=== PATIENT | male | born 1935 | race Caucasian/White ===

== ENCOUNTER → 2018-07-22 10:30 | Outpatient (CLI) | payer MEDICARE, OTHER, SELFPAY ==
[2018-07-22 10:52] LABS: Abs Immature Grans 0.01 k/cumm (0.0-0.09); Absolute Basophil Count 0.02 k/cumm (0.0-0.2); Absolute Eosinophil Count 0.02 k/cumm (0.0-0.7); Absolute Lymphocyte Count 1.09 k/cumm (1.2-3.4); Absolute Monocyte Count 0.69 k/cumm (0.11-0.7); Absolute Neutrophil Count 4.62 k/cumm (1.2-6.7); Basophils % 0.3; Eosinophils % 0.3; HCT 37.6 % (40.0-50.0); HGB 12.5 g/dL (13.5-17.5); Immature Grans % 0.2; Lymphocytes % 16.9; Mean Corp. HGB Concentration 33.2 g/dL (32.0-36.0); Mean Corpuscular Hemoglobin 32.4 pg (27.0-33.0); Mean Corpuscular Volume 97.4 fL (80-95); Mean Platelet Volume 9.1 fL (8.0-11.0); Monocytes % 10.7; Neutrophils % 71.6; Platelet Count 280 x1000/uL (130-400); RBC 3.86 m/cumm (4.50-6.00); RBC Distribution Width 15.7 % (11.8-14.1); White Blood Cell Count 6.45 k/cumm (4.4-10.8)
[2018-07-22 11:04] LABS: ALT 20 U/L (12-78); AST 23 U/L (15-37); Albumin 3.5 g/dL (3.4-5.0); Alkaline Phosphatase 114 U/L (46-116); Anion Gap 7.2 mmol/L (3-11); BUN 12 mg/dL (7-18); Bilirubin, Total 1.3 mg/dL (0.2-1.0); CO2 26.8 mmol/L (21.0-32.0); CREATININE 1.07 mg/dL (0.70-1.30); Calcium 8.9 mg/dL (8.5-10.1); Chloride 103 mmol/L (98-107); Glucose 96 mg/dL (70-100); Potassium 4.3 mmol/L (3.5-5.1); Sodium 137 mmol/L (136-145)
[2018-07-23 10:53] LABS: PSA, Diagnostic 1.2 ng/ml (0-6.5)
[2018-07-24 09:51] LABS: Testosterone, Total <7.0 ng/dL (240-950)
== END ==
PROVIDERS: PCP Family Medicine; Visit Provider Internal Medicine
DX: C61 Malignant neoplasm of prostate (principal)
CPT/HCPCS: 36415; 80053; 84403; 84153; 85025

== ENCOUNTER → 2018-07-27 13:20 | Outpatient (CLI) | payer MEDICARE, OTHER, SELFPAY ==
[2018-07-27 14:04] LABS: Bilirubin, Direct 0.19 mg/dL (0.00-0.20); Bilirubin, Total 0.9 mg/dL (0.2-1.0)
== END ==
PROVIDERS: PCP Family Medicine; Visit Provider Nurse Practitioner Adult Health
DX: C61 Malignant neoplasm of prostate (principal); C79.51 Secondary malignant neoplasm of bone
CPT/HCPCS: 36415; 82247; 82248

== ENCOUNTER 2018-08-16 11:05 | Outpatient (CLI) | payer MEDICARE, OTHER, SELFPAY ==
[2018-08-16 11:35] LABS: Abs Immature Grans 0.03 k/cumm (0.0-0.09); Absolute Basophil Count 0.02 k/cumm (0.0-0.2); Absolute Eosinophil Count 0.01 k/cumm (0.0-0.7); Absolute Neutrophil Count 4.92 k/cumm (1.2-6.7); Basophils % 0.3; Eosinophils % 0.1; HCT 36.5 % (40.0-50.0); HGB 12.1 g/dL (13.5-17.5); Immature Grans % 0.4; Lymphocytes % 20.6; Mean Corp. HGB Concentration 33.2 g/dL (32.0-36.0); Mean Corpuscular Hemoglobin 32.3 pg (27.0-33.0); Mean Corpuscular Volume 97.3 fL (80-95); Mean Platelet Volume 9.3 fL (8.0-11.0); Neutrophils % 67.6; Platelet Count 253 x1000/uL (130-400); RBC 3.75 m/cumm (4.50-6.00); RBC Distribution Width 15.9 % (11.8-14.1); White Blood Cell Count 7.28 k/cumm (4.4-10.8)
[2018-08-16 11:53] LABS: ALT 24 U/L (12-78); AST 25 U/L (15-37); Albumin 3.3 g/dL (3.4-5.0); Alkaline Phosphatase 111 U/L (46-116); Anion Gap 7.2 mmol/L (3-11); BUN 16 mg/dL (7-18); CO2 28.8 mmol/L (21.0-32.0); CREATININE 0.94 mg/dL (0.70-1.30); Calcium 8.6 mg/dL (8.5-10.1); Chloride 105 mmol/L (98-107); Glucose 97 mg/dL (70-100); Potassium 4.4 mmol/L (3.5-5.1); Sodium 141 mmol/L (136-145); Total Protein 6.7 g/dL (6.4-8.2)
[2018-08-17 10:45] LABS: PSA, Diagnostic 0.8 ng/ml (0-6.5)
[2018-08-18 04:30] LABS: Testosterone, Total <7.0 ng/dL (240-950)
== END 2018-08-16 11:25 ==
PROVIDERS: PCP Family Medicine; Visit Provider Internal Medicine
DX: C61 Malignant neoplasm of prostate (principal)
CPT/HCPCS: 36415; 80053; 84403; 84153; 85025

== ENCOUNTER 2018-09-06 10:09 | Outpatient (CLI) | payer MEDICARE, OTHER, SELFPAY ==
[2018-09-06 10:41] LABS: Abs Immature Grans 0.03 k/cumm (0.0-0.09); Absolute Basophil Count 0.03 k/cumm (0.0-0.2); Absolute Eosinophil Count 0.01 k/cumm (0.0-0.7); Absolute Lymphocyte Count 1.25 k/cumm (1.2-3.4); Absolute Monocyte Count 0.84 k/cumm (0.11-0.7); Absolute Neutrophil Count 5.15 k/cumm (1.2-6.7); Basophils % 0.4; Eosinophils % 0.1; HCT 37.9 % (40.0-50.0); HGB 12.5 g/dL (13.5-17.5); Immature Grans % 0.4; Lymphocytes % 17.1; Mean Corpuscular Hemoglobin 32.3 pg (27.0-33.0); Mean Corpuscular Volume 97.9 fL (80-95); Mean Platelet Volume 9.4 fL (8.0-11.0); Monocytes % 11.5; Neutrophils % 70.5; Platelet Count 239 x1000/uL (130-400); RBC 3.87 m/cumm (4.50-6.00); RBC Distribution Width 16.8 % (11.8-14.1); White Blood Cell Count 7.31 k/cumm (4.4-10.8)
[2018-09-06 10:55] LABS: ALT 30 U/L (12-78); AST 34 U/L (15-37); Albumin 3.2 g/dL (3.4-5.0); Alkaline Phosphatase 102 U/L (46-116); Anion Gap 6.8 mmol/L (3-11); BUN 15 mg/dL (7-18); CO2 28.2 mmol/L (21.0-32.0); Calcium 8.4 mg/dL (8.5-10.1); Chloride 105 mmol/L (98-107); Glucose 97 mg/dL (70-100); Potassium 4.3 mmol/L (3.5-5.1); Sodium 140 mmol/L (136-145); Total Protein 6.5 g/dL (6.4-8.2)
[2018-09-07 10:13] LABS: PSA, Diagnostic 0.7 ng/ml (0-6.5)
[2018-09-07 23:40] LABS: Testosterone, Total <7.0 ng/dL (240-950)
== END 2018-09-06 10:29 ==
PROVIDERS: PCP Family Medicine; Visit Provider Internal Medicine
DX: C61 Malignant neoplasm of prostate (principal); C79.51 Secondary malignant neoplasm of bone
CPT/HCPCS: 36415; 80053; 84403; 84153; 85025

== ENCOUNTER 2018-09-24 00:47 | Outpatient (CLI) | payer MEDICARE, OTHER, SELFPAY ==
--- NOTE | 2018-09-24 08:28 | DI.CT_ITS ---
SYMPTOMS/DIAGNOSIS: PROSTATE CA, C61, H/O METASTATIC PROSTATE CA, ON TREATMENT , ? STATUS OF DISEASE ABDOMEN AND PELVIS CT: CT examination of the abdomen and pelvis was performed with a bolus infusion of 100 cc of Omnipaque 350 and ingestion of dilute barium. Examination is compared with the previous chest, abdomen and pelvis CT of 01/11/18. The patient has known prostatic carcinoma with multiple bony metastases. On today' s examination, there are many more visible sclerotic metastases throughout thoracic and lumbar spine and pelvis in comparison with the previous examination. Images obtained through the lung bases show a 9 mm in diameter nodule associated with the minor fissure on the right, which is stable since previous chest CT of 2010. Liver and spleen appear normal. Pancreas is largely fatty replaced. Gallbladder and bile ducts are CT normal. Presumed duodenal diverticulum noted. Abdominal aorta is of normal diameter and no major vascular abnormality is seen. Adrenals and kidneys appear normal. No evidence of hydronephrosis or urinary tract calcification. No focal bowel pathology. No evidence of obstruction. Abdominal wall shows no evidence of significant hernia. No significant adenopathy identified in the abdomen or pelvis. CONCLUSION: 1. Marked interval increase in prominence of numerous sclerotic bony metastases with many more sclerotic lesions visible on today's examination in comparison with CT of 01/11/2018. 2. No other evidence of remote metastatic disease in a patient with a history of prostate carcinoma.
--- NOTE | 2018-09-24 08:45 | DI.NM_ITS ---
SYMPTOMS/DIAGNOSIS: PROSTATE CA, C61, H/O METASTATIC, ON TREATMENT, ? RESPONSE BONE SCAN: Whole body bone scan was performed with intravenous infusion of 25 mCi of technetium 99 labelled methylene diphosphonate. Comparison with most recent previous study of 04/06/2018 again shows numerous high uptake lesions throughout the axial skeleton. Generally, the lesions are of decreased intensity in comparison with the previous examination. Fewer lesions are visible. Please note that the CT examination obtained today showed markedly increased sclerosis of multiple lesions and those findings in conjunction with the bone scan findings suggest increased healing of multiple lesions with decreased lytic activity of the bony lesions. CONCLUSION: Interval decrease in intensity and visible number of widespread bony metastatic lesions. Please see above discussion.
[2018-09-24 08:58] LABS: Abs Immature Grans 0.02 k/cumm (0.0-0.09); Absolute Basophil Count 0.01 k/cumm (0.0-0.2); Absolute Eosinophil Count 0.01 k/cumm (0.0-0.7); Absolute Lymphocyte Count 1.14 k/cumm (1.2-3.4); Absolute Monocyte Count 0.52 k/cumm (0.11-0.7); Absolute Neutrophil Count 2.57 k/cumm (1.2-6.7); Basophils % 0.2; Eosinophils % 0.2; HCT 37.9 % (40.0-50.0); HGB 12.2 g/dL (13.5-17.5); Immature Grans % 0.5; Lymphocytes % 26.7; Mean Corp. HGB Concentration 32.2 g/dL (32.0-36.0); Mean Corpuscular Hemoglobin 31.3 pg (27.0-33.0); Mean Corpuscular Volume 97.2 fL (80-95); Mean Platelet Volume 9.3 fL (8.0-11.0); Monocytes % 12.2; Neutrophils % 60.2; Platelet Count 203 x1000/uL (130-400); RBC Distribution Width 16.7 % (11.8-14.1); White Blood Cell Count 4.27 k/cumm (4.4-10.8)
[2018-09-24 09:10] LABS: ALT 30 U/L (12-78); AST 33 U/L (15-37); Albumin 3.1 g/dL (3.4-5.0); Alkaline Phosphatase 82 U/L (46-116); Anion Gap 8.2 mmol/L (3-11); BUN 15 mg/dL (7-18); Bilirubin, Total 0.8 mg/dL (0.2-1.0); CO2 28.8 mmol/L (21.0-32.0); CREATININE 0.88 mg/dL (0.70-1.30); Calcium 8.6 mg/dL (8.5-10.1); Chloride 104 mmol/L (98-107); Glucose 97 mg/dL (70-100); Potassium 4.2 mmol/L (3.5-5.1); Sodium 141 mmol/L (136-145); Total Protein 6.3 g/dL (6.4-8.2)
[2018-09-24] MEDS: Omnipaque 350 MG/ML 100 ML BTL IJ (11:10)
[2018-09-27 10:12] LABS: PSA, Diagnostic 0.6 ng/ml (0-6.5)
[2018-09-27 21:52] LABS: Testosterone, Total <7.0 ng/dL (240-950)
== END 2018-09-24 01:07 ==
PROVIDERS: Internal Medicine; PCP Family Medicine; Visit Provider Nurse Practitioner Family
DX: C61 Malignant neoplasm of prostate (principal); C79.51 Secondary malignant neoplasm of bone; Z79.899 Other long term (current) drug therapy
CPT/HCPCS: 36415; 78306; 80053; 84403; 74177; 84153; 85025; J3490

== ENCOUNTER 2018-09-29 14:17 | Outpatient (CLI) | payer MEDICARE, OTHER, SELFPAY ==
--- NOTE | 2018-09-29 09:31 | DI.US_ITS ---
SYMPTOM/DIAGNOSIS: ARM EDEMA, R60.0, ? DVT RIGHT UPPER EXTREMITY ULTRASOUND: The right jugular vein, subclavian vein and brachial vein compress and reveal normal color flow. The right basilic vein compresses proximal to the mid segment but from the mid to distal portion of the vein, we observed visible thrombus and edema is noted from the proximal right forearm to the posterior portion of the hand. The cephalic vein proximal to distal compresses well and color flow is identified. SUMMARY: Findings consistent with DVT involving the basilic vein as noted above.
[2018-09-29] MEDS: Omnipaque 350 MG/ML 100 ML BTL IJ (11:22)
--- NOTE | 2018-09-29 11:47 | DI.CT_ITS ---
SYMPTOM/DIAGNOSIS: RESTAGING EXAM, METASTATIC PROSTATE CA, AND GIST TUMOR, C61, C79.[address]: The images are compared with a prior chest CT of 01/11/18. When compared with the previous study, interval development of innumerable metastases involving the dorsal spine is demonstrated. Also there are multiple metastatic deposits in the ribs, not seen on the previous study. Regions of bilateral lower lobe scarring and right upper lobe scarring are identified. There is no evidence of a discrete pleural based, intrapulmonary or hilar mass or evidence of hilar or mediastinal adenopathy. There is no evidence of a pericardial effusion. The heart is not enlarged. Atherosclerotic changes are noted in the aorta without evidence of an aneurysm. There is no evidence of a pleural effusion. Coronary artery calcification is identified. SUMMARY: Innumerable metastases involving the dorsal spine are identified. Again noted are findings consistent with DISH. Multiple rib lesions are identified as well.
== END 2018-09-29 14:37 ==
PROVIDERS: PCP Family Medicine; Visit Provider Internal Medicine
DX: C79.51 Secondary malignant neoplasm of bone (principal); C61 Malignant neoplasm of prostate
CPT/HCPCS: 71260; 93971; J3490

== ENCOUNTER 2018-10-11 13:07 | Outpatient (CLI) | payer MEDICARE, OTHER, SELFPAY ==
[2018-10-11 13:37] LABS: Absolute Basophil Count 0.01 k/cumm (0.0-0.2); Absolute Eosinophil Count 0.07 k/cumm (0.0-0.7); Absolute Lymphocyte Count 1.22 k/cumm (1.2-3.4); Absolute Monocyte Count 0.49 k/cumm (0.11-0.7); Absolute Neutrophil Count 3.36 k/cumm (1.2-6.7); Basophils % 0.2; Eosinophils % 1.4; HCT 40.2 % (40.0-50.0); HGB 12.9 g/dL (13.5-17.5); Lymphocytes % 23.7; Mean Corp. HGB Concentration 32.1 g/dL (32.0-36.0); Mean Corpuscular Hemoglobin 31.4 pg (27.0-33.0); Mean Corpuscular Volume 97.8 fL (80-95); Mean Platelet Volume 9.6 fL (8.0-11.0); Monocytes % 9.5; Neutrophils % 65.2; Platelet Count 188 x1000/uL (130-400); RBC 4.11 m/cumm (4.50-6.00); RBC Distribution Width 16.6 % (11.8-14.1); White Blood Cell Count 5.15 k/cumm (4.4-10.8)
[2018-10-11 14:23] LABS: ALT 22 U/L (12-78); AST 31 U/L (15-37); Albumin 3.3 g/dL (3.4-5.0); Alkaline Phosphatase 105 U/L (46-116); Anion Gap 7.7 mmol/L (3-11); BUN 16 mg/dL (7-18); Bilirubin, Total 1.5 mg/dL (0.2-1.0); CO2 28.3 mmol/L (21.0-32.0); Calcium 8.9 mg/dL (8.5-10.1); Chloride 106 mmol/L (98-107); Glucose 131 mg/dL (70-100); Potassium 4.4 mmol/L (3.5-5.1); Sodium 142 mmol/L (136-145); Total Protein 6.7 g/dL (6.4-8.2)
[2018-10-12 09:54] LABS: PSA, Diagnostic 0.6 ng/ml (0-6.5)
[2018-10-14 03:12] LABS: Testosterone, Total <7.0 ng/dL (240-950)
== END 2018-10-11 13:27 ==
PROVIDERS: PCP Family Medicine; Visit Provider Nurse Practitioner Family
DX: C61 Malignant neoplasm of prostate (principal)
CPT/HCPCS: 36415; 80053; 84403; 84153; 85025

== ENCOUNTER 2018-11-15 11:38 | Outpatient (CLI) | payer MEDICARE, OTHER, SELFPAY ==
[2018-11-15 12:36] LABS: Absolute Basophil Count 0.01 k/cumm (0.0-0.2); Absolute Eosinophil Count 0.07 k/cumm (0.0-0.7); Absolute Lymphocyte Count 1.61 k/cumm (1.2-3.4); Absolute Monocyte Count 0.47 k/cumm (0.11-0.7); Absolute Neutrophil Count 2.49 k/cumm (1.2-6.7); Basophils % 0.2; Eosinophils % 1.5; HCT 42.2 % (40.0-50.0); HGB 14.3 g/dL (13.5-17.5); Lymphocytes % 34.6; Mean Corp. HGB Concentration 33.9 g/dL (32.0-36.0); Mean Corpuscular Hemoglobin 32.3 pg (27.0-33.0); Mean Corpuscular Volume 95.3 fL (80-95); Mean Platelet Volume 10.1 fL (8.0-11.0); Monocytes % 10.1; Neutrophils % 53.6; Platelet Count 191 x1000/uL (130-400); RBC 4.43 m/cumm (4.50-6.00); RBC Distribution Width 14.2 % (11.8-14.1); White Blood Cell Count 4.65 k/cumm (4.4-10.8)
[2018-11-15 12:49] LABS: ALT 25 U/L (12-78); AST 23 U/L (15-37); Albumin 3.6 g/dL (3.4-5.0); Alkaline Phosphatase 125 U/L (46-116); Anion Gap 11.6 mmol/L (3-11); BUN 20 mg/dL (7-18); Bilirubin, Total 0.9 mg/dL (0.2-1.0); CO2 29.4 mmol/L (21.0-32.0); Calcium 9.3 mg/dL (8.5-10.1); Chloride 102 mmol/L (98-107); Glucose 105 mg/dL (70-100); Potassium 4.1 mmol/L (3.5-5.1); Sodium 143 mmol/L (136-145); Total Protein 7.3 g/dL (6.4-8.2)
[2018-11-16 09:56] LABS: PSA, Diagnostic 0.6 ng/ml (0-6.5)
[2018-11-20 14:42] LABS: Testosterone, Total <7.0 ng/dL (240-950)
== END 2018-11-15 11:58 ==
PROVIDERS: PCP Family Medicine; Visit Provider Nurse Practitioner Family
DX: C61 Malignant neoplasm of prostate (principal)
CPT/HCPCS: 36415; 80053; 84403; 84153; 85025

== ENCOUNTER 2018-12-13 10:23 | Outpatient (CLI) | payer MEDICARE, OTHER, SELFPAY ==
[2018-12-13 10:48] LABS: Absolute Basophil Count 0.01 k/cumm (0.0-0.2); Absolute Eosinophil Count 0.03 k/cumm (0.0-0.7); Basophils % 0.2; Eosinophils % 0.5; HCT 42.5 % (40.0-50.0); HGB 14.6 g/dL (13.5-17.5); Lymphocytes % 18.1; Mean Corp. HGB Concentration 34.4 g/dL (32.0-36.0); Mean Corpuscular Hemoglobin 32.5 pg (27.0-33.0); Mean Corpuscular Volume 94.7 fL (80-95); Mean Platelet Volume 9.9 fL (8.0-11.0); Monocytes % 5.4; Neutrophils % 75.8; Platelet Count 194 x1000/uL (130-400); RBC 4.49 m/cumm (4.50-6.00); RBC Distribution Width 14.8 % (11.8-14.1); White Blood Cell Count 5.54 k/cumm (4.4-10.8)
[2018-12-13 11:33] LABS: ALT 47 U/L (12-78); AST 37 U/L (15-37); Albumin 3.9 g/dL (3.4-5.0); Alkaline Phosphatase 129 U/L (46-116); BUN 17 mg/dL (7-18); Bilirubin, Total 1.5 mg/dL (0.2-1.0); Calcium 9.6 mg/dL (8.5-10.1); Chloride 104 mmol/L (98-107); Estimated GFR 58.11 (mL/min/1.73m2); Glucose 95 mg/dL (70-100); Potassium 3.8 mmol/L (3.5-5.1); Sodium 141 mmol/L (136-145); Total Protein 7.2 g/dL (6.4-8.2)
[2018-12-14 11:04] LABS: PSA, Diagnostic 0.4 ng/ml (0-6.5)
[2018-12-16 16:13] LABS: Testosterone, Total <7.0 ng/dL (240-950)
== END 2018-12-13 10:43 ==
PROVIDERS: PCP Family Medicine; Visit Provider Nurse Practitioner Family
DX: C61 Malignant neoplasm of prostate (principal)
CPT/HCPCS: 36415; 80053; 84403; 84153; 85025

== ENCOUNTER 2018-12-16 15:42 | Outpatient (CLI) | payer MEDICARE, OTHER, SELFPAY ==
--- NOTE | 2018-12-16 14:30 | DI.RAD_ITS ---
SYMPTOMS/DIAGNOSIS: PAIN ON BOTTOM OF FOOT NEAR HEEL, DIFFICULTY WALKING, H/O PROSTATE CA AND CHEMOTHERAPY, ? OCCULT FX LEFT FOOT: Three views. No acute or healing fracture or dislocation is seen. There is a small spur at the plantar surface of the calcaneus. There are mild changes of osteoarthritis in the foot. The soft tissues are unremarkable. IMPRESSION: 1. No evidence of an acute or healing fracture or dislocation. 2. Mild osteoarthritis.
== END 2018-12-16 16:02 ==
PROVIDERS: PCP Family Medicine; Visit Provider Family Medicine
DX: M79.672 Pain in left foot (principal); R26.2 Difficulty in walking, not elsewhere classified; Z92.21 Personal history of antineoplastic chemotherapy; Z85.46 Personal history of malignant neoplasm of prostate; M19.072 Primary osteoarthritis, left ankle and foot; M77.32 Calcaneal spur, left foot
CPT/HCPCS: 73630

== ENCOUNTER 2018-12-27 00:47 | Outpatient (CLI) | payer MEDICARE, OTHER, SELFPAY ==
[2018-12-27] MEDS: Breeza Beverage 473 ML BTL PO ×2 (09:43→09:44)
[2018-12-27] MEDS: Omnipaque 350 MG/ML 50 ML BTL IJ (09:44)
[2018-12-27] MEDS: Omnipaque 350 MG/ML 100 ML BTL IV (10:50)
--- NOTE | 2018-12-27 11:45 | DI.CT_ITS ---
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 There is a stable small area of nodularity or scarring in the right middle lobe. There is mild nodularity along the major fissure which appears stable. There are mild bilateral areas of linear scarring or atelectasis. Paraseptal emphysema and mild scarring is seen at the lung apices. No suspicious pulmonary nodules or adenopathy is seen. Numerous sclerotic lesions are seen throughout the spine and ribs. There is stable dilatation of the ascending aorta. The liver, spleen, pancreas, adrenals and kidneys are unremarkable. The stomach again shows an exophytic nodule near the fundus. No adenopathy is seen. The patient appears to be status post prostatectomy. There is mild bladder wall thickening and trabeculation. There are innumerable sclerotic bony lesions without gross interval change. IMPRESSION: Stable bony lesions. No evidence of pulmonary nodules or adenopathy in the abdomen or pelvis.
== END 2018-12-27 01:07 ==
PROVIDERS: PCP Family Medicine; Visit Provider Internal Medicine
DX: C61 Malignant neoplasm of prostate (principal); C49.A2 Gastrointestinal stromal tumor of stomach; R91.8 Other nonspecific abnormal finding of lung field; C79.51 Secondary malignant neoplasm of bone
CPT/HCPCS: 74177; 71260; J3490; Q9967

== ENCOUNTER 2019-01-04 13:04 | Outpatient (CLI) | payer MEDICARE, OTHER, SELFPAY ==
[2019-01-04 14:18] LABS: ALT 25 U/L (12-78); AST 25 U/L (15-37); Albumin 3.8 g/dL (3.4-5.0); Alkaline Phosphatase 115 U/L (46-116); Anion Gap 9.6 mmol/L (3-11); BUN 20 mg/dL (7-18); Bilirubin, Total 2.4 mg/dL (0.2-1.0); CO2 30.4 mmol/L (21.0-32.0); CREATININE 1.01 mg/dL (0.70-1.30); Calcium 9.4 mg/dL (8.5-10.1); Chloride 103 mmol/L (98-107); Glucose 111 mg/dL (70-100); Potassium 4.2 mmol/L (3.5-5.1); Sodium 143 mmol/L (136-145); Total Protein 7.2 g/dL (6.4-8.2)
[2019-01-04 15:29] LABS: Absolute Basophil Count 0.01 k/cumm (0.0-0.2); Absolute Eosinophil Count 0.03 k/cumm (0.0-0.7); Absolute Lymphocyte Count 1.41 k/cumm (1.2-3.4); Absolute Monocyte Count 0.33 k/cumm (0.11-0.7); Absolute Neutrophil Count 2.97 k/cumm (1.2-6.7); Basophils % 0.2; Eosinophils % 0.6; Lymphocytes % 29.7; Mean Corp. HGB Concentration 33.3 g/dL (32.0-36.0); Mean Corpuscular Hemoglobin 31.7 pg (27.0-33.0); Mean Platelet Volume 10.3 fL (8.0-11.0); Monocytes % 6.9; Neutrophils % 62.6; Platelet Count 205 x1000/uL (130-400); RBC 4.42 m/cumm (4.50-6.00); RBC Distribution Width 14.6 % (11.8-14.1); White Blood Cell Count 4.75 k/cumm (4.4-10.8)
[2019-01-05 09:16] LABS: PSA, Diagnostic 0.3 ng/ml (0-6.5)
[2019-01-07 14:34] LABS: Testosterone, Total <7.0 ng/dL (240-950)
== END 2019-01-04 13:24 ==
PROVIDERS: PCP Family Medicine; Visit Provider Nurse Practitioner Family
DX: C61 Malignant neoplasm of prostate (principal); C79.51 Secondary malignant neoplasm of bone
CPT/HCPCS: 80053; 84403; 84153; 85025

== ENCOUNTER 2019-02-01 09:44 | Outpatient (CLI) | payer MEDICARE, OTHER, SELFPAY ==
[2019-02-01 10:14] LABS: Abs Immature Grans 0.01 k/cumm (0.0-0.09); Absolute Basophil Count 0.01 k/cumm (0.0-0.2); Absolute Eosinophil Count 0.05 k/cumm (0.0-0.7); Absolute Lymphocyte Count 1.05 k/cumm (1.2-3.4); Absolute Monocyte Count 0.41 k/cumm (0.11-0.7); Absolute Neutrophil Count 2.95 k/cumm (1.2-6.7); Basophils % 0.2; Eosinophils % 1.1; HCT 39.1 % (40.0-50.0); HGB 13.4 g/dL (13.5-17.5); Immature Grans % 0.2; Lymphocytes % 23.4; Mean Corp. HGB Concentration 34.3 g/dL (32.0-36.0); Mean Corpuscular Hemoglobin 33.3 pg (27.0-33.0); Mean Corpuscular Volume 97.3 fL (80-95); Mean Platelet Volume 9.7 fL (8.0-11.0); Monocytes % 9.2; Neutrophils % 65.9; Platelet Count 189 x1000/uL (130-400); RBC 4.02 m/cumm (4.50-6.00); RBC Distribution Width 14.7 % (11.8-14.1); White Blood Cell Count 4.48 k/cumm (4.4-10.8)
[2019-02-01 10:30] LABS: ALT 23 U/L (12-78); AST 23 U/L (15-37); Albumin 3.5 g/dL (3.4-5.0); Alkaline Phosphatase 108 U/L (46-116); Anion Gap 5.4 mmol/L (3-11); BUN 15 mg/dL (7-18); Bilirubin, Total 1.9 mg/dL (0.2-1.0); CO2 33.6 mmol/L (21.0-32.0); CREATININE 1.05 mg/dL (0.70-1.30); Chloride 105 mmol/L (98-107); Glucose 99 mg/dL (70-100); Potassium 3.8 mmol/L (3.5-5.1); Sodium 144 mmol/L (136-145); Total Protein 6.8 g/dL (6.4-8.2)
[2019-02-02 11:15] LABS: PSA, Diagnostic 0.2 ng/ml (0-6.5)
[2019-02-03 22:28] LABS: Testosterone, Total <7.0 ng/dL (240-950)
== END 2019-02-01 10:04 ==
PROVIDERS: PCP Family Medicine; Visit Provider Internal Medicine
DX: C61 Malignant neoplasm of prostate (principal); C79.51 Secondary malignant neoplasm of bone
CPT/HCPCS: 36415; 80053; 84403; 84153; 85025

== ENCOUNTER 2019-03-28 16:03 | Outpatient (CLI) | payer MEDICARE, OTHER, SELFPAY ==
[2019-03-28 16:43] LABS: Abs Immature Grans 0.01 k/cumm (0.0-0.09); Absolute Basophil Count 0.01 k/cumm (0.0-0.2); Absolute Lymphocyte Count 1.74 k/cumm (1.2-3.4); Absolute Monocyte Count 0.45 k/cumm (0.11-0.7); Absolute Neutrophil Count 3.07 k/cumm (1.2-6.7); Basophils % 0.2; Eosinophils % 1.9; HCT 42.3 % (40.0-50.0); HGB 14.3 g/dL (13.5-17.5); Immature Grans % 0.2; Lymphocytes % 32.3; Mean Corp. HGB Concentration 33.8 g/dL (32.0-36.0); Mean Corpuscular Hemoglobin 33.2 pg (27.0-33.0); Mean Corpuscular Volume 98.1 fL (80-95); Mean Platelet Volume 9.9 fL (8.0-11.0); Monocytes % 8.4; Platelet Count 198 x1000/uL (130-400); RBC 4.31 m/cumm (4.50-6.00); RBC Distribution Width 13.6 % (11.8-14.1); White Blood Cell Count 5.38 k/cumm (4.4-10.8)
[2019-03-28 17:04] LABS: ALT 22 U/L (12-78); AST 20 U/L (15-37); Albumin 3.7 g/dL (3.4-5.0); Alkaline Phosphatase 92 U/L (46-116); Anion Gap 5.8 mmol/L (3-11); BUN 21 mg/dL (7-18); Bilirubin, Total 1.4 mg/dL (0.2-1.0); CO2 32.2 mmol/L (21.0-32.0); CREATININE 1.06 mg/dL (0.70-1.30); Calcium 9.2 mg/dL (8.5-10.1); Chloride 105 mmol/L (98-107); Glucose 102 mg/dL (70-100); Potassium 3.9 mmol/L (3.5-5.1); Sodium 143 mmol/L (136-145); Total Protein 7.1 g/dL (6.4-8.2)
[2019-03-30 11:08] LABS: PSA, Diagnostic 0.2 ng/ml (0-6.5)
[2019-04-04 12:13] LABS: Testosterone, Total <7.0 ng/dL (240-950)
== END 2019-03-28 16:23 ==
PROVIDERS: PCP Family Medicine
DX: C61 Malignant neoplasm of prostate (principal); C79.51 Secondary malignant neoplasm of bone
CPT/HCPCS: 36415; 80053; 84403; 84153; 85025

== ENCOUNTER 2019-04-29 01:19 | Outpatient (CLI) | payer MEDICARE, OTHER, SELFPAY ==
[2019-04-29] MEDS: Omnipaque 350 MG/ML 50 ML BTL IJ (10:13)
[2019-04-29] MEDS: Breeza Beverage 473 ML BTL PO ×2 (10:14)
[2019-04-29 10:47] LABS: ALT 20 U/L (12-78); AST 20 U/L (15-37); Albumin 3.7 g/dL (3.4-5.0); Alkaline Phosphatase 87 U/L (46-116); Anion Gap 4.3 mmol/L (3-11); BUN 17 mg/dL (7-18); Bilirubin, Total 2.1 mg/dL (0.2-1.0); CO2 31.7 mmol/L (21.0-32.0); CREATININE 0.88 mg/dL (0.70-1.30); Calcium 9.4 mg/dL (8.5-10.1); Chloride 105 mmol/L (98-107); Glucose 103 mg/dL (70-100); Sodium 141 mmol/L (136-145); Total Protein 6.9 g/dL (6.4-8.2)
[2019-04-29] MEDS: Omnipaque 350 MG/ML 100 ML BTL IJ (11:17)
[2019-04-29] MEDS: Normal Saline Flush 10 ML SYR IVP (11:19)
--- NOTE | 2019-04-29 11:20 | DI.CT_ITS ---
SYMPTOMS/DIAGNOSIS: METASTATIC PROSTATE CA AND GASTRIC GIST, RESTAGING, C49.A2, C61, C79.51 CT SCAN OF THE CHEST, ABDOMEN AND PELVIS: CT scan of the chest, abdomen and pelvis was performed following the uneventful administration of intravenous and oral contrast material. Comparison examinations 12/27/18, 09/29/18 and 09/24/18. CT SCAN OF THE ABDOMEN AND PELVIS: The liver is normal in size. No hepatic mass is seen. The portal, superior mesenteric and splenic veins are patent. The gallbladder is negative. There is no biliary ductal dilatation. There is no evidence of a pancreatic mass. Incidental note is made of a small duodenal diverticulum arising from the second portion of the duodenum. The spleen is unremarkable. There is no evidence of an adrenal mass. The kidneys show normal and symmetric enhancement. No evidence of a solid renal mass or obstruction. The urinary bladder is intact. There is again seen prostatic impingement on the base of the urinary bladder. This is unchanged. There is atherosclerosis of the abdominal aorta. No significant abdominal or pelvic adenopathy or pneumoperitoneum is seen. There is a trace amount of free fluid in the dependent portion of the pelvis. The area of nodularity along the fundus of the stomach is again seen and unchanged. There is diverticulosis of the colon but no evidence of acute diverticulitis. The bowel shows no evidence of obstruction or inflammation. No findings to suggest an acute appendicitis are present. There is again seen extensive osseous metastatic disease. IMPRESSION: Stable osseous metastatic disease. CT SCAN OF THE CHEST: There is atherosclerosis of the thoracic aorta. There is stable dilatation of the ascending aorta. The heart size is stable. No significant pericardial effusion is seen. No pleural effusion or pneumothorax is identified. No significant thoracic adenopathy is appreciated. No pleural effusion or pneumothorax is present. Paraseptal emphysematous changes are present in the lungs. There is a stable nodule in the right middle lobe. No new pulmonary nodules are seen. There is scarring in the lungs and scaring along the major fissure on the right. The tracheobronchial tree is unremarkable. Dependent atelectasis or scarring is seen in the lung bases. There are sclerotic foci in the bones consistent with osseous metastatic disease. Degenerative changes are seen in the spine.
== END 2019-04-29 01:39 ==
PROVIDERS: Internal Medicine; PCP Family Medicine; Visit Provider Internal Medicine Hematology & Oncology
DX: C61 Malignant neoplasm of prostate (principal); C49.A2 Gastrointestinal stromal tumor of stomach; C79.51 Secondary malignant neoplasm of bone; R91.1 Solitary pulmonary nodule; K57.30 Diverticulosis of large intestine without perforation or abscess without bleeding
CPT/HCPCS: 74177; 80053; 71260; J3490; Q9967

== ENCOUNTER 2019-06-23 09:26 | Outpatient (CLI) | payer MEDICARE, OTHER, SELFPAY ==
[2019-06-23 09:50] LABS: Abs Immature Grans 0.01 k/cumm (0.0-0.09); Absolute Basophil Count 0.01 k/cumm (0.0-0.2); Absolute Eosinophil Count 0.07 k/cumm (0.0-0.7); Absolute Lymphocyte Count 1.22 k/cumm (1.2-3.4); Absolute Monocyte Count 0.36 k/cumm (0.11-0.7); Absolute Neutrophil Count 4.03 k/cumm (1.2-6.7); Basophils % 0.2; Eosinophils % 1.2; HCT 39.6 % (40.0-50.0); HGB 13.2 g/dL (13.5-17.5); Immature Grans % 0.2; Lymphocytes % 21.4; Mean Corp. HGB Concentration 33.3 g/dL (32.0-36.0); Mean Corpuscular Hemoglobin 32.6 pg (27.0-33.0); Mean Corpuscular Volume 97.8 fL (80-95); Mean Platelet Volume 9.2 fL (8.0-11.0); Monocytes % 6.3; Neutrophils % 70.7; Platelet Count 189 x1000/uL (130-400); RBC 4.05 m/cumm (4.50-6.00)
[2019-06-23 09:59] LABS: ALT 29 U/L (12-78); AST 16 U/L (15-37); Albumin 3.8 g/dL (3.4-5.0); Alkaline Phosphatase 99 U/L (46-116); Anion Gap 5.9 mmol/L (3-11); BUN 19 mg/dL (7-18); Bilirubin, Total 1.3 mg/dL (0.2-1.0); CO2 31.1 mmol/L (21.0-32.0); CREATININE 0.89 mg/dL (0.70-1.30); Calcium 9.5 mg/dL (8.5-10.1); Chloride 104 mmol/L (98-107); Glucose 102 mg/dL (70-100); Potassium 4.2 mmol/L (3.5-5.1); Sodium 141 mmol/L (136-145); Total Protein 7.2 g/dL (6.4-8.2)
[2019-06-27 14:55] LABS: PSA, Diagnostic 0.2 ng/ml (0-6.5)
== END 2019-06-23 09:46 ==
PROVIDERS: PCP Family Medicine; Visit Provider Internal Medicine
DX: C61 Malignant neoplasm of prostate (principal); C79.51 Secondary malignant neoplasm of bone
CPT/HCPCS: 36415; 80053; 84153; 85025

== ENCOUNTER 2019-07-14 10:05 | Outpatient (CLI) | payer MEDICARE, OTHER, SELFPAY ==
[2019-07-14 10:37] LABS: Abs Immature Grans 0.01 k/cumm (0.0-0.09); Absolute Basophil Count 0.01 k/cumm (0.0-0.2); Absolute Eosinophil Count 0.06 k/cumm (0.0-0.7); Absolute Lymphocyte Count 1.57 k/cumm (1.2-3.4); Absolute Monocyte Count 0.42 k/cumm (0.11-0.7); Absolute Neutrophil Count 2.74 k/cumm (1.2-6.7); Basophils % 0.2; Eosinophils % 1.2; HCT 40.4 % (40.0-50.0); HGB 13.3 g/dL (13.5-17.5); Immature Grans % 0.2; Lymphocytes % 32.6; Mean Corp. HGB Concentration 32.9 g/dL (32.0-36.0); Mean Corpuscular Volume 97.3 fL (80-95); Mean Platelet Volume 9.7 fL (8.0-11.0); Monocytes % 8.7; Neutrophils % 57.1; Platelet Count 199 x1000/uL (130-400); RBC 4.15 m/cumm (4.50-6.00); RBC Distribution Width 14.4 % (11.8-14.1); White Blood Cell Count 4.81 k/cumm (4.4-10.8)
[2019-07-14 10:50] LABS: ALT 19 U/L (12-78); AST 13 U/L (15-37); Albumin 3.7 g/dL (3.4-5.0); Alkaline Phosphatase 92 U/L (46-116); Anion Gap 7.3 mmol/L (3-11); BUN 21 mg/dL (7-18); Bilirubin, Total 1.2 mg/dL (0.2-1.0); CO2 30.7 mmol/L (21.0-32.0); CREATININE 1.01 mg/dL (0.70-1.30); Calcium 9.1 mg/dL (8.5-10.1); Chloride 104 mmol/L (98-107); Glucose 103 mg/dL (70-100); Potassium 3.9 mmol/L (3.5-5.1); Sodium 142 mmol/L (136-145); Total Protein 7.1 g/dL (6.4-8.2)
[2019-07-15 10:42] LABS: PSA, Diagnostic 0.1 ng/ml (0-6.5)
[2019-07-16 16:52] LABS: Testosterone, Total <7.0 ng/dL (240-950)
== END 2019-07-14 10:25 ==
PROVIDERS: PCP Family Medicine; Visit Provider Internal Medicine
DX: C61 Malignant neoplasm of prostate (principal); C79.51 Secondary malignant neoplasm of bone
CPT/HCPCS: 36415; 80053; 84403; 84153; 85025

== ENCOUNTER 2019-09-15 13:49 | Outpatient (CLI) | payer MEDICARE, OTHER, SELFPAY ==
[2019-09-15 14:23] LABS: Absolute Basophil Count 0.01 k/cumm (0.0-0.2); Absolute Eosinophil Count 0.08 k/cumm (0.0-0.7); Absolute Lymphocyte Count 1.72 k/cumm (1.2-3.4); Absolute Neutrophil Count 3.24 k/cumm (1.2-6.7); Basophils % 0.2; Eosinophils % 1.5; HCT 40.8 % (40.0-50.0); HGB 13.7 g/dL (13.5-17.5); Lymphocytes % 31.6; Mean Corp. HGB Concentration 33.6 g/dL (32.0-36.0); Mean Corpuscular Hemoglobin 32.6 pg (27.0-33.0); Mean Corpuscular Volume 97.1 fL (80-95); Mean Platelet Volume 9.7 fL (8.0-11.0); Monocytes % 7.3; Neutrophils % 59.4; Platelet Count 210 x1000/uL (130-400); RBC Distribution Width 13.9 % (11.8-14.1); White Blood Cell Count 5.45 k/cumm (4.4-10.8)
[2019-09-15 15:14] LABS: AST 19 U/L (15-37); Albumin 3.7 g/dL (3.4-5.0); Alkaline Phosphatase 106 U/L (46-116); BUN 20 mg/dL (7-18); Bilirubin, Total 1.2 mg/dL (0.2-1.0); CREATININE 1.25 mg/dL (0.70-1.30); Calcium 8.8 mg/dL (8.5-10.1); Chloride 104 mmol/L (98-107); Glucose 144 mg/dL (70-100); Potassium 4.1 mmol/L (3.5-5.1); Sodium 142 mmol/L (136-145); Total Protein 6.7 g/dL (6.4-8.2)
[2019-09-15 15:25] LABS: ALT 18 U/L (16-63)
[2019-09-16 09:39] LABS: PSA, Diagnostic 0.2 ng/ml (0-6.5)
[2019-09-19 15:03] LABS: Testosterone, Total <7.0 ng/dL (240-950)
== END 2019-09-15 14:09 ==
PROVIDERS: PCP Family Medicine; Visit Provider Internal Medicine
DX: C61 Malignant neoplasm of prostate (principal)
CPT/HCPCS: 36415; 80053; 84403; 84153; 85025

== ENCOUNTER 2019-10-12 12:36 | Emergency (ER) | payer MEDICARE, OTHER, SELFPAY ==
[2019-10-12 12:47] VITALS: BP 165/97; PULSE 81; RESP 18; TEMP 36.1; O2SAT 98
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
--- NOTE | 2019-10-12 13:20 | DI.CT_ITS ---
EXAM: CT HEAD AND CERVICAL SPINE WO CLINICAL HISTORY: Fall, head trauma, L posterior hematoma TECHNIQUE: WO CONTRAST COMPARISON: HEAD WITHOUT CONTRAST from 01/25/2018 FINDINGS: CT BRAIN: Age-appropriate cerebral atrophy and small vessel ischemic disease is present. No acute intracranial hemorrhage, midline shift or mass effect is present. The ventricles are intact. The basilar cister ns are patent. The visualized paranasal sinuses are clear. The mastoid air cells are well pneumatiz ed. The calvarium is intact. There is a left posterior parietal scalp hematoma. CT CERVICAL SPINE: No acute fractures or subluxations are seen in the cervical spine. Moderately severe degenerative ch anges are seen in the cervical spine. Several sclerotic lesions are seen in the cervical spine. The findings are suggestive of metastatic disease. Please correlate with patient's clinical history. T he soft tissues are unremarkable. IMPRESSION: 1. No acute intracranial process. 2. Left posterior parietal scalp hematoma. 3. No acute fractures or subluxations of the cervical spine. 4. Findings suspicious for osseous metastatic disease. Findings were discussed with the Emergency Department on the date of the examination.
[2019-10-12 14:04] VITALS: BP 129/73; PULSE 86; RESP 16; O2SAT 98
== END 2019-10-12 14:08 | disposition home or self-care (01) ==
PROVIDERS: Emergency Provider Emergency Medicine; PCP Family Medicine
DX: S09.90XA Unspecified injury of head, initial encounter (principal); S00.03XA Contusion of scalp, initial encounter; I10 Essential (primary) hypertension; W10.8XXA Fall (on) (from) other stairs and steps, initial encounter
CPT/HCPCS: 99284; 70450; 72125

== ENCOUNTER 2019-12-09 03:31 | Outpatient (CLI) | payer MEDICARE, OTHER, SELFPAY ==
--- NOTE | 2019-12-09 11:36 | DI.CT_ITS ---
EXAM: CT CHEST PE CTA CT ABDOMEN AND PELVIS CLINICAL HISTORY: H/O METASTATIC PROSTATE CA, DEVELOPED DVT RUE, PROGRESIVE DYSPNEA, S/P PARTIAL GAS TRECTOMY, GI STROMAL TUMOR,? PE DC#[id number] TECHNIQUE: CT angiogram of the chest and abdominal and pelvic CT are interpreted conjunction. CTA wa s performed with intravenous infusion of 100 cc of Omnipaque 350. Axial CT angiography was performed with multi-slice acquisition and multi-planar and/or 3D reconstruc tions. COMPARISON: CT CHEST/ABD/PEL W from 04/29/2019 FINDINGS: There is widespread osseous metastatic disease grossly unchanged from prior study of 04/29/2019. Ascending aorta is ectatic at 47-48 millimeters. There are pulmonary emboli involving lobar, segment al and sub segmental vessels most prominent in right lower lobe pulmonary arterial circulation but al so involving left upper and lower lobes. There are patchy areas of increased radiodensity seen perip herally in the left lung base suspicious for pulmonary infarction. No gross pleural effusion seen. These findings were not present on prior study of 04/29/19. Subtle nodular radiodensities are seen in minor fissure on the right which were probably present on prior study and are nonspecific, possible i ntrapulmonary lymph nodes. Underlying COPD noted. No gross mediastinal or hilar adenopathy. Liver, spleen, and pancreas are grossly unremarkable. No abdominal aortic aneurysm. 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 No additional significant vascular abnormality. No abdominal or pelvic adenopathy. Unremarkab le appearance of the adrenals and kidneys. No focal bowel pathology. Vascular clips noted adjacent to the rectum and gastric fundus. IMPRESSION: Pulmonary embolic disease involving all pulmonary lobes but predominantly the lower lobes with probab le small focal area of peripheral left lower lobe pulmonary infarction. Widespread sclerotic/mixed osseous metastases again noted grossly unchanged from 04/29/2019. No other significant new findings.
== END 2019-12-09 03:51 ==
PROVIDERS: PCP Family Medicine; Visit Provider Internal Medicine
DX: C61 Malignant neoplasm of prostate (principal); R06.09 Other forms of dyspnea; C79.51 Secondary malignant neoplasm of bone; I82.621 Acute embolism and thrombosis of deep veins of right upper extremity; I26.99 Other pulmonary embolism without acute cor pulmonale; J44.9 Chronic obstructive pulmonary disease, unspecified; I10 Essential (primary) hypertension
CPT/HCPCS: 71275

== ENCOUNTER 2019-12-09 03:33 | Outpatient (CLI) | payer MEDICARE, OTHER, SELFPAY ==
[2019-12-09] MEDS: Omnipaque 350 MG/ML 50 ML BTL PO (10:02)
[2019-12-09 10:03] LABS: Abs Immature Grans 0.01 k/cumm (0.0-0.09); Absolute Basophil Count 0.01 k/cumm (0.0-0.2); Absolute Eosinophil Count 0.08 k/cumm (0.0-0.7); Absolute Lymphocyte Count 1.49 k/cumm (1.2-3.4); Absolute Monocyte Count 0.41 k/cumm (0.11-0.7); Absolute Neutrophil Count 2.32 k/cumm (1.2-6.7); Basophils % 0.2; Eosinophils % 1.9; HCT 41.4 % (40.0-50.0); Immature Grans % 0.2 %; Lymphocytes % 34.5; Mean Corp. HGB Concentration 33.8 g/dL (32.0-36.0); Mean Corpuscular Hemoglobin 33.1 pg (27.0-33.0); Mean Corpuscular Volume 97.9 fL (80-95); Mean Platelet Volume 9.6 fL (8.0-11.0); Monocytes % 9.5; Neutrophils % 53.7; Platelet Count 214 x1000/uL (130-400); RBC 4.23 m/cumm (4.50-6.00); White Blood Cell Count 4.32 k/cumm (4.4-10.8)
[2019-12-09 10:18] LABS: ALT 20 U/L (16-63); AST 25 U/L (15-37); Albumin 3.8 g/dL (3.4-5.0); Alkaline Phosphatase 105 U/L (46-116); Anion Gap 6.8 mmol/L (3-11); BUN 19 mg/dL (7-18); Bilirubin, Total 1.4 mg/dL (0.2-1.0); CO2 32.2 mmol/L (21.0-32.0); Calcium 9.4 mg/dL (8.5-10.1); Chloride 105 mmol/L (98-107); Glucose 108 mg/dL (74-106); Potassium 4.3 mmol/L (3.5-5.1); Sodium 144 mmol/L (136-145); Total Protein 7.1 g/dL (6.4-8.2)
--- NOTE | 2019-12-09 11:36 | DI.CT_ITS ---
EXAM: CT CHEST PE CTA CT ABDOMEN AND PELVIS CLINICAL HISTORY: H/O METASTATIC PROSTATE CA, DEVELOPED DVT RUE, PROGRESIVE DYSPNEA, S/P PARTIAL GAS TRECTOMY, GI STROMAL TUMOR,? PE CA#[id number] TECHNIQUE: CT angiogram of the chest and abdominal and pelvic CT are interpreted conjunction. CTA wa s performed with intravenous infusion of 100 cc of Omnipaque 350. Axial CT angiography was performed with multi-slice acquisition and multi-planar and/or 3D reconstruc tions. COMPARISON: CT CHEST/ABD/PEL W from 04/29/2019 FINDINGS: There is widespread osseous metastatic disease grossly unchanged from prior study of 04/29/2019. Ascending aorta is ectatic at 47-48 millimeters. There are pulmonary emboli involving lobar, segment al and sub segmental vessels most prominent in right lower lobe pulmonary arterial circulation but al so involving left upper and lower lobes. There are patchy areas of increased radiodensity seen perip herally in the left lung base suspicious for pulmonary infarction. No gross pleural effusion seen. These findings were not present on prior study of 04/29/19. Subtle nodular radiodensities are seen in minor fissure on the right which were probably present on prior study and are nonspecific, possible i ntrapulmonary lymph nodes. Underlying COPD noted. No gross mediastinal or hilar adenopathy. Liver, spleen, and pancreas are grossly unremarkable. No abdominal aortic aneurysm. 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 No additional significant vascular abnormality. No abdominal or pelvic adenopathy. Unremarkab le appearance of the adrenals and kidneys. No focal bowel pathology. Vascular clips noted adjacent to the rectum and gastric fundus. IMPRESSION: Pulmonary embolic disease involving all pulmonary lobes but predominantly the lower lobes with probab le small focal area of peripheral left lower lobe pulmonary infarction. Widespread sclerotic/mixed osseous metastases again noted grossly unchanged from 04/29/2019. No other significant new findings.
[2019-12-12 12:03] LABS: PSA, Diagnostic 0.2 ng/mL (0.0-6.5)
[2019-12-13 16:06] LABS: Testosterone, Total <7.0 ng/dL (240-950)
== END 2019-12-09 03:53 ==
PROVIDERS: PCP Family Medicine; Visit Provider Internal Medicine Hematology & Oncology
DX: C61 Malignant neoplasm of prostate (principal); C79.51 Secondary malignant neoplasm of bone; R06.09 Other forms of dyspnea; I82.621 Acute embolism and thrombosis of deep veins of right upper extremity; I26.99 Other pulmonary embolism without acute cor pulmonale; J44.9 Chronic obstructive pulmonary disease, unspecified; I10 Essential (primary) hypertension
CPT/HCPCS: 71275; 80053; 84403; 74177; 84153; 85025; Q9967

== ENCOUNTER 2019-12-16 17:03 | Emergency (ER) | payer MEDICARE, OTHER, SELFPAY ==
[2019-12-16 17:12] VITALS: BP 161/94; PULSE 75; RESP 14; TEMP 36; O2SAT 95
--- NOTE | 2019-12-16 17:17 | W.ED.GENAD ---
Discharge Plan Disposition Patient Disposition: HOME Condition: Stable Discharge Details Chief Complaint: GenMedical Clinical Impression: Pulmonary embolism Primary Care Provider: Artem Barkley ED Provider: Phillip Tate Home Meds and New Rx's Prescriptions: New Eliquis DVT-PE Treat 30D Start 5 mg (74 tabs) tablets,dose pack See Rx Instructions .ROUTE .COMPLEX Qty: 74 RF: 0 Continued albuterol sulfate 90 mcg/actuation aerosol powdr breath activated 2 inh IH QID PRNRF: 0 Juhqbpsugbx-Eycai-NKF Complex 1 EACH tablet 1 ea PO DAILY RF: 0 cholecalciferol (vitamin D3) [Vitamin D3] 400 UNIT tablet 400 unit PO DAILY RF: 0 Lupron Depot (3 month) 22.5 MG syringe kit 22.5 mg IM Q3M RF: 0 hydrochlorothiazide 12.5 mg capsule 12.5 mg PO DAILY RF: 0 Discharge Instructions Instructions: Pulmonary Embolism (GEN) Additional Instructions: take the eliquis 10mg twice daily for 7 days then 5mg twice daily follow up with your primary care provider this week if you have worsening shortness of breath, chest pain/pressure or feel more ill return to the emergency department Medical Decision Making 84 yo male with hx of metastatic prostate cancer who gets lupron injections every few months per pt [facility] [place] [facility] last week called him and told him the CT showed bilateral pe's so he came here. the pt arrives hd stable and denies any current symptoms and states I feel fine. Denies chest pain or pressure, no fevers or cough. he states that if he does a lot of work outside he gets mild short of breath but doesn't hinder him in any way. He has no leg edema, speaking in full sentences. Will monitor and obtain labs. He was on apixiban over the summer for UE DVT after having an IV placed and hasn't been on this for months. pt remains stable and asymptomatic even with ambulation. Recommended admission but he declined and has capacity to make his own decisions. Spoke with hem/onc Dr. Melo at [facility] who advised they start apixiban on a lot of their cancer patients for PE/dvt and so will start this again as he has tolerated it in the past. He will f/u with his pcp this week and return precautions given Differential Diagnosis Differential Diagnosis: PE, pna Medical Records Medical records reviewed: Yes I reviewed the patient's medical records. Imaging Data Radiologic Study: Attestation: I personally reviewed and interpreted this imaging study as follows: Imaging: X-Ray Radiologist's impression: IMPRESSION: Mild hyperinflation without airspace consolidation Lab Data Lab results reviewed: Yes I reviewed the patient's lab results. ECG Data Attestation: I personally reviewed and interpreted this ECG (s) as follows: Prior ECG tracings: not available for review Interpretation: sinus rhythm, rate of 76, pr 180, qtc 434 HPI General Mode of arrival: ambulatory. Date/Time Provider Initiated Documentation: 12/16/19 17:04. Limitations to Documentation: no limitations. Information obtained by: patient. History of Present Illness 84 year old M presents to the emergency department with the chief complaint of I feel fine, No relieving factors improve symptom(s), No exacerbating factors reported . Patient did receive the following treatments prior to arrival, none Related Data Home Medications Medication Instructions Recorded Confirmed Pqaylaorrsy-Ltbgq-AIF Complex 1 ea PO DAILY tab 01/11/14 12/16/19 cholecalciferol (vitamin D3) 400 unit PO DAILY 03/12/18 12/16/19 [Vitamin D3] Lupron Depot (3 month) 22.5 mg IM Q3M 05/18/18 12/16/19 hydrochlorothiazide 12.5 mg capsule 12.5 mg PO DAILY 05/16/19 12/16/19 albuterol sulfate 90 mcg/actuation 2 inh IH QID PRN 10/21/19 12/16/19 breath activated powder inhaler apixaban [Eliquis DVT-PE Treat 30D See Rx Instructions .ROUTE 12/16/19 Start] .COMPLEX #74 dose pk Previous Rx's Medication Instructions Recorded apixaban [Eliquis DVT-PE Treat 30D See Rx Instructions .ROUTE 12/16/19 Start] .COMPLEX #74 dose pk Allergies Allergy/AdvReac Type Severity Reaction Status Date / Time No Known Allergies Allergy Verified 12/16/19 17:18 General Stated Complaint: GenMedical GEMA: 3 Review of Systems All systems reviewed & are unremarkable except as noted in HPI and below Constitutional Constitutional: Denies chills and Denies fever(s) Cardiovascular Cardiovascular: Denies chest pain and Denies dyspnea Respiratory Respiratory: Denies dyspnea Gastrointestinal Gastrointestinal: Denies abdominal pain, Denies nausea and Denies vomiting Psychiatric Psychiatric: Denies depression Endocrine Endocrine: Denies cold intolerance [facility] Surgical History (Updated 08/03/19 @ 16:36 by Clarissa Uribe RN) Appendectomy colonoscopy (12/23/16) egd W/ bx (02/01/18) [facility] [place]/O esophagogastroduodenoscopy (Inactive) 01/07/19 [facility]. Alec Omalley MD LS spine disc surgery Prostate Biopsy (04/05/18) S/P partial gastrectomy (Inactive 05/10/19) 05/10/19: robotic assisted partial gastrectomy/wedge resection with gastro-gastric anastamosis. [facility]. Social History (Updated 04/22/19 @ 08:13 by Evi Martinez LPN) Smoking/Tobacco Use Status: Former Tobacco Use Alcohol Intake: current Alcohol Intake frequency: 0-2 drinks per day Alcohol type: beer Drug use: Never Substance use type: does not use Household members: spouse Housing: house Number of Children: 2 What is your relationship status?: Panel score (0-1 are the most socially isolated patients): 1 What type of physical activity do you participate in: walking Seatbelt use: always Drive intox or ride w/intox driver recruiter: No Working smoke detector in home: Yes Fire extinguisher in home: Yes Carbon monox detector in home: Yes Do you feel safe in your relationship?: Yes Exam Const General: no acute distress Orientation: alert HENMN Head: normal to inspection Ears: external ears normal General nose exam: external nose normal Mouth: moist mucous membranes Eyes General: appearance normal, both eyes and all related structures Neck Neck: normal visual inspection Resp Effort & Inspection: normal respiratory effort and able to speak in complete sentences Cardio Rate: regular rate Skin General skin exam: no rashes or lesions noted Neuro General: alert and oriented x3 Extrem General: normal to inspection Psych Mental Status: mental status grossly normal Course Vital Signs Vital signs: Vital Signs Temperature 36.0 C L 12/16/19 17:12 Pulse 75 12/16/19 17:12 Respiratory Rate 14 12/16/19 17:12 Blood Pressure 161/94 H 12/16/19 17:12 Pulse Oximetry 95 12/16/19 17:12 Temperature 36.0 C L 12/16/19 17:12 Temperature Source Skin 12/16/19 17:12 Pulse 75 12/16/19 17:12 Respiratory Rate 14 12/16/19 17:12 Blood Pressure 161/94 H 12/16/19 17:12 Blood Pressure Position Sitting 12/16/19 17:12 Pulse Oximetry 95 12/16/19 17:12 Oxygen Delivery Method Room Air 12/16/19 17:12 Oxygen Flow Rate 0 12/16/19 17:12 Pain Level 0 12/16/19 17:12
[2019-12-16] MEDS: Normal Saline Flush 10 ML SYR IVP (17:29)
[2019-12-16 17:30] LABS: BE (Venous) 7.1 mmol/L (-3-3); HCO3 (Venous) 32 mmol/L (22-28); O2 Sat (Venous) 40 % (70-80); TCO2 (Venous) 29 mmol/L (22-29); pCO2 (Venous) 51 mm/Hg (34-47); pO2 (Venous) 24 mm/Hg (28-44)
[2019-12-16 17:33] LABS: Absolute Basophil Count 0.01 k/cumm (0.0-0.2); Absolute Eosinophil Count 0.07 k/cumm (0.0-0.7); Absolute Monocyte Count 0.47 k/cumm (0.11-0.7); Absolute Neutrophil Count 3.12 k/cumm (1.2-6.7); Basophils % 0.2; Eosinophils % 1.2; HCT 43.4 % (40.0-50.0); HGB 14.5 g/dL (13.5-17.5); Lymphocytes % 35.3; Mean Corp. HGB Concentration 33.4 g/dL (32.0-36.0); Mean Corpuscular Hemoglobin 32.5 pg (27.0-33.0); Mean Corpuscular Volume 97.3 fL (80-95); Mean Platelet Volume 9.7 fL (8.0-11.0); Monocytes % 8.3; Platelet Count 241 x1000/uL (130-400); RBC 4.46 m/cumm (4.50-6.00); White Blood Cell Count 5.67 k/cumm (4.4-10.8)
[2019-12-16 17:44] LABS: PTT Activated 23.7 sec (21.0-31.4); Prothrombin Time 10.3 sec (9.3-11.0)
[2019-12-16 17:46] LABS: ALT 25 U/L (16-63); AST 26 U/L (15-37); Albumin 4.1 g/dL (3.4-5.0); Alkaline Phosphatase 107 U/L (46-116); Anion Gap 9.5 mmol/L (3-11); BUN 24 mg/dL (7-18); Bilirubin, Total 1.1 mg/dL (0.2-1.0); CO2 31.5 mmol/L (21.0-32.0); CREATININE 1.09 mg/dL (0.70-1.30); Calcium 9.3 mg/dL (8.5-10.1); Chloride 102 mmol/L (98-107); Glucose 96 mg/dL (74-106); Potassium 3.9 mmol/L (3.5-5.1); Sodium 143 mmol/L (136-145); Total Protein 7.8 g/dL (6.4-8.2)
--- NOTE | 2019-12-16 17:46 | DI.RAD_ITS ---
EXAM: XR CHEST 2V PA LATERAL CLINICAL HISTORY: short of breath TECHNIQUE: COMPARISON: CHEST 2 VIEWS PA,LAT from 05/15/2018 FINDINGS: The heart is not enlarged. Lungs are predominantly clear with minimal changes of scarring and mild h yperinflation. No pleural effusion seen. Multiple old healed left rib fractures noted. IMPRESSION: No evidence of acute process.
[2019-12-16 17:48] LABS: Magnesium 2.3 mg/dL (1.8-2.4)
[2019-12-16 17:49] LABS: Troponin I < 0.05 ng/Ml (<0.06)
--- NOTE | 2019-12-16 18:01 | DI.VRAD_ITS ---
PROCEDURE INFORMATION: Exam: XR Chest, 2 Views Exam date and time: 12/16/2019 17:48 Age: 84 years old Clinical indication: Other: SOB TECHNIQUE: Imaging protocol: XR of the chest Views: 2 views. COMPARISON: CR CHEST 2 VIEWS PA,LAT 05/15/2018 21:03 FINDINGS: Lungs: Mild hyperinflation without airspace consolidation. Pleural space: No pleural effusion. No pneumothorax. Heart/Mediastinum: No cardiomegaly. Bones/joints: Chronic-appearing left-sided rib fractures some. Degenerative changes in the spine. No displaced fracture. Sclerotic foci described in the bones on previous imaging, not definitively seen on these plain films. IMPRESSION: Mild hyperinflation without airspace consolidation. Dictated and Authenticated by: Brandi Solomon MD. Ordering:SIRI Fisher MD
[2019-12-16 18:37] VITALS: BP 161/94; PULSE 75; RESP 14; TEMP 36; O2SAT 95
== END 2019-12-16 18:32 | disposition home or self-care (01) ==
PROVIDERS: Emergency Provider Emergency Medicine; PCP Family Medicine
DX: I26.99 Other pulmonary embolism without acute cor pulmonale (principal); Z53.29 Procedure and treatment not carried out because of patient's decision for other reasons; Z79.818 Long term (current) use of other agents affecting estrogen receptors and estrogen levels; C61 Malignant neoplasm of prostate; C79.51 Secondary malignant neoplasm of bone
CPT/HCPCS: 80053; 82805; 93005; 99285; 71046; 83735; 84484; 85025; 85610; 85730; 93010; 99284; J3490

== ENCOUNTER 2020-03-06 01:31 | Outpatient (CLI) | payer MEDICARE, OTHER, SELFPAY ==
[2020-03-06 08:08] LABS: Abs Immature Grans 0.01 k/cumm (0.0-0.09); Absolute Basophil Count 0.01 k/cumm (0.0-0.2); Absolute Eosinophil Count 0.13 k/cumm (0.0-0.7); Absolute Lymphocyte Count 1.51 k/cumm (1.2-3.4); Absolute Monocyte Count 0.41 k/cumm (0.11-0.7); Absolute Neutrophil Count 2.17 k/cumm (1.2-6.7); Basophils % 0.2; Eosinophils % 3.1; HCT 39.9 % (40.0-50.0); HGB 13.7 g/dL (13.5-17.5); Immature Grans % 0.2 %; Lymphocytes % 35.6; Mean Corp. HGB Concentration 34.3 g/dL (32.0-36.0); Mean Corpuscular Hemoglobin 33.4 pg (27.0-33.0); Mean Corpuscular Volume 97.3 fL (80-95); Mean Platelet Volume 9.2 fL (8.0-11.0); Monocytes % 9.7; Neutrophils % 51.2; Platelet Count 193 x1000/uL (130-400); RBC Distribution Width 13.9 % (11.8-14.1); White Blood Cell Count 4.24 k/cumm (4.4-10.8)
[2020-03-06 08:26] LABS: ALT 27 U/L (16-63); AST 23 U/L (15-37); Albumin 3.7 g/dL (3.4-5.0); Alkaline Phosphatase 92 U/L (46-116); Anion Gap 6.8 mmol/L (3-11); BUN 21 mg/dL (7-18); CO2 29.2 mmol/L (21.0-32.0); CREATININE 1.15 mg/dL (0.70-1.30); Calcium 9.1 mg/dL (8.5-10.1); Chloride 106 mmol/L (98-107); Glucose 105 mg/dL (74-106); Potassium 4.2 mmol/L (3.5-5.1); Sodium 142 mmol/L (136-145); Total Protein 6.9 g/dL (6.4-8.2)
[2020-03-07 10:26] LABS: PSA, Diagnostic 0.2 ng/mL (0.0-6.5)
[2020-03-08 06:22] LABS: Testosterone, Total <7.0 ng/dL (240-950)
== END 2020-03-06 01:51 ==
PROVIDERS: PCP Family Medicine; Visit Provider Internal Medicine
DX: C61 Malignant neoplasm of prostate (principal)
CPT/HCPCS: 36415; 80053; 84403; 84153; 85025

== ENCOUNTER 2020-06-07 01:33 | Outpatient (CLI) | payer MEDICARE, OTHER, SELFPAY ==
[2020-06-07 12:27] LABS: Absolute Basophil Count 0.01 k/cumm (0.0-0.2); Absolute Eosinophil Count 0.07 k/cumm (0.0-0.7); Absolute Lymphocyte Count 1.94 k/cumm (1.2-3.4); Absolute Monocyte Count 0.48 k/cumm (0.11-0.7); Absolute Neutrophil Count 2.48 k/cumm (1.2-6.7); Basophils % 0.2; Eosinophils % 1.4; HCT 42.1 % (40.0-50.0); HGB 14.2 g/dL (13.5-17.5); Mean Corp. HGB Concentration 33.7 g/dL (32.0-36.0); Mean Corpuscular Hemoglobin 32.9 pg (27.0-33.0); Mean Corpuscular Volume 97.5 fL (80-95); Monocytes % 9.6; Neutrophils % 49.8; Platelet Count 198 x1000/uL (130-400); RBC 4.32 m/cumm (4.50-6.00); RBC Distribution Width 13.4 % (11.8-14.1); White Blood Cell Count 4.98 k/cumm (4.4-10.8)
[2020-06-07 13:16] LABS: ALT 24 U/L (16-63); AST 25 U/L (15-37); Albumin 3.9 g/dL (3.4-5.0); Alkaline Phosphatase 104 U/L (46-116); Anion Gap 8.3 mmol/L (3-11); BUN 24 mg/dL (7-18); Bilirubin, Total 1.5 mg/dL (0.2-1.0); CO2 28.7 mmol/L (21.0-32.0); CREATININE 1.08 mg/dL (0.70-1.30); Calcium 9.5 mg/dL (8.5-10.1); Chloride 102 mmol/L (98-107); Glucose 103 mg/dL (74-106); Potassium 4.2 mmol/L (3.5-5.1); Sodium 139 mmol/L (136-145)
[2020-06-08 09:18] LABS: PSA, Diagnostic 0.6 ng/mL (0.0-6.5)
[2020-06-09 16:10] LABS: Testosterone, Total <7.0 ng/dL (240-950)
== END 2020-06-07 01:53 ==
PROVIDERS: PCP Family Medicine; Visit Provider Internal Medicine
DX: C61 Malignant neoplasm of prostate (principal)
CPT/HCPCS: 36415; 80053; 84403; 84153; 85025

== ENCOUNTER 2020-08-07 03:39 | Outpatient (CLI) | payer MEDICARE, OTHER, SELFPAY ==
[2020-08-07] MEDS: Omnipaque 350 MG/ML 50 ML BTL IJ (07:36)
[2020-08-07] MEDS: Breeza Beverage 473 ML BTL PO (07:36)
[2020-08-07 08:14] LABS: Abs Immature Grans 0.01 10^3/uL (0.0-0.06); Absolute Basophil Count 0.03 10^3/uL (0.0-0.2); Absolute Eosinophil Count 0.16 10^3/uL (0.0-0.7); Absolute Lymphocyte Count 1.82 10^3/uL (1.2-3.4); Absolute Monocyte Count 0.49 10^3/uL (0.1-0.8); Basophils % 0.6; HCT 41.5 % (40.0-50.0); Immature Grans % 0.2; Lymphocytes % 34.3; MCH 33.2 pg (27.0-33.0); MCHC 33.7 % (32.0-36.0); MCV 98.3 fL (80-95); MPV 9.8 fL (8.0-11.0); Monocytes % 9.2; Neutrophils % 52.7; Nucleated RBC 0 %; Platelet Count 186 10^3/uL (130-400); RBC 4.22 10^6/uL (4.36-5.78); RDW 13.6 % (11.8-14.1); RDW-SD 49.8 fL; WBC 5.31 10^3/uL (4.4-10.8)
[2020-08-07 08:25] LABS: ALT 23 U/L (16-63); AST 20 U/L (15-37); Albumin 3.9 g/dL (3.4-5.0); Alkaline Phosphatase 106 U/L (46-116); Anion Gap 5.6 mmol/L (3-11); BUN 17 mg/dL (7-18); Bilirubin, Total 1.7 mg/dL (0.2-1.0); CO2 29.4 mmol/L (21.0-32.0); Chloride 103 mmol/L (98-107); Glucose 96 mg/dL (74-106); Potassium 3.9 mmol/L (3.5-5.1); Sodium 138 mmol/L (136-145); Total Protein 7.2 g/dL (6.4-8.2)
[2020-08-07] MEDS: Normal Saline - Diluent 50 ML VIAL IV (09:20)
[2020-08-07] MEDS: Omnipaque 350 MG/ML 100 ML BTL IJ (09:20)
[2020-08-07] MEDS: Normal Saline Flush 10 ML SYR IVP (09:21)
--- NOTE | 2020-08-07 09:21 | DI.CT_ITS ---
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 TECHNIQUE: Imaging Protocol: Axial computed tomography images with coronal and sagittal reformatted images were created and reviewed CONTRAST MATERIAL: Intravenous: Omnipaque 350 Contrast volume:100 cc Oral: yes / COMPARISON: CT CT CHEST PE CTA from 12/09/[address] ABDOMEN PELVIS W from 12/09/2019 FINDINGS: CHEST: Thyroid: Normal Tracheobronchial tree: Patent where visualized. Mediastinum and Nel: No dominant adenopathy or fluid collection. Pulmonary parenchyma: Mild bilateral areas of scarring. Stable nodularity in the major fissure. Pleura: No effusion or pneumothorax. Lymph nodes: Within normal limits. Aorta: Stable dilatation at 4.7 cm. Moderate calcification. No evidence of dissection.. Heart: Nondilated. Mild coronary artery calcifications. No pulmonary emboli. Bones: Widespread sclerotic metastases. No compression fractures. ABDOMEN: Liver: Normal density. No measurable mass. Gallbladder and biliary tract: No radiodense calculus or dilation. Pancreas: Normal density, no abnormal calcifications or inflammatory process. Spleen: Normal. Kidneys: Normal size, contour and axis. No radiodense stones or obstructive uropathy. No masses seen. Adrenal glands: No masses seen. Vasculature: Atherosclerotic changes of the aorta and branch vessels. Stable poststenotic dilatation of the celiac trunk. Lymph nodes: Within normal limits. PELVIS: Bladder: Symmetric distention, no gross wall thickening. Bowel: Suture material near the fundus of the stomach. No recurrent mass. No obstruction or bowel w all thickening. Small diverticulum of the 2nd portion of the duodenum. Peritoneal cavity: No ascites, collection or mesenteric inflammatory response. Bones: Widespread sclerotic metastases in the spine and pelvis. Degenerative disc changes. No compr ession fractures. Reproductive organs: Within normal limits. IMPRESSION: Status post gastric surgery. No evidence of recurrent mass or adenopathy. Widespread sclerotic bony metastases. RADIATION DOSE DELIVERED: Total DLP DATA REPOSITORY: All CT scans at this facility are submitted to the National Radiology Data Registry (NRDR) Dose Index Registry (DIR) with the [employer] (ACR). RADIATION OPTIMIZATION: All CT scans at this facility use at least one of these dose optimization te chniques: automated exposure control; mA and/or kV adjustment per patient size (includes targeted exa ms where dose is matched to clinical indication); or iterative reconstruction.
[2020-08-09 12:50] LABS: Testosterone, Total <7.0 ng/dL (240-950)
== END 2020-08-07 03:59 ==
PROVIDERS: PCP Family Medicine; Visit Provider Internal Medicine Hematology & Oncology
DX: C49.A2 Gastrointestinal stromal tumor of stomach (principal); C79.51 Secondary malignant neoplasm of bone
CPT/HCPCS: 74177; 80053; 82784; 84403; 71260; 83883; 84153; 84165; 85025; J3490; Q9967

== ENCOUNTER 2020-08-17 02:48 | Outpatient (CLI) | payer MEDICARE, OTHER, SELFPAY ==
[2020-08-17 15:06] LABS: Abs Immature Grans 0.01 10^3/uL (0.0-0.06); Absolute Basophil Count 0.02 10^3/uL (0.0-0.2); Absolute Lymphocyte Count 1.76 10^3/uL (1.2-3.4); Absolute Monocyte Count 0.59 10^3/uL (0.1-0.8); Absolute Neutrophil Count 3.14 10^3/uL (1.2-6.7); Basophils % 0.4; Eosinophils % 1.8; HCT 38.8 % (40.0-50.0); Immature Grans % 0.2; Lymphocytes % 31.3; MCH 33.3 pg (27.0-33.0); MCHC 33.5 % (32.0-36.0); MCV 99.5 fL (80-95); MPV 9.8 fL (8.0-11.0); Monocytes % 10.5; Neutrophils % 55.8; Nucleated RBC 0 %; Platelet Count 198 10^3/uL (130-400); RDW 13.3 % (11.8-14.1); RDW-SD 48.9 fL; WBC 5.62 10^3/uL (4.4-10.8)
[2020-08-17 15:23] LABS: ALT 18 U/L (16-63); AST 20 U/L (15-37); Albumin 3.6 g/dL (3.4-5.0); Alkaline Phosphatase 99 U/L (46-116); Anion Gap 6.3 mmol/L (3-11); BUN 22 mg/dL (7-18); Bilirubin, Total 0.9 mg/dL (0.2-1.0); CO2 27.7 mmol/L (21.0-32.0); CREATININE 1.22 mg/dL (0.70-1.30); Calcium 9.1 mg/dL (8.5-10.1); Chloride 106 mmol/L (98-107); Estimated GFR 56.73 (mL/min/1.73m2); Glucose 110 mg/dL (74-106); Potassium 4.4 mmol/L (3.5-5.1); Sodium 140 mmol/L (136-145); Total Protein 6.7 g/dL (6.4-8.2)
[2020-08-17 18:50] LABS: Reticulocyte 1.8 % (0.5-2.4)
[2020-08-17 19:24] LABS: Iron 62 ug/dL (65-175)
[2020-08-17 19:39] LABS: Ferritin 122 ng/mL (26-388); Vitamin B12 369 pg/mL (193-986)
[2020-08-17 19:50] LABS: Folate > 20.0 ng/mL (8.6-20.0)
== END 2020-08-17 03:08 ==
PROVIDERS: PCP Family Medicine; Visit Provider Internal Medicine Hematology & Oncology
DX: D53.9 Nutritional anemia, unspecified (principal); C49.A2 Gastrointestinal stromal tumor of stomach
CPT/HCPCS: 36415; 80053; 82607; 82728; 82746; 83540; 83550; 85025; 85045

== ENCOUNTER 2020-09-07 02:50 | Outpatient (CLI) | payer MEDICARE, OTHER, SELFPAY ==
[2020-09-07 14:24] LABS: Abs Immature Grans 0.01 10^3/uL (0.0-0.06); Absolute Basophil Count 0.01 10^3/uL (0.0-0.2); Absolute Eosinophil Count 0.06 10^3/uL (0.0-0.7); Absolute Lymphocyte Count 1.66 10^3/uL (1.2-3.4); Absolute Monocyte Count 0.54 10^3/uL (0.1-0.8); Absolute Neutrophil Count 3.68 10^3/uL (1.2-6.7); Basophils % 0.2; HCT 37.9 % (40.0-50.0); Immature Grans % 0.2; Lymphocytes % 27.9; MCH 33.2 pg (27.0-33.0); MCHC 34.3 % (32.0-36.0); MCV 96.9 fL (80-95); MPV 10.3 fL (8.0-11.0); Monocytes % 9.1; Neutrophils % 61.6; Nucleated RBC 0 %; Platelet Count 190 10^3/uL (130-400); RBC 3.91 10^6/uL (4.36-5.78); RDW 13.1 % (11.8-14.1); RDW-SD 46.5 fL; WBC 5.96 10^3/uL (4.4-10.8)
[2020-09-10 11:00] LABS: PSA, Ultrasensitive 1.9 ng/mL (<= 7.2)
[2020-09-11 20:37] LABS: Testosterone, Total <7.0 ng/dL (240-950)
== END 2020-09-07 03:10 ==
PROVIDERS: Internal Medicine; PCP Family Medicine; Visit Provider Nurse Practitioner Adult Health
DX: C61 Malignant neoplasm of prostate (principal); C79.51 Secondary malignant neoplasm of bone; C49.A2 Gastrointestinal stromal tumor of stomach
CPT/HCPCS: 84153; 84403; 85025

== ENCOUNTER 2020-10-05 04:09 | Outpatient (CLI) | payer MEDICARE, OTHER, SELFPAY ==
--- NOTE | 2020-10-05 10:00 | DI.NM_ITS ---
EXAM: [place] BONE SCAN WHOLE BODY GRP CLINICAL HISTORY: METASTATIC PROSTATE CA,C61,ASSESS TREATMENT RESPONSE. TECHNIQUE: Injected Dose: 25 mCi Tc-99m MDP Delayed Images: 2-3 hours. NM WHOLE BODY BONE SCAN from 09/24/[address] CHEST/ABD/PEL W from 08/07/[address] CHEST/ABD/PEL W from 10/05/2020 FINDINGS: Bilateral renal excretion is identified. Overall, the areas of increased radiotracer uptake are less apparent on the current examination compared to 09/24/2018. There is, however, an area of increased radiotracer uptake involving the right and left superior pubic rami and right acetabular region. IMPRESSION: 1. New areas of increased radiotracer uptake in the superior pubic rami and right acetabular region w hen compared to the prior examination from 09/24/2018. 2. The previously noted foci of increased radiotracer uptake in the axial and appendicular skeleton o n 09/24/2018 are less apparent on the current examination. DATA REPOSITORY:
[2020-10-05 10:20] LABS: Abs Immature Grans 0.01 10^3/uL (0.0-0.06); Absolute Basophil Count 0.01 10^3/uL (0.0-0.2); Absolute Eosinophil Count 0.08 10^3/uL (0.0-0.7); Absolute Lymphocyte Count 1.35 10^3/uL (1.2-3.4); Basophils % 0.2; Eosinophils % 1.7; HCT 42.2 % (40.0-50.0); HGB 13.8 g/dL (13.5-17.5); Immature Grans % 0.2; MCH 32.4 pg (27.0-33.0); MCHC 32.7 % (32.0-36.0); MCV 99.1 fL (80-95); MPV 9.9 fL (8.0-11.0); Monocytes % 8.6; Neutrophils % 60.3; Nucleated RBC 0 %; Platelet Count 195 10^3/uL (130-400); RBC 4.26 10^6/uL (4.36-5.78); RDW 13.2 % (11.8-14.1); RDW-SD 47.9 fL; WBC 4.65 10^3/uL (4.4-10.8)
[2020-10-05 10:41] LABS: ALT 19 U/L (16-63); AST 23 U/L (15-37); Albumin 3.8 g/dL (3.4-5.0); Alkaline Phosphatase 111 U/L (46-116); Anion Gap 8.2 mmol/L (3-11); BUN 16 mg/dL (7-18); Bilirubin, Total 1.4 mg/dL (0.2-1.0); CO2 28.8 mmol/L (21.0-32.0); CREATININE 1.02 mg/dL (0.70-1.30); Chloride 104 mmol/L (98-107); Glucose 105 mg/dL (74-106); Potassium 4.3 mmol/L (3.5-5.1); Sodium 141 mmol/L (136-145); Total Protein 7.1 g/dL (6.4-8.2)
--- NOTE | 2020-10-05 11:32 | DI.CT_ITS ---
EXAM: CT CHEST/ABD/PEL W CLINICAL HISTORY: METASTATIC PROSTATE CA,C61, ASSESSMENT TREATMENT RESPONSE TECHNIQUE: Imaging Protocol: Axial computed tomography images with coronal and sagittal reformatted images were created and reviewed CONTRAST MATERIAL: Intravenous: Omnipaque 350 Contrast volume:100 mL Oral: Yes COMPARISON: CT CT CHEST/ABD/PEL W from 08/07/2020 FINDINGS: CHEST: Tracheobronchial tree: Patent where visualized. Mediastinum and Nel: No dominant adenopathy or fluid collection. Pulmonary parenchyma: No consolidation or dominant measurable mass. Stable bilateral pulmonary scarri ng. No suspicious pulmonary nodules. Pleura: No effusion or pneumothorax. Heart: The heart is not dilated. Mild coronary artery calcification. No significant pericardial effu nita. Aorta: Stable ascending aortic dilatation. Atherosclerosis. Lymph nodes: Within normal limits. Bones:Sclerotic metastatic disease. Soft tissues: Unremarkable. ABDOMEN: Liver: Normal density. No measurable mass. Portal, Superior Mesenteric, and Splenic Veins: Unremarkable. Gallbladder and Biliary Tract: No radiodense calculus or dilation. Pancreas: Normal density, no abnormal calcifications or inflammatory process. Spleen: Normal. Adrenals: No masses seen. Kidneys: Normal size, contour and axis. No radiodense stones or obstructive uropathy. No masses seen. Abdominal Aorta: Abdominal portion non-dilated. Atherosclerosis. Stable dilatation of the distal sravan iac trunk. Bowel: No obstruction or bowel wall thickening. Appendix is unremarkable. Colonic diverticulosis but no evidence of acute diverticulitis. Stable prior gastric surgery. Peritoneal Cavity: No ascites, collection or mesenteric inflammatory response. Lymph Nodes: Within normal limits. Bones: Widespread sclerotic metastatic disease. Degenerative changes in the spine. Soft Tissues: Unremarkable. PELVIS: Bladder: Symmetric distention, no gross wall thickening. Reproductive Organs: Prostate gland impinges upon the base of the urinary bladder which is unchanged. Lymph Nodes: Within normal limits. Bones: Please see above. IMPRESSION: 1. Widespread sclerotic metastatic disease. 2. RADIATION DOSE DELIVERED: 1,649.73mGy.cm Total DLP DATA REPOSITORY: All CT scans at this facility are submitted to the National Radiology Data Registry (NRDR) Dose Index Registry (DIR) with the [employer] (ACR). RADIATION OPTIMIZATION: All CT scans at this facility use at least one of these dose optimization te chniques: automated exposure control; mA and/or kV adjustment per patient size (includes targeted exa ms where dose is matched to clinical indication); or iterative reconstruction.
[2020-10-05] MEDS: Normal Saline - Diluent 50 ML VIAL IV (11:35)
[2020-10-05] MEDS: Omnipaque 350 MG/ML 100 ML BTL IJ (11:36)
[2020-10-05] MEDS: Omnipaque 350 MG/ML 50 ML BTL IJ (11:37)
== END 2020-10-05 04:29 ==
PROVIDERS: PCP Family Medicine; Visit Provider Internal Medicine Hematology & Oncology
DX: C49.A2 Gastrointestinal stromal tumor of stomach (principal); C61 Malignant neoplasm of prostate
CPT/HCPCS: 74177; 78306; 80053; 71260; 85025; J3490; Q9967

== ENCOUNTER 2020-10-29 03:34 | Outpatient (CLI) | payer MEDICARE, OTHER, SELFPAY ==
[2020-10-29 07:31] LABS: Abs Immature Grans 0.01 10^3/uL (0.0-0.06); Absolute Basophil Count 0.01 10^3/uL (0.0-0.2); Absolute Eosinophil Count 0.11 10^3/uL (0.0-0.7); Absolute Lymphocyte Count 1.26 10^3/uL (1.2-3.4); Absolute Neutrophil Count 2.24 10^3/uL (1.2-6.7); Basophils % 0.2; Eosinophils % 2.7; HCT 40.8 % (40.0-50.0); HGB 13.6 g/dL (13.5-17.5); Immature Grans % 0.2; Lymphocytes % 31.3; MCHC 33.3 % (32.0-36.0); Monocytes % 9.9; Neutrophils % 55.7; Nucleated RBC 0 %; Platelet Count 172 10^3/uL (130-400); RBC 4.12 10^6/uL (4.36-5.78); RDW 13.4 % (11.8-14.1); RDW-SD 49.1 fL; WBC 4.03 10^3/uL (4.4-10.8)
[2020-10-29 07:48] LABS: ALT 21 U/L (16-63); AST 22 U/L (15-37); Albumin 3.5 g/dL (3.4-5.0); Alkaline Phosphatase 105 U/L (46-116); Anion Gap 6.6 mmol/L (3-11); BUN 21 mg/dL (7-18); Bilirubin, Total 1.2 mg/dL (0.2-1.0); CO2 28.4 mmol/L (21.0-32.0); CREATININE 1.22 mg/dL (0.70-1.30); Calcium 8.8 mg/dL (8.5-10.1); Chloride 107 mmol/L (98-107); Estimated GFR 56.73 (mL/min/1.73m2); Glucose 96 mg/dL (74-106); Potassium 4.5 mmol/L (3.5-5.1); Sodium 142 mmol/L (136-145); Total Protein 6.7 g/dL (6.4-8.2)
[2020-10-30 15:49] LABS: PSA, Ultrasensitive 3.4 ng/mL (<= 7.2)
== END 2020-10-29 03:54 ==
PROVIDERS: PCP Family Medicine; Visit Provider Internal Medicine Hematology & Oncology
DX: C49.A2 Gastrointestinal stromal tumor of stomach (principal); C79.51 Secondary malignant neoplasm of bone; C61 Malignant neoplasm of prostate
CPT/HCPCS: 36415; 80053; 84153; 85025

== ENCOUNTER 2020-12-03 04:09 | Outpatient (CLI) | payer MEDICARE, OTHER, SELFPAY ==
[2020-12-03 10:59] LABS: Abs Immature Grans 0.02 10^3/uL (0.0-0.06); Absolute Basophil Count 0.01 10^3/uL (0.0-0.2); Absolute Eosinophil Count 0.03 10^3/uL (0.0-0.7); Absolute Lymphocyte Count 1.06 10^3/uL (1.2-3.4); Absolute Monocyte Count 0.32 10^3/uL (0.1-0.8); Absolute Neutrophil Count 3.43 10^3/uL (1.2-6.7); Basophils % 0.2; Eosinophils % 0.6; HCT 40.4 % (40.0-50.0); HGB 13.4 g/dL (13.5-17.5); Immature Grans % 0.4; Lymphocytes % 21.8; MCH 32.8 pg (27.0-33.0); MCHC 33.2 % (32.0-36.0); MCV 98.8 fL (80-95); MPV 10.2 fL (8.0-11.0); Monocytes % 6.6; Neutrophils % 70.4; Nucleated RBC 0 %; Platelet Count 178 10^3/uL (130-400); RBC 4.09 10^6/uL (4.36-5.78); RDW 13.2 % (11.8-14.1); RDW-SD 47.9 fL; WBC 4.87 10^3/uL (4.4-10.8)
[2020-12-04 13:51] LABS: PSA, Ultrasensitive 3.3 ng/mL (<= 7.2)
== END 2020-12-03 04:29 ==
PROVIDERS: PCP Family Medicine; Visit Provider Internal Medicine
DX: C61 Malignant neoplasm of prostate (principal); C79.51 Secondary malignant neoplasm of bone; C49.A2 Gastrointestinal stromal tumor of stomach
CPT/HCPCS: 36415; 84153; 85025

== ENCOUNTER 2020-12-11 08:23 | Outpatient (CLI) | payer MEDICARE, OTHER, SELFPAY ==
[2020-12-11 10:33] LABS: ALT 22 U/L (16-63); AST 23 U/L (15-37); Albumin 3.8 g/dL (3.4-5.0); Alkaline Phosphatase 121 U/L (46-116); Anion Gap 6.5 mmol/L (3-11); BUN 17 mg/dL (7-18); Bilirubin, Total 1.7 mg/dL (0.2-1.0); CO2 30.5 mmol/L (21.0-32.0); CREATININE 1.12 mg/dL (0.70-1.30); Calcium 8.9 mg/dL (8.5-10.1); Chloride 104 mmol/L (98-107); Glucose 99 mg/dL (74-106); Potassium 4.3 mmol/L (3.5-5.1); Sodium 141 mmol/L (136-145); Total Protein 7.1 g/dL (6.4-8.2)
[2020-12-15 00:07] LABS: Testosterone, Total <7.0 ng/dL (240-950)
== END 2020-12-11 08:43 ==
PROVIDERS: PCP Family Medicine; Visit Provider Internal Medicine
DX: C61 Malignant neoplasm of prostate (principal); C79.51 Secondary malignant neoplasm of bone
CPT/HCPCS: 80053; 84403

== ENCOUNTER 2020-12-25 09:22 | Outpatient (CLI) | payer MEDICARE, OTHER, SELFPAY ==
[2020-12-25 11:49] LABS: ALT 16 U/L (16-63); AST 18 U/L (15-37); Albumin 3.5 g/dL (3.4-5.0); Alkaline Phosphatase 114 U/L (46-116); Anion Gap 4.6 mmol/L (3-11); BUN 18 mg/dL (7-18); Bilirubin, Total 1.4 mg/dL (0.2-1.0); CO2 28.4 mmol/L (21.0-32.0); Calcium 8.2 mg/dL (8.5-10.1); Chloride 105 mmol/L (98-107); Glucose 118 mg/dL (74-106); Potassium 4.3 mmol/L (3.5-5.1); Sodium 138 mmol/L (136-145); Total Protein 6.7 g/dL (6.4-8.2)
== END 2020-12-25 09:42 ==
PROVIDERS: PCP Family Medicine; Visit Provider Internal Medicine
DX: C61 Malignant neoplasm of prostate (principal); C79.51 Secondary malignant neoplasm of bone
CPT/HCPCS: 36415; 80053

== ENCOUNTER 2021-01-08 02:27 | Outpatient (CLI) | payer MEDICARE, OTHER, SELFPAY ==
[2021-01-08 10:07] LABS: Abs Immature Grans 0.02 10^3/uL (0.0-0.06); Absolute Basophil Count 0.02 10^3/uL (0.0-0.2); Absolute Eosinophil Count 0.16 10^3/uL (0.0-0.7); Absolute Lymphocyte Count 0.93 10^3/uL (1.2-3.4); Absolute Monocyte Count 0.42 10^3/uL (0.1-0.8); Absolute Neutrophil Count 5.03 10^3/uL (1.2-6.7); Basophils % 0.3; Eosinophils % 2.4; HCT 40.6 % (40.0-50.0); HGB 13.4 g/dL (13.5-17.5); Immature Grans % 0.3; Lymphocytes % 14.1; MCH 32.6 pg (27.0-33.0); MCV 98.8 fL (80-95); MPV 9.4 fL (8.0-11.0); Monocytes % 6.4; Neutrophils % 76.5; Nucleated RBC 0 %; Platelet Count 202 10^3/uL (130-400); RBC 4.11 10^6/uL (4.36-5.78); RDW 13.5 % (11.8-14.1); RDW-SD 49.5 fL; WBC 6.58 10^3/uL (4.4-10.8)
[2021-01-08 11:13] LABS: ALT 18 U/L (16-63); AST 17 U/L (15-37); Albumin 3.7 g/dL (3.4-5.0); Alkaline Phosphatase 119 U/L (46-116); Anion Gap 5.6 mmol/L (3-11); BUN 17 mg/dL (7-18); Bilirubin, Total 1.3 mg/dL (0.2-1.0); CO2 30.4 mmol/L (21.0-32.0); Calcium 8.5 mg/dL (8.5-10.1); Chloride 105 mmol/L (98-107); Glucose 102 mg/dL (74-106); Potassium 4.2 mmol/L (3.5-5.1); Sodium 141 mmol/L (136-145); Total Protein 6.6 g/dL (6.4-8.2)
[2021-01-10 10:32] LABS: PSA, Ultrasensitive 3.2 ng/mL (<= 7.2)
[2021-01-11 16:25] LABS: Testosterone, Total <7.0 ng/dL (240-950)
== END 2021-01-08 02:28 | disposition home or self-care (01) ==
LOC: LBO 02:27
PROVIDERS: PCP Family Medicine; Visit Provider Internal Medicine
DX: C61 Malignant neoplasm of prostate (principal); C79.51 Secondary malignant neoplasm of bone
CPT/HCPCS: 36415; 80053; 84153; 84403; 85025

== ENCOUNTER 2021-03-11 04:17 | Outpatient (CLI) | payer MEDICARE, OTHER, SELFPAY ==
[2021-03-11 08:31] LABS: Abs Immature Grans 0.01 10^3/uL (0.0-0.06); Absolute Basophil Count 0.02 10^3/uL (0.0-0.2); Absolute Eosinophil Count 0.09 10^3/uL (0.0-0.7); Absolute Lymphocyte Count 1.49 10^3/uL (1.2-3.4); Absolute Monocyte Count 0.43 10^3/uL (0.1-0.8); Absolute Neutrophil Count 2.87 10^3/uL (1.2-6.7); Basophils % 0.4; Eosinophils % 1.8; HCT 41.4 % (40.0-50.0); HGB 13.8 g/dL (13.5-17.5); Immature Grans % 0.2; Lymphocytes % 30.3; MCH 33.3 pg (27.0-33.0); MCHC 33.3 % (32.0-36.0); MPV 9.6 fL (8.0-11.0); Monocytes % 8.8; Neutrophils % 58.5; Nucleated RBC 0 %; Platelet Count 171 10^3/uL (130-400); RBC 4.14 10^6/uL (4.36-5.78); RDW 13.4 % (11.8-14.1); RDW-SD 49.3 fL; WBC 4.91 10^3/uL (4.4-10.8)
[2021-03-11 08:44] LABS: ALT 19 U/L (16-63); AST 18 U/L (15-37); Albumin 3.6 g/dL (3.4-5.0); Alkaline Phosphatase 75 U/L (46-116); Anion Gap 8.3 mmol/L (3-11); BUN 18 mg/dL (7-18); Bilirubin, Total 1.6 mg/dL (0.2-1.0); CO2 29.7 mmol/L (21.0-32.0); CREATININE 1.2 mg/dL (0.70-1.30); Calcium 8.6 mg/dL (8.5-10.1); Chloride 106 mmol/L (98-107); Estimated GFR 57.82 (mL/min/1.73m2); Glucose 82 mg/dL (74-106); Sodium 144 mmol/L (136-145); Total Protein 6.8 g/dL (6.4-8.2)
[2021-03-12 16:56] LABS: PSA, Ultrasensitive 3.2 ng/mL (<= 7.2)
[2021-03-14 16:12] LABS: Testosterone, Total <7.0 ng/dL (240-950)
== END 2021-03-11 04:18 | disposition home or self-care (01) ==
LOC: LBO 04:18
PROVIDERS: PCP Family Medicine; Visit Provider Internal Medicine
DX: C61 Malignant neoplasm of prostate (principal); C79.51 Secondary malignant neoplasm of bone
CPT/HCPCS: 36415; 80053; 84153; 84403; 85025

== ENCOUNTER 2021-06-11 03:35 | Outpatient (CLI) | payer MEDICARE, OTHER, SELFPAY ==
[2021-06-11 08:38] LABS: Abs Immature Grans 0.01 10^3/uL (0.0-0.06); Absolute Basophil Count 0.02 10^3/uL (0.0-0.2); Absolute Eosinophil Count 0.15 10^3/uL (0.0-0.7); Absolute Lymphocyte Count 1.35 10^3/uL (1.2-3.4); Absolute Monocyte Count 0.39 10^3/uL (0.1-0.8); Absolute Neutrophil Count 3.24 10^3/uL (1.2-6.7); Basophils % 0.4; Eosinophils % 2.9; HCT 39.1 % (40.0-50.0); Immature Grans % 0.2; Lymphocytes % 26.2; MCH 32.9 pg (27.0-33.0); MCHC 33.2 % (32.0-36.0); MPV 9.6 fL (8.0-11.0); Monocytes % 7.6; Neutrophils % 62.7; Nucleated RBC 0 %; Platelet Count 161 10^3/uL (130-400); RBC 3.95 10^6/uL (4.36-5.78); RDW 13.4 % (11.8-14.1); RDW-SD 48.8 fL; WBC 5.16 10^3/uL (4.4-10.8)
[2021-06-11 09:52] LABS: ALT 17 U/L (16-63); AST 14 U/L (15-37); Albumin 3.5 g/dL (3.4-5.0); Alkaline Phosphatase 63 U/L (46-116); BUN 20 mg/dL (7-18); Bilirubin, Total 1.5 mg/dL (0.2-1.0); CREATININE 1.1 mg/dL (0.70-1.30); Calcium 8.7 mg/dL (8.5-10.1); Chloride 109 mmol/L (98-107); Glucose 101 mg/dL (74-106); Sodium 144 mmol/L (136-145); Total Protein 6.3 g/dL (6.4-8.2)
[2021-06-13 12:49] LABS: PSA, Ultrasensitive 4.7 ng/mL (<= 7.2)
[2021-06-14 12:18] LABS: Testosterone, Total <7.0 ng/dL (240-950)
== END 2021-06-11 03:36 | disposition home or self-care (01) ==
LOC: LBO 03:35
PROVIDERS: PCP Family Medicine; Visit Provider Internal Medicine
DX: C61 Malignant neoplasm of prostate (principal); C79.51 Secondary malignant neoplasm of bone
CPT/HCPCS: 36415; 80053; 84153; 84403; 85025

== ENCOUNTER 2021-09-10 03:41 | Outpatient (CLI) | payer MEDICARE, OTHER, SELFPAY ==
[2021-09-10 12:17] LABS: Abs Immature Grans 0.02 10^3/uL (0.0-0.06); Absolute Basophil Count 0.01 10^3/uL (0.0-0.2); Absolute Eosinophil Count 0.04 10^3/uL (0.0-0.7); Absolute Monocyte Count 0.42 10^3/uL (0.1-0.8); Absolute Neutrophil Count 4.48 10^3/uL (1.2-6.7); Basophils % 0.2; Eosinophils % 0.7; HCT 39.5 % (40.0-50.0); HGB 13.1 g/dL (13.5-17.5); Immature Grans % 0.3; Lymphocytes % 18.1; MCH 32.4 pg (27.0-33.0); MCHC 33.2 % (32.0-36.0); MCV 97.8 fL (80-95); MPV 9.8 fL (8.0-11.0); Monocytes % 6.9; Neutrophils % 73.8; Nucleated RBC 0 %; Platelet Count 192 10^3/uL (130-400); RBC 4.04 10^6/uL (4.36-5.78); RDW 13.2 % (11.8-14.1); RDW-SD 47.3 fL; WBC 6.07 10^3/uL (4.4-10.8)
[2021-09-10 12:39] LABS: ALT 23 U/L (16-63); AST 18 U/L (15-37); Albumin 3.9 g/dL (3.4-5.0); Alkaline Phosphatase 83 U/L (46-116); Anion Gap 3.8 mmol/L (3-11); BUN 17 mg/dL (7-18); Bilirubin, Total 1.2 mg/dL (0.2-1.0); CO2 32.2 mmol/L (21.0-32.0); Calcium 9.1 mg/dL (8.5-10.1); Chloride 107 mmol/L (98-107); Glucose 110 mg/dL (74-106); Potassium 4.7 mmol/L (3.5-5.1); Sodium 143 mmol/L (136-145); Total Protein 6.9 g/dL (6.4-8.2)
[2021-09-11 12:13] LABS: PSA, Ultrasensitive 8.9 ng/mL (<= 7.2)
[2021-09-13 15:11] LABS: Testosterone, Total <7.0 ng/dL (240-950)
== END 2021-09-10 03:42 | disposition home or self-care (01) ==
LOC: LBO 03:41
PROVIDERS: PCP Family Medicine; Visit Provider Internal Medicine
DX: C61 Malignant neoplasm of prostate (principal); C79.51 Secondary malignant neoplasm of bone
CPT/HCPCS: 36415; 80053; 84153; 84403; 85025

== ENCOUNTER 2021-10-16 00:09 | Outpatient (CLI) | payer MEDICARE, OTHER, SELFPAY ==
--- NOTE | 2021-10-16 07:45 | DI.NM_ITS ---
Exam(s) [place] BONE SCAN WHOLE BODY GRP EXAM: [place] BONE SCAN WHOLE BODY GRP CLINICAL HISTORY: METASTATIC PROSTATE CANCER TO BONE D61.0 C79.51. COMPARISON: [facility] BONE SCAN WHOLE BODY GRP from 10/05/2020 TECHNIQUE: Whole body bone scan was performed with intravenous infusion 25.0 millicuries of techneti um 99 labeled methylene diphosphonate. FINDINGS: The examination is compared with prior examination of October 05, 2020. Patient has known metastatic prostatic carcinoma. Note is again made of multiple areas of increased uptake in pelvis and ribs. On today's examination, there are multiple new areas increased uptake in ribs and thoracic spine as w ell as right shoulder girdle. There is increased intensity of previously noted pelvic metastatic les ions. IMPRESSION: The appearance is consistent with increased intensity of prior known metastatic lesions, and there ar e multiple new bony metastatic lesions as described above. DATA REPOSITORY:
--- NOTE | 2021-10-16 08:30 | DI.CT_ITS ---
Exam(s) CT CHEST/ABD/PEL W EXAM: CT CHEST/ABD/PEL W CLINICAL HISTORY: METASTATIC PROSTATE CANCER TO BONE C61.0 C79.51 TECHNIQUE: CT examination of the chest, abdomen, and pelvis was performed utilizing intravenous inf usion of 100 cc of Omnipaque 350 with biphasic hepatic imaging. Oral contrast was also administered. COMPARISON: CT CT CHEST/ABD/PEL W from 10/05/2020 FINDINGS: Lungs are predominantly clear. There are stable small fissural nodules in the right lung.. No pleur al effusion. No pleural based mass. No mediastinal or hilar adenopathy. No axillary or supraclavicular adenopathy. Tracheobronchial niurka e appears intact. No evidence of pulmonary embolic disease. Unremarkable appearance of thoracic aorta and major branch vessels. Note is made of ectasia of the ascending aorta at 45 millimeters. Note is made apparent calcified seen adjacent to distal esophagus, this measures 17 millimeters in di ameter and is unchanged from prior CT of October 05, 2020. The liver appears normal with no focal hepatic lesion identified. Spleen is unremarkable in appearance. Pancreas appears intact. Adrenals appear normal. Kidneys are unremarkable in appearance with no renal mass, hydronephrosis, or nephrolithiasis. 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 No focal bowel pathology. Appendix is not visualized but there is no evidence of appendicitis.. No evidence of diverticulitis. No abdominal or pelvic adenopathy. No significant abdominal wall hernia. Widespread presumed known sclerotic and lytic bony metastases are seen and grossly unchanged from kayla or study of September 2020. IMPRESSION: Widespread bony metastatic lesions, grossly unchanged from September 2020. No new evidence of metastatic disease in a patient with history of prostatic carcinoma. RADIATION DOSE DELIVERED: 1,468.72mGy.cm Total DLP 1,468.72mGy.cm Total DLP CTDIvol RADIATION OPTIMIZATION: All CT scans at this facility use at least one of these dose optimization te chniques: automated exposure control; mA and/or kV adjustment per patient size (includes targeted exa ms where dose is matched to clinical indication); or iterative reconstruction.
[2021-10-16 08:59] LABS: Abs Immature Grans 0.01 10^3/uL (0.0-0.06); Absolute Basophil Count 0.02 10^3/uL (0.0-0.2); Absolute Eosinophil Count 0.11 10^3/uL (0.0-0.7); Absolute Lymphocyte Count 1.75 10^3/uL (1.2-3.4); Absolute Monocyte Count 0.44 10^3/uL (0.1-0.8); Absolute Neutrophil Count 2.98 10^3/uL (1.2-6.7); Basophils % 0.4; Eosinophils % 2.1; HCT 39.1 % (40.0-50.0); HGB 12.9 g/dL (13.5-17.5); Immature Grans % 0.2; MPV 9.7 fL (8.0-11.0); Monocytes % 8.3; Nucleated RBC 0 %; Platelet Count 172 10^3/uL (130-400); RBC 4.03 10^6/uL (4.36-5.78); RDW 13.6 % (11.8-14.1); WBC 5.31 10^3/uL (4.4-10.8)
[2021-10-16] MEDS: Breeza Beverage 473 ML BTL PO ×2 (09:03)
[2021-10-16] MEDS: Omnipaque 350 MG/ML 50 ML BTL PO (09:05)
[2021-10-16 09:15] LABS: ALT 18 U/L (16-63); AST 23 U/L (15-37); Albumin 3.7 g/dL (3.4-5.0); Alkaline Phosphatase 93 U/L (46-116); Anion Gap 8.1 mmol/L (3-11); BUN 16 mg/dL (7-18); Bilirubin, Total 1.4 mg/dL (0.2-1.0); CO2 27.9 mmol/L (21.0-32.0); CREATININE 0.9 mg/dL (0.70-1.30); Calcium 8.5 mg/dL (8.5-10.1); Chloride 107 mmol/L (98-107); Glucose 86 mg/dL (74-106); Potassium 3.7 mmol/L (3.5-5.1); Sodium 143 mmol/L (136-145); Total Protein 6.8 g/dL (6.4-8.2)
[2021-10-16] MEDS: Normal Saline - Diluent 50 ML VIAL IV (09:33)
[2021-10-16] MEDS: Omnipaque 350 MG/ML 100 ML BTL IJ (09:33)
[2021-10-16] MEDS: Normal Saline Flush 10 ML SYR IVP (09:35)
[2021-10-21 02:07] LABS: Testosterone, Total <7.0 ng/dL (240-950)
== END 2021-10-16 00:29 ==
PROVIDERS: PCP Family Medicine; Visit Provider Internal Medicine
DX: C61 Malignant neoplasm of prostate (principal); C79.51 Secondary malignant neoplasm of bone
CPT/HCPCS: 36415; 74177; 78306; 80053; 84153; 84403; 71260; 85025; J3490; Q9967

== ENCOUNTER 2021-11-05 00:06 | Outpatient (CLI) | payer MEDICARE, OTHER, SELFPAY ==
--- NOTE | 2021-11-05 07:33 | DI.US_ITS ---
APPROVED REPORT EXAM: Comprehensive 2D, Doppler, and color-flow Echocardiogram Patient Location: Out-Patient [facility]pensing [facility] Optician: Yelena Castro RDCS (AE) Indications: h/o PE, Evaluate for right heart dysfunction Other Information Study Quality: Adequate Conclusion Normal left ventricular wall thickness and chamber size. Estimated ejection fraction is 55 to 60%. Wall motion is normal Normal right ventricular size and systolic function Both atria are normal in size The aortic valve is trileaflet and sclerotic. There is no aortic stenosis. There is mild aortic reg urgitation Mild mitral annular calcification. Trace mitral regurgitation Normal tricuspid valve with trace regurgitation. Estimated right ventricular systolic pressure is no rmal at 28. Dilated ascending aorta measuring 4.56 cm Wall motion Left Ventricle The left ventricle is normal size. The left ventricular systolic function is normal. The left ventric ular ejection fraction is within the normal range. There is normal left ventricular wall thickness. T here is normal LV segmental wall motion. There is no ventricular septal defect visualized. LVEF is 57 %. Right Ventricle The right ventricle is normal size. The right ventricular systolic function is normal. The RVSP is 28 .4 mmHg. Atria The left atrium size is normal. The right atrium size is normal. The interatrial septum is intact wit h no evidence for an atrial septal defect. Aortic Valve Aortic valve is calcified. Aortic valve is trileaflet. No hemodynamically significant valvular aortic stenosis. Mild aortic regurgitation. Mitral Valve Mild mitral annular calcification. No evidence of mitral valve stenosis. Trace mitral regurgitation. Tricuspid Valve The tricuspid valve is normal in structure. There is no tricuspid valve stenosis. Trace tricuspid reg urgitation. Pulmonic Valve The pulmonary valve is normal in structure. There is no pulmonic valvular stenosis. There is no pulmo dylan valvular regurgitation. Great Vessels Aortic root is mildly dilated. The ascending aorta is dilated.4.56 cm IVC is normal in size and colla pses >50% with inspiration. Pericardium There is no pericardial effusion. 2D Dimensions IVSD d PLAX 1.01 cm M: 0.6-1.2 LV Vol A2C d MOD 109.0 mL LVPW d PLAX 1.00 cm M: 0.6 - 1.2 LV Vol A4C d MOD 118.2 mL LVID d PLAX 4.87 cm M: 4.2 - 5.8 LA vol/ BSA A4C s A-L 26.1 mL/m2 LVDs 3.30 cm M: 2.5 - 4.0 LA Area A4C s MOD 18.19 cm2 Ao Root d 3.84 cm M: 3.1 - 3.7 LV EF A4C MOD 57.5 % RA Area A4C 21.42 cm2 LV EF A2C MOD 57.3 % RA Vol/ BSA A4C s A-L 34.8 mL/m2 LV EF Biplane MOD 57.6 % Ao Asc Diam d 4.56 cm M: 2.6 - 3.4 SV 66.06 mL LV EF Teichholz 60.2 % SV Index 33.50 mL/m2 LVEF (Cedillo's) 57.56 % M: 52 - 72 LV Volume 86.48 mL M: 62 - 150 LV Volume Index 43.89 mL/m2 M: 34 - 74 LV Vol Biplane MOD 114.8 mL FS 32.15 % M-Mode TAPSE 2.77 cm (M/F) >1.7 LV Diastology MV E' medial 0.122 (>0.07 m/s) E/A Ratio 1.3 LV E/e MED 5.95 (<14) MV E Vmax 0.73 (0.4-1.3 m/s) MV E' lateral 0.100 (>0.1 m/s) MV A Vmax 0.55 (0.4-1.3 m/s) LV E/e LAT 7.25 (<14) MV E/A Ratio 1.28 MV E/E' medial 5.95 MV E/E' lateral 7.26 Aortic Valve LVOT Area 3.66 cm2 AoV Area Vmax 1.91 cm2 LVOT Vmax 1.06 m/s AoV Area/ BSA (Vmax) 0.97 cm2/m2 LVOT Mean Mitesh. 0.66 m/s KELVIN Mean Mitesh. 1.66 cm2 LVOT Peak Grad 4.5 mmHg KELVIN Mean Mitesh. Index 0.84 cm2/m2 LVOT Mean Grad 2.1 mmHg AR DT 3249 msec LVOT VTI 0.214 m AR PHT 942 msec LVOT Diam s 2.15 cm AoV Vmax 2.03 m/s Velocity Ratio 0.52 AoV Mean Mitesh. 1.45 m/s AoV Peak Grad 16.4 mmHg LVOT SV 78.42 mL AoV Mean Grad 9.4 mmHg AoV VTI 0.401 m AoV Area VTI 1.96 cm2 AoV Area/ BSA (VTI) 0.99 cm/m2 Mitral Valve MV DT 261 (160-240 msec) MV PHT 76 msec MV Area PHT 2.91 cm2 MV VTI 0.267 m MV Area VTI 2.94 (4.0-6.0 cm2) Pulmonary Valve PV Vmax 1.08 (0.5-1.5 m/s) RVOT Peak Gr. 3.26 mmHg PV Peak Grad 4.6 mmHg RVOT Mean Gr. 1.65 mmHg PV Mean Grad 2.5 mmHg RVOT VTI 0.167 m PV VTI 0.192 m RVOT Vmax 0.90 m/s Tricuspid Valve TR Peak Grad 25.3 mmHg TR Vmax 2.52 m/s RA Pressure 3.00 mmHg RVSP (TR) 28.4 mmHg
== END 2021-11-05 00:26 ==
PROVIDERS: PCP Family Medicine; Visit Provider Family Medicine
DX: Z86.711 Personal history of pulmonary embolism (principal); I35.1 Nonrheumatic aortic (valve) insufficiency; I77.810 Thoracic aortic ectasia
CPT/HCPCS: 93306

== ENCOUNTER 2021-12-03 03:16 | Outpatient (CLI) | payer MEDICARE, OTHER, SELFPAY ==
[2021-12-03 10:21] LABS: Abs Immature Grans 0.01 10^3/uL (0.0-0.06); Absolute Basophil Count 0.01 10^3/uL (0.0-0.2); Absolute Eosinophil Count 0.09 10^3/uL (0.0-0.7); Absolute Lymphocyte Count 1.16 10^3/uL (1.2-3.4); Absolute Monocyte Count 0.43 10^3/uL (0.1-0.8); Absolute Neutrophil Count 3.98 10^3/uL (1.2-6.7); Basophils % 0.2; Eosinophils % 1.6; HCT 38.6 % (40.0-50.0); HGB 12.5 g/dL (13.5-17.5); Immature Grans % 0.2; Lymphocytes % 20.4; MCH 31.6 pg (27.0-33.0); MCHC 32.4 % (32.0-36.0); MCV 97.5 fL (80-95); MPV 9.9 fL (8.0-11.0); Monocytes % 7.6; Nucleated RBC 0 %; Platelet Count 193 10^3/uL (130-400); RBC 3.96 10^6/uL (4.36-5.78); RDW 13.7 % (11.8-14.1); RDW-SD 49.6 fL; WBC 5.68 10^3/uL (4.4-10.8)
[2021-12-03 10:27] LABS: ALT 16 U/L (16-63); AST 17 U/L (15-37); Albumin 3.5 g/dL (3.4-5.0); Alkaline Phosphatase 98 U/L (46-116); Anion Gap 6.6 mmol/L (3-11); BUN 20 mg/dL (7-18); CO2 30.4 mmol/L (21.0-32.0); Calcium 8.8 mg/dL (8.5-10.1); Chloride 105 mmol/L (98-107); Glucose 89 mg/dL (74-106); Potassium 4.1 mmol/L (3.5-5.1); Sodium 142 mmol/L (136-145); Total Protein 6.6 g/dL (6.4-8.2)
[2021-12-04 13:50] LABS: PSA, Ultrasensitive 0.03 ng/mL (<= 7.2)
[2021-12-05 12:21] LABS: Testosterone, Total <7.0 ng/dL (240-950)
== END 2021-12-03 03:17 | disposition home or self-care (01) ==
LOC: LBO 03:16
PROVIDERS: PCP Family Medicine; Visit Provider Internal Medicine
DX: C61 Malignant neoplasm of prostate (principal); C79.51 Secondary malignant neoplasm of bone
CPT/HCPCS: 36415; 80053; 84153; 84403; 85025

== ENCOUNTER 2021-12-24 04:29 | Outpatient (CLI) | payer MEDICARE, OTHER, SELFPAY ==
[2021-12-24 12:27] LABS: Abs Immature Grans 0.06 10^3/uL (0.0-0.06); Absolute Eosinophil Count 0.01 10^3/uL (0.0-0.7); Absolute Lymphocyte Count 0.74 10^3/uL (1.2-3.4); Absolute Monocyte Count 0.33 10^3/uL (0.1-0.8); Basophils % 0.5; Eosinophils % 0.1; HCT 39.2 % (40.0-50.0); HGB 12.6 g/dL (13.5-17.5); Immature Grans % 0.5; Lymphocytes % 6.7; MCH 31.5 pg (27.0-33.0); MCHC 32.1 % (32.0-36.0); MPV 9.2 fL (8.0-11.0); Neutrophils % 89.2; Nucleated RBC 0 %; Platelet Count 327 10^3/uL (130-400); RDW 14.5 % (11.8-14.1); WBC 11.09 10^3/uL (4.4-10.8)
[2021-12-24 12:28] LABS: Absolute Basophil Count 0.06 10^3/uL (0.0-0.2); Absolute Neutrophil Count 9.89 10^3/uL (1.2-6.7)
[2021-12-24 12:38] LABS: ALT 27 U/L (16-63); AST 20 U/L (15-37); Albumin 3.6 g/dL (3.4-5.0); Alkaline Phosphatase 127 U/L (46-116); Anion Gap 6.2 mmol/L (3-11); BUN 21 mg/dL (7-18); Bilirubin, Total 0.8 mg/dL (0.2-1.0); CO2 28.8 mmol/L (21.0-32.0); CREATININE 1.1 mg/dL (0.70-1.30); Calcium 8.7 mg/dL (8.5-10.1); Chloride 103 mmol/L (98-107); Glucose 163 mg/dL (74-106); Potassium 4.4 mmol/L (3.5-5.1); Sodium 138 mmol/L (136-145); Total Protein 7.2 g/dL (6.4-8.2)
[2021-12-25 13:43] LABS: PSA, Ultrasensitive 16.6 ng/mL (<= 7.2)
[2021-12-26 12:34] LABS: Testosterone, Total <7.0 ng/dL (240-950)
== END 2021-12-24 04:30 | disposition home or self-care (01) ==
LOC: LBO 04:29
PROVIDERS: PCP Family Medicine; Visit Provider Internal Medicine
DX: C61 Malignant neoplasm of prostate (principal); C79.51 Secondary malignant neoplasm of bone
CPT/HCPCS: 36415; 80053; 84153; 84403; 85025

== ENCOUNTER 2022-01-09 02:49 | Outpatient (CLI) | payer MEDICARE, OTHER, SELFPAY ==
[2022-01-09 09:27] LABS: Abs Immature Grans 0.11 10^3/uL (0.0-0.06); Absolute Basophil Count 0.04 10^3/uL (0.0-0.2); Absolute Eosinophil Count 0.15 10^3/uL (0.0-0.7); Absolute Lymphocyte Count 0.96 10^3/uL (1.2-3.4); Absolute Monocyte Count 0.75 10^3/uL (0.1-0.8); Absolute Neutrophil Count 6.38 10^3/uL (1.2-6.7); Basophils % 0.5; Eosinophils % 1.8; HGB 11.6 g/dL (13.5-17.5); Immature Grans % 1.3; Lymphocytes % 11.4; MCH 31.4 pg (27.0-33.0); MCHC 32.2 % (32.0-36.0); MCV 97.6 fL (80-95); MPV 9.5 fL (8.0-11.0); Monocytes % 8.9; Neutrophils % 76.1; Nucleated RBC 0 %; Platelet Count 192 10^3/uL (130-400); RBC 3.69 10^6/uL (4.36-5.78); RDW 15.5 % (11.8-14.1); RDW-SD 55.1 fL; WBC 8.39 10^3/uL (4.4-10.8)
[2022-01-09 10:30] LABS: ALT 19 U/L (16-63); AST 16 U/L (15-37); Albumin 3.4 g/dL (3.4-5.0); Alkaline Phosphatase 127 U/L (46-116); Anion Gap 5.7 mmol/L (3-11); BUN 15 mg/dL (7-18); Bilirubin, Total 0.9 mg/dL (0.2-1.0); CO2 28.3 mmol/L (21.0-32.0); CREATININE 0.9 mg/dL (0.70-1.30); Calcium 8.7 mg/dL (8.5-10.1); Chloride 106 mmol/L (98-107); Glucose 83 mg/dL (74-106); Potassium 4.8 mmol/L (3.5-5.1); Sodium 140 mmol/L (136-145); Total Protein 6.2 g/dL (6.4-8.2)
[2022-01-10 17:39] LABS: PSA, Ultrasensitive 16.2 ng/mL (<= 7.2)
[2022-01-16 10:29] LABS: Testosterone, Total <7.0 ng/dL (240-950)
== END 2022-01-09 02:50 | disposition home or self-care (01) ==
LOC: LBO 02:49
PROVIDERS: PCP Family Medicine; Visit Provider Internal Medicine Hematology & Oncology
DX: C61 Malignant neoplasm of prostate (principal); C79.51 Secondary malignant neoplasm of bone
CPT/HCPCS: 36415; 80053; 84153; 84403; 85025

== ENCOUNTER 2022-02-04 04:23 | Outpatient (CLI) | payer MEDICARE, OTHER, SELFPAY ==
[2022-02-04 09:01] LABS: Abs Immature Grans 0.07 10^3/uL (0.0-0.06); Absolute Basophil Count 0.03 10^3/uL (0.0-0.2); Absolute Eosinophil Count 0.02 10^3/uL (0.0-0.7); Absolute Monocyte Count 0.49 10^3/uL (0.1-0.8); Absolute Neutrophil Count 7.05 10^3/uL (1.2-6.7); Basophils % 0.3; Eosinophils % 0.2; HGB 12.2 g/dL (13.5-17.5); Immature Grans % 0.8; Lymphocytes % 11.5; MCH 31.9 pg (27.0-33.0); MCHC 32.1 % (32.0-36.0); MCV 99.2 fL (80-95); MPV 9.3 fL (8.0-11.0); Monocytes % 5.7; Neutrophils % 81.5; Nucleated RBC 0 %; Platelet Count 229 10^3/uL (130-400); RBC 3.83 10^6/uL (4.36-5.78); RDW 16.3 % (11.8-14.1); RDW-SD 59.7 fL; WBC 8.66 10^3/uL (4.4-10.8)
[2022-02-04 09:50] LABS: ALT 21 U/L (16-63); AST 12 U/L (15-37); Albumin 3.5 g/dL (3.4-5.0); Alkaline Phosphatase 108 U/L (46-116); Anion Gap 7.6 mmol/L (3-11); BUN 19 mg/dL (7-18); Bilirubin, Total 1.1 mg/dL (0.2-1.0); CO2 27.4 mmol/L (21.0-32.0); CREATININE 0.9 mg/dL (0.70-1.30); Calcium 8.1 mg/dL (8.5-10.1); Chloride 104 mmol/L (98-107); Glucose 109 mg/dL (74-106); Potassium 5.1 mmol/L (3.5-5.1); Sodium 139 mmol/L (136-145); Total Protein 6.6 g/dL (6.4-8.2)
[2022-02-05 15:42] LABS: PSA, Ultrasensitive 19.5 ng/mL (<= 7.2)
[2022-02-08 16:20] LABS: Testosterone, Total <7.0 ng/dL (240-950)
== END 2022-02-04 04:24 | disposition home or self-care (01) ==
LOC: LBO 04:23
PROVIDERS: PCP Family Medicine; Visit Provider Internal Medicine
DX: C61 Malignant neoplasm of prostate (principal); Z79.51 Long term (current) use of inhaled steroids
CPT/HCPCS: 36415; 80053; 84153; 84403; 85025

== ENCOUNTER 2022-02-21 03:30 | Outpatient (CLI) | payer MEDICARE, OTHER, SELFPAY ==
[2022-02-21 11:00] LABS: Abs Immature Grans 0.18 10^3/uL (0.0-0.06); Absolute Basophil Count 0.03 10^3/uL (0.0-0.2); Absolute Eosinophil Count 0.01 10^3/uL (0.0-0.7); Absolute Lymphocyte Count 1.19 10^3/uL (1.2-3.4); Basophils % 0.2; Eosinophils % 0.1; HCT 39.3 % (40.0-50.0); HGB 12.5 g/dL (13.5-17.5); Immature Grans % 1.4; MCH 31.3 pg (27.0-33.0); MCHC 31.8 % (32.0-36.0); MCV 98.5 fL (80-95); MPV 9.6 fL (8.0-11.0); Monocytes % 3.6; Neutrophils % 85.7; Nucleated RBC 0 %; Platelet Count 201 10^3/uL (130-400); RBC 3.99 10^6/uL (4.36-5.78); RDW 17.2 % (11.8-14.1); RDW-SD 62.7 fL; WBC 13.17 10^3/uL (4.4-10.8)
[2022-02-21 11:01] LABS: Absolute Monocyte Count 0.47 10^3/uL (0.1-0.8); Absolute Neutrophil Count 11.29 10^3/uL (1.2-6.7)
[2022-02-21 11:48] LABS: ALT 22 U/L (16-63); AST 18 U/L (15-37); Alkaline Phosphatase 117 U/L (46-116); Anion Gap 8.6 mmol/L (3-11); BUN 18 mg/dL (7-18); Bilirubin, Total 1.3 mg/dL (0.2-1.0); CO2 26.4 mmol/L (21.0-32.0); CREATININE 0.9 mg/dL (0.70-1.30); Calcium 8.6 mg/dL (8.5-10.1); Chloride 106 mmol/L (98-107); Glucose 111 mg/dL (74-106); Potassium 4.9 mmol/L (3.5-5.1); Sodium 141 mmol/L (136-145); Total Protein 6.9 g/dL (6.4-8.2)
[2022-02-22 13:59] LABS: PSA, Ultrasensitive 24.7 ng/mL (<= 7.2)
[2022-02-25 16:27] LABS: Testosterone, Total <7.0 ng/dL (240-950)
== END 2022-02-21 03:31 | disposition home or self-care (01) ==
LOC: LBO 03:30
PROVIDERS: PCP Family Medicine; Visit Provider Internal Medicine
DX: C61 Malignant neoplasm of prostate (principal); C79.51 Secondary malignant neoplasm of bone
CPT/HCPCS: 36415; 80053; 84153; 84403; 85025

== ENCOUNTER 2022-03-11 03:25 | Outpatient (CLI) | payer MEDICARE, OTHER, SELFPAY ==
[2022-03-11 14:13] LABS: Abs Immature Grans 0.69 10^3/uL (0.0-0.06); Absolute Basophil Count 0.06 10^3/uL (0.0-0.2); Absolute Eosinophil Count 0.01 10^3/uL (0.0-0.7); Absolute Lymphocyte Count 1.64 10^3/uL (1.2-3.4); Basophils % 0.4; Eosinophils % 0.1; HCT 37.8 % (40.0-50.0); HGB 12.1 g/dL (13.5-17.5); Lymphocytes % 11.8; MCH 32.4 pg (27.0-33.0); MCV 101.1 fL (80-95); MPV 9.5 fL (8.0-11.0); Neutrophils % 78.7; Nucleated RBC 0 %; Platelet Count 191 10^3/uL (130-400); RBC 3.74 10^6/uL (4.36-5.78); RDW 16.7 % (11.8-14.1); RDW-SD 62.5 fL; WBC 13.86 10^3/uL (4.4-10.8)
[2022-03-11 14:15] LABS: Absolute Monocyte Count 0.55 10^3/uL (0.1-0.8); Absolute Neutrophil Count 10.91 10^3/uL (1.2-6.7)
[2022-03-11 14:28] LABS: Diff Comment Diff Reviewed; RBC Morphology Normal
[2022-03-11 17:20] LABS: ALT 20 U/L (16-63); AST 20 U/L (15-37); Albumin 3.7 g/dL (3.4-5.0); Alkaline Phosphatase 132 U/L (46-116); Anion Gap 7.6 mmol/L (3-11); BUN 22 mg/dL (7-18); Bilirubin, Total 0.7 mg/dL (0.2-1.0); CO2 27.4 mmol/L (21.0-32.0); Calcium 8.2 mg/dL (8.5-10.1); Chloride 106 mmol/L (98-107); Glucose 137 mg/dL (74-106); Potassium 4.6 mmol/L (3.5-5.1); Sodium 141 mmol/L (136-145); Total Protein 6.6 g/dL (6.4-8.2)
[2022-03-12 16:05] LABS: PSA, Ultrasensitive 27.2 ng/mL (<= 7.2)
[2022-03-14 16:12] LABS: Testosterone, Total <7.0 ng/dL (240-950)
== END 2022-03-11 03:26 | disposition home or self-care (01) ==
LOC: LBO 03:25
PROVIDERS: PCP Family Medicine; Visit Provider Internal Medicine
DX: C61 Malignant neoplasm of prostate (principal); C79.51 Secondary malignant neoplasm of bone
CPT/HCPCS: 36415; 80053; 84153; 84403; 85025

== ENCOUNTER 2022-03-25 05:59 | Outpatient (CLI) | payer MEDICARE, OTHER, SELFPAY ==
[2022-03-25 13:22] LABS: HCT 36.2 % (40.0-50.0); HGB 11.5 g/dL (13.5-17.5); MCH 32.2 pg (27.0-33.0); MCHC 31.8 % (32.0-36.0); MCV 101.4 fL (80-95); MPV 9.8 fL (8.0-11.0); Platelet Count 169 10^3/uL (130-400); RBC 3.57 10^6/uL (4.36-5.78); RDW 15.4 % (11.8-14.1); RDW-SD 57.6 fL
[2022-03-25 13:48] LABS: ALT 18 U/L (16-63); AST 19 U/L (15-37); Albumin 3.6 g/dL (3.4-5.0); Alkaline Phosphatase 144 U/L (46-116); Anion Gap 6.8 mmol/L (3-11); BUN 21 mg/dL (7-18); Bilirubin, Total 0.8 mg/dL (0.2-1.0); CO2 26.2 mmol/L (21.0-32.0); CREATININE 1.2 mg/dL (0.70-1.30); Calcium 8.4 mg/dL (8.5-10.1); Chloride 104 mmol/L (98-107); Estimated GFR 57.68 (mL/min/1.73m2); Glucose 182 mg/dL (74-106); Potassium 4.8 mmol/L (3.5-5.1); Sodium 137 mmol/L (136-145); Total Protein 6.7 g/dL (6.4-8.2)
[2022-03-25 13:56] LABS: Absolute Lymphocyte Count 0.68 10^3/uL (1.2-3.4); Absolute Monocyte Count 0.41 10^3/uL (0.1-0.8); Absolute Neutrophil Count 12.29 10^3/uL (1.2-6.7); Atypical Lymphocytes % 1; Bands % 1
[2022-03-25 13:57] LABS: Diff Comment Diff Reviewed; Metamyelocytes % 1; RBC Morphology Normal
[2022-03-26 19:42] LABS: PSA, Ultrasensitive 24.3 ng/mL (<= 7.2)
[2022-03-28 02:20] LABS: Testosterone, Total <7.0 ng/dL (240-950)
== END 2022-03-25 06:00 | disposition home or self-care (01) ==
LOC: LBO 06:00
PROVIDERS: Internal Medicine; PCP Family Medicine; Visit Provider Nurse Practitioner Adult Health
DX: C79.51 Secondary malignant neoplasm of bone; C61 Malignant neoplasm of prostate
CPT/HCPCS: 36415; 80053; 84153; 84403; 85025

== ENCOUNTER → 2022-04-18 01:02 | Outpatient (CLI) | payer MEDICARE, OTHER, SELFPAY ==
--- NOTE | 2022-04-18 | DI.CT_ITS ---
Exam(s) CT CHEST/ABD/PEL WO EXAM: CT CHEST/ABD/PEL WO CLINICAL HISTORY: MET PROSTATE CA,RESTAGING, POST CHEMO, C61, C79.51, METS TO BONE TECHNIQUE: Imaging Protocol: Axial computed tomography images with coronal and sagittal reformatted images were created and reviewed COMPARISON: CT CT CHEST/ABD/PEL W from 10/16/2021 FINDINGS: Lack of IV contrast does limit the examination. CHEST: Tracheobronchial tree: Patent where visualized. Pulmonary parenchyma: No consolidation or dominant measurable mass. No architectural distortion. Calc ified granuloma is present in the lingula. Stable perifissural nodules are seen in the right lung. No noncalcified pulmonary nodules are present. Atelectatic changes are seen in the lung bases. Mediastinum and Nel: No dominant adenopathy or fluid collection. The esophagus is unremarkable. Stab le lymph nodes are seen in the mediastinum including a calcified lymph node near the GE junction. Thyroid gland: Unremarkable. Pleura: No effusion or pneumothorax. Heart: The heart is not dilated. Coronary artery calcifications are present. No pericardial effusion . Aorta: There is a stable 4.6 cm ascending thoracic aorta. Atherosclerosis is present. Lymph nodes: Please see above. Bones:There is diffuse osseous metastatic disease. No pathologic fractures are identified. Soft tissues: Unremarkable. ABDOMEN: Liver: Normal density. No measurable mass. Gallbladder and Biliary Tract: Gallstones are present. No biliary ductal dilatation. Pancreas: There is fatty infiltration of the pancreas. Spleen: Normal. Adrenals: No masses seen. Kidneys: Normal size, contour and axis. No radiodense stones or obstructive uropathy. No masses seen. Abdominal Aorta: Abdominal portion non-dilated. Atherosclerosis. 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 Bowel: No obstruction or bowel wall thickening. No evidence of appendicitis. Peritoneal Cavity: No ascites, collection or mesenteric inflammatory response. No free air. Lymph Nodes: Within normal limits. Bones: There is diffuse osseous metastatic disease. Soft Tissues: Unremarkable. PELVIS: Bladder: Symmetric distention, no gross wall thickening. Reproductive Organs: Unremarkable as visualized. Lymph Nodes: Within normal limits. Bones: Diffuse osseous metastatic disease. IMPRESSION: Findings are again seen of widespread bony metastatic disease. No other evidence of metastatic disea se in the chest, abdomen or pelvis. RADIATION DOSE DELIVERED: 1,093.03mGy.cm Total DLP 1,093.03mGy.cm Total DLP DATA REPOSITORY: All CT scans at this facility are submitted to the National Radiology Data Registry (NRDR) Dose Index Registry (DIR) with the [employer] (ACR). RADIATION OPTIMIZATION: All CT scans at this facility use at least one of these dose optimization te chniques: automated exposure control; mA and/or kV adjustment per patient size (includes targeted exa ms where dose is matched to clinical indication); or iterative reconstruction.
--- NOTE | 2022-04-18 08:30 | DI.NM_ITS ---
Exam(s) IL BONE SCAN WHOLE BODY GRP EXAM: IL BONE SCAN WHOLE BODY GRP CLINICAL HISTORY: METS PROSTATE CA, METS TO BONE, C61, C79.51, POST CHEMO. TECHNIQUE: Injected Dose: 25.5 mCi Tc-99m MDP Delayed Images: 2-3 hours. COMPARISON: [facility] BONE SCAN WHOLE BODY GRP from 10/16/2021 FINDINGS: Symmetric axial uptake. Bilateral renal excretion is identified. There has been an increase in the ra diotracer uptake in the axial and appendicular skeleton. There is increased involvement of the spine , ribs and pelvis. There is also increased radiotracer uptake in the distal right clavicle. IMPRESSION: 1. Evidence of increased osseous metastatic disease. DATA REPOSITORY:
[2022-04-18] MEDS: Barium Sulfate 2% W/V-Berry Smoothie 450 ML BTL 900 ML PO (09:08)
== END ==
PROVIDERS: PCP Family Medicine; Visit Provider Nurse Practitioner Adult Health
DX: C79.51 Secondary malignant neoplasm of bone (principal); C61 Malignant neoplasm of prostate; Z79.818 Long term (current) use of other agents affecting estrogen receptors and estrogen levels
CPT/HCPCS: 71250; 78306; 74176

== ENCOUNTER → 2022-06-12 01:28 | Outpatient (CLI) | payer MEDICARE, OTHER, SELFPAY ==
--- NOTE | 2022-06-12 07:00 | DI.RAD_ITS ---
Exam(s) XR CHEST 2V PA LATERAL EXAM: XR CHEST 2V PA LATERAL CLINICAL HISTORY: Productive cough, h/o prostate cancer,R05 TECHNIQUE: 2D digital imaging was performed of the chest. Two images were obtained. PA and lateral views were obtained. COMPARISON: CR,XR XR CHEST 2V PA LATERAL from 12/16/2019 FINDINGS: MEDIASTINUM: Normal. HEART: Normal. PULMONARY VASCULATURE: Normal. LUNGS: Clear. The lungs appear hyperinflated with flattened diaphragms suggesting underlying COPD. PLEURAL SPACE: No pleural effusion or pneumothorax. BONE:Within normal limits for the patient's age. Old healed left rib fractures are seen. OTHER FINDINGS:Normal. IMPRESSION: No acute pulmonary findings. DATA REPOSITORY: RADIATION DOSE DELIVERED:
== END ==
PROVIDERS: PCP Family Medicine; Visit Provider Family Medicine
DX: R05.8 Other specified cough (principal); Z85.46 Personal history of malignant neoplasm of prostate; J44.9 Chronic obstructive pulmonary disease, unspecified
CPT/HCPCS: 71046

== ENCOUNTER 2022-06-12 02:27 | Outpatient (CLI) | payer MEDICARE, OTHER, SELFPAY ==
[2022-06-12 09:55] LABS: Abs Immature Grans 0.02 10^3/uL (0.0-0.06); Absolute Basophil Count 0.02 10^3/uL (0.0-0.2); Absolute Eosinophil Count 0.08 10^3/uL (0.0-0.7); Absolute Lymphocyte Count 1.62 10^3/uL (1.2-3.4); Absolute Monocyte Count 0.48 10^3/uL (0.1-0.8); Absolute Neutrophil Count 2.62 10^3/uL (1.2-6.7); Basophils % 0.4; Eosinophils % 1.7; HCT 37.9 % (40.0-50.0); HGB 12.1 g/dL (13.5-17.5); Immature Grans % 0.4; Lymphocytes % 33.5; MCH 30.5 pg (27.0-33.0); MCHC 31.9 % (32.0-36.0); MCV 96 fL (80-95); MPV 9.2 fL (8.0-11.0); Monocytes % 9.9; Neutrophils % 54.1; Platelet Count 146 10^3/uL (130-400); RBC 3.97 10^6/uL (4.36-5.78); RDW 13.2 % (11.8-14.1); WBC 4.84 10^3/uL (4.4-10.8)
[2022-06-12 11:00] LABS: ALT 19 U/L (16-63); AST 30 U/L (15-37); Albumin 3.5 g/dL (3.4-5.0); Alkaline Phosphatase 268 U/L (46-116); Anion Gap 7.2 mmol/L (3-11); BUN 24 mg/dL (7-18); Bilirubin, Total 0.9 mg/dL (0.2-1.0); CO2 28.8 mmol/L (21.0-32.0); Calcium 8.5 mg/dL (8.5-10.1); Chloride 104 mmol/L (98-107); Glucose 80 mg/dL (74-106); Sodium 140 mmol/L (136-145); TSH (W/Ref FT4) 3.75 uIU/mL (0.36-3.74); Total Protein 7.1 g/dL (6.4-8.2); Vitamin B12 554 pg/mL (193-986)
[2022-06-12 11:19] LABS: FREE T4 0.77 ng/dL (0.76-1.46)
[2022-06-12 11:28] LABS: Iron 43 ug/dL (65-175); Total Iron Binding Capacity 243 ug/dL (250-450); Transferrin Sat 18 % (20-55)
[2022-06-13 14:08] LABS: PSA, Ultrasensitive 44.6 ng/mL (<= 7.2)
[2022-06-18 18:26] LABS: Testosterone, Total <7.0 ng/dL (240-950)
== END 2022-06-12 02:28 | disposition home or self-care (01) ==
LOC: LBO 02:27
PROVIDERS: PCP Family Medicine; Visit Provider Internal Medicine
DX: C61 Malignant neoplasm of prostate (principal); C79.51 Secondary malignant neoplasm of bone; D53.9 Nutritional anemia, unspecified; R53.83 Other fatigue
CPT/HCPCS: 36415; 80053; 84153; 84403; 71046; 82607; 83540; 83550; 84439; 84443; 85025

== ENCOUNTER 2022-07-03 13:59 | Inpatient (IN) | payer MEDICARE, OTHER, SELFPAY ==
[2022-07-03] VITALS (26 sets, daily range): BP systolic 120–166; BP diastolic 73–82; PULSE 73–87; RESP 13–19; TEMP 36.5–36.9; O2SAT 95–98
--- NOTE | 2022-07-03 15:00 | DI.RAD_ITS ---
Exam(s) XR CHEST 2V PA LATERAL EXAM: XR CHEST 2V PA LATERAL CLINICAL HISTORY: dizzy TECHNIQUE: 2D digital imaging was performed. COMPARISON: CT CT CHEST/ABD/PEL WO from 04/18/2022 CR XR CHEST 2V PA LATERAL from 06/12/2022 FINDINGS: MEDIASTINUM: Normal. HEART: Normal. PULMONARY VASCULATURE: Normal. LUNGS: Mild bilateral scarring. PLEURAL SPACE: No pleural effusion or pneumothorax. BONE:Degenerative disc changes. IMPRESSION: No acute abnormality. DATA REPOSITORY: RADIATION DOSE DELIVERED:
--- NOTE | 2022-07-03 15:00 | DI.CT_ITS ---
Exam(s) CT HEAD WO EXAM: CT HEAD WO CLINICAL HISTORY: fall, anticoagulated. TECHNIQUE: Imaging Protocol: Axial computed tomography images with coronal and sagittal reformatted images were created and reviewed COMPARISON: CT CT HEAD CERVICAL SPINE WO from 10/12/2019 FINDINGS: Ventricles and Extra axial spaces: Normal in size and morphology for the patient's age. Hemorrhage: None. Cerebral parenchyma: Atrophy. White matter changes consistent with small vessel disease. Midline shift: None. Brainstem/Cerebellum: Normal. Calvarium: Normal. Visualized Paranasal sinuses/Mastoids: Clear. IMPRESSION: No acute abnormality. RADIATION DOSE DELIVERED: 847.68mGy.cm Total DLP 847.68mGy.cm Total DLP DATA REPOSITORY: All CT scans at this facility are submitted to the National Radiology Data Registry (NRDR) Dose Index Registry (DIR) with the [employer] (ACR). RADIATION OPTIMIZATION: All CT scans at this facility use at least one of these dose optimization te chniques: automated exposure control; mA and/or kV adjustment per patient size (includes targeted exa ms where dose is matched to clinical indication); or iterative reconstruction.
--- NOTE | 2022-07-03 15:00 | RT.EKG_ITS ---
APPROVED REPORT Exam: Resting ECG Reason for Exam: dizzy Patient Location: E HR:83 bpm ECG Measurements Heart Rate 83 AXIS SD 174 P 80 QRSd 101 QRS 17 QT 385 T 17 QTc 452 Conclusion Sinus rhythm...normal P axis, V-rate 60- 99. Sinus. Normal axis. No STEMI. I have reviewed and interpreted ECG and agree with software generated interpretation.
--- NOTE | 2022-07-03 15:04 | W.ED.GENAD ---
Discharge Plan Disposition Patient Disposition: [facility] INPATIENT Condition: Serious Discharge Details Clinical Impression: Elevated troponin, Weakness Admit Date/Time: 07/03/22 20:02 Admit Provider: Corry Dobbs Attending Provider: Corry Dobbs Primary Care Provider: Artem Barkley ED Provider: Janina Murray Medical Decision Making <ALIS Maldonado - Last Filed: 07/03/22 16:14> 86-year-old gentleman recently treated for prostate cancer with chemotherapy in February has not felt well ever since, generalized weakness, decreased appetite, multiple falls including a fall today, he is anticoagulated. We may obtain IV access, give IV fluids for potential dehydration or bile depletion, obtain CT imaging of his head given his fall and anticoagulation as well as initiate a cardiac work-up given his ongoing unsteadiness and dizziness. He appears well, nontoxic, neurologically intact. Head CT unremarkable, chest x-ray unremarkable The abrasions and skin tear will need to be cleaned and appropriately dressed Patient still receiving IV fluid. Laboratory values reveal no evidence of leukocytosis. Does have mild anemia, denies any GI bleeding symptoms. No evidence of thrombocytopenia. Coags, electrolytes pending. Troponin pending. Urinalysis unremarkable. COVID pending This documentation was generated using Footnote dictation system, please disregard any oddities of phrase or misspellings. Medical Records Medical records reviewed: Yes I reviewed the patient's medical records. Imaging Data Radiologic Study: Attestation: I personally reviewed and interpreted this imaging study as follows: Imaging: CT Scan Radiologist's impression: Exam(s) CT HEAD WO EXAM: CT HEAD WO CLINICAL HISTORY: fall, anticoagulated. TECHNIQUE: Imaging Protocol: Axial computed tomography images with coronal and sagittal reformatted images were created and reviewed COMPARISON: CT CT HEAD CERVICAL SPINE WO from 10/12/2019 FINDINGS: Ventricles and Extra axial spaces: Normal in size and morphology for the patient's age. Hemorrhage: None. Cerebral parenchyma: Atrophy. White matter changes consistent with small vessel disease. Midline shift: None. Brainstem/Cerebellum: Normal. Calvarium: Normal. Visualized Paranasal sinuses/Mastoids: Clear. IMPRESSION: No acute abnormality. Radiologic Study #2: Attestation: I personally reviewed and interpreted this imaging study as follows: Imaging: X-Ray Radiologist's impression: Exam(s) XR CHEST 2V PA LATERAL EXAM: XR CHEST 2V PA LATERAL CLINICAL HISTORY: dizzy TECHNIQUE: 2D digital imaging was performed. COMPARISON: CT CT CHEST/ABD/PEL WO from 04/18/2022 CR XR CHEST 2V PA LATERAL from 06/12/2022 FINDINGS: MEDIASTINUM: Normal. HEART: Normal. PULMONARY VASCULATURE: Normal. LUNGS: Mild bilateral scarring. PLEURAL SPACE: No pleural effusion or pneumothorax. BONE:Degenerative disc changes. IMPRESSION: No acute abnormality. Lab Data Lab results reviewed: Yes I reviewed the patient's lab results. Labs: Laboratory Tests Range/Units 07/03/22 07/03/22 07/03/22 15:11 15:45 15:50 WBC (4.4-10.8) 10^3/uL 5.89 RBC (4.36-5.78) 10^6/uL 4.08 L Hgb (13.5-17.5) g/dL 12.4 L Hct (40.0-50.0) % 38.1 L MCV (80-95) fL 93 MCH (27.0-33.0) pg 30.4 MCHC (32.0-36.0) % 32.5 RDW (11.8-14.1) % 13.8 Plt Count (130-400) 10^3/uL 142 MPV (8.0-11.0) fL 9.4 Immature Gran % 1.9 Neutrophils % 56.9 Lymphocytes % 31.4 Monocytes % 8.7 Eosinophils % 0.8 Basophils % 0.3 Nucleated RBC % (0.0-0.3) % 0.0 Absolute Neutrophils (1.2-6.7) 10^3/uL 3.35 Absolute Lymphocytes (1.2-3.4) 10^3/uL 1.85 Absolute Monocytes (0.1-0.8) 10^3/uL 0.51 Absolute Eosinophils (0.0-0.7) 10^3/uL 0.05 Absolute Basophils (0.0-0.2) 10^3/uL 0.02 Urine Color (Yellow) Yellow Urine Clarity (Clear) Clear Urine pH (5-8) 6.5 Ur Specific [place] (1.005-1.025) 1.015 Urine Protein (Negative) mg/dL Negative Urine Ketones (Negative) mg/dL Negative Urine Blood (Negative) Negative Urine Nitrite (Negative) Negative Urine Bilirubin (Negative) Negative Urine Urobilinogen (Up TO 0.2) EU/dL 0.2 Ur Leukocyte Esterase (Negative) Negative Urine Glucose (Negative) mg/dL Negative COVID-19 Source Nasal/Nares ECG Data Attestation: I personally reviewed and interpreted this ECG (s) as follows: Interpretation: Sinus rhythm, ventricular rate of 83, no STEMI <ALIS Bailon - Last Filed: 07/03/22 22:37> 86-year-old gentleman recently treated for prostate cancer with chemotherapy in February has not felt well ever since, generalized weakness, decreased appetite, multiple falls including a fall today, he is anticoagulated. We may obtain IV access, give IV fluids for potential dehydration or bile depletion, obtain CT imaging of his head given his fall and anticoagulation as well as initiate a cardiac work-up given his ongoing unsteadiness and dizziness. He appears well, nontoxic, neurologically intact. Head CT unremarkable, chest x-ray unremarkable The abrasions and skin tear will need to be cleaned and appropriately dressed Patient still receiving IV fluid. Laboratory values reveal no evidence of leukocytosis. Does have mild anemia, denies any GI bleeding symptoms. No evidence of thrombocytopenia. Coags, electrolytes pending. Troponin pending. Urinalysis unremarkable. COVID pending This documentation was generated using Footnote dictation system, please disregard any oddities of phrase or misspellings. Care accepted in transition from Aroldo Dubose, physician nurse assistant pending chemistry, troponin Troponin is notably elevated, 325, EKG does not show acute abnormality Patient is chest pain-free and has not had any discomfort throughout the day Repeat troponin and EKG were ordered and his troponin has decreased, to 57 on repeat with normal-appearing EKG for patient Suspect demand ischemia Initial care plan with admit the patient, I did speak with Dr. Cisneros, on-call b2b sales manager at [facility] and he feels the patient is stable for discharge home with outpatient echocardiogram Discussed with patient and we performed ambulatory trial which unfortunately was unsuccessful, patient reportedly had some gait ataxia and not safe for discharge Extensively reviewed with cardiology whether or not to anticoagulate or give aspirin since patient and I think continuation of his Eliquis additional anticoagulation is reasonable at this time From neurological standpoint, patient is certainly at risk for lesions in his brain from his metastatic prostate cancer and therefore will be admitted to the hospital, lower suspicion for TIA or stroke with persistent symptoms Relatively nonfocal neurological exam Case was discussed with Dr. Dobbs who admit patient to her service HPI <ALIS Maldonado - Last Filed: 07/03/22 16:14> General Mode of arrival: ambulatory. Date/Time Provider Initiated Documentation: 07/03/22 14:25. Limitations to Documentation: no limitations. Information obtained by: patient. HPI Narrative: This is an 86-year-old gentleman, past medical history that includes asthma, prostate cancer that was most recently treated with chemotherapy in February, presenting for ongoing generalized weakness, occasional dizziness-ataxia, decreased oral intake since February as well as a mechanical slip and fall today, he is anticoagulated. Patient states that overall he has not felt well since February has had a couple falls, but denies any significant injuries from these falls. He denies striking his head today. He denies headache, visual changes, neck pain, chest pain, shortness of breath, abdominal pain, nausea, vomiting, change in bowel or bladder function. He did sustain abrasions to his lower extremities and skin tear to his left upper extremity. Tetanus status is up-to-date. Related Data Home Medications Medication Instructions Recorded Confirmed glucosamine 375 yg-arphkbrym-vkj 1 ea PO DAILY 01/11/14 07/03/22 no1 500 mg-C 15 mg-deepti 0.5 mg tablet (Pyfihprvama-Pgpmyjuspia-MOR Complex) leuprolide (3 month) 22.5 mg (3 22.5 mg IM Q3M 05/18/18 07/03/22 month) intramuscular syringe kit (Lupron Depot) albuterol sulfate 90 mcg/actuation 2 inh inhalation QID PRN 10/21/19 07/03/22 breath activated powder inhaler multivitamin,ap-rajx-uwtqokev 1 tab PO DAILY 12/23/19 07/03/22 (Complete Multivitamin tablet) apixaban 5 mg (74 tabs) tablets in 5 mg PO BID 05/17/21 07/03/22 a dose pack (Eliquis DVT-PE Treat 30D Start) denosumab 120 mg/1.7 mL (70 mg/mL) 120 mg subcut [id number] 11/13/21 07/03/22 subcutaneous solution (Xgeva) calcium/mag/Vit d PO 12/27/21 06/10/22 Allergies Allergy/AdvReac Type Severity Reaction Status Date / Time No Known Allergies Allergy Verified 07/03/22 14:13 General Stated Complaint: GenMedical GEMA: 3 Review of Systems <ALIS Maldonado - Last Filed: 07/03/22 16:14> Constitutional Constitutional: Denies fatigue, Denies fever(s), Denies headache(s) and Reports weakness (Generalized) Eyes Eyes: Denies change in vision ENT Ears, Nose, Mouth, and Throat: Denies headache(s), Denies neck pain and Reports disequilibrium Cardiovascular Cardiovascular: Denies chest pain and Denies dyspnea Respiratory Respiratory: Denies cough and Denies dyspnea Gastrointestinal Gastrointestinal: Denies abdominal pain, Denies nausea and Denies vomiting Genitourinary Genitourinary: Denies dysuria Musculoskeletal Musculoskeletal: Denies back pain, Denies neck pain, Denies numbness and Denies tingling Integumentary/Breasts Skin/Breast: Denies photosensitivity Neurologic Neurologic: Denies headache(s), Denies numbness, Denies tingling, Reports disequilibrium and Reports weakness (Generalized) Endocrine Endocrine: Denies fatigue Hematologic/Lymphatic Hematologic/Lymphatic: Denies easy bleeding and Denies easy bruising PFSH <ALIS Maldonado - Last Filed: 07/03/22 16:14> All Active Problems (Updated 07/03/22 @ 22:37 by ALIS Bailon) Elevated troponin (Acute) Weakness (Acute) Malignant neoplasm of prostate metastatic to bone (Acute) [facility] [place]/22/22 Gastrointestinal stromal tumor of stomach (Acute) Hot flash due to medication (Acute) Mechanical dysphagia (Acute) Hypertension (Chronic) Androgen deprivation therapy (Acute) Anterior epistaxis (Acute) Echocardiogram abnormal (Chronic) No acute findings, but dilated ascending aorta measuring 4.56 cm. 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 s/p 6 weeks of swelling in wrist o RT arm (post IV infusion) Medical History Acute stasis dermatitis Cough Facial basal cell cancer Right bundle branch block Seborrheic keratoses Surgical History Appendectomy colonoscopy (12/23/16) egd W/ bx (02/01/18) [facility] H/O esophagogastroduodenoscopy 01/07/19 [facility] [place] Alec Omalley MD spine disc surgery Prostate Biopsy (04/05/18) Family History Mother , in sleep at age 93. No problems noted. Father , unknown at age 90. Aneurysm Sister No problems noted. Brother No problems noted. Social History Smoking/Tobacco Use Status: Former Tobacco Use Quit Date: 11/30/1963 Pack-years: 5 Tobacco: How many years used: 5 Smoking risk assessment performed?: Yes Alcohol Intake: current Alcohol Intake frequency: 0-2 drinks per day Alcohol type: beer Drug use: Never Substance use type: does not use Adopted: No Caregiver/Support person: No Foster care: No Household members: spouse Housing: house Number of Children: 2 number of grandchildren: 5 Communication Needs: Hard of Hearing Education Level: college Details: Bachelor's Degree Do you need help understanding health information?: Often current occupation: Retired Pets and animals: Yes Pets and animals: dog(s) Sexually active: No Do you think of yourself as: straight/heterosexual Current gender identity: male What is your relationship status?: How often do you talk on the phone with friends or family?: twice per week How often do you get together with friends or relatives?: once per week How often do you attend latter day or church services?: decline to answer Do you belong to any clubs or organized social groups?: no Panel score (0-1 are the most socially isolated patients): 2 What type of physical activity do you participate in: walking Duration: 30-45 minutes/day Frequency: 3-4 times per week Jeni/Scientologist: Lutheran Special jeni needs: No Seatbelt use: always Drive intox or ride w/intox log truck driver: No Working smoke detector in home: Yes Fire extinguisher in home: Yes Carbon monox detector in home: Yes Do you feel safe in your relationship?: Yes Exam <ALIS Maldonado - Last Filed: 07/03/22 16:14> Const General: cooperative, healthy appearing, comfortable and no acute distress Orientation: alert, awake and oriented x3 HENMT Head: normal to inspection, normocephalic and atraumatic Face and sinus: normal facial exam Mouth: moist mucous membranes Throat: posterior oropharynx normal Eyes General: appearance normal, both eyes and all related structures Conjunctivae: conjunctivae normal Neck Neck: normal visual inspection, full ROM, trachea midline, supple and nontender Resp Effort & Inspection: normal respiratory effort and able to speak in complete sentences Auscultation: clear to auscultation bilaterally Cardio Rate: regular rate Rhythm: regular rhythm GI Palpation: soft, not firm, no guarding, no pulsatile masses and nontender Back/Spine/Pelvis Back: No back tenderness Skin General skin exam: no rashes or lesions noted Neuro General: patient alert, patient awake, patient oriented x3, moves all extremities and no focal motor deficits Cranial Nerves: CN's II-XI intact bilaterally Cognition: normal cognition Speech: speech normal Gait: normal gait Motor: muscle tone normal throughout, strength 5/5 throughout, no pronator drift, no movement abnormalities noted and no fasciculations Sensory Exam: no sensory deficits noted Extrem General: full ROM and capillary refill normal Other: Abrasions bilateral lower extremities. Skin tear left forearm Psych Appearance: grossly normal Mental Status: mental status grossly normal Course <ALIS Maldonado - Last Filed: 07/03/22 16:14> Vital Signs Vital signs: Vital Signs Temperature 36.6 C 07/03/22 14:10 Pulse 83 07/03/22 14:10 Respiratory Rate 18 07/03/22 14:10 Blood Pressure 166/73 H 07/03/22 14:10 Pulse Oximetry 98 07/03/22 14:10 Temperature 36.6 C 07/03/22 14:10 Temperature Source Temporal Artery Scan 07/03/22 14:10 Pulse 83 07/03/22 14:10 Respiratory Rate 15 07/03/22 14:58 Respiratory Effort 07/03/22 14:58 Respiratory Depth Normal 07/03/22 14:58 Respiratory Pattern Normal 07/03/22 14:58 Blood Pressure 166/73 H 07/03/22 14:10 Blood Pressure Position Sitting 07/03/22 14:10 Pulse Oximetry 98 07/03/22 14:10 Oxygen Delivery Method Room Air 07/03/22 14:10 Oxygen Flow Rate 0 07/03/22 14:10 Sign Out <ALIS Maldonado - Last Filed: 07/03/22 16:14> Sign Out Data: Sign Out Comment: Not feeling well since chemotherapy in February, lack of appetite, generalized weakness, multiple falls. Fall today, CT imaging of head and x-ray of chest unremarkable. Tetanus up-to-date. Receiving IV hydration. Will need wounds cleaned and dressed, no repair required. Awaiting troponin, CMP, reevaluation, trial ambulation and disposition. Last updated by Aroldo Dubose PA at 07/03/22 16:13
[2022-07-03 15:22] LABS: Source Nasal/Nares
[2022-07-03 15:55] LABS: Bilirubin Negative (Negative); Blood Negative (Negative); Clarity Clear (Clear); Glucose Negative (Negative); Ketones Negative (Negative); Leukocyte Esterase Negative (Negative); Nitrite Negative (Negative); Specific Gravity 1.015 (1.005-1.025); Urobilinogen 0.2 EU/dL (Up TO 0.2); pH 6.5 (5-8)
[2022-07-03 16:01] LABS: Abs Immature Grans 0.11 10^3/uL (0.0-0.06); Absolute Basophil Count 0.02 10^3/uL (0.0-0.2); Absolute Eosinophil Count 0.05 10^3/uL (0.0-0.7); Absolute Lymphocyte Count 1.85 10^3/uL (1.2-3.4); Absolute Monocyte Count 0.51 10^3/uL (0.1-0.8); Absolute Neutrophil Count 3.35 10^3/uL (1.2-6.7); Basophils % 0.3; Eosinophils % 0.8; HCT 38.1 % (40.0-50.0); HGB 12.4 g/dL (13.5-17.5); Immature Grans % 1.9; Lymphocytes % 31.4; MCH 30.4 pg (27.0-33.0); MCHC 32.5 % (32.0-36.0); MCV 93 fL (80-95); MPV 9.4 fL (8.0-11.0); Monocytes % 8.7; Neutrophils % 56.9; Platelet Count 142 10^3/uL (130-400); RBC 4.08 10^6/uL (4.36-5.78); RDW 13.8 % (11.8-14.1); RDW-SD 47.8 fL; WBC 5.89 10^3/uL (4.4-10.8)
[2022-07-03 16:14] LABS: PTT Activated 27.9 sec (21.0-27.5); Prothrombin Time 11.5 sec (9.3-11.0)
[2022-07-03 16:15] LABS: INR 1.1 (0.9-1.1)
[2022-07-03 16:16] LABS: ALT 21 U/L (16-63); AST 46 U/L (15-37); Albumin 3.9 g/dL (3.4-5.0); Alkaline Phosphatase 424 U/L (46-116); Anion Gap 8.5 mmol/L (3-11); BUN 19 mg/dL (7-18); Bilirubin, Total 0.8 mg/dL (0.2-1.0); CO2 25.5 mmol/L (21.0-32.0); Chloride 102 mmol/L (98-107); Glucose 101 mg/dL (74-106); Magnesium 2.6 mg/dL (1.8-2.4); Potassium 5.2 mmol/L (3.5-5.1); Sodium 136 mmol/L (136-145); Total Protein 7.7 g/dL (6.4-8.2)
[2022-07-03 16:20] LABS: COVID-19 PCR Negative (Negative)
[2022-07-03 16:29] LABS: Troponin I 317 ng/L (<or=60)
--- NOTE | 2022-07-03 17:45 | RT.EKG_ITS ---
APPROVED REPORT Exam: Resting ECG Reason for Exam: chest pain Patient Location: E HR:77 bpm ECG Measurements Heart Rate 77 AXIS OR 185 P 58 QRSd 97 QRS 15 QT 388 T 30 QTc 440 Conclusion Sinus rhythm...normal P axis, V-rate 60- 99. Sinus. No STEMI. I have reviewed and interpreted ECG and agree with software generated interpretation.
[2022-07-03 18:47] LABS: Troponin I 257 ng/L (<or=60)
[2022-07-03 20:37] LABS: Creatine Kinase 178 U/L (39-308)
[2022-07-03] MEDS: Apixaban 5 MG TAB PO (21:29)
--- NOTE | 2022-07-03 23:40 | HPE_ITS ---
Date of service: 07/03/22 Time of Service: 23:40 Assessment and Plan Assessment and plan (1) Elevated troponin: Status: Acute Assessment and plan: Doubt ACS as no cardiac symptoms and the elevation of troponin was so minimal. Recheck troponin in am and obtain echo in am. Monitor on tele. (2) Ambulatory dysfunction: Status: Acute Assessment and plan: Episodes of balance loss. Given h/o metastatic prostate ca, would be important to r/o a met to the brain. Acute posterior circulation CVA is also possible. Monitor on tele. Obtain MRI/MRA brain. Neuro checks. PT consult. Check B12, TSH. 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 As above- r/o metastasis to the brain (4) Chronic anticoagulation: Status: Acute Assessment and plan: For h/o DVT/PE. Continue eliquis. (5) Discharge planning issues: Status: Acute Assessment and plan: Full code C/s PT. Consider palliative care consult History of Present Illness History of Present Illness Chief Complaint: Difficulty walking, falls Narrative: Mr Brandon is an 86 year old male with PMHx of metastatic prostate cancer on androgen deprivation therapy, as well as h/o DVT/PE on anticoagulation with eliquis, hypertension, a heart murmur, GISTs/p partial gastrectomy, balance problems who had sustained a fall today due to loss of balance without LOC, head trauma, or any injury other than minimal abrasions. The patient had twisted to hang a tool he was working with on a nail and fell. He states that one month ago he was walking his dog and had a sudden sensation of being pulled to one side and fell into a ditch. About a week ago, he fell off of a chair while seated and he is sure he was not dizzy before it happened. This is very distressing to the patient and his . He state that he used to be pretty active. He does not use any assistive devices. The patient denies numbness or paresthesias to his feet. He drinks 1 alcoholic beverage a day. In the ED, he was unable to walk. Additionally, he was found to have an elevated troponin with a stable EKG and no chest pain. Cardiology at [facility] was consulted via phone and recommended against starting asa and to obtain an echocardiogram. Review of Systems All systems reviewed & are unremarkable except as noted in HPI and below PFSH All Active Problems (Updated 07/04/22 @ 01:07 by Corry Dobbs MD) Discharge planning issues (Acute) Chronic anticoagulation (Acute) Ambulatory dysfunction (Acute) Elevated troponin (Acute) Weakness (Acute) Malignant neoplasm of prostate metastatic to bone (Chronic) [facility] progress note 04/22/22 Gastrointestinal stromal tumor of stomach (Acute) Hot flash due to medication (Acute) Mechanical dysphagia (Acute) Hypertension (Chronic) Androgen deprivation therapy (Acute) Anterior epistaxis (Acute) Echocardiogram abnormal (Chronic) No acute findings, but dilated ascending aorta measuring 4.56 cm. 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 s/p 6 weeks of swelling in wrist o RT arm (post IV infusion) Medical History (Updated 07/04/22 @ 01:07 by Corry Dobbs MD) Acute stasis dermatitis Cough Facial basal cell cancer Right bundle branch block Seborrheic keratoses Surgical History (Updated 07/04/22 @ 01:34 by Corry Dobbs MD) Appendectomy colonoscopy (12/23/16) egd W/ bx (02/01/18) [facility] H/O esophagogastroduodenoscopy 01/07/19 [facility] [place]. Alec Omalley MD H/O right wrist surgery LS spine disc surgery Prostate Biopsy (04/05/18) S/P partial gastrectomy (05/10/19) 05/10/19: robotic assisted partial gastrectomy/wedge resection with gastro- gastric anastamosis. [facility]. S/P tonsillectomy Family History Mother , in sleep at age 93. No problems noted. Father , unknown at age 90. Aneurysm Sister No problems noted. Brother No problems noted. Social History Smoking/Tobacco Use Status: Former Tobacco Use Quit Date: 11/30/1963 Pack- years: 5 Tobacco: How many years used: 5 Smoking risk assessment performed?: Yes Alcohol Intake: current Alcohol Intake frequency: 0-2 drinks per day Alcohol type: beer Drug use: Never Substance use type: does not use Adopted: No Caregiver/Support person: No Foster care: No Household members: spouse Housing: house Number of Children: 2 number of grandchildren: 5 Communication Needs: Hard of Hearing Education Level: college Details: Bachelor's Degree Do you need help understanding health information?: Often current occupation: Retired Pets and animals: Yes Pets and animals: dog(s) Sexually active: No Do you think of yourself as: straight/heterosexual Current gender identity: male What is your relationship status?: How often do you talk on the phone with friends or family?: twice per week How often do you get together with friends or relatives?: once per week How often do you attend buddhism or denominational services?: decline to answer Do you belong to any clubs or organized social groups?: no Panel score (0-1 are the most socially isolated patients): 2 What type of physical activity do you participate in: walking Duration: 30-45 minutes/day Frequency: 3-4 times per week Jeni/Episcopalian: Hoahaoism Special jeni needs: No Seatbelt use: always Drive intox or ride w/intox passenger coach driver: No Working smoke detector in home: Yes Fire extinguisher in home: Yes Carbon monox detector in home: Yes Do you feel safe in your relationship?: Yes Meds Allergies and Home Medications Allergies Allergy/AdvReac Type Severity Reaction Status Date / Time No Known Allergies Allergy Verified 07/03/22 14:13 Home Medications Medication Instructions Recorded Confirmed Type glucosamine 375 xl-exrxhyoab-zcj 1 ea PO DAILY 01/11/14 07/03/22 History no1 500 mg-C 15 mg-deepti 0.5 mg tablet (Rewxqlljcsq-Tnbvressxam-CLR Complex) leuprolide (3 month) 22.5 mg (3 22.5 mg IM Q3M 05/18/18 07/03/22 History month) intramuscular syringe kit (Lupron Depot) albuterol sulfate 90 mcg/actuation 2 inh inhalation QID PRN 10/21/19 07/03/22 History breath activated powder inhaler multivitamin,gl-xgkd-wmadeivu 1 tab PO DAILY 12/23/19 07/03/22 History (Complete Multivitamin tablet) apixaban 5 mg (74 tabs) tablets in 5 mg PO BID 05/17/21 07/03/22 History a dose pack (EliquSecret Recipe DVT-PE Treat 30D Start) denosumab 120 mg/1.7 mL (70 mg/mL) 120 mg subcut [id number] 11/13/21 07/03/22 History subcutaneous solution (Xgeva) calcium/mag/Vit d PO 12/27/21 06/10/22 History Exam Narrative Exam Narrative: General: Pleasant elderly male who is slightly CADDO, A&OX3, laying comfortably in bed, NAD Neurological: A&Ox3, CN II-XII intact, sensory intact, 5/5 strength in BUE and BLEs, no focal deficits other than CADDO Psychiatric: Appropriate speech pattern, content Skin: Minimal abrasions on B tibial surfaces HEENT: Atraumatic, normocephalic, EOMi, MMM, clear oropharynx, no submandibular or cervical lymphadenopathy, no goiter or JVD Cardiovascular: RRR, + GENEVIEVE Lungs: CTAB Gastrointestinal: soft, nontender, nondistended Genitourinary: deferred Extremities: no edema BLEs, 1+ pedal pulses, no c/c, no lesions on B feet Results Imaging Additional studies: CXR: No acute abnormality.? CT head w/o contrast: No acute abnormality. EKG #1: NSR, HR 83, no acute ischemia EKG #2: NSR, HR 77, no acute ischemia Labs Result diagrams: 07/03/22 15:50 07/03/22 15:50 Labs: Laboratory Results - last 24 hr 07/03/22 07/03/22 07/03/22 15:11 15:45 15:50 WBC RBC Hgb Hct MCV MCH MCHC RDW Plt Count MPV Immature Gran % Neutrophils % Lymphocytes % Monocytes % Eosinophils % Basophils % Nucleated RBC % Absolute Neutrophils Absolute Lymphocytes Absolute Monocytes Absolute Eosinophils Absolute Basophils PT 11.5 H INR 1.1 APTT 27.9 H Sodium Potassium Chloride Carbon Dioxide Anion Gap BUN Creatinine Estimated GFR/1.73 m2 Glucose Calcium Magnesium Total Bilirubin AST ALT Alkaline Phosphatase Creatine Kinase Troponin I Total Protein Albumin Urine Color Yellow Urine Clarity Clear Urine pH 6.5 Ur Specific [place] 1.015 Urine Protein Negative Urine Ketones Negative Urine Blood Negative Urine Nitrite Negative Urine Bilirubin Negative Urine Urobilinogen 0.2 Ur Leukocyte Esterase Negative Urine Glucose Negative COVID-19 Source Nasal/Nares SARS-CoV-2 (PCR) Negative 07/03/22 07/03/22 07/03/22 15:50 15:50 15:50 WBC 5.89 RBC 4.08 L Hgb 12.4 L Hct 38.1 L MCV 93 MCH 30.4 MCHC 32.5 RDW 13.8 Plt Count 142 MPV 9.4 Immature Gran % 1.9 Neutrophils % 56.9 Lymphocytes % 31.4 Monocytes % 8.7 Eosinophils % 0.8 Basophils % 0.3 Nucleated RBC % 0.0 Absolute Neutrophils 3.35 Absolute Lymphocytes 1.85 Absolute Monocytes 0.51 Absolute Eosinophils 0.05 Absolute Basophils 0.02 PT INR APTT Sodium 136 Potassium 5.2 H Chloride 102 Carbon Dioxide 25.5 Anion Gap 8.5 BUN 19 H Creatinine 1.0 Estimated GFR/1.73 m2 >= 60.00 Glucose 101 Calcium 9.0 Magnesium 2.6 H Total Bilirubin 0.8 AST 46 H ALT 21 Alkaline Phosphatase 424 H Creatine Kinase 178 Troponin I 317 H* Total Protein 7.7 Albumin 3.9 Urine Color Urine Clarity Urine pH Ur Specific [place] Urine Protein Urine Ketones Urine Blood Urine Nitrite Urine Bilirubin Urine Urobilinogen Ur Leukocyte Esterase Urine Glucose COVID-19 Source SARS-CoV-2 (PCR) 07/03/22 07/03/22 18:05 20:01 WBC RBC Hgb Hct MCV MCH MCHC RDW Plt Count MPV Immature Gran % Neutrophils % Lymphocytes % Monocytes % Eosinophils % Basophils % Nucleated RBC % Absolute Neutrophils Absolute Lymphocytes Absolute Monocytes Absolute Eosinophils Absolute Basophils PT INR APTT Sodium Potassium Chloride Carbon Dioxide Anion Gap BUN Creatinine Estimated GFR/1.73 m2 Glucose Calcium Magnesium Total Bilirubin AST ALT Alkaline Phosphatase Creatine Kinase Troponin I 257 H* Total Protein Albumin Urine Color Urine Clarity Urine pH Ur Specific [place] Urine Protein Urine Ketones Urine Blood Urine Nitrite Urine Bilirubin Urine Urobilinogen Ur Leukocyte Esterase Urine Glucose COVID-19 Source Cancelled SARS-CoV-2 (PCR) Cancelled Last Vital Signs Temp 36.9 C 07/03/22 21:54 Pulse 85 07/03/22 22:00 Resp 18 07/03/22 21:54 BP 159/82 H 07/03/22 21:54 Pulse Ox 97 07/03/22 21:54
[2022-07-04] VITALS (9 sets, daily range): BP systolic 101–132; BP diastolic 62–74; PULSE 71–83; RESP 16–18; TEMP 36.3–37.3; O2SAT 92–100
[2022-07-04 07:11] LABS: Abs Immature Grans 0.06 10^3/uL (0.0-0.06); Absolute Basophil Count 0.02 10^3/uL (0.0-0.2); Absolute Eosinophil Count 0.08 10^3/uL (0.0-0.7); Absolute Lymphocyte Count 1.55 10^3/uL (1.2-3.4); Absolute Monocyte Count 0.53 10^3/uL (0.1-0.8); Absolute Neutrophil Count 2.32 10^3/uL (1.2-6.7); Basophils % 0.4; Eosinophils % 1.8; HCT 33.9 % (40.0-50.0); HGB 11.1 g/dL (13.5-17.5); Immature Grans % 1.3; MCH 30.4 pg (27.0-33.0); MCHC 32.7 % (32.0-36.0); MCV 93 fL (80-95); MPV 9.9 fL (8.0-11.0); Monocytes % 11.6; Neutrophils % 50.9; Platelet Count 111 10^3/uL (130-400); RBC 3.65 10^6/uL (4.36-5.78); RDW 13.9 % (11.8-14.1); RDW-SD 47.2 fL; WBC 4.56 10^3/uL (4.4-10.8)
[2022-07-04 07:26] LABS: Anion Gap 7.1 mmol/L (3-11); BUN 15 mg/dL (7-18); CO2 25.9 mmol/L (21.0-32.0); CREATININE 0.9 mg/dL (0.70-1.30); Calcium 8.4 mg/dL (8.5-10.1); Chloride 103 mmol/L (98-107); Glucose 103 mg/dL (74-106); Magnesium 2.2 mg/dL (1.8-2.4); Potassium 4.8 mmol/L (3.5-5.1); Sodium 136 mmol/L (136-145)
--- NOTE | 2022-07-04 08:00 | DI.US_ITS ---
Exam(s) US CAROTID EXAM: US CAROTID CLINICAL HISTORY: ?acute CVA. TECHNIQUE: Ultrasound carotids performed using grayscale, color-flow, and spectral Doppler imaging. COMPARISON: No exams were available for comparison FINDINGS: RIGHT CAROTID ARTERY: Plaque: Calcific plaque is seen within the carotid bulb. Velocity elevation: None. LEFT CAROTID ARTERY: Plaque: Calcific plaque is seen within the carotid bulb. Velocity elevation: None. VERTEBRAL ARTERIES: Antegrade flow. Measurements: R Bulb: 40.7cm/s PS / 12.2cm/s ED R CCA: 56.3cm/s PS / 12.3cm/s ED R ECA: 85.4cm/s PS / 0cm/s ED R ICA Prox: 51.7cm/s PS / 15.4cm/s ED R ICA Mid: 38.7cm/s PS / 11.5cm/s ED R ICA Distal: 95cm/s PS /25.6cm/s ED R Vert: 53.9cm/s PS / 14cm/s ED R SVR: 1.1 R DVR: 1.4 L Bulb: PS / 32.2cm/s ED L CCA: 75.65cm/s PS / 16.7cm/s ED L ECA: 60.6cm/s PS / 0cm/s ED L ICA Prox: 58.7cm/s PS / 17.3cm/s ED L ICA Mid: 57.1cm/s PS / 18.1cm/s ED L ICA Distal: 57.9cm/s PS / 15.7cm/s ED L Vert: 37.2cm/s PS / 8.9cm/s ED L SVR:0.7 L DVR:1 IMPRESSION: No evidence for hemodynamically significant carotid stenosis. Criteria for Carotid Stenosis: Normal: ICA PSV <125 cm/s no plaque or intimal thickening is visible. <50% stenosis: ICA PSV <125 cm/s and plaque or intimal thickening is visible. 50-69% stenosis: ICA PSV is 125-250 cm/s and plaque is visible. >70% stenosis to near occlusion: ICA PSV >250 cm/s with visible plaque and luminal narrowing. DATA REPOSITORY:
--- NOTE | 2022-07-04 08:00 | DI.MRI_ITS ---
Exam(s) MR ANGIO BRAIN WO CLINICAL HISTORY: ?acute CVA. TECHNIQUE: Multiplanar multisequence MRA of the brain was performed. COMPARISON: None. FINDINGS: Carotid Arteries: No aneurysm, occlusion or significant stenosis. Anterior Cerebral Arteries: Right: No aneurysm, occlusion or significant stenosis. Left: No aneurysm, occlusion or significant stenosis. Middle Cerebral Arteries: Right: No aneurysm, occlusion or significant stenosis. There is a decreased size and number of the M 3 and M4 branches visualized on the right compared to the left. Left: No aneurysm, occlusion or significant stenosis. Posterior Cerebral Arteries: Right: No aneurysm, occlusion or significant stenosis. Left: No aneurysm, occlusion or significant stenosis. Vertebral Arteries: Right: No aneurysm, occlusion or significant stenosis. Left: No aneurysm, occlusion or significant stenosis. Basilar Artery: No aneurysm, occlusion or significant stenosis. IMPRESSION: 1. Decreased size and number of the M3 and M4 branches on the right compared to the left. This may r eflect areas of stenosis and occlusion distally in the right middle cerebral artery. 2. Otherwise the MRA of the [id number] is unremarkable. DATA REPOSITORY:
--- NOTE | 2022-07-04 08:00 | DI.MRI_ITS ---
Exam(s) MR ANGIO NECK WO EXAM: MR ANGIO NECK WO CLINICAL HISTORY: ?CVA. TECHNIQUE: Multiplanar multisequence MRA of the Neck was performed. COMPARISON: No exams were available for comparison FINDINGS: The examination is limited due to patient motion artifact. Common Carotid: Right: No dissection, occlusion or significant stenosis. Left: No dissection, occlusion or significant stenosis. External Carotid: Right: No evidence of occlusion or significant stenosis. Left: No evidence of occlusion or significant stenosis. Internal Carotid: Right: No dissection, occlusion or significant stenosis. Left: No dissection, occlusion or significant stenosis. Vertebral Artery: Portions of the both distal vertebral arteries are not visualized. This may be due to technique. Right: No dissection, occlusion or significant stenosis. Left: No dissection, occlusion or significant stenosis. The visualized paraspinal soft tissues are unremarkable. IMPRESSION: 1. Examination limited by patient motion artifact. 2. No definite occlusions or significant stenoses are seen on the MRA of the neck. 3. Portions of both of the distal vertebral arteries were not visualized. A CT angiography of the ne ck should be considered for further evaluation. DATA REPOSITORY:
--- NOTE | 2022-07-04 08:00 | DI.MRI_ITS ---
Exam(s) MR BRAIN WO/W EXAM: MR BRAIN WO/W CLINICAL HISTORY: new onset ataxia, h/o metastatic prostate cancer TECHNIQUE: Multiplanar multisequence MRI of the brain was performed. CONTRAST MATERIAL: IV Contrast: 15 mL of Dotarem contrast administered. COMPARISON: CT CT HEAD WO from 07/03/2022 FINDINGS: The examination is limited due to patient motion artifact. VENTRICLES AND EXTRA AXIAL SPACES: Normal in size and morphology for the patient's age. HEMORRHAGE: None. CEREBRAL PARENCHYMA: There are multiple foci of restricted diffusion seen in the right cerebral hemis phere in the right MCA distribution. There are several areas of hyperintense signal in the white mat ter on the FLAIR and T2 weighted images most consistent with small vessel ischemic disease. MIDLINE SHIFT: None. BRAINSTEM/CEREBELLUM: Normal. CALVARIUM: Normal. ENHANCEMENT: No suspicious enhancement identified. VISUALIZED PARANASAL SINUSES/MASTOIDS: Clear. [place]: Normal flow void. PITUITARY GLAND: Unremarkable. OTHER FINDINGS: IMPRESSION: 1. Multiple foci of restricted diffusion seen in the right cerebral hemisphere in the right MCA distr ibution. The findings are consistent with a multi focal infarct possibly related to multiple emboli. 2. Age-related cerebral atrophy and small vessel ischemic disease. 3. Results of this exam have been verbally communicated with provider. DATA REPOSITORY:
[2022-07-04] MEDS: Multivitamin w/Minerals TAB 1 TAB PO (08:02)
[2022-07-04] MEDS: Apixaban 5 MG TAB PO (08:03)
[2022-07-04 08:08] LABS: TSH 3.67 uIU/mL (0.36-3.74); Vitamin B12 455 pg/mL (193-986)
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
--- NOTE | 2022-07-04 10:48 | PDOC.CMIN ---
- If Service Date Differs Date of service: 07/04/22 Time of Service: 10:48 Care Management Initial Assess REASON FOR HOSPITALIZATION:: New onset ataxia, elevated troponin PAST MEDICAL HISTORY/PAST SURGICAL HISTORY:: Hyponatremia (Acute). Enterocolitis (Acute). Cognitive change (Acute). Essential tremor (Acute). SVT (supraventricular tachycardia) (Chronic). Anorexia (Acute). Migraine headache with aura (Acute). Ulcerative colitis (Chronic). Hypothyroid (Chronic). Anxiety (Chronic). Vasovagal syncope (Acute). Vertiginous migraine (Acute). DVT prophylaxis (Acute). Ulcerative colitis (Chronic). Depression (emotion) (Chronic). Hypothyroid (Chronic). Vertigo (Acute). Syncope (Chronic). Surgical History . S/P laparotomy. x2 for infertility PREVIOUS FUNCTIONAL STATUS/SOCIAL/FAMILY SUPPORTS:: Resides in [place], [place]. CURRENT FUNCTIONAL STATUS:: Eric was sitting up in his chair when CM met with him, he reported feeling he could return home with the support of FWW, PT reports he should go to SNF. CM continues to follow. Has patient been provided with info about the portal/API?: Yes Did the patient sign up for the portal?: Yes CODE STATUS:: Full Code INSURANCE COVERAGE / FINANCIAL ISSUES:: Medicare. Kristy CURRENT HOME/COMMUNITY SERVICES/EQUIPMENT:: None currently. PRIMARY CARE PHYSICIAN:: Artem Barkley POTENTIAL DISCHARGE NEEDS:: Follow up appointments, cardiology consult. PATIENT/FAMILY EDUCATION NEEDS:: Review discharge instructions, discuss Ask Me Three. ANTICIPATED BARRIERS TO DISCHARGE:: None identified at this time. TRANSPORTATION:: Via private vehicle with family. PLAN:: Eric continues to be closely monitored and treated. He will be evaluated by PT to determine additional discharge planning considerations. CM continues to follow.
[2022-07-04] MEDS: Normal Saline Flush 10 ML SYR IVP (11:23)
--- NOTE | 2022-07-04 15:08 | CHAPLAIN ---
Eric was sitting up in the chair, having finished lunch, when I visited. He told me about living in [facility] for 20 years, then [facility] for 20 years, and then building a home in [place] 16 years ago. A friend came in to visit while I was there, so I left.
--- NOTE | 2022-07-04 16:52 | PT.INTREAT ---
Date of service: 07/04/22 Time of Service: 15:30 PT Notes Visit Reasons: New Onset Ataxia,Elevated Troponin Inpatient Physical Therapy Treatment Note [facility] Date: 07/04/2022 PRECAUTIONS: Fall, activity as tolerated SUBJECTIVE: Enrique is pleasant and agreeable to participating in PT. He reports that he has been falling at home for the past month. He reports that he has been leaning to the left recently and it is causing him to have difficulty with ambulation. OBJECTIVE: PAIN: No c/o pain BED MOBILITY/TRANSFERS Sit-stand: Mod A Stand-sit: CGA GAIT: Patient demonstrates poor safety awareness with use of FWW with ambulation. Assistive Device: LABORATORY ASSISTANT x2 Weight bearing: Full Assist: CGA x2 - Min A x2 Distance: 200' Deviation: Patient requires constant cueing for safety, including pacing and posture (as patient lists heavily to the left) THEREX: Patient was instructed in a LE strengthening program, completed in a seated position, to include: ankle pumps, heel raises, LAQ, hip flexion and hip abduction. Patient requires verbal ad visual cueing throughout as well as reorientation to task throughout. ASSESSMENT: Patient demonstrates decreased safety awareness and significant ambulatory dysfunction. Patient lists to the left with all activity, requiring assist and verbal and tactile cueing to correct posture, which he is unable to maintain. PLAN: Continue with global strengthening and general conditioning for improved activity tolerance and mobility, as tolerated. TREATMENT CODE/TIME: 15 minutes; 81782 (15:30)
--- NOTE | 2022-07-04 17:14 | W.PM.PROGNOT ---
Date of Service Date of service: 07/04/22 Time of Service: 17:14 Assessment and Plan Assessment and plan (1) Right middle cerebral artery stroke: Status: Acute Assessment and plan: discontinue Eliquis. Start Pradaxa 150 mg p.o. twice daily. Add atorvastatin 80 mg daily. check CTA of cervical vessels to clear the vertebrals. check echocardiogram on Thursday. check lipid and A1c. continue P.T. Arrange neurology follow upon discharge. Arrange cardiac event recorder to see if he has PAF. May need HILTON. Professional time spent interviewing and examining patient, discussion of goals of care with hospital team (care management, nursing and consulting professionals) was 45 minutes. (2) Chronic anticoagulation: Status: Acute Assessment and plan: as above (3) Elevated troponin: Status: Acute Assessment and plan: probably demand ischemia. No EKG changes and no CP or dyspnea. (4) Ambulatory dysfunction: Status: Acute Assessment and plan: Gait imbalance secondary to multiple CVAs (5) Malignant neoplasm of prostate metastatic to bone: Status: Chronic (6) Gastrointestinal stromal tumor of stomach: Status: Acute (7) Discharge planning issues: Status: Acute Assessment and plan: dc home w/ follow up w/ neurology as OP. will dc home when stable from P.T. standpoint. Subjective Subjective Interval history since last seen: This right handed male w/ PMH of GIST tumor s/p resection a few years ago and hx of DVT and PE and bony prostatic mets was admitted last night after series of falls in which he lists to his left side. No loss of consciousness no associated chest pain or dyspnea or headache. He denies any dysarthria or focal weakness or paresthesias. Work-up today revealed that he has had a series of multiple CVAs in the right middle cerebral artery distribution. MRA of the brain shows decreased size and number of the M3 and M4 branches on the right compared to left reflecting either stenosis or occlusion distally in the right middle cerebral artery. Carotid ultrasound showed no hemodynamically significant carotid stenosis. MRA of the neck showed no definite occlusions or stenosis seen in either carotid distribution however portions of the distal vertebral arteries were not well visualized. CT angiogram of the neck was recommended. Echocardiogram cannot be done today. I reviewed all these results with the and the patient. He has been chronically maintained on apixaban 2.5 mg p.o. twice daily for remote pulmonary emboli and DVTs associated with cancer. He has a history of GIST tumor for which she had a partial stomach resection. He also has metastatic prostate cancer for which she is on antiandrogen therapy. I explained to him that he is going to need to be switched from apixaban to Pradaxa I am going to put him on this direct thrombin inhibitor as opposed to his factor X a inhibitor. Exam Narrative Exam Narrative: Alert and oriented x4 HEENT: Atraumatic normocephalic, pupils equally round reactive to light and accommodation, extraocular motion intact Neck: Supple, nontender, without thyromegaly or lymphadenopathy or JVD. Normal carotid pulses Lungs: Clear to auscultation and percussion Heart: Regular rate and rhythmw/ grade 3/6 systolic murmur over apex, Normal apical impulse Abdomen: Nondistended, normal bowel sounds, nontender to palpation or percussion, no organomegaly, no bruits, no palpable masses Genitalia and rectal exam: Deferred Extremities: Normal range of motion with normal strength. No peripheral cyanosis or edema. Normal pulses Neurologic: Cranial nerves II through XII grossly within normal limits. Normal strength and sensation over the face trunk and extremities. Objective Last Vital Signs Temp 37 C 07/04/22 14:38 Pulse 73 07/04/22 14:38 Resp 16 07/04/22 14:38 BP 128/73 07/04/22 14:38 Pulse Ox 92 07/04/22 14:38 Laboratory Results - last 24 hr 07/03/22 07/03/22 07/03/22 15:50 18:05 20:01 WBC RBC Hgb Hct MCV MCH MCHC RDW Plt Count MPV Immature Gran % Neutrophils % Lymphocytes % Monocytes % Eosinophils % Basophils % Nucleated RBC % Absolute Neutrophils Absolute Lymphocytes Absolute Monocytes Absolute Eosinophils Absolute Basophils Sodium Potassium Chloride Carbon Dioxide Anion Gap BUN Creatinine Estimated GFR/1.73 m2 Glucose Calcium Magnesium Creatine Kinase 178 Troponin I 257 H* Vitamin B12 TSH COVID-19 Source Cancelled SARS-CoV-2 (PCR) Cancelled 07/04/22 07/04/22 07/04/22 06:31 06:31 06:31 WBC 4.56 RBC 3.65 L Hgb 11.1 L Hct 33.9 L MCV 93 MCH 30.4 MCHC 32.7 RDW 13.9 Plt Count 111 L MPV 9.9 Immature Gran % 1.3 Neutrophils % 50.9 Lymphocytes % 34.0 Monocytes % 11.6 Eosinophils % 1.8 Basophils % 0.4 Nucleated RBC % 0.0 Absolute Neutrophils 2.32 Absolute Lymphocytes 1.55 Absolute Monocytes 0.53 Absolute Eosinophils 0.08 Absolute Basophils 0.02 Sodium 136 Potassium 4.8 Chloride 103 Carbon Dioxide 25.9 Anion Gap 7.1 BUN 15 Creatinine 0.9 Estimated GFR/1.73 m2 >= 60.00 Glucose 103 Calcium 8.4 L Magnesium 2.2 Creatine Kinase Troponin I Vitamin B12 455 Cancelled TSH 3.67 Cancelled COVID-19 Source SARS-CoV-2 (PCR)
[2022-07-04 17:39] LABS: Troponin I 186 ng/L (<or=60)
[2022-07-04] MEDS: Atorvastatin 40 MG TAB 80 MG PO (21:23)
[2022-07-04] MEDS: Melatonin 3 MG TAB PO (21:23)
[2022-07-05] VITALS (9 sets, daily range): BP systolic 102–124; BP diastolic 63–74; PULSE 70–77; RESP 14–17; TEMP 35.5–37.3; O2SAT 95–99
--- NOTE | 2022-07-05 03:01 | NUR.NOTE ---
Pt complaining about cpap. Mask removed, and this RN noted dried blood all over face and inside of mask. Has a wound on lower lip that is apparently bothered by the mask. Mask left off, NC put on with 2L supplemental O2.
[2022-07-05] MEDS: Multivitamin w/Minerals TAB 1 TAB PO (08:23)
--- NOTE | 2022-07-05 08:30 | DI.CT_ITS ---
Exam(s) CT BRAIN NECK CTA EXAM: CT BRAIN NECK CTA CLINICAL HISTORY: CVA. TECHNIQUE: Imaging Protocol: Axial CT angiography was performed with multi-slice acquisition and mu lti-planar and 3D reconstructions. CONTRAST MATERIAL: Intravenous: Omnipaque 350 Contrast volume 100 cc COMPARISON: CT CT CHEST/ABD/PEL WO from 04/18/2022 MR MR BRAIN WO/W from 07/04/2022 FINDINGS: CT Head W/O and W contrast: Ventricles and Extra axial spaces: Normal in size and morphology for the patient's age. Hemorrhage: None. Cerebral parenchyma: Atrophy. White matter changes of small vessel disease. Midline shift: None. Brainstem/Cerebellum: Normal. Calvarium: Normal. Visualized Paranasal sinuses/Mastoids: Clear. Soft Tissues: Unremarkable. Enhancement: Normal. CTA Brain W: Internal Carotid Arteries: Right: Mild to moderate narrowing of the supraclinoid segment Left: Mild to moderate narrowing of the supraclinoid segment. Middle Cerebral Arteries: Right: Occlusion of a distal right MCA branch. Left: No aneurysm, occlusion or significant stenosis. Anterior Cerebral Arteries: Right: No aneurysm, occlusion or significant stenosis. Left: No aneurysm, occlusion or significant stenosis. Posterior cerebral Arteries: Right: No aneurysm, occlusion or significant stenosis. Left: No aneurysm, occlusion or significant stenosis. Vertebral Arteries: Right: No aneurysm, occlusion or significant stenosis. Left: No aneurysm, occlusion or significant stenosis. Basilar Artery: No aneurysm, occlusion or significant stenosis. CTA Neck W: Common Carotid: Right: No aneurysm, occlusion or significant stenosis. Left: No aneurysm, occlusion or significant stenosis. External Carotid: Right: No aneurysm, occlusion or significant stenosis. Left: No aneurysm, occlusion or significant stenosis. Internal Carotid: Right: Mild partially calcified plaque. No aneurysm, occlusion or significant stenosis. Left: Mild partially calcified plaque.No aneurysm, occlusion or significant stenosis. Vertebral Artery: Right: No aneurysm, occlusion or significant stenosis. Left: No aneurysm, occlusion or significant stenosis. Lung Apices: Small amount of mucus posterior trachea Bones: Degenerative changes of the facets and discs. Ankylosis at C 4 5. Sclerotic lesions suspicio us for metastatic foci. Soft Tissues: Unremarkable. IMPRESSION: 1. Occlusion of a distal branch of the right MCA. 2. Atrophy and white matter changes of small vessel disease.. 3. Mild plaque at the proximal internal carotid arteries without significant stenosis. No evidence o f dissection. 4. Sclerotic bony lesions consistent with metastatic foci. RADIATION DOSE DELIVERED: 2,152.92mGy.cm Total DLP DATA REPOSITORY: All CT scans at this facility are submitted to the National Radiology Data Registry (NRDR) Dose Index Registry (DIR) with the [employer] (A[employer]). RADIATION OPTIMIZATION: All CT scans at this facility use at least one of these dose optimization te chniques: automated exposure control; mA and/or kV adjustment per patient size (includes targeted exa ms where dose is matched to clinical indication); or iterative reconstruction.
[2022-07-05] MEDS: Normal Saline Flush 10 ML SYR IVP ×3 (08:53→21:04)
[2022-07-05] MEDS: Omnipaque 350 MG/ML 100 ML BTL IJ (09:33)
--- NOTE | 2022-07-05 10:27 | DI.VRAD_ITS ---
PROCEDURE INFORMATION: Exam: CTA Head With Contrast, Arteriography Exam date and time: 07/05/2022 9:18 AM Age: 86 years old Clinical indication: Other: CVA TECHNIQUE: Imaging protocol: Computed tomographic angiography of the head with contrast. Exam focused on the arteries. 3D rendering (Not supervised by radiologist): MIP and/or 3D reconstructed images were created by the technologist. Contrast material: OMNIPAQUE 350; Contrast volume: 100 ml; Contrast route: INTRAVENOUS (IV); COMPARISON: MR ANGIO BRAIN WO 07/04/2022 11:12 AM FINDINGS: ANTERIOR CIRCULATION: Right internal carotid artery: Mild to moderate narrowing of the supraclinoid segment. Right middle cerebral artery: Occlusion of a distal right MCA branch as seen on series 11, image 38. Right anterior cerebral artery: Unremarkable. No occlusion or significant stenosis. No aneurysm. Left internal carotid artery: Mild to moderate narrowing of the supraclinoid segment. Left middle cerebral artery: Unremarkable. No occlusion or significant stenosis. No aneurysm. Left anterior cerebral artery: Unremarkable. No occlusion or significant stenosis. No aneurysm. POSTERIOR CIRCULATION: Right vertebral artery: Unremarkable. No occlusion or significant stenosis. No aneurysm. Left vertebral artery: Unremarkable. No occlusion or significant stenosis. No aneurysm. Basilar artery: Unremarkable. No occlusion or significant stenosis. No aneurysm. Right posterior cerebral artery: Unremarkable. No occlusion or significant stenosis. No aneurysm. Left posterior cerebral artery: Unremarkable. No occlusion or significant stenosis. No aneurysm. Brain: No acute large territorial infarct. Patchy white matter hypodensities, likely representing chronic microvascular ischemic changes. No intracranial extra-axial collection. No acute intracranial hemorrhage. No midline shift. Intracranial atherosclerotic calcifications. Cerebral ventricles: Prominent ventricles and sulci. Paranasal sinuses: Osteoma of the right frontal sinus. Bones/joints: Narrowing of the left temporomandibular joint. Soft tissues: Unremarkable. IMPRESSION: 1. No large vessel stenosis or occlusion. 2. No acute intracranial process. 3. Likely age-related volume loss. 4. Patchy white matter hypodensities, likely representing chronic microvascular ischemic changes. PROCEDURE INFORMATION: Exam: CTA Neck With Contrast Exam date and time: 07/05/2022 9:18 AM Age: 86 years old Clinical indication: Other: CVA TECHNIQUE: Imaging protocol: Computed tomographic angiography of the neck with contrast. 3D rendering (Not supervised by radiologist): MIP and/or 3D reconstructed images were created by the technologist. Contrast material: OMNIPAQUE 350; Contrast volume: 100 ml; Contrast route: INTRAVENOUS (IV); COMPARISON: MR ANGIO NECK WO 07/04/2022 10:46 AM FINDINGS: Right common carotid artery: No stenosis. No dissection or occlusion. Right internal carotid artery: Partially calcified plaque within the proximal internal carotid artery without stenosis. Right external carotid artery: No occlusion or stenosis of the origin. Left common carotid artery: No stenosis. No dissection or occlusion. Left internal carotid artery: Partially calcified plaque within the proximal internal carotid artery without stenosis. Left external carotid artery: No occlusion or stenosis of the origin. Right vertebral artery: No stenosis. No dissection or occlusion. Left vertebral artery: No stenosis. No dissection or occlusion. Aorta: Common origin of the right brachiocephalic and left common carotid arteries. Larynx: Questionable right vocal cord palsy. Dental: Dental hardware resulting in significant streak artifact, limiting evaluation of the oral cavity. Soft tissues: Normal. No significant soft tissue swelling. Bones/joints: Multilevel severe foraminal narrowing. Narrowing of the atlanto odontoid joint with adjacent scattered calcifications and retro-odontoid soft tissue thickening. Multilevel diffuse disc height loss throughout the cervical spine. Mild anterolisthesis of C7 over T1. Scattered sclerotic lesions in the skeleton, nonspecific. Mild vertebral body height loss at T3, chronic appearing. Trachea: Scattered debris within the posterior trachea. Other findings: Scattered air in the esophagus, possibly from reflux. IMPRESSION: 1. No stenosis or occlusion. 2. Scattered debris within the posterior trachea. 3. Questionable right vocal cord palsy. 4. Scattered sclerotic lesions in the skeleton, compatible with known metastases. 5. Mild vertebral body height loss at T3, chronic appearing. REFERENCES: NASCET CRITERIA. The degree of internal carotid artery stenosis is based on NASCET criteria. Normal is no stenosis. Mild is less than 50% stenosis. Moderate is 50-69% stenosis. Severe is 70% to 99% stenosis. Total occlusion is no detectable patent lumen. Dictated and Authenticated by: Miley Macdonald MD. Ordering:[facility] Anjelica Kendrick MD
--- NOTE | 2022-07-05 12:22 | PTTR_ITS ---
Date of service: 07/05/22 Time of Service: 11:40 PT Notes Visit Reasons: New Onset Ataxia,Elevated Troponin Inpatient Physical Therapy Treatment Note [facility] Date: 07/05/2022 PRECAUTIONS: Fall, activity as tolerated SUBJECTIVE: Enrique is pleasant and agreeable to participating in PT. His is present at time of treatment and reports that she does not feel that he is safe to go home due to his lack of balance and safety awareness. They agree that they would like patient to get stronger and discharge to rehab prior to returning to home. They specify that they would like referrals to be sent to acute rehab facilities, including [facility], [facility] and [facility]. OBJECTIVE: Safety concern discussed with hospitalist, Dr. Dejesus and Jennifer, Sales And Service Consultant. Aware of patient's desire to discharge to acute rehab facility prior to returning to home. Agree that patient would benefit from acute rehab prior to returning to home to reduce risk for falls and increased safety with functional ALDs. PAIN: No c/o pain BED MOBILITY/TRANSFERS Sit-stand: Min A + CGA Stand-sit: CGA with cueing for safety GAIT: Patient demonstrates poor safety awareness with use of FWW with ambulation. Assistive Device: No AD FWW Weight bearing: Full Assist: CGA x2 Distance: 200' without AD + 200' with FWW Deviation: Patient requires constant cueing for safety, including pacing and posture (as patient lists heavily to the left), as well as for FWW mechanics ASSESSMENT: Patient demonstrates decreased safety awareness and continued ambulatory dysfunction. Patient lists to the left with all activity, requiring (decreased compared to yesterday) assist and verbal and tactile cueing to correct posture. He also requires constant cueing for pacing for safety with gait training and transfers. PLAN: Continue with global strengthening and general conditioning for improved activity tolerance and mobility, as tolerated. TREATMENT CODE/TIME: 30 minutes; 20829 x2 (11:40)
--- NOTE | 2022-07-05 16:59 | PGE_ITS ---
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 He has no hemodynamically significant stenosis of his cervical vessels and his vertebral arteries and basilar artery and posterior circulation is open. he has right MCA occlusions involving distal vessel. Continue Pradaxa 150 mg bid. Professional time spent interviewing and examining patient, discussion of goals of care with hospital team (care management, nursing and consulting professionals) was 15 minutes. (2) Chronic anticoagulation: Status: Acute Assessment and plan: as above (3) Elevated troponin: Status: Acute Assessment and plan: This was felt to be demand ischemia as he had no EKG changes and no CP. Will get echocardiogram on Thursday (4) Ambulatory dysfunction: Status: Acute Assessment and plan: cont. P.T. 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 feels that he would benefit from this. Subjective Subjective Interval history since last seen: Patient says that he thinks he is somewhat better however, P.T. and his both indicate that he is still having problems w/ drifting to the left when he walks although w/ the walker he did not lose his balance. P.T. thinks that he would benefit from a higher skilled rehab center such as [facility] ([place], [place] or [facility] ([place], [place]). Exam Narrative Exam Narrative: Alert and oriented x 3 Motor: normal ROM and strength in both upper and lower extremities, however w/ his left hand he has some problems w/ proprioception w/ finger to nose pointing. Speech and facial expressions are normal Objective Last Vital Signs Temp 37.2 C 07/05/22 15:56 Pulse 77 07/05/22 15:56 Resp 14 07/05/22 15:56 BP 114/72 07/05/22 15:56 Pulse Ox 98 07/05/22 15:56 Laboratory Results - last 24 hr 07/04/22 17:05 Troponin I 186 H*
[2022-07-05] MEDS: Atorvastatin 40 MG TAB 80 MG PO (21:02)
[2022-07-05] MEDS: Melatonin 3 MG TAB PO (21:03)
[2022-07-06] VITALS (13 sets, daily range): BP systolic 104–161; BP diastolic 67–81; PULSE 70–87; RESP 16–20; TEMP 36–37.3; O2SAT 95–99
[2022-07-06] MEDS: Multivitamin w/Minerals TAB 1 TAB PO (08:17)
--- NOTE | 2022-07-06 08:53 | PTTR_ITS ---
Date of service: 07/06/22 Time of Service: 08:20 PT Notes Visit Reasons: New Onset Ataxia,Elevated Troponin Inpatient Physical Therapy Treatment Note [facility] Date: 07/06/2022 PRECAUTIONS: Fall, activity as tolerated SUBJECTIVE: Enrique is pleasant and agreeable to participating in PT. He reports that he is feeling a little better today. He indicates that he is having a hard time adjusting to his current level of function and feels discouraged that he is lacking his normal safety awareness. He continues to express desire to discharge to an acute rehab facility for continued neuro re-ed. OBJECTIVE: PAIN: No c/o pain BED MOBILITY/TRANSFERS Sit-stand: CGA with max cueing for safety Stand-sit: CGA with max cueing for safety GAIT Assistive Device: FWW Weight bearing: Full Assist: CGA Distance: 150' x2 Deviation: Safety cues required for: decreased pacing, maintaining contact of 4 points of FWW with floor, positioning of self and FWW for optimum use NEURO RE-ED: Patient was instructed in a dynamic balance retraining program, to promote static and dynamic stability and improved proprioception. Exercises include: functional [id number] from low surface area, lateral walking 4x10' L/R with LINUX SYSTEM ADMINISTRATOR, four-quadrant box stepping x2 R/L with LINUX SYSTEM ADMINISTRATOR, functional [id number] with ball toss x10, and functional step-ups to 4 step x10 bilaterally. Patient requires cueing throughout for safety and visual and verbal cueing for proper exercise performance. STAIRS: Up/down 3x4 and 2x6 using B rails and a step-over pattern with CGA. ASSESSMENT: Patient continues to demonstrate left-sided deficits as well as impaired safety awareness. He was able to tolerate the addition of neuro re-ed training today, although requires cueing throughout for safety and proper performance. He would benefit from continued skilled PT intervention for continued progression toward baseline level of function and for improved safety awareness. PLAN: Continue with neuro re-ed efforts for improved safety awareness and improved proprioception. TREATMENT CODE/TIME: 33 minutes; 47489, [id number] (08:20)
--- NOTE | 2022-07-06 09:36 | W.PM.PROGNOT ---
Date of Service Date of service: 07/06/22 Time of Service: 09:36 Assessment and Plan Assessment and plan (1) Fall from toilet seat: Status: Acute Assessment and plan: no obvious trauma to head and neck nor to his hips and shoulders. given that he has been started on Pradaxa, I will check CT of his head and have nursing closely monitor him. I will also CT his c-spine, t-spine and LS spine to be sure he had no bony injuries given his hx of metastatic prostate cancer. Professional time spent interviewing and examining patient, discussion of goals of care with hospital team (care management, nursing and consulting professionals) was 30 minutes. 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 He has no hemodynamically significant stenosis of his cervical vessels and his vertebral arteries and basilar artery and posterior circulation is open. he has right MCA occlusions involving distal vessel. Continue Pradaxa 150 mg bid. Will get neurology follow up in the a.m. Echo has been ordered for tomorrow (3) Chronic anticoagulation: Status: Acute Assessment and plan: as above (4) Elevated troponin: Status: Acute Assessment and plan: This was felt to be demand ischemia as he had no EKG changes and no CP. Will get echocardiogram on Thursday (5) Ambulatory dysfunction: Status: Acute Assessment and plan: cont. P.T. training and quality manager will put out referrals to higher skilled rehab centers. Given his recurrent falls both at home and here in the hospital, I do not feel he is safe to return home w/out some extended stay for rehabilitation. 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 feels that he would benefit from this. Subjective Subjective Interval history since last seen: Eric had a fall this morning while having a bowel movement. he tried to get himself up off the toilet without assistance and fell forward onto the floor holding on to the grab bar as he went down. He states that he could not reach the call light. He denies any loss of consciousness nor any head injury Exam Narrative Exam Narrative: Patient is lying on floor face down in the bathroom. He was pulled from the bathroom on a board slider. Head is without trauma. Neck: supple, no tenderness over cervical or thoracic spine but he has mild tenderness over his lumbar spine LUngs: clear Heart: RRR Neuro: no focal CN deficits; normal motor ROM and strength in arms/legs Objective Last Vital Signs Temp 36.0 C L 07/06/22 07:25 Pulse 71 07/06/22 08:37 Resp 16 07/06/22 07:25 BP 107/70 07/06/22 07:25 Pulse Ox 97 07/06/22 07:25
--- NOTE | 2022-07-06 10:00 | DI.CT_ITS ---
Exam(s) CT HEAD CERVICAL SPINE WO EXAM: CT HEAD CERVICAL SPINE WO CLINICAL HISTORY: s/p fall; patient on Pradaxa; hx of recent CVA. TECHNIQUE: Imaging Protocol: Axial computed tomography images with coronal and sagittal reformatted images were created and reviewed COMPARISON: CT CT BRAIN NECK CTA from 07/05/2022 FINDINGS: Head CT Ventricles and Extra axial spaces: Normal in size and morphology for the patient's age. Hemorrhage: None. Cerebral parenchyma: Mild atrophy. Mild white matter changes of small vessel disease. Midline shift: None. Brainstem/Cerebellum: Normal. Calvarium: Normal. Visualized Paranasal sinuses/Mastoids: Clear. Right frontal sinus osteoma. Cervical Spine CT BONES: Vertebral body heights are maintained. Alignment is normal. There is no evidence of acute frac ture. There are sclerotic lesions scattered in the cervical of vertebral bodies consistent with meta static lesions. The largest is seen in the see 5 vertebral body. Degenerative disc changes and facet degenerative changes are seen . degenerative changes are severe a t C1-2 SOFT TISSUES: No paraspinal hematoma. The airway appears intact. No pneumothorax is seen at the lung apices. IMPRESSION: Head CT: No acute abnormality. C-spine CT: Degenerative changes and osseous metastatic lesions. No acute abnormality. RADIATION DOSE DELIVERED: 1,265.42mGy.cm Total DLP DATA REPOSITORY: All CT scans at this facility are submitted to the National Radiology Data Registry (NRDR) Dose Index Registry (DIR) with the [employer] ([employer]). RADIATION OPTIMIZATION: All CT scans at this facility use at least one of these dose optimization te chniques: automated exposure control; mA and/or kV adjustment per patient size (includes targeted exa ms where dose is matched to clinical indication); or iterative reconstruction.
--- NOTE | 2022-07-06 10:05 | DI.CT_ITS ---
Exam(s) CT THORACIC LUMBAR SPINE WO EXAM: CT THORACIC LUMBAR SPINE WO CLINICAL HISTORY: s/p fall; acute back pain. TECHNIQUE: Imaging Protocol: Axial, coronal and sagittal images were reconstructed from the chest ab domen and pelvic CT utilizing bone algorithm.. COMPARISON: CT THORACIC AND LUMBAR SP RECONS from 01/11/2018 FINDINGS: Thoracic spine: Bones: Innumerable abnormal sclerotic foci throughout the vertebral bodies consistent with metastatic disease. No acute fractures are seen. The alignment of the spine is normal including the cervicotho racic junction. Soft tissues: The soft tissues of the chest are unremarkable. No large disk herniations are identifie d. Lumbar spine: Bones: Innumerable sclerotic foci in the lumbar spine consistent with metastatic disease. No acute f racture is identified. Has also marked thickening and sclerosis of the visible bones of the pelvis i ncluding pubic rami and ischia bilaterally. Prominent degenerative disc changes and facet degenerati ve changes are present throughout. Soft tissues: Urinary bladder is distended with contrast related to prior CTA. Aorta calcified but n ormal in diameter. Bilateral renal atrophy. Mildly enlarged prostate impressing on the base of the bladder. IMPRESSION: Widespread bony metastases in the thoracic and lumbar spine as well as pelvis. No acute fracture of the thoracic or lumbar spine. RADIATION DOSE DELIVERED: 1,133.35mGy.cm Total DLP DATA REPOSITORY: All CT scans at this facility are submitted to the National Radiology Data Registry (NRDR) Dose Index Registry (DIR) with the [employer] (ACR). RADIATION OPTIMIZATION: All CT scans at this facility use at least one of these dose optimization te chniques: automated exposure control; mA and/or kV adjustment per patient size (includes targeted exa ms where dose is matched to clinical indication); or iterative reconstruction.
--- NOTE | 2022-07-06 10:20 | DI.VRAD_ITS ---
PROCEDURE INFORMATION: Preliminary report Exam: CT Head Without Contrast Exam date and time: 07/06/2022 9:56 AM Age: 86 years old Clinical indication: Pain; Other: S/P fall; Patient on pradaxa; HX of recent CVA TECHNIQUE: Imaging protocol: Computed tomography of the head without contrast. COMPARISON: MR BRAIN WO/W 07/04/2022 11:12 AM FINDINGS: Brain: No acute post-traumatic brain injury. Symmetric caliber of the cortical sulci. Small-vessel ischemic change. Cerebral ventricles: Mild ventriculomegaly. Paranasal sinuses: 7 mm right frontal sinus osteoma. Mastoid air cells: No mastoid effusion. Bones/joints: No acute calvarial injury. Soft tissues: No significant scalp hematoma. IMPRESSION: No acute post-traumatic brain injury. PROCEDURE INFORMATION: Preliminary report Exam: CT Cervical Spine Without Contrast Exam date and time: 07/06/2022 9:56 AM Age: 86 years old Clinical indication: Pain; Other: S/P fall; Patient on pradaxa; HX of recent CVA TECHNIQUE: Imaging protocol: Computed tomography of the cervical spine without contrast. COMPARISON: NM BONE SCAN WHOLE BODY GRP 04/18/2022 11:33 AM FINDINGS: Bones/joints: No acute bony injury in the cervical spine. Multifocal osseous sclerotic lesions consistent with metastases. 3 mm anterolisthesis of C7 on T1. Discs/Spinal canal/Neural foramina: Multilevel degenerative change. Note that assessment of disc, spinal cord, and nerve root pathology is limited in the absence of intrathecal contrast. C4-C5 ankylosis. Lungs: Unremarkable apices as visualized. Soft tissues: Synovial calcification. IMPRESSION: 1. No acute bony injury in the cervical spine. 2. 3 mm anterolisthesis of C7 on T1. 3. Additional findings as described above. Dictated and Authenticated by: Cesario Guevara MD. Ordering:[facility] Anjelica Kendrick MD
--- NOTE | 2022-07-06 10:35 | DI.VRAD_ITS ---
PROCEDURE INFORMATION: Preliminary report Exam: CT Thoracic Spine Without Contrast Exam date and time: 07/06/2022 10:01 AM Age: 86 years old Clinical indication: Other: S/P fall; Acute back pain TECHNIQUE: Imaging protocol: Computed tomography of the thoracic spine without contrast. COMPARISON: CT THORACIC AND LUMBAR SP RECONS 01/11/2018 4:33 PM FINDINGS: Bones/joints: Multifocal sclerotic osseous metastases. No acute bony injury or malalignment in the thoracic spine. Discs/Spinal canal/Neural foramina: Degenerative change. Soft tissues: Unremarkable. Lungs: Emphysematous change, interstitial prominence, and mild airspace disease. Ermelinda calcification and ectasia of the aorta. Heart: Coronary artery calcification. Mediastinum: small hiatal hernia. IMPRESSION: No acute bony injury or malalignment in the thoracic spine. PROCEDURE INFORMATION: Preliminary report Exam: CT Lumbar Spine Without Contrast Exam date and time: 07/06/2022 10:01 AM Age: 86 years old Clinical indication: Other: S/P fall; Acute back pain TECHNIQUE: Imaging protocol: Computed tomography of the lumbar spine without contrast. COMPARISON: CT THORACIC AND LUMBAR SP RECONS 01/11/2018 4:33 PM FINDINGS: Bones/joints: No acute bony injury or malalignment in the lumbar spine. Osteopenia and chronic compression deformities. Multifocal sclerotic metastases. Discs/Spinal canal/Neural foramina: Degenerative change , disc bulging, and vacuum discs. Kidneys and ureters: Renal atrophy. Urinary bladder: Dense contrast in the bladder. Reproductive: Prostate calcification. Vasculature: Vascular ectasia and calcification. Soft tissues: Unremarkable appearance of the paraspinous soft tissues. IMPRESSION: No acute bony injury or malalignment in the lumbar spine. Dictated and Authenticated by: Cesario Guevara MD. Ordering:[facility] Anjelica Kendrick MD
--- NOTE | 2022-07-06 10:39 | NUR.NOTE ---
Nursing Note: At approximately 0930 on 07/06/22, this RN was called to the pt.'s room by the TECHNICAL DIRECTOR when the TECHNICAL DIRECTOR entered the pt.'s bathroom to assist them with care and found them lying on the bathroom floor. Pt. had an unwitnessed fall in the bathroom from the toilet to the floor. Pt. noted to be holding on to the grab bar near the toilet, keeping their head, neck, and shoulders off the floor. This RN immediately called for more help, VS were obtained, neuro check was performed, and a brief head to toe assessment was performed. Pt. denies any loss of consciousness. Pt. denies hitting their head. Pt. complaining of mild right lower back/flank pain; unable to verbalize a numerical pain level. Charge nurse notified. MD to be notified; MD and LIFE SCIENCE TECHNICIAN in to pt.'s room at 0932. Per MD, STAT CT scan of head/neck/spine to be ordered. Pt. was assisted from the floor and on to the stretcher to go to CT with assistance from this RN, another RN, the TECHNICAL DIRECTOR, and PT. RN will reassess as necessary.
[2022-07-06] MEDS: Aspirin 81 MG CHEW PO (18:49)
[2022-07-06] MEDS: Atorvastatin 40 MG TAB 80 MG PO (20:29)
[2022-07-07] VITALS (7 sets, daily range): BP systolic 104–121; BP diastolic 69–73; PULSE 67–94; RESP 16; TEMP 36.2–36.6; O2SAT 96–98
[2022-07-07] MEDS: Normal Saline Flush 10 ML SYR IVP (06:42)
--- NOTE | 2022-07-07 08:00 | DI.US_ITS ---
APPROVED REPORT EXAM: Comprehensive 2D, Doppler, and color-flow Echocardiogram Patient Location: In-Patient Room/Bed: 229 [facility] Care Sanitary Technician: Yelena Castro RDCS (AE) Indications: Elevated troponin, Acute CVA, Murmur Other Information Study Quality: Adequate Conclusion Normal left ventricular wall thickness and chamber size. Estimated ejection fraction is 60%. Wall m otion is normal Normal right ventricular size and systolic function Both atria are normal in size The aortic valve is trileaflet and mildly sclerotic without aortic stenosis. There is trace to mild aortic regurgitation Mild mitral annular calcification. Trace mitral regurgitation Normal tricuspid valve with trace to mild regurgitation. Estimated right ventricular systolic pressu re is 21 mmHg Elevated ascending aorta measuring 4.56 cm Wall motion Left Ventricle The left ventricle is normal size. The left ventricular systolic function is normal. The left ventric ular ejection fraction is within the normal range. There is normal left ventricular wall thickness. T here is normal LV segmental wall motion. There is no ventricular septal defect visualized. LVEF is 60 %. Right Ventricle The right ventricle is normal size. The right ventricular systolic function is normal. The RVSP is 21 .0mmHg. Atria The left atrium size is normal. The right atrium size is normal. The interatrial septum is intact wit h no evidence for an atrial septal defect. Aortic Valve The Aortic valve is sclerotic. Aortic valve is calcified. Aortic valve is trileaflet. No hemodynamica lly significant valvular aortic stenosis. Trace to mild aortic regurgitation. Mitral Valve Mild mitral annular calcification. No evidence of mitral valve stenosis. Trace mitral regurgitation. Tricuspid Valve The tricuspid valve is normal in structure. There is no tricuspid valve stenosis. Trace to mild tricu spid regurgitation. Pulmonic Valve The pulmonary valve is normal in structure. There is no pulmonic valvular stenosis. Trace pulmonic re gurgitation. Great Vessels The aortic root is normal in size. The ascending aorta is severely dilated.4.56 cm Aortic arch is nor mal in caliber. IVC is normal in size and collapses >50% with inspiration. Pericardium There is no pericardial effusion. 2D Dimensions IVSD d PLAX 1.01 cm M: 0.6-1.2 LV Vol A2C d MOD 104.7 mL LVPW d PLAX 1.00 cm M: 0.6 - 1.2 LV Vol A4C d MOD 107.8 mL LVID d PLAX 5.14 cm M: 4.2 - 5.8 LA vol/ BSA A2C s A-L 34.4 mL/m2 LVDs 3.55 cm M: 2.5 - 4.0 LA vol/ BSA A4C s A-L 25.4 mL/m2 Ao Root d 3.87 cm M: 3.1 - 3.7 LA Vol/ BSA Biplane s A-L 29.7 mL/m2 RA Area A4C 15.77 cm2 LA Area A4C s MOD 17.74 cm2 RA Vol/ BSA A4C s A-L 21.0 mL/m2 LA Area A2C s MOD 20.79 cm2 Ao Asc Diam d 4.56 cm M: 2.6 - 3.4 LV EF A4C MOD 60.0 % LV EF Teichholz 57.9 % LV EF A2C MOD 60.4 % LVEF (Cedillo's) 60.18 % M: 52 - 72 LV EF Biplane MOD 60.2 % LV Volume 83.32 mL M: 62 - 150 SV 65.62 mL LV Volume Index 44.08 mL/m2 M: 34 - 74 SV Index 34.66 mL/m2 LV Vol Biplane MOD 109.0 mL FS 30.70 % M-Mode TAPSE 2.33 cm (M/F) >1.7 LV Diastology MV E' medial 0.083 (>0.07 m/s) E/A Ratio 0.8 LV E/e MED 9.10 (<14) MV E Vmax 0.76 (0.4-1.3 m/s) MV E' lateral 0.088 (>0.1 m/s) MV A Vmax 0.95 (0.4-1.3 m/s) LV E/e LAT 8.60 (<14) MV E/A Ratio 0.80 MV E/E' medial 9.12 MV E/E' lateral 8.62 Aortic Valve LVOT Area 3.69 cm2 AoV Area Vmax 2.26 cm2 LVOT Vmax 1.25 m/s AoV Area/ BSA (Vmax) 1.19 cm2/m2 LVOT Mean Mitesh. 0.88 m/s KELVIN Mean Mitesh. 2.17 cm2 LVOT Peak Grad 6.2 mmHg KELVIN Mean Mitesh. Index 1.15 cm2/m2 LVOT Mean Grad 3.5 mmHg AR DT 1273 msec LVOT VTI 0.283 m AR PHT 369 msec LVOT Diam s 2.15 cm AoV Vmax 2.04 m/s Velocity Ratio 0.61 AoV Mean Mitesh. 1.49 m/s AoV Peak Grad 16.6 mmHg LVOT SV 104.47 mL AoV Mean Grad 10.0 mmHg AoV VTI 0.431 m AoV Area VTI 2.42 cm2 AoV Area/ BSA (VTI) 1.28 cm/m2 Mitral Valve MV DT 293 (160-240 msec) MV PHT 85 msec MV Area PHT 2.59 cm2 MV VTI 0.335 m MV Area VTI 3.12 (4.0-6.0 cm2) Pulmonary Valve PV Vmax 1.01 (0.5-1.5 m/s) RVOT Peak Gr. 3.17 mmHg PV Peak Grad 4.1 mmHg RVOT Mean Gr. 1.45 mmHg PV Mean Grad 2.1 mmHg RVOT VTI 0.172 m PV VTI 0.189 m RVOT Vmax 0.89 m/s Tricuspid Valve TR Peak Grad 17.9 mmHg TR Vmax 2.12 m/s RA Pressure 3.00 mmHg RVSP (TR) 21.0 mmHg
[2022-07-07] MEDS: Multivitamin w/Minerals TAB 1 TAB PO (08:43)
[2022-07-07] MEDS: Aspirin E.C. 81 MG TABEC PO (08:43)
--- NOTE | 2022-07-07 09:43 | W.PM.PROGNOT ---
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 check echo results which should be done this morning. Await formal neurology consultation for further recommendations. (2) Chronic anticoagulation: Status: Acute Assessment and plan: as above (3) Elevated troponin: Status: Acute Assessment and plan: This was felt to be demand ischemia as he had no EKG changes and no CP. Will get echocardiogram today. Arrange stress MPI for risk assessment. (4) Ambulatory dysfunction: Status: Acute Assessment and plan: cont. P.T. manager of revenue has put out referrals to higher skilled rehab centers. Given his recurrent falls both at home and here in the hospital, I do not feel he is safe to return home w/out some extended stay for rehabilitation. 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 feels that he would benefit from this. Subjective Subjective Interval history since last seen: Patient has had no new falls since yesterday. No new weaknes or other focal neurologic symptoms. I put him on aspirin in addition to the Pradaxa for his CVA. has sent out referrals to area highly skilled rehabiliation centers ([facility] and [facility]). Exam Narrative Exam Narrative: His exam is unchanged. Normal ROM and strength in both upper and lower extremities. No facial asymmetry, normal speech and grossly normal VF. Sensory grossly intact. Objective Last Vital Signs Temp 36.4 C L 07/07/22 08:23 Pulse 73 07/07/22 08:23 Resp 16 07/07/22 08:23 BP 121/71 07/07/22 08:23 Pulse Ox 97 07/07/22 08:23
--- NOTE | 2022-07-07 09:48 | PT.INTREAT ---
Date of service: 07/07/22 Time of Service: 09:48 PT Notes Visit Reasons: New Onset Ataxia,Elevated Troponin Physical Therapy Inpatient Treatment Note Date: 07/07/2022 Precautions: Fall. Standard. Activity as tolerated. Subjective: Mariya indicated that for the past month patient started walking differently and, at the time leading to this admission, she states that his left foot did not know where what it was going or what it needs to do. 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 He is agreeable to going to an acute rehab facility to manage his acute stroke. Objective: General Observation: Seated on chair.? Mental Status: Alert and oriented as to person, place, time, and purpose. Continues to require cueing with L hand positioning on FWW. Pain: Denies Vital Signs: WNL as closely monitored by nursing staff ROM: Left Upper Extremity:? Shoulder Flexion WFL. Shoulder abduction WFL. Elbow flexion WFL. Wrist flexion WFL. Functional opening and closing of hand WFL. Left Lower Extremity: Hip flexion WFL. Hip abduction WFL. Knee flexion WFL. Ankle dorsiflexion to neutral only. Ankle plantarflexion WFL. Strength: Left Upper Extremity: Shoulder flexors 4-/5. Shoulder abductors 4-/5. Elbow flexors 4-/5. Elbow extensors 3--/5. Cooper Apprentice strong. Left Lower Extremity: Hip flexors 5/5. Hip abductors 5/5. Knee flexors 5/5. Knee extensors 5/5. Ankle dorsiflexors 4-/5. Ankle plantarflexors 5/5. Bed Mobility/Transfers: Sit to stand contact guard assist Stand to sit contact guard assist Bed to reclining chair contact guard assist Gait: Instructed patient with level surface ambulation of 100 feet + 300 feet + 300 feet requiring contact guard assist using weighed down FWW (with two 2 lb AW tied around front posts of walker.? Minimal postural sway to L appreciated. No side tilting to L (R walker handle up) of FWW seen with turning to L throughout the walk. Increased foot drag seen on the L with fatigue. Needed frequent cueing to pit L hand on L walker handle as patient has tendency to put hand on the L front bar. Minimal loss of balance occurred w Balance: Static Sitting: Good Dynamic Sitting: Good Static Standing: Fair Dynamic Standing: Poor Pronator Drift: Positive L LE drift: positive Perceptual deficits: Rapid alternating movement impaired [id number]-[id number]-ptic coordination impaired L heel to garland impaired 4-stage balance test:? Deferred Assessment: Patient diagnosed with R middle cerebral artery stroke.? Patient now has intact and working bilateral hearing aids but continues to demonstrate delayed response and need for repetition of instructions.? Patient appears to have more like L-sided hemispatial neglect rather than L-hemianopsia as patient is able to answer crossword puzzles with no issues and able to draw a full [place] with no issues. Patient has increased fall risk due to lack of insight to impaired midline orientation.? Now requires assist of 1 person but heavy cueing for safety. Utilization of weights to increase stability of walker fully addresses unnecessary tilting during turning.? Increasing disparity in strength measurement seen today compared to day of evaluation with L UE and LE more weak.?? THERA ACT: 1. Visual scanning strategies to increase awareness of L side 2. Limb activation training with use of 2 lb AW weight on the L UE to increase awareness and use while doing upper body activity: -colored tape vertical placement onto mirror to increase awareness of midline -placement of colored tapes (shaped like cross) on L side of table -cone stacking according to color from right side of table to L 3. Functional activity to integrate use of L hand, increase balance awareness, and L sided attention -picking up cans x 5 from table and putting same on an elevated surface on the fridge in therapy room using weighted L hand 4. Mirror therapy to increase awareness of L UE while doing functional activities as above DISCHARGE RECOMMENDATIONS: [] ? Home with no services [] [] ? Home with services [specify] [] ? Home with outpatient PT [] [X] Acute stroke rehab.? Patient will benefit from acute stroke rehabilitation placement for continued skilled physical therapy services in order to progress mobility level, strength, and balance in preparation for a safe discharge to home. [] ? [facility] [] [] ? SNF versus LTC based on ability to participate and progress [] TREATMENT CODE/TIME: 24245 x 60 minutes beginning at 9:48 AM.
[2022-07-07 12:00] LABS: Source Nasal/Nares
[2022-07-07 12:47] LABS: COVID-19 PCR Negative (Negative)
--- NOTE | 2022-07-07 14:40 | DSE_ITS ---
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 ASA 81 mg daily and Pradaxa 150 mg bid. patient will be transferred to [facility] for high level rehabilation. He should have follow up cardiac event recorder (2) Chronic anticoagulation: Status: Acute Asessment and Plan: as above (3) Elevated troponin: Status: Acute Asessment and Plan: No ischemic pain and no acute ischemic EKG changes. Echocardiogram demonstrated normal LV and RV function w/ LVEF 60% w/ no regional wall motion abnormalities. He ought to have follow up stress MPI upon completion of his rehab to assess his risks for future coronary ischemic events (4) Ambulatory dysfunction: Status: Acute Asessment and Plan: patient improving but still w/ severe gait imbalance and in need of higher level rehab. patient being transferred to [facility] in [facility] Patient is agreeble to this and his has been notified by the transitions rn care coordinator. (5) Malignant neoplasm of prostate metastatic to bone: Status: Chronic Asessment and Plan: continue Lupron and Denosumab (6) Discharge planning issues: Status: Acute Asessment and Plan: trasnfer to [facility] as above Discharge Plan Disposition Patient Disposition: SKILLED NSG. FAC.(LEVEL 1) Condition: Improving Discharge Details Reason For Visit: New Onset Ataxia,Elevated Troponin Admit Date/Time: 07/05/22 11:55 Admit Provider: Corry Dobbs Attending Provider: Corry Dobbs Primary Care Provider: Artem Barkley [facility] Course Hospital Course: 86-year-old male with a past medical history of metastatic prostate cancer on antiandrogen deprivation therapy who also has a history of DVT and PE chronically anticoagulated with Eliquis at 2.5 mg twice daily, essential hypertension, history of GIST s/p partial gastrectomy who presented emergency department with balance problems. He sustained a fall at home due to loss of balance without loss of consciousness or head injury or any other trauma. He has had frequent falls over the last week. Not associated with dizziness but associated with gait ataxia. He has had no dysarthric speech or dysphagia and no acute visual symptoms. He denies any numbness or paresthesias of his limbs. Initial noncontrast CT scan of his brain showed no acute abnormalities, chest x- ray showed no acute abnormalities. Patient was admitted to telemetry to rule out arrhythmias and his admission labs demonstrated nonspecific elevation of his troponin at 317. Electrolytes were essentially normal kidney and liver function was essentially normal. Alkaline phosphatase was elevated at 424 consistent with bony mets from his prostate cancer. B12 and folate levels were normal. He underwent MRI scanning of his brain on the next morning after admission which demonstrated multiple infarcts in the right middle cerebral artery distribution related to multiple emboli. MRI of the brain showed decreased size and number of the M3 and M4 branches on the right compared to left otherwise MRA of the [place] was unremarkable. Carotid ultrasound showed no hemodynamically significant carotid stenosis. MRI of the cervical vessels the neck showed no definite occlusions or stenosis on the MRA of the neck however portions of the distal vertebral arteries were not well visualized and a CT angiogram of the neck was recommended. On 07/05/2022 CTA of the head neck was performed and this showed occlusion of distal branch of right MCA and mild plaque of the proximal internal carotid arteries without significant stenosis or dissection. Vertebral vessels were patent. Patient's apixaban was switched to Pradaxa 150 mg twice a day. Aspirin 81 mg daily was added to his regimen for antiplatelet effect. Patient subsequently had a fall on 07/06/2022 in the bathroom without loss of consciousness. CT of his head and neck including cervical spine as well as CT of his thoracic and lumbar spine were obtained. CT of the head showed no acute abnormality. Cervical spine showed sclerotic lesions in the cervical vertebral body consistent with metastatic lesions with the largest being seen in the C5 vertebral body. Otherwise he had degenerative disc changes but no fracture and no acute abnormalities. CT of his thoracic and lumbar spine showed widespread bony metastasis of the thoracic and lumbar spine as well as the pelvis but no acute fracture was seen. Patient continue to receive physical therapy was able to ambulate with use of a gait belt and a walker but patient continued to have problems with listing to the left side and with left-sided neglect. It was felt that he would be best served by transfer to a high level rehabilitation center for intensive physical and occupational therapy. Neurology services were not available at [facility] during the time of his stay. It is recommended that he have a follow-up neurology consultation upon admission into the rehab center. It is also recommended that he have a follow-up stress MPI study as an outpatient as he is higher risk for future coronary ischemic events. His troponin was trended and did trend downward it had peaked at 317 on admission and came down to 186 by the next day. This is a troponin I level was upper limit normal is 60 ng/L. An echocardiogram was performed to evaluate his LV and RV function as well as to look for any apical thrombi. His echocardiogram demonstrated normal left ventricular size thickness and function with no regional wall motion abnormalities. LVEF is 60%. RV size and function was normal. Atria are normal in size. Aortic valve is trileaflet with mild sclerosis but no stenosis. He has a trace to mild aortic insufficiency. He has mild mitral annular calcification with trace of mitral regurgitation. Tricuspid valve is normal with trace to mild regurgitation. He has an elevated ascending aorta measuring 4.56 cm. This is unchanged compared to a recent CT scan of his chest performed on 04/18/2022. Home Meds and New Rx's Prescriptions: New atorvastatin 40 mg Tablet 80 mg PO QPM Qty: 0 0RF acetaminophen 325 mg Tablet 325 - 650 mg PO Q4H PRN PRNQty: 0 0RF melatonin 3 mg Tablet 3 mg PO HS Qty: 0 0RF aspirin 81 mg Tablet,Delayed Release (Dr/Ec) 81 mg PO DAILY Qty: 0 0RF magnesium hydroxide [Milk of Magnesia] 400 mg/5 mL Suspension 30 ml PO DAILY PRN PRNQty: 0 0RF docusate sodium [Colace] 100 mg Capsule 100 mg PO TID PRN PRNQty: 0 0RF alum-mag hydroxide-simeth [Mag-Al Plus] 200-200-20 mg/5 mL Suspension 30 ml PO Q2H PRN PRNQty: 0 0RF dabigatran etexilate [Pradaxa] 75 mg Capsule 150 mg PO BID Qty: 0 0RF Addy Protect (zinc oxide) 12 % Cream 1 applic topical BID PRN (Reason: skin irritation) Qty: 0 0RF Continued albuterol sulfate 90 mcg/actuation aerosol powdr breath activated 2 inh IH QID PRN Complete Multivitamin Tablet 1 tab PO DAILY [id number]-[id number] Complex 1 EACH tablet 1 ea PO DAILY Lupron Depot (3 month) 22.5 MG syringe kit 22.5 mg IM Q3M Label Comments: 05/11/[address] Oreilly at [facility] Xgeva 120 mg/1.7 mL (70 mg/mL) solution 120 mg subcut [id number] Rx Instructions: 11/12/21 Oncology precribing. ben calcium/mag/Vit d PO Rx Instructions: Calcium 1000 mg, Mag 500 mg Vit D 10 mg per patient Discontinued Eliquis DVT-PE Treat 30D Start 5 mg (74 tabs) tablets,dose pack 5 mg PO BID Discharge Instructions Instructions: Ischemic Stroke (DC), Left Hemispheric Stroke (DC) Activity:: Activity as Tolerated Equipment/Supplies:: No Equipment Needed Diet:: Carb Counting DS: Summary Time Spent with Patient providing and/or coordinating discharge services: Greater than 30 minutes Specific discharge activities: Interview/exam of patient; review of discharge instructions, completion of prescriptions/discharge instructions; discussion w/ nursing and CM; documentation of hospital visit Status at Discharge Functional status at discharge: uses cane/walker Overall status at discharge: patient is not back to baseline Mental Status: mental status grossly normal Speech and Movement: speech and movement normal Mood: congruent mood Affect: normal affect Exam Narrative Exam Narrative: His exam is unchanged. Normal ROM and strength in both upper and lower extremities. No facial asymmetry, normal speech and grossly normal VF. Sensory grossly intact. Patient has noticeable neglect on the left side when ambulating. P.T. has noticed problems w/ depth perception. Psych Mental Status: mental status grossly normal Speech and Movement: speech and movement normal Mood: congruent mood Affect: normal affect DS: Data Vitals/I&O Vitals and I&O: Vital Signs Temperature 36.2 C L 07/07/22 12:15 Temperature Source Tympanic 07/07/22 12:15 Pulse 87 07/07/22 12:15 Pulse Rhythm Regular 07/07/22 04:00 Pulse 82 07/03/22 16:10 Respiratory Rate 16 07/07/22 12:15 Respiratory Effort Non-Labored 07/07/22 04:00 Respiratory Depth Normal 07/07/22 04:00 Respiratory Pattern Normal 07/07/22 04:00 Blood Pressure 108/72 07/07/22 12:15 Blood Pressure Mean 96 07/03/22 16:00 Blood Pressure Position Sitting 07/03/22 14:10 Pulse Oximetry 96 07/07/22 12:15 Oxygen Delivery Method Room Air 07/07/22 12:15 Oxygen Flow Rate 0 07/07/22 12:15 Pain Level 0 07/07/22 08:23 Comment 07/06/22 16:15 Intake & Output 07/06/22 07/07/22 07/07/22 23:59 11:59 23:59 Intake Total 910 / 1150 240 / 240 Output Total 550 / 950 Balance 360 / 200 240 / 240 Weight 73.6 kg Intake: Oral 910 / 1150 240 / 240 Output: Urine 550 / 950 Other: Urine Color Yellow Yellow Yellow Straw Urine Appearance Clear Clear Clear Comment pT voided in commode, it was an unmeasured void umeasured/ no hat Voiding Methods Bedside Commode Bedside Commode Bedside Commode Data Completed and Pending Labs on day of discharge: Labs from last 24 hours 07/07/22 11:55 COVID-19 Source Nasal/Nares SARS-CoV-2 (PCR) Negative PFSH All Active Problems Fall from toilet seat (Acute) Right middle cerebral artery stroke (Acute) Discharge planning issues (Acute) Chronic anticoagulation (Acute) Ambulatory dysfunction (Acute) Elevated troponin (Acute) Weakness (Acute) Malignant neoplasm of prostate metastatic to bone (Chronic) [facility] progress note 04/22/22 Gastrointestinal stromal tumor of stomach (Acute) Hot flash due to medication (Acute) Mechanical dysphagia (Acute) Hypertension (Chronic) Androgen deprivation therapy (Acute) Anterior epistaxis (Acute) Echocardiogram abnormal (Chronic) No acute findings, but dilated ascending aorta measuring 4.56 cm. 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 due to burning wood Actinic keratosis (Chronic 02/16/12) FIELD STAFF [facility] Deep vein thrombosis (DVT) of right upper extremity (Acute 09/29/18) DVT ID'd (rt mid basilic vein). s/p 6 weeks of swelling in wrist o RT arm (post IV infusion) Medical History Acute stasis dermatitis Cough Facial basal cell cancer Right bundle branch block Seborrheic keratoses Surgical History Appendectomy colonoscopy (12/23/16) egd W/ bx (02/01/18) [facility] H/O esophagogastroduodenoscopy 01/07/19 [facility]. Alec Omalley MD H/O right wrist surgery LS spine disc surgery Prostate Biopsy (04/05/18) S/P partial gastrectomy (05/10/19) 05/10/19: robotic assisted partial gastrectomy/wedge resection with gastro- gastric anastamosis. [facility]. S/P tonsillectomy Family History Mother , in sleep at age 93. No problems noted. Father , unknown at age 90. Aneurysm Sister No problems noted. Brother No problems noted. Social History Smoking/Tobacco Use Status: Former Tobacco Use Quit Date: 11/30/1963 Pack- years: 5 Tobacco: How many years used: 5 Smoking risk assessment performed?: Yes Alcohol Intake: current Alcohol Intake frequency: 0-2 drinks per day Alcohol type: beer Drug use: Never Substance use type: does not use Adopted: No Caregiver/Support person: No Foster care: No Household members: spouse Housing: house Number of Children: 2 number of grandchildren: 5 Communication Needs: Hard of Hearing Education Level: college Details: Bachelor's Degree Do you need help understanding health information?: Often current occupation: Retired Pets and animals: Yes Pets and animals: dog(s) Sexually active: No Do you think of yourself as: straight/heterosexual Current gender identity: male What is your relationship status?: How often do you talk on the phone with friends or family?: twice per week How often do you get together with friends or relatives?: once per week How often do you attend episcopal or congregational services?: decline to answer Do you belong to any clubs or organized social groups?: no Panel score (0-1 are the most socially isolated patients): 2 What type of physical activity do you participate in: walking Duration: 30-45 minutes/day Frequency: 3-4 times per week Jeni/Muslim: Evangelical Special jeni needs: No Seatbelt use: always Drive intox or ride w/intox 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
--- NOTE | 2022-07-07 14:45 | PTTR_ITS ---
Date of service: 07/07/22 Time of Service: 13:24 PT Notes Visit Reasons: New Onset Ataxia,Elevated Troponin Inpatient Physical Therapy Treatment Note [facility] Date: 07/07/2022 PRECAUTIONS: Fall, activity as tolerated SUBJECTIVE: Enrique is pleasant and agreeable to participating in PT. He continues to express desire to discharge to acute rehab prior to returning to home. OBJECTIVE: Patient struggles to don face mask ear-loop over left ear, however, when cued to close eyes, he is able to don face mask completely without difficulty. PAIN: No c/o pain BED MOBILITY/TRANSFERS Sit-stand: CGA Stand-sit: CGA GAIT Assistive Device: FWW Weight bearing: Full Assist: CGA-SBA Distance: 600' +200' Deviation: 2# ankle weights on FWW to promote keeping all four points in contact with the floor, path deviation to L, cueing for increased step-height/length with L foot (purposeful exaggeration) NEURO RE-ED: Patient was instructed in a dynamic balance retraining program, to include: forward reaching to varying heights L/R, multi-directional step exercise with L/R, functional [id number] with ball toss, four quadrant box- stepping to L/R, seated foot taps on cone L/R. Patient requires CGA-Min A throughout for safety. ASSESSMENT: Patient continues to demonstrate diminished safety awareness as well as gait dysfunction. He demonstrates components of L-sided neglect, as well as depth perception deficits. He would benefit from acute rehab placement for continued balance and proprioceptive training. PLAN: Patient to discharge to [facility] later today, per provider. TREATMENT CODE/TIME: 39 minutes; [id number] x3 (13:24)
--- NOTE | 2022-07-07 15:27 | CMDISCH_ITS ---
- If Service Date Differs Date of service: 07/07/22 Time of Service: 15:27 LACE Index Scoring Tool - Questions: Length of Stay (in days): 4 - 6 Acuity (Admit via E.D.?): Yes Comorbidities: Cerebrovascular Disease, Any Tumor E.D. Visits: 1 - Answers: Total Score: 11 Risk of Readmission: High Risk Care Management Discharge Reason for Hospitalization: New onset ataxia, elevated troponin Discharge Plan: Eric transferred to [facility]. for Acute Rehab. He is transported via EMS. Eric will follow discharge plan of care as prescribed and follow up with community providers. CM reviewed this plan with Eric and his Mariya (via phone). Patient/Family Education Needs: Review transfer instructions, ask me three. Services Needed at Discharge: [facility] Facility ([facility]), Transportation ([place], arranged by CM)
--- NOTE | 2022-07-07 18:50 | PT.INDS ---
Date of service: 07/07/22 PT Notes Visit Reasons: New Onset Ataxia,Elevated Troponin Physical Therapy Inpatient Discharge Summary Date: 07/07/2022 Dates of Service: 07/04/2022 through 07/07/2022 This is a clinical summary of care provided for the duration of dates listed above. No charge was made in the completion of this documentation. Referring Doctor:? Corry Dobbs MD PT Orders: PT CONSULT: Limited ability Precautions: Fall. Standard. Activity as tolerated. Patient Profile/Admitting Diagnosis:? Enrique is an 86-year-old male patient who presented to the Ed on 07/03/2022 due to pain and repeated falls.? Patient is diagnosed with elevated troponin,? ambulatory dysfunction,? 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 EF 55-6-%, 10/2021 Asthma (Chronic) Gilbert syndrome (Acute) External ear conductive hearing loss (Acute) Other pulmonary embolism and infarction (Chronic 01/28/11) Repeat PE in 2020; lifetime anticoagulation Other specified disorder of penis (Acute 02/16/12) Bilateral impacted cerumen (Acute 01/08/17) Impacted cerumen (Acute 12/28/14) Sensorineural hearing loss, bilateral (Chronic 12/28/14) He has a known and stable bilateral normal downsloping to moderate-severe sensorineural hearing loss which is aided.? Hearing Aids Prostate cancer metastatic to multiple sites (Chronic 03/12/18) 04/05/18 biopsy- prostatic adenocarcinoma Grade group 5 04/06/18 whole body scan consistent with extensive osseous metastatic disease 01/14/22 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 Deep vein thrombosis (DVT) of right upper extremity (Acute 09/29/18) DVT ID'd (rt mid basilic vein). s/p 6 weeks of swelling in wrist o RT arm (post IV infusion) Medical History?(Updated 07/04/22 @ 01:07 by Corry Dobbs MD) Acute stasis dermatitis Cough Facial basal cell cancer Right bundle branch block Seborrheic keratoses Surgical History?(Updated 07/04/22 @ 01:34 by Corry Dobbs MD) Appendectomy colonoscopy (12/23/16) egd W/ bx (02/01/18) [facility] H/O esophagogastroduodenoscopy 01/07/19 [facility]. Alec Omalley MD H/O right wrist surgery LS spine disc surgery Prostate Biopsy (04/05/18) S/P partial gastrectomy (05/10/19) 05/10/19: robotic assisted partial gastrectomy/wedge resection with gastro-gastric anastamosis. [facility]. S/P tonsillectomy Social History/Home Situation: Lives with in a private home with 2 steps with rails on B sides to enter through the garage.? Has been needing to use a single point cane for sdded stability these past copule of weeks.? Equipment Owned/DME: [facility] Subjective: NT. See most recent [employer] notes. Objective: General Observation: NT. See most recent M[employer]IST notes. Mental Status: NT. See most recent M[employer]IST notes. Pain: NT. See most recent M[employer]IST notes. Vital Signs: NT. See most recent M[employer]IST notes. ROM: Right Upper Extremity: ? Shoulder Flexion WFL. Shoulder abduction WFL. Elbow flexion WFL. Wrist flexion WFL. Functional opening and closing of hand WFL. Left Upper Extremity:? Shoulder Flexion WFL. Shoulder abduction WFL. Elbow flexion WFL. Wrist flexion WFL. Functional opening and closing of hand WFL. Right Lower Extremity: Hip flexion WFL. Hip abduction WFL. Knee flexion WFL. Ankle dorsiflexion WFL. Ankle plantarflexion WFL. Left Lower Extremity: Hip flexion WFL. Hip abduction WFL. Knee flexion WFL. Ankle dorsiflexion WFL. Ankle plantarflexion WFL. Strength: Right Upper Extremity: Shoulder flexors 4/5. Shoulder abductors 4/5. Elbow flexors 5/5. Elbow extensors 5/5. Line Fixer strong. Left Upper Extremity: Shoulder flexors 4/5. Shoulder abductors 4/5. Elbow flexors 5/5. Elbow extensors 5/5. Line Fixer strong. Right Lower Extremity: Hip flexors 4-/5. Hip abductors 4-/5. Knee flexors 4-/5. Knee extensors 4-/5. Ankle dorsiflexors 4-/5. Ankle plantarflexors 4-/5. Left Lower Extremity: Hip flexors 5/5. Hip abductors 5/5. Knee flexors 5/5. Knee extensors 5/5. Ankle dorsiflexors 5/5. Ankle plantarflexors 5/5. BED MOBILITY/TRANSFERS? Sit-stand: CGA? Stand-sit: CGA? GAIT? Assistive Device: FWW? Weight bearing: Full Assist: CGA-SBA ? Distance:? 600' +200' ? Deviation: 2# ankle weights on FWW to promote keeping all four points in contact with the floor, path deviation to L, cueing for increased step-height/length with L foot (purposeful exaggeration)? 4-stage balance test:? Unable to maintain any of the 4 positions for 10 seconds due to impaired midline orientation with quick precipitation of L trunk lean when patient was asked to put feet together in standing. Assessment: 4-stage balance test failed due to increased postural sway that can increase fall risk with decrease in base of support.? Ability to follow instructions seems to be minimally impaired which partly may be due to preexisting sensorineural hearing loss.? Patient has increased fall risk due to lack of insight to impaired midline orientation.? Mobility performance guarded and slowed requiring minimal assist of 1-2 people.? Deferred further balance testing as patient needed to leave for MRI and MRA of brain downstairs.? Deficits in spatial orientation is a concern for safety and will await further work up to rule out any neurologic or centrallly located cause of balance issues/repeated falls.? Strength in B UE symmetric.? R hip weaker than L due to some ongoing arthritic process.? Patient presents with clinical signs and symptoms consistent with current/admitting diagnoses that have resulted to mobility limitations, gait instability, generalized weakness, and overall ADL decline as demonstrated by the following impairment level findings: 1.? Decreased strength to R hip major muscle groups 2.? Impaired sitting/standing balance 3.? Impaired activity tolerance 4.? Impaired midline orientation with increased lean to L when NAYANA was compromised Impairments are contributing to the following functional limitations: 1.? Difficulty with ambulation without assistive device and physical assistance 2.? Increased completion time for mobility ADL performance 3. Increased risk for falls 4.? Difficulty with managing steps alone safely Goals: Goals X1 week 1. Supine-Sit independent NOT MET 2. Sit-Supine independent NOT MET 3. Sit-Stand independent NOT MET 4. Stand-Sit independent with FWW NOT MET 5. Bed-Chair independent with FWW NOT MET 6. Chair-Bed independent with FWW NOT MET 7. Independent gait on level surface with use of FWW for at least 300 feet without report of pain nor dyspnea NOT MET 8. Independent stair negotiation while holding onto B rails for at least 2 steps without report of pain nor dyspnea NOT MET 9. Independent with home exercise program NOT MET 10. Good static and dynamic standing balance/tolerance NOT MET DISCHARGE RECOMMENDATIONS: [] ? Home with no services [] [] ? Home with services [specify] [] ? Home with outpatient PT [] [X] ? SNF for continued rehabilitation.? Patient will benefit from [facility] facility placement for continued skilled physical therapy services in order to progress mobility level, strength, and balance in preparation for a safe discharge to home. [] ? [facility] [] [] ? SNF versus LTC based on ability to participate and progress [] TREATMENT CODE/TIME: [place] Thank you for the opportunity to participate in the care of this patient. Ariana You PT, DPT, CLT [facility] [place], [place]
== END 2022-07-07 17:14 | disposition skilled nursing facility (03) | DRG 65 ==
LOC: ER 20:53 → MS 21:33
PROVIDERS: Internal Medicine; Physician Assistant; Admitting Provider Internal Medicine; Emergency Provider Physician Assistant; PCP Family Medicine; Visit Provider Internal Medicine
DX: I63.511 Cerebral infarction due to unspecified occlusion or stenosis of right middle cerebral artery (principal); C79.51 Secondary malignant neoplasm of bone; I24.8 Other forms of acute ischemic heart disease; C61 Malignant neoplasm of prostate; Z79.899 Other long term (current) drug therapy; R53.1 Weakness; Z79.01 Long term (current) use of anticoagulants; R42 Dizziness and giddiness; D64.9 Anemia, unspecified; J45.909 Unspecified asthma, uncomplicated; S80.812A Abrasion, left lower leg, initial encounter; S80.811A Abrasion, right lower leg, initial encounter; S40.812A Abrasion of left upper arm, initial encounter; R13.10 Dysphagia, unspecified; I10 Essential (primary) hypertension; E80.4 Gilbert syndrome; Z86.711 Personal history of pulmonary embolism; H90.3 Sensorineural hearing loss, bilateral; I45.19 Other right bundle-branch block; D69.2 Other nonthrombocytopenic purpura; I77.810 Thoracic aortic ectasia; W18.11XA Fall from or off toilet without subsequent striking against object, initial encounter; Y92.231 Patient bathroom in hospital as the place of occurrence of the external cause; R26.89 Other abnormalities of gait and mobility; Z85.028 Personal history of other malignant neoplasm of stomach
CPT/HCPCS: 36415; 36416; 70496; 70498; 70544; 70547; 70553; 80048; 80053; 82550; 82962; 87635; 93005; 93306; 97112; 97162; 97530; 99285; 70450; 71046; 72125; 72128; 72131; 81003; 82607; 83735; 84443; 84484; 85025; 85610; 85730; 93010; 93880; 99220; 99226; 99231; 99232; 99239; J3490

== ENCOUNTER 2022-08-14 03:57 | Outpatient (CLI) | payer MEDICARE, OTHER, SELFPAY ==
[2022-08-14 09:54] LABS: HCT 26.1 % (40.0-50.0); HGB 8.6 g/dL (13.5-17.5); MCH 29.5 pg (27.0-33.0); MCV 89 fL (80-95); MPV 8.9 fL (8.0-11.0); Platelet Count 107 10^3/uL (130-400); RBC 2.92 10^6/uL (4.36-5.78); RDW 16.1 % (11.8-14.1); RDW-SD 51.8 fL; WBC 3.42 10^3/uL (4.4-10.8)
[2022-08-14 10:37] LABS: Iron 65 ug/dL (65-175); Total Iron Binding Capacity 145 ug/dL (250-450); Transferrin Sat 45 % (20-55)
[2022-08-14 11:02] LABS: ALT 41 U/L (16-63); AST 72 U/L (15-37); Albumin 3.1 g/dL (3.4-5.0); Alkaline Phosphatase 644 U/L (46-116); Anion Gap 10.9 mmol/L (3-11); BUN 24 mg/dL (7-18); Bilirubin, Total 0.7 mg/dL (0.2-1.0); CO2 25.1 mmol/L (21.0-32.0); CREATININE 1.2 mg/dL (0.70-1.30); Calcium 8.4 mg/dL (8.5-10.1); Chloride 102 mmol/L (98-107); Estimated GFR 59.26 (mL/min/1.73m2); Glucose 108 mg/dL (74-106); Potassium 4.6 mmol/L (3.5-5.1); Sodium 138 mmol/L (136-145); Total Protein 7.4 g/dL (6.4-8.2)
[2022-08-14 11:04] LABS: Ferritin 1888 ng/mL (26-388)
[2022-08-14 13:34] LABS: Lab Add On Test DONE
[2022-08-14 13:59] LABS: Hemoglobin A1C 6.2 % (<5.7)
== END 2022-08-14 03:58 | disposition home or self-care (01) ==
LOC: LBO 03:57
PROVIDERS: PCP Family Medicine; Visit Provider Student in an Organized Health Care Education/Training Program
DX: D64.9 Anemia, unspecified (principal); M62.58 Muscle wasting and atrophy, not elsewhere classified, other site; Z91.89 Other specified personal risk factors, not elsewhere classified; J30.9 Allergic rhinitis, unspecified; R73.09 Other abnormal glucose
CPT/HCPCS: 36415; 80053; 85027; 82728; 83036; 83540; 83550

== ENCOUNTER 2022-08-21 16:52 | Inpatient (IN) | payer MEDICARE, OTHER, SELFPAY ==
[2022-08-21] VITALS (7 sets, daily range): BP systolic 98–120; BP diastolic 54–68; PULSE 85–98; RESP 14–19; TEMP 36.2–37.5; O2SAT 92–97
[2022-08-21 17:51] LABS: Abs Immature Grans 0.18 10^3/uL (0.0-0.06); Absolute Basophil Count 0.01 10^3/uL (0.0-0.2); Absolute Eosinophil Count 0.02 10^3/uL (0.0-0.7); Absolute Monocyte Count 0.38 10^3/uL (0.1-0.8); Basophils % 0.3; Eosinophils % 0.6; HCT 23.5 % (40.0-50.0); HGB 7.8 g/dL (13.5-17.5); Lymphocytes % 27.9; MCH 29.2 pg (27.0-33.0); MCHC 33.2 % (32.0-36.0); MCV 88 fL (80-95); Monocytes % 10.6; Neutrophils % 55.6; Nucleated RBC 2.5 % (0.0-0.3); Platelet Count 113 10^3/uL (130-400); RBC 2.67 10^6/uL (4.36-5.78); RDW 17.3 % (11.8-14.1); RDW-SD 54.4 fL; WBC 3.59 10^3/uL (4.4-10.8)
[2022-08-21 18:04] LABS: Source Nasal/Nares
[2022-08-21 18:04] LABS: INR 1.4 (0.9-1.1); Prothrombin Time 13.6 sec (9.3-11.0)
[2022-08-21 18:11] LABS: ALT 32 U/L (16-63); AST 75 U/L (15-37); Albumin 3.1 g/dL (3.4-5.0); Alkaline Phosphatase 661 U/L (46-116); Anion Gap 9.2 mmol/L (3-11); BUN 31 mg/dL (7-18); CO2 24.8 mmol/L (21.0-32.0); CREATININE 1.2 mg/dL (0.70-1.30); Calcium 8.5 mg/dL (8.5-10.1); Chloride 99 mmol/L (98-107); Estimated GFR 59.26 (mL/min/1.73m2); Glucose 109 mg/dL (74-106); Potassium 4.8 mmol/L (3.5-5.1); Sodium 133 mmol/L (136-145); Total Protein 7.7 g/dL (6.4-8.2); Troponin I < 50 ng/L (<or=60)
[2022-08-21 18:54] LABS: COVID-19 PCR Negative (Negative)
--- NOTE | 2022-08-21 20:20 | W.PM.HP.N ---
Date of service: 08/21/22 Time of Service: 20:20 Assessment and Plan Assessment and plan (1) Acute blood loss anemia: Start date: 08/21/22 Status: Acute Assessment and plan: Patient has no evidence of acute blood loss but did have a sudden drop in his hemoglobin by 4 g/dL since initiating chemotherapy. He is symptomatic and will be transfused 2 units of packed red blood cells and reevaluate. Long-term he may need Epogen and renal functions need to be assessed. If he has mild dysplasia secondary to bony metastases from his prostate cancer this may not be a curable problem and his CODE STATUS needs to be reevaluated. (2) Anorexia: Status: Chronic Assessment and plan: Associated with metastatic prostate cancer and most likely to be progressive. Supplements as tolerated. 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 Now with complications of probable bone marrow suppression with anemia. Transfuse and reevaluate long-term care plan with CODE STATUS to be reviewed. (4) Deep vein thrombosis (DVT) of right upper extremity: Status: Resolved Assessment and plan: Upper extremity involvement now chronically on Eliquis with aspirin. Eliquis held per admission but this can be restarted if safe with day hospitalist to review. Cardiology consulted in the ED thought that Eliquis could safely be restarted. Patient is at risk for hypercoagulable state with his diffusely metastatic prostate cancer. (5) Right middle cerebral artery stroke: Status: Resolved Assessment and plan: Little residual the patient on anticoagulation and at risk for recurrent strokes. Rehabilitation as needed. This could be contributing to the patient's falls with increased generalized weakness from anemia and previous stroke. History of Present Illness History of Present Illness Chief Complaint: Weakness with Acute Anemia Narrative: This is an 87-year-old male patient who has a history of progressive metastatic prostate cancer with extensive bony involvement been on chemotherapy since February with a local oncologist. He was seen in the office just prior to presentation to the ED and was found to be profoundly anemic with the patient having progressive weakness which was ongoing with occasional dizziness and unsteady gait as well as anorexia with decreased intake since February when chemotherapy was initiated. He did have a slip and fall the day of presentation and imaging did not show any sequela from this but his anemia was significant requiring transfusion with the patient receiving 2 units of packed red blood cells after admission. He states that he does feel better but overall continues to be weak but denies any bone pain. He had no headache or focal neurological symptoms with his fall. Patient was thought to be slightly dehydrated and blood transfusion did seem to help this as well. He is on anticoagulation and cardiology did state it was reasonable to continue Eliquis which will be reviewed by the day hospitalist. The patient is on aspirin as well which could be reviewed. Risk-benefit needs to be assessed the patient's CODE STATUS needs to be reviewed as well with the progression of his disease. He appeared not to have any GI blood with negative heme test reported in the ED though I cannot find these results. The patient's troponin was initially elevated but did trend down prior to being admitted to the [facility] floor. He will be monitored with telemetry. Review of Systems Narrative: 13 point review of systems otherwise unrevealing or stable. Patient does have some abrasions over his lower extremities from falls. He has had more falls than just prior to admission with progressive weakness. He denies any focal neurological deficits. He seems to have poor insight into his progression of disease. [facility] All Active Problems (Updated 08/22/22 @ 11:25 by Nilesh Nolasco) Acute blood loss anemia (Acute) Anhedonia (Acute) Anorexia (Chronic) Anemia (Chronic) Vitamin D deficiency (Acute) Ataxia (Acute) Left hemiparesis (Acute ~06/2022) wit left sided neglect Chronic anticoagulation (Acute) Weakness (Acute) Malignant neoplasm of prostate metastatic to bone (Chronic) [facility] [place] Hot flash due to medication (Acute) Mechanical dysphagia (Acute) Hypertension (Chronic) Androgen deprivation therapy (Acute ~06/2022) Anterior epistaxis (Acute) Echocardiogram abnormal (Chronic) No acute findings, but dilated ascending aorta measuring 4.56 cm. 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 Alec Omalley MD H/O right wrist surgery LS spine disc surgery Prostate Biopsy (04/05/18) S/P partial gastrectomy (05/10/19) 05/10/19: robotic assisted partial gastrectomy/wedge resection with gastro-gastric anastamosis. [facility] [place]illectomy Family History Mother , in sleep at age 93. No problems noted. Father , unknown at age 90. Aneurysm Sister No problems noted. Brother No problems noted. Social History Smoking/Tobacco Use Status: Former Tobacco Use Quit Date: 11/30/1963 Pack-years: 5 Tobacco: How many years used: 5 Smoking risk assessment performed?: Yes Alcohol Intake: current Alcohol Intake frequency: 0-2 drinks per day Alcohol type: beer Drug use: Never Substance use type: does not use Adopted: No Caregiver/Support person: No Foster care: No Household members: spouse Housing: house Number of Children: 2 number of grandchildren: 5 Communication Needs: Hard of Hearing Education Level: college Details: Bachelor's Degree Do you need help understanding health information?: Often current occupation: Retired Pets and animals: Yes Pets and animals: dog(s) Sexually active: No Do you think of yourself as: straight/heterosexual Current gender identity: male What is your relationship status?: How often do you talk on the phone with friends or family?: twice per week How often do you get together with friends or relatives?: once per week How often do you attend pentecostal or gnosticism services?: decline to answer Do you belong to any clubs or organized social groups?: no Panel score (0-1 are the most socially isolated patients): 2 What type of physical activity do you participate in: walking Duration: 30-45 minutes/day Frequency: 3-4 times per week Jeni/Roman Catholic: Roman Catholic Special jeni needs: No Seatbelt use: always Drive intox or ride w/intox 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 Working smoke detector in home: Yes Fire extinguisher in home: Yes Carbon monox detector in home: Yes Do you feel safe at home: Yes Do you feel safe in your relationship?: Yes Meds Allergies and Home Medications Allergies Allergy/AdvReac Type Severity Reaction Status Date / Time No Known Allergies Allergy Verified 08/21/22 17:13 Home Medications Medication Instructions Recorded Confirmed Type glucosamine 375 mf-vmtjzscsy-akh 1 ea PO DAILY 01/11/14 08/21/22 History no1 500 mg-C 15 mg-deepti 0.5 mg tablet (Thvtpoafpuc-Hhhoiltepav-LFO Complex) leuprolide (3 month) 22.5 mg (3 22.5 mg IM Q3M 05/18/18 08/21/22 History month) intramuscular syringe kit (Lupron Depot) albuterol sulfate 90 mcg/actuation 2 inh inhalation QID PRN 10/21/19 08/21/22 History breath activated powder inhaler multivitamin,dz-rfrx-smnupjkg 1 tab PO DAILY 12/23/19 08/21/22 History (Complete Multivitamin tablet) denosumab 120 mg/1.7 mL (70 mg/mL) 120 mg subcut [id number] 11/13/21 08/21/22 History subcutaneous solution (Xgeva) calcium/mag/Vit d PO 12/27/21 08/07/22 History acetaminophen 325 mg tablet 325 - 650 mg PO Q4H PRN PRN #0 tabs 07/07/22 08/21/22 Rx aspirin 81 mg tablet,delayed 81 mg PO DAILY #0 tabs 07/07/22 08/21/22 Rx release atorvastatin 40 mg tablet 80 mg PO QPM #0 tabs 07/07/22 08/21/22 Rx dabigatran etexilate 75 mg capsule 150 mg PO BID #0 caps 07/07/22 08/21/22 Rx (Pradaxa) docusate sodium 100 mg capsule 100 mg PO TID PRN PRN #0 caps 07/07/22 08/21/22 Rx (Colace) magnesium hydroxide 400 mg/5 mL 30 ml PO DAILY PRN PRN #0 mL 07/07/22 08/21/22 Rx oral suspension (Milk of Magnesia) melatonin 3 mg tablet 3 mg PO HS #0 tabs 07/07/22 08/21/22 Rx bupropion HCl 150 mg tablet,12 hr 150 mg PO QAM #30 tabs 08/07/22 08/21/22 Rx sustained-release (Wellbutrin SR) zinc oxide 12 % topical cream 1 applic topical BID PRN skin 08/07/22 08/21/22 History (Addy Protect (zinc oxide)) irritation bupropion HCl 150 mg tablet,12 hr 150 mg PO QAM #30 tabs 08/11/22 08/21/22 Rx sustained-release (Wellbutrin SR) dronabinol 2.5 mg capsule (Marinol) 2.5 mg PO QACDINNER #90 caps 08/11/22 08/21/22 Rx mirtazapine 15 mg tablet 15 mg PO QHS #60 tabs 08/11/22 08/21/22 Rx polyethylene glycol 3350 17 17 g PO DAILY #510 grams 08/11/22 08/21/22 Rx gram/dose oral powder (Miralax) Exam Narrative Exam Narrative: General: Patient appears older than stated age, chronically ill and thin. He is alert and oriented at least to person place. He is in no acute distress but has slowed mentation and monotonous tone to voice. HEENT: Normocephalic, eyes with pupils equal and reactive light symmetrically, extraocular movement tact and sclera anicteric. Oropharynx with dry mucosa. Neck: Supple without JVD. Back: Stooped slightly kyphotic posture without CVA tenderness or tenderness to palpation over spine. Lungs: Fair aeration with bronchovesicular breath sounds diffusely and clear to auscultation and percussion without rales or rhonchi. Heart: Regular in rhythm with 4/6 systolic murmur over sternal border. No gallops or rubs. Abdomen: Scaphoid contour, soft and nontender to palpation with no palpable hepatosplenomegaly. Bowel sounds positive all quadrants. Genitalia/rectal: Exam deferred. Skin: Actinic changes over sun exposed areas with rough texture and decreased turgor. Thin skin. Chronic skin changes over lower extremities with some abrasions and avulsions but no open bleeding or discharge, loss of hair and atrophic skin with hyperpigmentation. Extremities: Cap refill fair. No clubbing or cyanosis. Nonpitting edema lower extremities. Joints with decreased range of motion diffusely. Neuro: Cranial nerves II through XII grossly intact, no focal motor deficits or tremor. Psych: Flattened affect with depressed mood, slow mentation with monotonous tone to voice. No abnormal thought processes manifested. Remote memory intact. Recent memory less intact. Results Imaging Imaging Studies: Exam(s) CT THORACIC ? LUMBAR SPINE WO EXAM:? CT THORACIC ? LUMBAR SPINE WO CLINICAL HISTORY:? s/p fall; acute back pain.? TECHNIQUE:? Imaging Protocol: Axial, coronal and sagittal images were reconstructed from the chest abdomen and pelvic CT utilizing bone algorithm.. COMPARISON:? CT THORACIC AND LUMBAR SP RECONS from 01/11/2018 FINDINGS: Thoracic spine: Bones: Innumerable abnormal sclerotic foci throughout the vertebral bodies consistent with metastatic disease.? No acute fractures are seen. The alignment of the spine is normal including the cervicothoracic junction. Soft tissues: The soft tissues of the chest are unremarkable. No large disk herniations are identified. Lumbar spine: Bones: Innumerable sclerotic foci in the lumbar spine consistent with metastatic disease.? No acute fracture is identified.? Has also marked thickening and sclerosis of the visible bones of the pelvis including pubic rami and ischia bilaterally.? Prominent degenerative disc changes and facet degenerative changes are present throughout. Soft tissues: Urinary bladder is distended with contrast related to prior CTA.? Aorta calcified but normal in diameter.? Bilateral renal atrophy.? Mildly enlarged prostate impressing on the base of the bladder. IMPRESSION: Widespread bony metastases in the thoracic and lumbar spine as well as pelvis.? No acute fracture of the thoracic or lumbar spine.? Exam(s) CT BRAIN ? NECK CTA EXAM: ? CT BRAIN ? NECK CTA CLINICAL HISTORY: ? CVA. ? TECHNIQUE:? Imaging Protocol:? Axial CT angiography was performed with multi-slice acquisition and multi-planar and 3D reconstructions. CONTRAST MATERIAL:? Intravenous: Omnipaque 350 Contrast volume 100 cc COMPARISON:? CT CT CHEST/ABD/PEL WO from 04/18/2022 MR MR BRAIN WO/W from 07/04/2022 FINDINGS: CT Head W/O and W contrast: Ventricles and Extra axial spaces: Normal in size and morphology for the patient's age. Hemorrhage: None. Cerebral parenchyma: Atrophy.? White matter changes of small vessel disease.? Midline shift: None. Brainstem/Cerebellum: Normal. Calvarium: Normal. Visualized Paranasal sinuses/Mastoids: Clear. Soft Tissues: Unremarkable. Enhancement: Normal. CTA Brain W: Internal Carotid Arteries: Right: Mild to moderate narrowing of the supraclinoid segment Left: Mild to moderate narrowing of the supraclinoid segment. Middle Cerebral Arteries: Right:? Occlusion of a distal right MCA branch.? Left:? No aneurysm, occlusion or significant stenosis. Anterior Cerebral Arteries: Right:? No aneurysm, occlusion or significant stenosis. Left:? No aneurysm, occlusion or significant stenosis. Posterior cerebral Arteries: Right:? No aneurysm, occlusion or significant stenosis. Left:? No aneurysm, occlusion or significant stenosis. Vertebral Arteries: Right:? No aneurysm, occlusion or significant stenosis. Left:? No aneurysm, occlusion or significant stenosis. Basilar Artery:? No aneurysm, occlusion or significant stenosis. CTA Neck W: Common Carotid: Right:? No aneurysm, occlusion or significant stenosis. Left:? No aneurysm, occlusion or significant stenosis. External Carotid: Right:? No aneurysm, occlusion or significant stenosis. Left:? No aneurysm, occlusion or significant stenosis. Internal Carotid: Right: Mild partially calcified plaque. No aneurysm, occlusion or significant stenosis. Left:? Mild partially calcified plaque.No aneurysm, occlusion or significant stenosis. Vertebral Artery: Right:? No aneurysm, occlusion or significant stenosis. Left:? No aneurysm, occlusion or significant stenosis. Lung Apices: Small amount of mucus posterior trachea Bones: Degenerative changes of the facets and discs.? Ankylosis at C 4 5.? Sclerotic lesions suspicious for metastatic foci.? Soft Tissues: Unremarkable. IMPRESSION: 1. Occlusion of a distal branch of the right MCA.? 2. Atrophy and white matter changes of small vessel disease..? 3. Mild plaque at the proximal internal carotid arteries without significant stenosis.? No evidence of dissection. 4. Sclerotic bony lesions consistent with metastatic foci. EXAM: Comprehensive 2D, Doppler, and color-flow Echocardiogram Patient Location: In-Patient Room/Bed:? [facility] Air Antisubmarine Officer: Yelena Castro RDCS (AE) Indications: Elevated troponin, Acute CVA, Murmur Other Information Study Quality: Adequate Conclusion Normal left ventricular wall thickness and chamber size.? Estimated ejection fraction is 60%.? Wall motion is normal Normal right ventricular size and systolic function Both atria are normal in size The aortic valve is trileaflet and mildly sclerotic without aortic stenosis.? There is trace to mild aortic regurgitation Mild mitral annular calcification.? Trace mitral regurgitation Normal tricuspid valve with trace to mild regurgitation.? Estimated right ventricular systolic pressure is 21 mmHg Elevated ascending aorta measuring 4.56 cm Labs Result diagrams: 08/22/22 07:50 08/22/22 05:42 Labs: Laboratory Results - last 24 hr 08/21/22 08/21/22 08/21/22 17:30 17:30 17:30 WBC 3.59 L RBC 2.67 L Hgb 7.8 L Hct 23.5 L MCV 88 MCH 29.2 MCHC 33.2 RDW 17.3 H Plt Count 113 L MPV 10.0 Immature Gran % 5.0 Neutrophils % 55.6 Lymphocytes % 27.9 Monocytes % 10.6 Eosinophils % 0.6 Basophils % 0.3 Nucleated RBC % 2.5 H Absolute Neutrophils 2.00 Absolute Lymphocytes 1.00 L Absolute Monocytes 0.38 Absolute Eosinophils 0.02 Absolute Basophils 0.01 PT 13.6 H INR 1.4 H Sodium 133 L Potassium 4.8 Chloride 99 Carbon Dioxide 24.8 Anion Gap 9.2 BUN 31 H Creatinine 1.2 Est GFR (CKD-EPI 2020) 59.26 Glucose 109 H Calcium 8.5 Total Bilirubin 1.0 AST 75 H ALT 32 Alkaline Phosphatase 661 H Troponin I < 50 Total Protein 7.7 Albumin 3.1 L COVID-19 Source SARS-CoV-2 (PCR) Patient ABO/Rh Antibody Screen Crossmatch 08/21/22 08/21/22 17:50 17:50 WBC RBC Hgb Hct MCV MCH MCHC RDW Plt Count MPV Immature Gran % Neutrophils % Lymphocytes % Monocytes % Eosinophils % Basophils % Nucleated RBC % Absolute Neutrophils Absolute Lymphocytes Absolute Monocytes Absolute Eosinophils Absolute Basophils PT INR Sodium Potassium Chloride Carbon Dioxide Anion Gap BUN Creatinine Est GFR (CKD-EPI 2020) Glucose Calcium Total Bilirubin AST ALT Alkaline Phosphatase Troponin I Total Protein Albumin COVID-19 Source Nasal/Nares SARS-CoV-2 (PCR) Negative Patient ABO/Rh O Positive Antibody Screen NEGATIVE Crossmatch See Detail Last Vital Signs Temp 36.6 C 08/21/22 19:58 Pulse 88 08/21/22 19:58 Resp 18 08/21/22 19:58 BP 101/56 L 08/21/22 19:58 Pulse Ox 97 08/21/22 19:58 PAWSS Have you Been Recently Intoxicated or Drunk Within the Last 30 days?: No Have you Ever Experienced Previous Episodes of Alcohol Withdrawal?: No Have you ever Experienced Withdrawal Seizures?: No Have you ever Experienced Delirium Tremens(DT)s?: No Have you ever undergone Alcohol Rehabilitation Treatment (i.e, inpt ot outpatient treatment programs)?: No Have you ever Experienced Blackouts?: No Have you ever Combined Alcohol with other Downers within the last 90 days?: No Have you ever Combined Alcohol with any other Substance of Abuse during the last 90 days?: No Positive Blood Alcohol level on Presentation? [PCS.BAL]: No Evidence of Increased Autonomic Activity (i.e. HR>120, tremor, sweating, agitation, nausea)?: No Result: 0
[2022-08-21 20:45] LABS: Source Nasal/Nares
[2022-08-21 21:18] LABS: COVID-19 PCR Negative (Negative)
[2022-08-21] MEDS: Mirtazapine 15 MG TAB PO (22:22)
[2022-08-21] MEDS: Melatonin 3 MG TAB PO (22:22)
[2022-08-21 23:45] LABS: Troponin I < 50 ng/L (<or=60)
[2022-08-22] VITALS (14 sets, daily range): BP systolic 97–122; BP diastolic 61–71; PULSE 84–92; RESP 14–16; TEMP 35.7–37.8; O2SAT 92–95
[2022-08-22 03:40] LABS: Bilirubin Negative (Negative); Blood Negative (Negative); Clarity Clear (Clear); Glucose Negative (Negative); Ketones Negative (Negative); Leukocyte Esterase Negative (Negative); Nitrite Negative (Negative); Urobilinogen 0.2 EU/dL (Up TO 0.2); pH 5.5 (5-8)
[2022-08-22 06:59] LABS: HCT 23.4 % (40.0-50.0); HGB 7.8 g/dL (13.5-17.5); MCH 29.7 pg (27.0-33.0); MCHC 33.3 % (32.0-36.0); MCV 89 fL (80-95); MPV 9.7 fL (8.0-11.0); Platelet Count 97 10^3/uL (130-400); RBC 2.63 10^6/uL (4.36-5.78); RDW 16.1 % (11.8-14.1); RDW-SD 51.2 fL; WBC 3.23 10^3/uL (4.4-10.8)
[2022-08-22 07:04] LABS: ALT 22 U/L (16-63); AST 55 U/L (15-37); Albumin 2.5 g/dL (3.4-5.0); Alkaline Phosphatase 527 U/L (46-116); Anion Gap 10.9 mmol/L (3-11); BUN 26 mg/dL (7-18); Bilirubin, Total 1.2 mg/dL (0.2-1.0); CO2 22.1 mmol/L (21.0-32.0); Calcium 7.5 mg/dL (8.5-10.1); Chloride 101 mmol/L (98-107); Estimated GFR 73.76 (mL/min/1.73m2); Glucose 98 mg/dL (74-106); Magnesium 2.6 mg/dL (1.8-2.4); Potassium 4.1 mmol/L (3.5-5.1); Sodium 134 mmol/L (136-145); Total Protein 6.2 g/dL (6.4-8.2); Troponin I < 50 ng/L (<or=60)
[2022-08-22 07:26] LABS: Absolute Basophil Count 0.03 10^3/uL (0.0-0.2); Absolute Lymphocyte Count 1.03 10^3/uL (1.2-3.4); Absolute Monocyte Count 0.06 10^3/uL (0.1-0.8); Absolute Neutrophil Count 1.94 10^3/uL (1.2-6.7); Atypical Lymphocytes % 2; Bands % 2; Diff Comment Manual Differential; Metamyelocytes % 4; Myelocytes % 1; RBC Morphology Normal
[2022-08-22 07:53] LABS: HCT 22.9 % (40.0-50.0); HGB 7.7 g/dL (13.5-17.5)
--- NOTE | 2022-08-22 08:39 | PDOC.CMIN ---
- If Service Date Differs Date of service: 08/22/22 Time of Service: 08:39 Care Management Initial Assess REASON FOR HOSPITALIZATION:: Hemodynamically unstable anemia. PAST MEDICAL HISTORY/PAST SURGICAL HISTORY:: All Active Problems (Updated 08/21/22 @ 20:27 by Nielsh Nolasco). Acute blood loss anemia (Acute). Anhedonia (Acute). Anorexia (Acute). Anemia (Chronic). Vitamin D deficiency (Acute). Ataxia (Acute). Left hemiparesis (Acute ~06/2022). wit left sided neglect. Right middle cerebral artery stroke (Acute 07/04/22). Chronic anticoagulation (Acute). Weakness (Acute). Malignant neoplasm of prostate metastatic to bone (Chronic). [facility] [place]. Hot flash due to medication (Acute). Mechanical dysphagia (Acute). Hypertension (Chronic). Androgen deprivation therapy (Acute ~06/2022). Anterior epistaxis (Acute). Echocardiogram abnormal (Chronic). No acute findings, but dilated ascending aorta measuring 4.56 cm. EF 55-6-%, 10/2021. Asthma (Chronic). Gilbert syndrome (Acute). External ear conductive hearing loss (Acute). 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 Repeat PE in 2020; lifetime anticoagulation. Other specified disorder of penis (Acute 02/16/12). Impacted cerumen (Acute 12/28/14). Sensorineural hearing loss, bilateral (Chronic 12/28/14). He has a known and stable bilateral normal downsloping to moderate-severe sensorineural hearing loss which is aided. Hearing Aids. Prostate cancer metastatic to multiple sites (Chronic 03/12/18). 04/05/18 biopsy- prostatic adenocarcinoma Grade group 5. 04/06/18 whole body scan consistent with extensive osseous metastatic disease. 01/14/22 [facility] [place] - [place] to bone. 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 INCOMPLETE R BBB. Gastric mass (Chronic 01/12/18). Incidental finding on trauma workup [facility]. 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 Candidate for statin therapy due to risk of future cardiovascular event (Chronic 03/16/17). CV risk 25% 2014. Benign neoplasm of colon (Chronic 02/16/12). 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 Ascending aorta enlargement (Chronic 09/15/16). 4.2 cm 05/2016 ECHO (just 1.5x normal, marginal for w/u); CT 2017 comfirms 4.5 cm ascending aorta. Allergic rhinitis, unspecified (Chronic 02/16/12). uses OTC antihistamine one daily AM, ? due to burning wood. Actinic keratosis (Chronic 02/16/12). 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. Deep vein thrombosis (DVT) of right upper extremity (Acute 09/29/18). DVT ID'd (rt mid basilic vein). s/p 6 weeks of swelling in wrist o RT arm (post IV infusion). Medical History (Updated 08/21/22 @ 20:27 by Nilesh Nolasco). Acute stasis dermatitis. Ambulatory dysfunction. Cough. 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 Right bundle branch block. Seborrheic keratoses. Surgical History . Appendectomy. colonoscopy (12/23/16). egd W/ bx (02/01/18). [facility] [place] H/[place] esophagogastroduodenoscopy. [place] [facility] [place] Alec Omalley MD. H/O right wrist surgery. LS spine disc surgery. Prostate Biopsy (04/05/18). S/P partial gastrectomy (05/10/19). 05/10/19: robotic assisted partial gastrectomy/wedge resection with gastro-gastric anastamosis. [facility] S/P tonsillectomy PREVIOUS FUNCTIONAL STATUS/SOCIAL/FAMILY SUPPORTS:: Eric is retired and lives in [place] with his Mariya. He had a stroke in June, followed by an Acute Rehab stay at [facility]. His shares that he was making some great progress after his Rehab stay, until last Thursday, at which time he became really weak. Eric requires minimal assistance with his ADL's. His Mariya, is currently trying to obtain caregivers 3 daysa week through '[employer]'. CURRENT FUNCTIONAL STATUS:: Eric is lying in bed, and is sound asleep. Information for this interview is provided by patients Mariya. ADVANCE DIRECTIVES:: On file, [facility] is alt. Mariya is Mohan Brandon (Son). Has patient been provided with info about the portal/API?: Yes Did the patient sign up for the portal?: Yes (Prior to admission) CODE STATUS:: Full Code INSURANCE COVERAGE / FINANCIAL ISSUES:: C[employer]. Medicare CURRENT HOME/COMMUNITY SERVICES/EQUIPMENT:: Has both a cane and FWW. Hearing Aids. PRIMARY CARE PHYSICIAN:: Artem Barkley POTENTIAL DISCHARGE NEEDS:: Follow up appointments, [facility] PT, Palliative PATIENT/FAMILY EDUCATION NEEDS:: Review discharge instructions, discuss Ask Me Three. TRANSPORTATION:: Via private vehicle with . PLAN:: Eric continues to be closely monitored and treated. Palliative consult is ordered. PT recommends home with [facility] PT services when medically ready. Eric may also benefit from [facility] RN/OT/COMPACTOR DRIVER services. CM continues to follow. His is in the process of hiring caregivers 3 days per week.
[2022-08-22] MEDS: buPROPion-CR 150 MG TABCR PO (09:00)
--- NOTE | 2022-08-22 09:57 | IN_ITS ---
Date of service: 08/22/22 Time of Service: 09:57 PT Notes Visit Reasons: Acute Hemodynamically Unstable Anemia Physical Therapy Inpatient Initial Evaluation Date: 08/22/2022 Referring Doctor:? Corry Dobbs MD PT Orders: PT CONSULT: Limited ability Precautions: Fall. Standard. Activity as tolerated. Sensorineural hearing loss. Patient Profile/Admitting Diagnosis:? Enrique is an 86-year-old male patientwith progressive praostate cancer with bony metastasis and has been on chmeotherapy since February of this year who presented to the ED from PCP's office on 08/21/2022 due to severe anemia, dizziness , and unsteady gait.? 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 EF 55-6-%, 10/2021 Asthma (Chronic) Gilbert syndrome (Acute) External ear conductive hearing loss (Acute) Other pulmonary embolism and infarction (Chronic 01/28/11) Repeat PE in 2019; lifetime anticoagulation Other specified disorder of penis (Acute 02/16/12) Impacted cerumen (Acute 12/28/14) Sensorineural hearing loss, bilateral (Chronic 12/28/14) He has a known and stable bilateral normal downsloping to moderate-severe sensorineural hearing loss which is aided.? 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 due to burning wood Actinic keratosis (Chronic 02/16/12) [facility] [place] vein thrombosis (DVT) of right upper extremity (Acute 09/29/18) DVT ID'd (rt mid basilic vein). 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 Appendectomy colonoscopy (12/23/16) egd W/ bx (02/01/18) [facility] [place] esophagogastroduodenoscopy 01/07/19 [facility] [place]. Alec Omalley MD H/O right wrist surgery LS spine disc surgery Prostate Biopsy (04/05/18) S/P partial gastrectomy (05/10/19) 05/10/19: robotic assisted partial gastrectomy/wedge resection with gastro- gastric anastamosis. [facility] [place] S/P tonsillectomy Social History/Home Situation: Lives with in a private home with 2 steps with rails on B sides to enter through the garage.? Has been needing to use a single point cane for sdded stability these past copule of weeks.? Equipment Owned/DME: [facility] Subjective: States feeling weak but is getting better. Verbalizes that the battery on his hearing aid is now weak. Agreeable to getting out of bed. Denies headache, chest pain, and dizziness throughout session. Objective: General Observation: Supine in bed. Telemetry monitoring in place. Mental Status: Alert and oriented as to person, place, time, and purpose. Able to pay attention, focus, and respond appropriately. Pain: Denies Vital Signs: WNL as closely monitored by nursing staff ROM: Right Upper Extremity: ? Shoulder Flexion WFL. Shoulder abduction WFL. Elbow flexion WFL. Wrist flexion WFL. Functional opening and closing of hand WFL. Left Upper Extremity:? Shoulder Flexion WFL. Shoulder abduction WFL. Elbow flexion WFL. Wrist flexion WFL. Functional opening and closing of hand WFL. Right Lower Extremity: Hip flexion WFL. Hip abduction WFL. Knee flexion WFL. Ankle dorsiflexion WFL. Ankle plantarflexion WFL. Left Lower Extremity: Hip flexion WFL. Hip abduction WFL. Knee flexion WFL. Ankle dorsiflexion WFL. Ankle plantarflexion WFL. Strength: Right Upper Extremity: Shoulder flexors 4/5. Shoulder abductors 4/5. Elbow flexors 5/5. Elbow extensors 5/5. Construction Trench Digger strong. Left Upper Extremity: Shoulder flexors 4/5. Shoulder abductors 4/5. Elbow flexors 5/5. Elbow extensors 5/5. Construction Trench Digger strong. Right Lower Extremity: Hip flexors 3+/5. Hip abductors 3+/5. Knee flexors 3+/5. Knee extensors 3+/5. Ankle dorsiflexors 4-/5. Ankle plantarflexors 4-/5. Left Lower Extremity: Hip flexors 5/5. Hip abductors 5/5. Knee flexors 5/5. Knee extensors 5/5. Ankle dorsiflexors 5/5. Ankle plantarflexors 5/5. Bed Mobility/Transfers: Sit to stand stand by assist Stand to sit stand by assist Bed to reclining chair stand by assist Gait: Instructed patient with level surface ambulation of 200 feet requiring minimal assist.? Trisha decreased. L step length reduced. L step height reduced. Minimal lean to L did not cause any LOB. Balance: Static Sitting: Good Dynamic Sitting: Good Static Standing: Fair Dynamic Standing: Fair Special Tests: Mobility Limitations Standardized Measure [facility] 6 clicks Basic Mobility Inpatient Short Form: Raw Score: 14? CMS Score: 61% deficit? ? ? 4-stage balance test:? Unable to maintain any of the 4 positions for 10 seconds indincating high fall risk without use of FWW. Informed Consent/Education:? Patient was instructed in purpose of PT consult and plan of care. Agreeable to proceed with established PT POC to achieve personal goals. Assessment: Patient presents with clinical signs and symptoms consistent with current/admitting diagnoses that have resulted to mobility limitations, gait instability, generalized weakness, and overall ADL decline as demonstrated by the following impairment level findings: 1.? Decreased strength to L hip major muscle groups 2.? Impaired standing balance 3.? Impaired activity tolerance Impairments are contributing to the following functional limitations: 1.? Difficulty with ambulation without assistive device 2.? Increased completion time for mobility ADL performance 3. Increased risk for falls 4.? Difficulty with managing steps alone safely Patient is assessed as a 24540 moderate complexity based on the following: History: 86-year-old male with past medical history as indicated above Examination: Demonstrable impairment in strength, balance, and mobility level with underlying impairments and functional limitations as exhibited above as well as deficit score of 61% utilizing the [facility] Mobility Inpatient Short Form Presentation: Evolving Decision Makin moderate complexity Goals: Goals X1 week 1. Supine-Sit independent 2. Sit-Supine independent 3. Sit-Stand independent 4. Stand-Sit independent with FWW 5. Bed-Chair independent with FWW 6. Chair-Bed independent with FWW 7. Independent gait on level surface with use of FWW for at least 300 feet without report of pain nor dyspnea 8. Independent stair negotiation while holding onto B rails for at least 2 steps without report of pain nor dyspnea 9. Independent with home exercise program 10. Good static and dynamic standing balance/tolerance Plan of Care/Treatment Plan: 1-2x/day, 7 days/week x 1 week. Plan of care has been reviewed with the STRAIGHT LINE EDGER providing the service under Physical Therapy direction. Initiate Physical Therapy intervention for pain management as needed, strengthening, bed mobility, transfers, gait, stairs, balance training, and use of assistive device. DISCHARGE RECOMMENDATIONS: [] ? Home with no services [] [X] ? Home with services. Home when medically cleared by hospitalist. Patient will benefit from home health PT services in order to progress mobility level using least restrictive assistive ambulatory device, assess home safety, identify additional equipment needs, and establish a functional maintenance program that will increase ability of patient to remain at home. [] ? Home with outpatient PT [] [] ? SNF for continued rehabilitation [] [] ? Penitentiary Care [] [] ? SNF versus LTC based on ability to participate and progress [] TREATMENT CODE/TIME: 22238 x 28 minutes beginning at 9:57 AM. Thank you for the opportunity to participate in the care of this patient. Ariana You PT, DPT, CLT [facility] [place], [place]
--- NOTE | 2022-08-22 13:57 | W.ED.GENAD ---
Discharge Plan Disposition Patient Disposition: HOME Condition: Serious Discharge Details Clinical Impression: Anemia, Chronic anticoagulation, Prostate cancer Primary Care Provider: Artem Barkley ED Provider: Janina Murray Discharge Data Discharge Date/Time-TO BE ENTERED AT DEPARTURE: 08/21/22 21:37 Medical Decision Making Patient with anemia, likely related to cancer history Received 1 unit of packed red blood cells in the emergency department Blood pressure is but stable as has level Alert and oriented Patient does not appear to be actively bleeding, will hold Pradaxa and hold reversal at this time Hemodynamically stable at that time and he is agreeable to admission Verbal consent and risks associated with transfusion were reviewed Patient will be admitted by Dr. Nolasco, hospitalist Medical Records Medical records reviewed: Yes I reviewed the patient's medical records. Lab Data Lab results reviewed: Yes I reviewed the patient's lab results. HPI General Date/Time Provider Initiated Documentation: 08/21/22 17:20. HPI Narrative: This 87-year-old gentleman presents with mid reported anemia, history of prostate cancer not currently receiving chemotherapy. Denies any blood in his stools. States he felt weak today. Last chemotherapy in February. Denies fever or chills. Denies any pain complaints. Taking Pradaxa as prescribed for DVT history. Related Data Home Medications Medication Instructions Recorded Confirmed glucosamine 375 bm-xcqiiuvzd-htq 1 ea PO DAILY 01/11/14 08/21/22 no1 500 mg-C 15 mg-deepti 0.5 mg tablet (Okuamtdtgwj-Thvkymuzcmb-YWW Complex) leuprolide (3 month) 22.5 mg (3 22.5 mg IM Q3M 05/18/18 08/21/22 month) intramuscular syringe kit (Lupron Depot) albuterol sulfate 90 mcg/actuation 2 inh inhalation QID PRN 10/21/19 08/21/22 breath activated powder inhaler multivitamin,py-ahhj-kttrbmas 1 tab PO DAILY 12/23/19 08/21/22 (Complete Multivitamin tablet) denosumab 120 mg/1.7 mL (70 mg/mL) 120 mg subcut O2TDLAEC 11/13/21 08/21/22 subcutaneous solution (Xgeva) calcium/mag/Vit d PO 12/27/21 08/07/22 acetaminophen 325 mg tablet 325 - 650 mg PO Q4H PRN PRN #0 tabs 07/07/22 08/21/22 aspirin 81 mg tablet,delayed 81 mg PO DAILY #0 tabs 07/07/22 08/21/22 release atorvastatin 40 mg tablet 80 mg PO QPM #0 tabs 07/07/22 08/21/22 dabigatran etexilate 75 mg capsule 150 mg PO BID #0 caps 07/07/22 08/21/22 (Pradaxa) docusate sodium 100 mg capsule 100 mg PO TID PRN PRN #0 caps 07/07/22 08/21/22 (Colace) magnesium hydroxide 400 mg/5 mL 30 ml PO DAILY PRN PRN #0 mL 07/07/22 08/21/22 oral suspension (Milk of Magnesia) melatonin 3 mg tablet 3 mg PO HS #0 tabs 07/07/22 08/21/22 bupropion HCl 150 mg tablet,12 hr 150 mg PO QAM #30 tabs 08/07/22 08/21/22 sustained-release (Wellbutrin SR) zinc oxide 12 % topical cream 1 applic topical BID PRN skin 08/07/22 08/21/22 (Addy Protect (zinc oxide)) irritation bupropion HCl 150 mg tablet,12 hr 150 mg PO QAM #30 tabs 08/11/22 08/21/22 sustained-release (Wellbutrin SR) dronabinol 2.5 mg capsule (Marinol) 2.5 mg PO QACDINNER #90 caps 08/11/22 08/21/22 mirtazapine 15 mg tablet 15 mg PO QHS #60 tabs 08/11/22 08/21/22 polyethylene glycol 3350 17 17 g PO DAILY #510 grams 08/11/22 08/21/22 gram/dose oral powder (Miralax) Previous Rx's Medication Instructions Recorded acetaminophen 325 mg tablet 325 - 650 mg PO Q4H PRN PRN #0 tabs 07/07/22 aspirin 81 mg tablet,delayed 81 mg PO DAILY #0 tabs 07/07/22 release atorvastatin 40 mg tablet 80 mg PO QPM #0 tabs 07/07/22 dabigatran etexilate 75 mg capsule 150 mg PO BID #0 caps 07/07/22 (Pradaxa) docusate sodium 100 mg capsule 100 mg PO TID PRN PRN #0 caps 07/07/22 (Colace) magnesium hydroxide 400 mg/5 mL 30 ml PO DAILY PRN PRN #0 mL 07/07/22 oral suspension (Milk of Magnesia) melatonin 3 mg tablet 3 mg PO HS #0 tabs 07/07/22 bupropion HCl 150 mg tablet,12 hr 150 mg PO QAM #30 tabs 08/07/22 sustained-release (Wellbutrin SR) bupropion HCl 150 mg tablet,12 hr 150 mg PO QAM #30 tabs 08/11/22 sustained-release (Wellbutrin SR) dronabinol 2.5 mg capsule (Marinol) 2.5 mg PO QACDINNER #90 caps 08/11/22 mirtazapine 15 mg tablet 15 mg PO QHS #60 tabs 08/11/22 polyethylene glycol 3350 17 17 g PO DAILY #510 grams 08/11/22 gram/dose oral powder (Miralax) Allergies Allergy/AdvReac Type Severity Reaction Status Date / Time No Known Allergies Allergy Verified 08/21/22 17:13 General Stated Complaint: GenMedical GEMA: 3 Review of Systems All systems reviewed & are unremarkable except as noted in HPI and below PFSH All Active Problems (Updated 08/22/22 @ 14:14 by ALIS Bailon) Prostate cancer (Chronic) Acute blood loss anemia (Acute) Anhedonia (Acute) Anorexia (Chronic) Anemia (Chronic) Vitamin D deficiency (Acute) Ataxia (Acute) Left hemiparesis (Acute ~06/2022) wit left sided neglect Chronic anticoagulation (Acute) Weakness (Acute) 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 due to burning wood Actinic keratosis (Chronic 02/16/12) [employer] [facility] Medical History Acute stasis dermatitis Ambulatory dysfunction Cough Facial basal cell cancer Gastrointestinal stromal tumor of stomach Right bundle branch block Seborrheic keratoses Surgical History Appendectomy colonoscopy (12/23/16) egd W/ bx (02/01/18) [facility] H/O esophagogastroduodenoscopy 01/07/19 [facility] [place]. Alec Omalley MD H/O right wrist surgery LS spine disc surgery Prostate Biopsy (04/05/18) S/P partial gastrectomy (05/10/19) 05/10/19: robotic assisted partial gastrectomy/wedge resection with gastro-gastric anastamosis. [facility]. S/P tonsillectomy Family History Mother , in sleep at age 93. No problems noted. Father , unknown at age 90. Aneurysm Sister No problems noted. Brother No problems noted. Social History Smoking/Tobacco Use Status: Former Tobacco Use Quit Date: 11/30/1963 Pack-years: 5 Tobacco: How many years used: 5 Smoking risk assessment performed?: Yes Alcohol Intake: current Alcohol Intake frequency: 0-2 drinks per day Alcohol type: beer Drug use: Never Substance use type: does not use Adopted: No Caregiver/Support person: No Foster care: No Household members: spouse Housing: house Number of Children: 2 number of grandchildren: 5 Communication Needs: Hard of Hearing Education Level: college Details: Bachelor's Degree Do you need help understanding health information?: Often current occupation: Retired Pets and animals: Yes Pets and animals: dog(s) Sexually active: No Do you think of yourself as: straight/heterosexual Current gender identity: male What is your relationship status?: How often do you talk on the phone with friends or family?: twice per week How often do you get together with friends or relatives?: once per week How often do you attend rastafarian or mormon services?: decline to answer Do you belong to any clubs or organized social groups?: no Panel score (0-1 are the most socially isolated patients): 2 What type of physical activity do you participate in: walking Duration: 30-45 minutes/day Frequency: 3-4 times per week Jeni/Judaism: Gnosticist Special jeni needs: No Seatbelt use: always Drive intox or ride w/intox corporate driver: No Working smoke detector in home: Yes Fire extinguisher in home: Yes Carbon monox detector in home: Yes Do you feel safe at home: Yes Do you feel safe in your relationship?: Yes Exam Const General: cooperative, comfortable, no acute distress and ill appearing Eyes Sclera: sclerae normal Resp Effort & Inspection: normal respiratory effort Cardio Rate: regular rate Rhythm: regular rhythm GI Inspection: normal to inspection Other: non-tender abdominal exam Other: Guaiac negative brown stool Skin Other: pallor Neuro General: patient alert and patient oriented x3 Course Vital Signs Vital signs: Vital Signs Temperature 36.2 C L 08/21/22 17:09 Pulse 98 H 08/21/22 17:09 Respiratory Rate 17 08/21/22 17:09 Blood Pressure 98/56 L 08/21/22 17:09 Pulse Oximetry 95 08/21/22 17:09 Temperature 36.9 C 08/22/22 08:33 Temperature Source Skin 08/22/22 08:33 Pulse 88 08/22/22 08:33 Pulse Rhythm Regular 08/22/22 07:05 Respiratory Rate 14 08/22/22 08:33 Respiratory Effort Non-Labored 08/22/22 07:05 Respiratory Depth Normal 08/22/22 07:05 Respiratory Pattern Normal 08/22/22 07:05 Blood Pressure 112/70 08/22/22 08:33 Blood Pressure Position Sitting 08/21/22 17:09 Pulse Oximetry 94 08/22/22 08:33 Oxygen Delivery Method Room Air 08/22/22 08:33 Oxygen Flow Rate 0 08/22/22 08:33 Pain Level 0 08/22/22 08:33 Comment 08/22/22 06:11 Lab/Test Results Lab/Test Results: Laboratory Tests Range/Units 08/21/22 08/21/22 08/21/22 17:30 17:30 17:30 WBC (4.4-10.8) 10^3/uL 3.59 L RBC (4.36-5.78) 10^6/uL 2.67 L Hgb (13.5-17.5) g/dL 7.8 L Hct (40.0-50.0) % 23.5 L MCV (80-95) fL 88 MCH (27.0-33.0) pg 29.2 MCHC (32.0-36.0) % 33.2 RDW (11.8-14.1) % 17.3 H Plt Count (130-400) 10^3/uL 113 L MPV (8.0-11.0) fL 10.0 Immature Gran % 5.0 Neutrophils % 55.6 Lymphocytes % 27.9 Monocytes % 10.6 Eosinophils % 0.6 Basophils % 0.3 Nucleated RBC % (0.0-0.3) % 2.5 H Absolute Neutrophils (1.2-6.7) 10^3/uL 2.00 Absolute Lymphocytes (1.2-3.4) 10^3/uL 1.00 L Absolute Monocytes (0.1-0.8) 10^3/uL 0.38 Absolute Eosinophils (0.0-0.7) 10^3/uL 0.02 Absolute Basophils (0.0-0.2) 10^3/uL 0.01 PT (9.3-11.0) sec 13.6 H INR (0.9-1.1) 1.4 H Sodium (136-145) mmol/L 133 L Potassium (3.5-5.1) mmol/L 4.8 Chloride (98-107) mmol/L 99 Carbon Dioxide (21.0-32.0) mmol/L 24.8 Anion Gap (3-11) mmol/L 9.2 BUN (7-18) mg/dL 31 H Creatinine (0.70-1.30) mg/dL 1.2 Est GFR (CKD-EPI 2020) (mL/min/1.73m2) 59.26 Glucose (74-106) mg/dL 109 H Calcium (8.5-10.1) mg/dL 8.5 Total Bilirubin (0.2-1.0) mg/dL 1.0 AST (15-37) U/L 75 H ALT (16-63) U/L 32 Alkaline Phosphatase (46-116) U/L 661 H Troponin I (<or=60) ng/L < 50 Total Protein (6.4-8.2) g/dL 7.7 Albumin (3.4-5.0) g/dL 3.1 L COVID-19 Source SARS-CoV-2 (PCR) (Negative) Patient ABO/Rh Antibody Screen Crossmatch Range/Units 08/21/22 08/21/22 17:50 17:50 WBC (4.4-10.8) 10^3/uL RBC (4.36-5.78) 10^6/uL Hgb (13.5-17.5) g/dL Hct (40.0-50.0) % MCV (80-95) fL MCH (27.0-33.0) pg MCHC (32.0-36.0) % RDW (11.8-14.1) % Plt Count (130-400) 10^3/uL MPV (8.0-11.0) fL Immature Gran % Neutrophils % Lymphocytes % Monocytes % Eosinophils % Basophils % Nucleated RBC % (0.0-0.3) % Absolute Neutrophils (1.2-6.7) 10^3/uL Absolute Lymphocytes (1.2-3.4) 10^3/uL Absolute Monocytes (0.1-0.8) 10^3/uL Absolute Eosinophils (0.0-0.7) 10^3/uL Absolute Basophils (0.0-0.2) 10^3/uL PT (9.3-11.0) sec INR (0.9-1.1) Sodium (136-145) mmol/L Potassium (3.5-5.1) mmol/L Chloride (98-107) mmol/L Carbon Dioxide (21.0-32.0) mmol/L Anion Gap (3-11) mmol/L BUN (7-18) mg/dL Creatinine (0.70-1.30) mg/dL Est GFR (CKD-EPI 2020) (mL/min/1.73m2) Glucose (74-106) mg/dL Calcium (8.5-10.1) mg/dL Total Bilirubin (0.2-1.0) mg/dL AST (15-37) U/L ALT (16-63) U/L Alkaline Phosphatase (46-116) U/L Troponin I (<or=60) ng/L Total Protein (6.4-8.2) g/dL Albumin (3.4-5.0) g/dL COVID-19 Source Nasal/Nares SARS-CoV-2 (PCR) (Negative) Negative Patient ABO/Rh O Positive Antibody Screen NEGATIVE Crossmatch See Detail PAWSS Have you Been Recently Intoxicated or Drunk Within the Last 30 days?: No Have you Ever Experienced Previous Episodes of Alcohol Withdrawal?: No Have you ever Experienced Withdrawal Seizures?: No Have you ever Experienced Delirium Tremens(DT)s?: No Have you ever undergone Alcohol Rehabilitation Treatment (i.e, inpt ot outpatient treatment programs)?: No Have you ever Experienced Blackouts?: No Have you ever Combined Alcohol with other Downers within the last 90 days?: No Have you ever Combined Alcohol with any other Substance of Abuse during the last 90 days?: No Positive Blood Alcohol level on Presentation? [PCS.BAL]: No Evidence of Increased Autonomic Activity (i.e. HR>120, tremor, sweating, agitation, nausea)?: No Result: 0
--- NOTE | 2022-08-22 15:05 | PT.INTREAT ---
Date of service: 08/22/22 Time of Service: 14:26 PT Notes Visit Reasons: Acute Hemodynamically Unstable Anemia Inpatient Physical Therapy Treatment Note [facility] Date: 08/22/2022 PRECAUTIONS: Fall, activity as tolerated SUBJECTIVE: Enrique is pleasant and agreeable to participating in PT. He reports that he did not sleep well last night so he is quite tired today. He reports feeling like he has a little more energy than when he arrived at the ER. OBJECTIVE: Dark red fluid noted in patient's Perales catheter/tubing. Nursing aware. PAIN: Patient c/o B hip soreness with supine<>sit transfers. BED MOBILITY/TRANSFERS Supine-sit: Mod A with HOB at 20 degrees Sit-supine: Mod A with HOB flat Sit-stand: CGA Stand-sit: CGA GAIT Assistive Device: FWW Weight bearing: Full Assist: CGA-SBA Distance: 150' Deviation: Cueing for increased step height on L, cueing for FWW management for safety, several standing rests ASSESSMENT: Patient requires cueing for safety with gait training, demonstrating short step height/dragging on the L and requiring cueing for FWW management. PLAN: Continue with gait and transfer training as well as global strengthening for improved activity tolerance and safety with mobility. Add neuro re-ed as tolerated. TREATMENT CODE/TIME: 25 minutes; 78520 x2 (14:26)
--- NOTE | 2022-08-22 16:11 | UCONE_ITS ---
Date of service: 08/22/22 Time of Service: 16:12 Assessment and Plan Assessment and plan (1) Urinary retention: Status: Acute Assessment and plan: Possible etiologies for his retention include bladder outlet obstruction and neurogenic issues related to his stroke. As long as his BP is stable, I would suggest a trial of an alpha adela to treat any outlet obstruction component. We usually will give a voiding trial 3 to 5 days after starting the medication. History of Present Illness History of Present Illness Chief Complaint: Urinary retention Narrative: This is an 87-year-old gentleman who has a history of prostate cancer. He is currently under the care of the providers at [facility]. The patient is not able to provide with much history regarding his diagnosis or treatment, but his records indicate that he has widespread metastasis and is re ceiving chemotherapy. He is admitted with weakness and anemia. He was found to be retaining urine. I have been asked to see him for this reason. He has a history of stroke and he is chronically anticoagulated. He has noted gross painless hematuria. He is unaware of any prior history of kidney stones. 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 Alec Omalley MD H/O right wrist surgery LS spine disc surgery Prostate Biopsy (04/05/18) S/P partial gastrectomy (05/10/19) 05/10/19: robotic assisted partial gastrectomy/wedge resection with gastro- gastric anastamosis. [facility]. S/P tonsillectomy Family History Mother , in sleep at age 93. No problems noted. Father , unknown at age 90. Aneurysm Sister No problems noted. Brother No problems noted. Social History Smoking/Tobacco Use Status: Former Tobacco Use Quit Date: 11/30/1963 Pack- years: 5 Tobacco: How many years used: 5 Smoking risk assessment performed?: Yes Alcohol Intake: current Alcohol Intake frequency: 0-2 drinks per day Alcohol type: beer Drug use: Never Substance use type: does not use Adopted: No Caregiver/Support person: No Foster care: No Household members: spouse Housing: house Number of Children: 2 number of grandchildren: 5 Communication Needs: Hard of Hearing Education Level: college Details: Bachelor's Degree Do you need help understanding health information?: Often current occupation: Retired Pets and animals: Yes Pets and animals: dog(s) Sexually active: No Do you think of yourself as: straight/heterosexual Current gender identity: male What is your relationship status?: How often do you talk on the phone with friends or family?: twice per week How often do you get together with friends or relatives?: once per week How often do you attend jainism or synagogue services?: decline to answer Do you belong to any clubs or organized social groups?: no Panel score (0-1 are the most socially isolated patients): 2 What type of physical activity do you participate in: walking Duration: 30-45 minutes/day Frequency: 3-4 times per week Jeni/Alevism: Cheondoism Special jeni needs: No Seatbelt use: always Drive intox or ride w/intox company driver: No Working smoke detector in home: Yes Fire extinguisher in home: Yes Carbon monox detector in home: Yes Do you feel safe at home: Yes Do you feel safe in your relationship?: Yes Exam Narrative Exam Narrative: He is a pleasant older man He does not appear septic or toxic His vital signs are documented elsewhere The urine in his catheter drainage tube is clear He is awake and alert He had a CT abdomen and pelvis 04/20 and no mass or stone is found in the kidneys His last PSA from 06/20 continued to rise to 44 ng/mL (doubling time @ 3 months) Results Last Vital Signs Temp 36.1 C L 08/22/22 15:50 Pulse 91 H 08/22/22 15:50 Resp 16 08/22/22 15:50 BP 111/68 08/22/22 15:50 Pulse Ox 93 08/22/22 15:50 Labs Result diagrams: 08/22/22 07:50 09/23/22 05:42 Labs: Laboratory Results - last 24 hr 08/21/22 08/21/22 08/21/22 17:30 17:30 17:30 WBC 3.59 L RBC 2.67 L Hgb 7.8 L Hct 23.5 L MCV 88 MCH 29.2 MCHC 33.2 RDW 17.3 H Plt Count 113 L MPV 10.0 Immature Gran % 5.0 Neutrophils % 55.6 Band Neutrophils % Lymphocytes % 27.9 Atypical Lymphs % Monocytes % 10.6 Eosinophils % 0.6 Basophils % 0.3 Metamyelocytes % Myelocytes % Promyelocytes % Other Cells % Nucleated RBC % 2.5 H Absolute Neutrophils 2.00 Absolute Lymphocytes 1.00 L Absolute Monocytes 0.38 Absolute Eosinophils 0.02 Absolute Basophils 0.01 RBC Morphology Polychromasia Hypochromasia Poikilocytosis Basophilic Stippling Anisocytosis Microcytosis Macrocytosis Spherocytes Tear Drop Cells Ovalocytes Stomatocytes Fuchs-Lihue Bodies Gypsum Cells/Echinocytes Acanthocytes (Spur) Schistocytes PT 13.6 H INR 1.4 H Sodium 133 L Potassium 4.8 Chloride 99 Carbon Dioxide 24.8 Anion Gap 9.2 BUN 31 H Creatinine 1.2 Est GFR (CKD-EPI 2020) 59.26 Glucose 109 H Calcium 8.5 Magnesium Total Bilirubin 1.0 AST 75 H ALT 32 Alkaline Phosphatase 661 H Troponin I < 50 Total Protein 7.7 Albumin 3.1 L Urine Color Urine Clarity Urine pH Ur Specific [place] Urine Protein Urine Ketones Urine Blood Urine Nitrite Urine Bilirubin Urine Urobilinogen Ur Leukocyte Esterase Urine Glucose COVID-19 Source SARS-CoV-2 (PCR) Patient ABO/Rh Antibody Screen Crossmatch 08/21/22 08/21/22 08/21/22 17:50 17:50 20:37 WBC RBC Hgb Hct MCV MCH MCHC RDW Plt Count MPV Immature Gran % Neutrophils % Band Neutrophils % Lymphocytes % Atypical Lymphs % Monocytes % Eosinophils % Basophils % Metamyelocytes % Myelocytes % Promyelocytes % Other Cells % Nucleated RBC % Absolute Neutrophils Absolute Lymphocytes Absolute Monocytes Absolute Eosinophils Absolute Basophils RBC Morphology Polychromasia Hypochromasia Poikilocytosis Basophilic Stippling Anisocytosis Microcytosis Macrocytosis Spherocytes Tear Drop Cells Ovalocytes Stomatocytes Fuchs-Lihue Bodies Gypsum Cells/Echinocytes Acanthocytes (Spur) Schistocytes PT Cancelled INR Cancelled Sodium Potassium Chloride Carbon Dioxide Anion Gap BUN Creatinine Est GFR (CKD-EPI 2020) Glucose Calcium Magnesium Total Bilirubin AST ALT Alkaline Phosphatase Troponin I Total Protein Albumin Urine Color Urine Clarity Urine pH Ur Specific [place] Urine Protein Urine Ketones Urine Blood Urine Nitrite Urine Bilirubin Urine Urobilinogen Ur Leukocyte Esterase Urine Glucose COVID-19 Source Nasal/Nares SARS-CoV-2 (PCR) Negative Patient ABO/Rh O Positive Antibody Screen NEGATIVE Crossmatch See Detail 08/21/22 08/21/22 08/21/22 20:40 23:16 23:59 WBC RBC Hgb Hct MCV MCH MCHC RDW Plt Count MPV Immature Gran % Neutrophils % Band Neutrophils % Lymphocytes % Atypical Lymphs % Monocytes % Eosinophils % Basophils % Metamyelocytes % Myelocytes % Promyelocytes % Other Cells % Nucleated RBC % Absolute Neutrophils Absolute Lymphocytes Absolute Monocytes Absolute Eosinophils Absolute Basophils RBC Morphology Polychromasia Hypochromasia Poikilocytosis Basophilic Stippling Anisocytosis Microcytosis Macrocytosis Spherocytes Tear Drop Cells Ovalocytes Stomatocytes Fuchs-Lihue Bodies Gypsum Cells/Echinocytes Acanthocytes (Spur) Schistocytes PT INR Sodium Potassium Chloride Carbon Dioxide Anion Gap BUN Creatinine Est GFR (CKD-EPI 2020) Glucose Calcium Magnesium Total Bilirubin AST ALT Alkaline Phosphatase Troponin I < 50 Cancelled Total Protein Albumin Urine Color Urine Clarity Urine pH Ur Specific [place] Urine Protein Urine Ketones Urine Blood Urine Nitrite Urine Bilirubin Urine Urobilinogen Ur Leukocyte Esterase Urine Glucose COVID-19 Source Nasal/Nares SARS-CoV-2 (PCR) Negative Patient ABO/Rh Antibody Screen Crossmatch 08/21/22 08/22/22 08/22/22 23:59 03:31 05:42 WBC Cancelled RBC Cancelled Hgb Cancelled Hct Cancelled MCV Cancelled MCH Cancelled MCHC Cancelled RDW Cancelled Plt Count Cancelled MPV Cancelled Immature Gran % Cancelled Neutrophils % Cancelled Band Neutrophils % Cancelled Lymphocytes % Cancelled Atypical Lymphs % Cancelled Monocytes % Cancelled Eosinophils % Cancelled Basophils % Cancelled Metamyelocytes % Cancelled Myelocytes % Cancelled Promyelocytes % Cancelled Other Cells % Cancelled Nucleated RBC % Cancelled Absolute Neutrophils Cancelled Absolute Lymphocytes Cancelled Absolute Monocytes Cancelled Absolute Eosinophils Cancelled Absolute Basophils Cancelled RBC Morphology Cancelled Polychromasia Cancelled Hypochromasia Cancelled Poikilocytosis Cancelled Basophilic Stippling Cancelled Anisocytosis Cancelled Microcytosis Cancelled Macrocytosis Cancelled Spherocytes Cancelled Tear Drop Cells Cancelled Ovalocytes Cancelled Stomatocytes Cancelled Fuchs-Lihue Bodies Cancelled Gypsum Cells/Echinocytes Cancelled Acanthocytes (Spur) Cancelled Schistocytes Cancelled PT INR Sodium 134 L Potassium 4.1 Chloride 101 Carbon Dioxide 22.1 Anion Gap 10.9 BUN 26 H Creatinine 1.0 Est GFR (CKD-EPI 2020) 73.76 Glucose 98 Calcium 7.5 L Magnesium 2.6 H Total Bilirubin 1.2 H AST 55 H ALT 22 Alkaline Phosphatase 527 H Troponin I < 50 Total Protein 6.2 L Albumin 2.5 L Urine Color Yellow Urine Clarity Clear Urine pH 5.5 Ur Specific [place] 1.020 Urine Protein Negative Urine Ketones Negative Urine Blood Negative Urine Nitrite Negative Urine Bilirubin Negative Urine Urobilinogen 0.2 Ur Leukocyte Esterase Negative Urine Glucose Negative COVID-19 Source SARS-CoV-2 (PCR) Patient ABO/Rh Antibody Screen Crossmatch 08/22/22 08/22/22 08/22/22 06:42 07:50 11:32 WBC 3.23 L Cancelled RBC 2.63 L Cancelled Hgb 7.8 L 7.7 L Cancelled Hct 23.4 L 22.9 L Cancelled MCV 89 Cancelled MCH 29.7 Cancelled MCHC 33.3 Cancelled RDW 16.1 H Cancelled Plt Count 97 L Cancelled MPV 9.7 Cancelled Immature Gran % 0.0 Cancelled Neutrophils % 58.0 Cancelled Band Neutrophils % 2 Cancelled Lymphocytes % 30.0 Cancelled Atypical Lymphs % 2 Cancelled Monocytes % 2.0 Cancelled Eosinophils % 0.0 Cancelled Basophils % 1.0 Cancelled Metamyelocytes % 4 Cancelled Myelocytes % 1 Cancelled Promyelocytes % Cancelled Other Cells % Cancelled Nucleated RBC % 1.0 H Cancelled Absolute Neutrophils 1.94 Cancelled Absolute Lymphocytes 1.03 L Cancelled Absolute Monocytes 0.06 L Cancelled Absolute Eosinophils 0.00 Cancelled Absolute Basophils 0.03 Cancelled RBC Morphology Normal Cancelled Polychromasia Cancelled Hypochromasia Cancelled Poikilocytosis Cancelled Basophilic Stippling Cancelled Anisocytosis Cancelled Microcytosis Cancelled Macrocytosis Cancelled Spherocytes Cancelled Tear Drop Cells Cancelled Ovalocytes Cancelled Stomatocytes Cancelled Fuchs-Lihue Bodies Cancelled Manuel Cells/Echinocytes Cancelled Acanthocytes (Spur) Cancelled Schistocytes Cancelled PT INR Sodium Potassium Chloride Carbon Dioxide Anion Gap BUN Creatinine Est GFR (CKD-EPI 2020) Glucose Calcium Magnesium Total Bilirubin AST ALT Alkaline Phosphatase Troponin I Total Protein Albumin Urine Color Urine Clarity Urine pH Ur Specific [place] Urine Protein Urine Ketones Urine Blood Urine Nitrite Urine Bilirubin Urine Urobilinogen Ur Leukocyte Esterase Urine Glucose COVID-19 Source SARS-CoV-2 (PCR) Patient ABO/Rh Antibody Screen Crossmatch 08/22/22 08/22/22 17:32 23:32 WBC Cancelled Cancelled RBC Cancelled Cancelled Hgb Cancelled Cancelled Hct Cancelled Cancelled MCV Cancelled Cancelled MCH Cancelled Cancelled MCHC Cancelled Cancelled RDW Cancelled Cancelled Plt Count Cancelled Cancelled MPV Cancelled Cancelled Immature Gran % Cancelled Cancelled Neutrophils % Cancelled Cancelled Band Neutrophils % Cancelled Cancelled Lymphocytes % Cancelled Cancelled Atypical Lymphs % Cancelled Cancelled Monocytes % Cancelled Cancelled Eosinophils % Cancelled Cancelled Basophils % Cancelled Cancelled Metamyelocytes % Cancelled Cancelled Myelocytes % Cancelled Cancelled Promyelocytes % Cancelled Cancelled Other Cells % Cancelled Cancelled Nucleated RBC % Cancelled Cancelled Absolute Neutrophils Cancelled Cancelled Absolute Lymphocytes Cancelled Cancelled Absolute Monocytes Cancelled Cancelled Absolute Eosinophils Cancelled Cancelled Absolute Basophils Cancelled Cancelled RBC Morphology Cancelled Cancelled Polychromasia Cancelled Cancelled Hypochromasia Cancelled Cancelled Poikilocytosis Cancelled Cancelled Basophilic Stippling Cancelled Cancelled Anisocytosis Cancelled Cancelled Microcytosis Cancelled Cancelled Macrocytosis Cancelled Cancelled Spherocytes Cancelled Cancelled Tear Drop Cells Cancelled Cancelled Ovalocytes Cancelled Cancelled Stomatocytes Cancelled Cancelled Fuchs-Lihue Bodies Cancelled Cancelled Manuel Cells/Echinocytes Cancelled Cancelled Acanthocytes (Spur) Cancelled Cancelled Schistocytes Cancelled Cancelled PT INR Sodium Potassium Chloride Carbon Dioxide Anion Gap BUN Creatinine Est GFR (CKD-EPI 2020) Glucose Calcium Magnesium Total Bilirubin AST ALT Alkaline Phosphatase Troponin I Total Protein Albumin Urine Color Urine Clarity Urine pH Ur Specific [place] Urine Protein Urine Ketones Urine Blood Urine Nitrite Urine Bilirubin Urine Urobilinogen Ur Leukocyte Esterase Urine Glucose COVID-19 Source SARS-CoV-2 (PCR) Patient ABO/Rh Antibody Screen Crossmatch
[2022-08-22] MEDS: Normal Saline Flush 10 ML SYR IVP (16:45)
[2022-08-22] MEDS: Dronabinol 2.5 MG CAP PO (16:45)
--- NOTE | 2022-08-22 18:10 | W.PM.PROGNOT ---
Date of Service Date of service: 08/22/22 Time of Service: 17:40 Assessment and Plan Assessment and plan (1) Acute blood loss anemia: Start date: 08/21/22 Status: Acute Assessment and plan: Symptomatic anemia s/p 2 units pRBCs on admission. Recheck H/H in am. Is having hematuria. (2) Anorexia: Status: Chronic Assessment and plan: Agree that this is likely due to cancer; however, also depressed. Increase mirtazapine. Continue marinol. 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 Palliative care consulted. F/u as outpatient. (4) Deep vein thrombosis (DVT) of right upper extremity: Status: Resolved Assessment and plan: Holding apixaban at this time. If H/H is stable tomorrow, would resume on discharge. (5) Right middle cerebral artery stroke: Status: Resolved Assessment and plan: With no clear residual deficits - however, could be contributing to falls. PT consulted. (6) Depression: Status: Chronic Assessment and plan: Increase mirtazapine; continue wellbuterin Sr (7) Discharge planning issues: Status: Acute Assessment and plan: Full code Palliative care consulted. Anticipate discharge home tomorrow Subjective Subjective Interval history since last seen: I don't feel very good. I'm depressed. I could be home with my and playing with my dog. I don't have an appetite. I hope I can get some sleep. Denies dizziness, today, chest pain, shortness of breath, nausea. Exam Narrative Exam Narrative: General: Pleasant elderly male who looks sad HEENT: EOMI, MMM Heart: RRR, ?GENEVIEVE Lungs: CTAB, coughs occasionally Abdomen: soft, nontender, nondistended Extremities: no edema BLEs Objective Last Vital Signs Temp 36.1 C L 08/22/22 15:50 Pulse 91 H 08/22/22 15:50 Resp 16 08/22/22 15:50 BP 111/68 08/22/22 15:50 Pulse Ox 93 08/22/22 15:50 Laboratory Results - last 24 hr 08/21/22 08/21/22 08/21/22 17:30 17:30 17:50 WBC RBC Hgb Hct MCV MCH MCHC RDW Plt Count MPV Immature Gran % Neutrophils % Band Neutrophils % Lymphocytes % Atypical Lymphs % Monocytes % Eosinophils % Basophils % Metamyelocytes % Myelocytes % Promyelocytes % Other Cells % Nucleated RBC % Absolute Neutrophils Absolute Lymphocytes Absolute Monocytes Absolute Eosinophils Absolute Basophils RBC Morphology Polychromasia Hypochromasia Poikilocytosis Basophilic Stippling Anisocytosis Microcytosis Macrocytosis Spherocytes Tear Drop Cells Ovalocytes Stomatocytes Fuchs-Iraan Bodies Manuel Cells/Echinocytes Acanthocytes (Spur) Schistocytes PT 13.6 H INR 1.4 H Sodium 133 L Potassium 4.8 Chloride 99 Carbon Dioxide 24.8 Anion Gap 9.2 BUN 31 H Creatinine 1.2 Est GFR (CKD-EPI 2020) 59.26 Glucose 109 H Calcium 8.5 Magnesium Total Bilirubin 1.0 AST 75 H ALT 32 Alkaline Phosphatase 661 H Troponin I < 50 Total Protein 7.7 Albumin 3.1 L Urine Color Urine Clarity Urine pH Ur Specific [place] Urine Protein Urine Ketones Urine Blood Urine Nitrite Urine Bilirubin Urine Urobilinogen Ur Leukocyte Esterase Urine Glucose COVID-19 Source SARS-CoV-2 (PCR) Negative Patient ABO/Rh Antibody Screen Crossmatch 08/21/22 08/21/22 08/21/22 17:50 20:37 20:40 WBC RBC Hgb Hct MCV MCH MCHC RDW Plt Count MPV Immature Gran % Neutrophils % Band Neutrophils % Lymphocytes % Atypical Lymphs % Monocytes % Eosinophils % Basophils % Metamyelocytes % Myelocytes % Promyelocytes % Other Cells % Nucleated RBC % Absolute Neutrophils Absolute Lymphocytes Absolute Monocytes Absolute Eosinophils Absolute Basophils RBC Morphology Polychromasia Hypochromasia Poikilocytosis Basophilic Stippling Anisocytosis Microcytosis Macrocytosis Spherocytes Tear Drop Cells Ovalocytes Stomatocytes Fuchs-Iraan Bodies Manuel Cells/Echinocytes Acanthocytes (Spur) Schistocytes PT Cancelled INR Cancelled Sodium Potassium Chloride Carbon Dioxide Anion Gap BUN Creatinine Est GFR (CKD-EPI 2020) Glucose Calcium Magnesium Total Bilirubin AST ALT Alkaline Phosphatase Troponin I Total Protein Albumin Urine Color Urine Clarity Urine pH Ur Specific [place] Urine Protein Urine Ketones Urine Blood Urine Nitrite Urine Bilirubin Urine Urobilinogen Ur Leukocyte Esterase Urine Glucose COVID-19 Source Nasal/Nares SARS-CoV-2 (PCR) Negative Patient ABO/Rh O Positive Antibody Screen NEGATIVE Crossmatch See Detail 08/21/22 08/21/22 08/21/22 23:16 23:59 23:59 WBC Cancelled RBC Cancelled Hgb Cancelled Hct Cancelled MCV Cancelled MCH Cancelled MCHC Cancelled RDW Cancelled Plt Count Cancelled MPV Cancelled Immature Gran % Cancelled Neutrophils % Cancelled Band Neutrophils % Cancelled Lymphocytes % Cancelled Atypical Lymphs % Cancelled Monocytes % Cancelled Eosinophils % Cancelled Basophils % Cancelled Metamyelocytes % Cancelled Myelocytes % Cancelled Promyelocytes % Cancelled Other Cells % Cancelled Nucleated RBC % Cancelled Absolute Neutrophils Cancelled Absolute Lymphocytes Cancelled Absolute Monocytes Cancelled Absolute Eosinophils Cancelled Absolute Basophils Cancelled RBC Morphology Cancelled Polychromasia Cancelled Hypochromasia Cancelled Poikilocytosis Cancelled Basophilic Stippling Cancelled Anisocytosis Cancelled Microcytosis Cancelled Macrocytosis Cancelled Spherocytes Cancelled Tear Drop Cells Cancelled Ovalocytes Cancelled Stomatocytes Cancelled Fuchs-Iraan Bodies Cancelled Manuel Cells/Echinocytes Cancelled Acanthocytes (Spur) Cancelled Schistocytes Cancelled PT INR Sodium Potassium Chloride Carbon Dioxide Anion Gap BUN Creatinine Est GFR (CKD-EPI 2020) Glucose Calcium Magnesium Total Bilirubin AST ALT Alkaline Phosphatase Troponin I < 50 Cancelled Total Protein Albumin Urine Color Urine Clarity Urine pH Ur Specific [place] Urine Protein Urine Ketones Urine Blood Urine Nitrite Urine Bilirubin Urine Urobilinogen Ur Leukocyte Esterase Urine Glucose COVID-19 Source SARS-CoV-2 (PCR) Patient ABO/Rh Antibody Screen Crossmatch 08/22/22 08/22/22 08/22/22 03:31 05:42 06:42 WBC 3.23 L RBC 2.63 L Hgb 7.8 L Hct 23.4 L MCV 89 MCH 29.7 MCHC 33.3 RDW 16.1 H Plt Count 97 L MPV 9.7 Immature Gran % 0.0 Neutrophils % 58.0 Band Neutrophils % 2 Lymphocytes % 30.0 Atypical Lymphs % 2 Monocytes % 2.0 Eosinophils % 0.0 Basophils % 1.0 Metamyelocytes % 4 Myelocytes % 1 Promyelocytes % Other Cells % Nucleated RBC % 1.0 H Absolute Neutrophils 1.94 Absolute Lymphocytes 1.03 L Absolute Monocytes 0.06 L Absolute Eosinophils 0.00 Absolute Basophils 0.03 RBC Morphology Normal Polychromasia Hypochromasia Poikilocytosis Basophilic Stippling Anisocytosis Microcytosis Macrocytosis Spherocytes Tear Drop Cells Ovalocytes Stomatocytes Fuchs-Iraan Bodies [place] Cells/Echinocytes Acanthocytes (Spur) Schistocytes PT INR Sodium 134 L Potassium 4.1 Chloride 101 Carbon Dioxide 22.1 Anion Gap 10.9 BUN 26 H Creatinine 1.0 Est GFR (CKD-EPI 2020) 73.76 Glucose 98 Calcium 7.5 L Magnesium 2.6 H Total Bilirubin 1.2 H AST 55 H ALT 22 Alkaline Phosphatase 527 H Troponin I < 50 Total Protein 6.2 L Albumin 2.5 L Urine Color Yellow Urine Clarity Clear Urine pH 5.5 Ur Specific [place] 1.020 Urine Protein Negative Urine Ketones Negative Urine Blood Negative Urine Nitrite Negative Urine Bilirubin Negative Urine Urobilinogen 0.2 Ur Leukocyte Esterase Negative Urine Glucose Negative COVID-19 Source SARS-CoV-2 (PCR) Patient ABO/Rh Antibody Screen Crossmatch 08/22/22 08/22/22 08/22/22 07:50 11:32 17:32 WBC Cancelled Cancelled RBC Cancelled Cancelled Hgb 7.7 L Cancelled Cancelled Hct 22.9 L Cancelled Cancelled MCV Cancelled Cancelled MCH Cancelled Cancelled MCHC Cancelled Cancelled RDW Cancelled Cancelled Plt Count Cancelled Cancelled MPV Cancelled Cancelled Immature Gran % Cancelled Cancelled Neutrophils % Cancelled Cancelled Band Neutrophils % Cancelled Cancelled Lymphocytes % Cancelled Cancelled Atypical Lymphs % Cancelled Cancelled Monocytes % Cancelled Cancelled Eosinophils % Cancelled Cancelled Basophils % Cancelled Cancelled Metamyelocytes % Cancelled Cancelled Myelocytes % Cancelled Cancelled Promyelocytes % Cancelled Cancelled Other Cells % Cancelled Cancelled Nucleated RBC % Cancelled Cancelled Absolute Neutrophils Cancelled Cancelled Absolute Lymphocytes Cancelled Cancelled Absolute Monocytes Cancelled Cancelled Absolute Eosinophils Cancelled Cancelled Absolute Basophils Cancelled Cancelled RBC Morphology Cancelled Cancelled Polychromasia Cancelled Cancelled Hypochromasia Cancelled Cancelled Poikilocytosis Cancelled Cancelled Basophilic Stippling Cancelled Cancelled Anisocytosis Cancelled Cancelled Microcytosis Cancelled Cancelled Macrocytosis Cancelled Cancelled Spherocytes Cancelled Cancelled Tear Drop Cells Cancelled Cancelled Ovalocytes Cancelled Cancelled Stomatocytes Cancelled Cancelled Fuchs-Iraan Bodies Cancelled Cancelled Manuel Cells/Echinocytes Cancelled Cancelled Acanthocytes (Spur) Cancelled Cancelled Schistocytes Cancelled Cancelled PT INR Sodium Potassium Chloride Carbon Dioxide Anion Gap BUN Creatinine Est GFR (CKD-EPI 2020) Glucose Calcium Magnesium Total Bilirubin AST ALT Alkaline Phosphatase Troponin I Total Protein Albumin Urine Color Urine Clarity Urine pH Ur Specific [place] Urine Protein Urine Ketones Urine Blood Urine Nitrite Urine Bilirubin Urine Urobilinogen Ur Leukocyte Esterase Urine Glucose COVID-19 Source SARS-CoV-2 (PCR) Patient ABO/Rh Antibody Screen Crossmatch 08/22/22 23:32 WBC Cancelled RBC Cancelled Hgb Cancelled Hct Cancelled MCV Cancelled MCH Cancelled MCHC Cancelled RDW Cancelled Plt Count Cancelled MPV Cancelled Immature Gran % Cancelled Neutrophils % Cancelled Band Neutrophils % Cancelled Lymphocytes % Cancelled Atypical Lymphs % Cancelled Monocytes % Cancelled Eosinophils % Cancelled Basophils % Cancelled Metamyelocytes % Cancelled Myelocytes % Cancelled Promyelocytes % Cancelled Other Cells % Cancelled Nucleated RBC % Cancelled Absolute Neutrophils Cancelled Absolute Lymphocytes Cancelled Absolute Monocytes Cancelled Absolute Eosinophils Cancelled Absolute Basophils Cancelled RBC Morphology Cancelled Polychromasia Cancelled Hypochromasia Cancelled Poikilocytosis Cancelled Basophilic Stippling Cancelled Anisocytosis Cancelled Microcytosis Cancelled Macrocytosis Cancelled Spherocytes Cancelled Tear Drop Cells Cancelled Ovalocytes Cancelled Stomatocytes Cancelled Fuchs-Iraan Bodies Cancelled Manuel Cells/Echinocytes Cancelled Acanthocytes (Spur) Cancelled Schistocytes Cancelled PT INR Sodium Potassium Chloride Carbon Dioxide Anion Gap BUN Creatinine Est GFR (CKD-EPI 2020) Glucose Calcium Magnesium Total Bilirubin AST ALT Alkaline Phosphatase Troponin I Total Protein Albumin Urine Color Urine Clarity Urine pH Ur Specific [place] Urine Protein Urine Ketones Urine Blood Urine Nitrite Urine Bilirubin Urine Urobilinogen Ur Leukocyte Esterase Urine Glucose COVID-19 Source SARS-CoV-2 (PCR) Patient ABO/Rh Antibody Screen Crossmatch PAWSS Have you Been Recently Intoxicated or Drunk Within the Last 30 days?: No Have you Ever Experienced Previous Episodes of Alcohol Withdrawal?: No Have you ever Experienced Withdrawal Seizures?: No Have you ever Experienced Delirium Tremens(DT)s?: No Have you ever undergone Alcohol Rehabilitation Treatment (i.e, inpt ot outpatient treatment programs)?: No Have you ever Experienced Blackouts?: No Have you ever Combined Alcohol with other Downers within the last 90 days?: No Have you ever Combined Alcohol with any other Substance of Abuse during the last 90 days?: No Positive Blood Alcohol level on Presentation? [PCS.BAL]: No Evidence of Increased Autonomic Activity (i.e. HR>120, tremor, sweating, agitation, nausea)?: No Result: 0
[2022-08-22] MEDS: Melatonin 3 MG TAB PO (21:30)
[2022-08-22] MEDS: Atorvastatin 40 MG TAB 80 MG PO (21:30)
[2022-08-22] MEDS: Mirtazapine 15 MG TAB 30 MG PO (21:30)
[2022-08-22] MEDS: Acetaminophen 325 MG TAB PO (23:47)
[2022-08-23] VITALS (11 sets, daily range): BP systolic 102–115; BP diastolic 56–75; PULSE 79–93; RESP 18–20; TEMP 35.5–38.1; O2SAT 94–96
--- NOTE | 2022-08-23 | DI.RAD_ITS ---
Exam(s) XR PORTABLE CHEST AP EXAM: XR PORTABLE CHEST AP CLINICAL HISTORY: fever. TECHNIQUE: 2D digital imaging was performed. COMPARISON: CR XR CHEST 2V PA LATERAL from 07/03/2022 FINDINGS: LUNGS: Clear. No pleural abnormality seen. HEART: Normal. MEDIASTINUM: Normal. OTHER FINDINGS: None. IMPRESSION: No acute pulmonary findings. DATA REPOSITORY: RADIATION DOSE DELIVERED: Total DLP
[2022-08-23 06:42] LABS: HCT 26.4 % (40.0-50.0); HGB 8.8 g/dL (13.5-17.5); MCH 29.5 pg (27.0-33.0); MCHC 33.3 % (32.0-36.0); MCV 89 fL (80-95); RBC 2.98 10^6/uL (4.36-5.78); RDW 16.8 % (11.8-14.1); RDW-SD 53.5 fL
[2022-08-23 06:54] LABS: Anion Gap 8.7 mmol/L (3-11); BUN 20 mg/dL (7-18); CO2 24.3 mmol/L (21.0-32.0); Calcium 7.9 mg/dL (8.5-10.1); Chloride 102 mmol/L (98-107); Estimated GFR 73.76 (mL/min/1.73m2); Glucose 96 mg/dL (74-106); Magnesium 2.9 mg/dL (1.8-2.4); Potassium 4.1 mmol/L (3.5-5.1); Sodium 135 mmol/L (136-145)
[2022-08-23 07:12] LABS: Absolute Lymphocyte Count 1.18 10^3/uL (1.2-3.4); Absolute Monocyte Count 0.16 10^3/uL (0.1-0.8); Absolute Neutrophil Count 1.79 10^3/uL (1.2-6.7); Bands % 3; Metamyelocytes % 2
[2022-08-23 07:13] LABS: Diff Comment Manual Differential; RBC Morphology Normal
[2022-08-23] MEDS: Normal Saline Flush 10 ML SYR IVP ×2 (08:28→16:48)
[2022-08-23] MEDS: buPROPion-CR 150 MG TABCR PO (08:28)
[2022-08-23] MEDS: Tamsulosin 0.4 MG CAPCR PO (08:28)
--- NOTE | 2022-08-23 12:10 | PT.INTREAT ---
PT Notes Visit Reasons: Acute Hemodynamically Unstable Anemia PRECAUTIONS: Fall, activity as tolerated SUBJECTIVE: Pt sitting in recliner, spouse visiting pt when RN DOCUMENT IMPROVEMENT SPECIALIST arrived in pt room, pt pleasant and agreed to participating with therapy. OBJECTIVE:?dark elizabeth fluid in pt lynn catheter, nurse reports she would like to check post session. ? BED MOBILITY/TRANSFERS? Supine-sit: Mod A with HOB at 20 degrees Sit-supine: Mod A with HOB flat Sit-stand: CGA? Stand-sit: CGA? GAIT? Assistive Device: FWW? Weight bearing: Full Assist: SBA-CGA ? Distance:? 100' ?SBA, 100'CGA ? Deviation: Cueing for increased step height and step lenght, cueing for FWW management for safety, two standing rests ? ASSESSMENT:? Pt showed instability after 100' of walking with pt requiring CGA from SBA for safety to be able to get back to pt room. manager mission updated with pt status, and test case developer agreed to short term SNF to ensure pt safety and fall prevention. PLAN: Continue with gait and transfer training as well as global strengthening for improved activity tolerance and safety with mobility.? Add neuro re-ed as tolerated. TREATMENT CODE/TIME: 25 minutes; 97388 x2 (14:26)
[2022-08-23] MEDS: Acetaminophen 325 MG TAB PO ×2 (15:56→22:26)
[2022-08-23] MEDS: Dronabinol 2.5 MG CAP PO (15:56)
--- NOTE | 2022-08-23 16:13 | PGE_ITS ---
Date of Service Date of service: 08/23/22 Time of Service: 16:00 Assessment and Plan Assessment and plan (1) Fever: Status: Acute Assessment and plan: Check UA, blood cultures, COVID-19 PCR, CXR. Encourage incentive spirometry. Encourage PO fluids. (2) Acute blood loss anemia: Status: Acute Assessment and plan: Symptomatic anemia s/p 2 units pRBCs on admission. H/H stable. Continue to monitor. (3) Anorexia: Status: Chronic Assessment and plan: Agree that this is likely due to cancer; however, also depressed. Continue Increased dose of mirtazapine. Continue marinol. Palliative care consulted. 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 Palliative care consulted. F/u as outpatient. (5) Deep vein thrombosis (DVT) of right upper extremity: Status: Resolved Assessment and plan: Holding apixaban at this time. Will continue to hold H/H as the patient is mildly hypotensive and tachycardic - possibility of bleeding remains (6) Right middle cerebral artery stroke: Status: Resolved Assessment and plan: H/o of. With no clear residual deficits - however, could be contributing to falls. PT consulted and SNF placement is being pursued. (7) Depression: Status: Chronic Assessment and plan: Continue Increased dose of mirtazapine; continue wellbuterin Sr (8) Urinary retention: Status: Acute Assessment and plan: S/p lynn Evaluated by Dr Mayo who recommended starting flomax and a VT in 4-5 days (9) Discharge planning issues: Status: Acute Assessment and plan: Full code Palliative care consulted. Will be seeking SNF placement Subjective Subjective Interval history since last seen: Mr Brandon has a fever. He is not sure why. He denies a cough, diarrhea, nausea, CP, SOB. Nursing notes poor UOP. The patient admits to having a very poor appetite and drinking very little today. Exam Narrative Exam Narrative: General: Pleasant elderly male who looks tired HEENT: EOMI, dry MM Heart: RRR, GENEVIEVE Lungs: CTAB/diminished breath sounds at B bases Abdomen: soft, nontender, nondistended Extremities: no edema BLEs Objective Last Vital Signs Temp 38.1 C H 08/23/22 15:56 Pulse 92 H 08/23/22 15:14 Resp 18 09/24/22 15:14 BP 103/63 08/23/22 15:14 Pulse Ox 94 08/23/22 15:14 Laboratory Results - last 24 hr 08/22/22 08/23/22 08/23/22 11:12 05:47 05:47 WBC 3.20 L RBC 2.98 L Hgb 8.8 L Hct 26.4 L MCV 89 MCH 29.5 MCHC 33.3 RDW 16.8 H Plt Count MPV Immature Gran % 0.0 Neutrophils % 53.0 Band Neutrophils % 3 Lymphocytes % 37.0 Monocytes % 5.0 Eosinophils % 0.0 Basophils % 0.0 Metamyelocytes % 2 Nucleated RBC % 1.0 H Absolute Neutrophils 1.79 Absolute Lymphocytes 1.18 L Absolute Monocytes 0.16 Absolute Eosinophils 0.00 Absolute Basophils 0.00 RBC Morphology Normal Sodium 135 L Potassium 4.1 Chloride 102 Carbon Dioxide 24.3 Anion Gap 8.7 BUN 20 H Creatinine 1.0 Est GFR (CKD-EPI 2020) 73.76 Glucose 96 Calcium 7.9 L Magnesium 2.9 H Stl Occult Bld Clinic Cancelled PAWSS Have you Been Recently Intoxicated or Drunk Within the Last 30 days?: No Have you Ever Experienced Previous Episodes of Alcohol Withdrawal?: No Have you ever Experienced Withdrawal Seizures?: No Have you ever Experienced Delirium Tremens(DT)s?: No Have you ever undergone Alcohol Rehabilitation Treatment (i.e, inpt ot outpatient treatment programs)?: No Have you ever Experienced Blackouts?: No Have you ever Combined Alcohol with other Downers within the last 90 days?: No Have you ever Combined Alcohol with any other Substance of Abuse during the last 90 days?: No Positive Blood Alcohol level on Presentation? [PCS.BAL]: No Evidence of Increased Autonomic Activity (i.e. HR>120, tremor, sweating, agita tion, nausea)?: No Result: 0
[2022-08-23 16:43] LABS: Lactate 1.2 mmol/L (0.6-1.4)
[2022-08-23] MEDS: Lactated Ringers 500 ML IV (16:47)
--- NOTE | 2022-08-23 17:08 | DI.VRAD_ITS ---
PROCEDURE INFORMATION: Exam: XR Chest Exam date and time: 08/23/2022 4:25 PM Age: 87 years old Clinical indication: Fever TECHNIQUE: Imaging protocol: Radiologic exam of the chest. Views: 1 view. COMPARISON: CR XR CHEST 2V PA LATERAL 07/03/2022 3:28 PM FINDINGS: Lungs: No acute lung infiltrates or edema. No airspace consolidation. Pleural spaces: No pleural effusion. Heart/Mediastinum: Normal heart size. Bones/joints: Unremarkable. Other findings: Degenerative thoracic spine changes. IMPRESSION: 1. No acute lung infiltrates or edema. 2. No pleural effusion. 3. No significant change 07/03/2022. Dictated and Authenticated by: Brett Judd MD. Ordering:SADI Wheatley MD
[2022-08-23 17:25] LABS: Procalcitonin 0.2 ng/mL
[2022-08-23 17:26] LABS: Source Nasal/Nares
[2022-08-23 17:54] LABS: Bilirubin Negative (Negative); Blood Large (Negative); Clarity Sl Cloudy (Clear); Glucose Negative (Negative); Ketones Negative (Negative); Leukocyte Esterase Negative (Negative); Nitrite Negative (Negative); Specific Gravity 1.025 (1.005-1.025); pH 5.5 (5-8)
[2022-08-23 18:01] LABS: COVID-19 PCR Negative (Negative)
[2022-08-23 18:36] LABS: RBC >50 HPF (0-2); WBC 0-2 HPF (0-5)
[2022-08-23 18:37] LABS: Bacteria Few HPF (Negative); C & S Indicated? C&S Done As Ordered; Crystals Few Amorphous HPF (Negative); Epithelial Cells Negative HPF (Negative); Mucus Trace (Negative)
[2022-08-23] MEDS: Atorvastatin 40 MG TAB 80 MG PO (19:26)
[2022-08-23] MEDS: Mirtazapine 15 MG TAB 30 MG PO (19:42)
[2022-08-23] MEDS: Melatonin 3 MG TAB PO (19:42)
[2022-08-24] VITALS (13 sets, daily range): BP systolic 95–111; BP diastolic 50–68; PULSE 80–96; RESP 16–22; TEMP 36.2–37.8; O2SAT 93–96
[2022-08-24 06:55] LABS: Absolute Eosinophil Count 0.03 10^3/uL (0.0-0.7); HGB 7.6 g/dL (13.5-17.5); MCH 29.5 pg (27.0-33.0); MCV 89 fL (80-95); MPV 10.6 fL (8.0-11.0); RBC 2.58 10^6/uL (4.36-5.78); RDW 16.8 % (11.8-14.1); RDW-SD 54.5 fL; WBC 2.89 10^3/uL (4.4-10.8)
[2022-08-24 07:13] LABS: Anion Gap 8.4 mmol/L (3-11); BUN 19 mg/dL (7-18); CO2 23.6 mmol/L (21.0-32.0); CREATININE 1.1 mg/dL (0.70-1.30); Calcium 7.6 mg/dL (8.5-10.1); Chloride 102 mmol/L (98-107); Estimated GFR 65.79 (mL/min/1.73m2); Glucose 108 mg/dL (74-106); Magnesium 2.8 mg/dL (1.8-2.4); Potassium 4.2 mmol/L (3.5-5.1); Sodium 134 mmol/L (136-145)
[2022-08-24 07:14] LABS: Absolute Basophil Count 0.03 10^3/uL (0.0-0.2); Absolute Lymphocyte Count 0.98 10^3/uL (1.2-3.4); Absolute Monocyte Count 0.09 10^3/uL (0.1-0.8); Absolute Neutrophil Count 1.71 10^3/uL (1.2-6.7); Bands % 2; Diff Comment Manual Differential; Metamyelocytes % 2; Platelet Count 79 10^3/uL (130-400); RBC Morphology Normal
[2022-08-24] MEDS: Tamsulosin 0.4 MG CAPCR PO (08:52)
[2022-08-24] MEDS: buPROPion-CR 150 MG TABCR PO (08:52)
--- NOTE | 2022-08-24 13:08 | PT.INTREAT ---
PT Notes Visit Reasons: Acute Hemodynamically Unstable Anemia PRECAUTIONS: Fall, activity as tolerated SUBJECTIVE: Pt in recliner when approached for therapy this morning. pt spouse reports that pt was febrile last night, not the case this morning and was agreeable to [articipating with therapy. OBJECTIVE: nurse had to interrupt in between session for injectable that is on stat requiring pt to go back to recliner after 100' of gait training. ? BED MOBILITY/TRANSFERS? Supine-sit: Anatoly with HOB at 20 degrees Sit-supine: Min A with HOB flat Sit-stand: SBA? Stand-sit: SBA ? GAIT? Assistive Device: FWW? Weight bearing: Full Assist: SBA-CGA ? Distance:? 100' ?SBA, 300' SBA ? Deviation: Cueing for increased step height and step lenght, cueing for FWW management for safety. ? ASSESSMENT:? Pt demonstrated increase tolerance and stability with activity this morning with pt able to complete big loop without requiring standing rest break. Static standing for 3mins 2x to allow for reporsitioning infront of recliner as well as clothes management prior to gait training. PLAN: Continue with gait and transfer training as well as global strengthening for improved activity tolerance and safety with mobility.? Add neuro re-ed as tolerated. TREATMENT CODE/TIME: 30 minutes; 20432 x2 (10:50)
--- NOTE | 2022-08-24 13:25 | W.PM.PROGNOT ---
Date of Service Date of service: 08/24/22 Time of Service: 13:25 Assessment and Plan Assessment and plan (1) Fever: Status: Acute Assessment and plan: Temp of 38.1 yesterday. Was asymptomatic. UA negative for evidence of infection. blood cultures pending. COVID-19 PCR neg. CXR neg. Encourage incentive spirometry. Encourage PO fluids. (2) Anorexia: Status: Chronic Assessment and plan: Agree that this is likely due to cancer; however, also depressed. Continue Increased dose of mirtazapine. Continue marinol. Palliative care consulted. 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 Palliative care consulted. F/u as outpatient. (4) Deep vein thrombosis (DVT) of right upper extremity: Status: Resolved Assessment and plan: Holding apixaban at this time. Will continue to hold H/H as the patient is mildly hypotensive and tachycardic - possibility of bleeding remains (5) Right middle cerebral artery stroke: Status: Resolved Assessment and plan: H/o of. With no clear residual deficits - however, could be contributing to falls. PT consulted and SNF placement is being pursued. (6) Depression: Status: Chronic Assessment and plan: Continue Increased dose of mirtazapine; continue wellbuterin Sr (7) Urinary retention: Status: Acute Assessment and plan: S/p lynn Evaluated by Dr Mayo who recommended starting flomax and a VT in 4-5 days (8) Discharge planning issues: Status: Acute Assessment and plan: Full code Palliative care consulted. Will be seeking SNF placement (9) Anemia: Status: Chronic Assessment and plan: Symptomatic anemia s/p 2 units pRBCs on admission. Hemoglobin dropped from 8.8 to 7.6. Continue to monitor. Subjective Subjective Patient reports: tolerating a regular diet and afebrile; denies nausea, vomiting or shortness of breath Exam Narrative Exam Narrative: General: Pleasant elderly male. Fatigued appearing. Conversant. HEENT: EOMI, sclera clear, dry MM Heart: RRR, GENEVIEVE Lungs: CTAB/diminished breath sounds at B bases Abdomen: soft, nontender, nondistended Extremities: no edema BLEs Objective Last Vital Signs Temp 37.5 C 08/24/22 12:28 Pulse 95 H 08/24/22 11:32 Resp 18 08/24/22 11:32 BP 100/62 08/24/22 11:38 Pulse Ox 95 08/24/22 11:32 Laboratory Results - last 24 hr 08/23/22 08/23/22 08/23/22 16:00 16:15 16:36 WBC RBC Hgb Hct MCV MCH MCHC RDW Plt Count MPV Immature Gran % Neutrophils % Band Neutrophils % Lymphocytes % Monocytes % Eosinophils % Basophils % Metamyelocytes % Nucleated RBC % Absolute Neutrophils Absolute Lymphocytes Absolute Monocytes Absolute Eosinophils Absolute Basophils RBC Morphology VBG Lactate 1.2 Sodium Potassium Chloride Carbon Dioxide Anion Gap BUN Creatinine Est GFR (CKD-EPI 2020) Glucose Calcium Magnesium Procalcitonin 0.2 Urine Color Mable Urine Clarity Sl Cloudy Urine pH 5.5 Ur Specific Naylor 1.025 Urine Protein 30 H Urine Ketones Negative Urine Blood Large H Urine Nitrite Negative Urine Bilirubin Negative Urine Urobilinogen 1.0 H Ur Leukocyte Esterase Negative Urine RBC >50 H Urine WBC 0-2 Ur Epithelial Cells Negative Urine Crystals Few Amorphous Urine Bacteria Few Urine Mucus Trace Ur Culture Indicated? C&S Done As Ordered Urine Glucose Negative COVID-19 Source Nasal/Nares SARS-CoV-2 (PCR) Negative 08/24/22 08/24/22 06:10 06:10 WBC 2.89 L RBC 2.58 L Hgb 7.6 L Hct 23.0 L MCV 89 MCH 29.5 MCHC 33.0 RDW 16.8 H Plt Count 79 L MPV 10.6 Immature Gran % 0.0 Neutrophils % 57.0 Band Neutrophils % 2 Lymphocytes % 34.0 Monocytes % 3.0 Eosinophils % 1.0 Basophils % 1.0 Metamyelocytes % 2 Nucleated RBC % 1.0 H Absolute Neutrophils 1.71 Absolute Lymphocytes 0.98 L Absolute Monocytes 0.09 L Absolute Eosinophils 0.03 Absolute Basophils 0.03 RBC Morphology Normal VBG Lactate Sodium 134 L Potassium 4.2 Chloride 102 Carbon Dioxide 23.6 Anion Gap 8.4 BUN 19 H Creatinine 1.1 Est GFR (CKD-EPI 2020) 65.79 Glucose 108 H Calcium 7.6 L Magnesium 2.8 H Procalcitonin Urine Color Urine Clarity Urine pH Ur Specific Naylor Urine Protein Urine Ketones Urine Blood Urine Nitrite Urine Bilirubin Urine Urobilinogen Ur Leukocyte Esterase Urine RBC Urine WBC Ur Epithelial Cells Urine Crystals Urine Bacteria Urine Mucus Ur Culture Indicated? Urine Glucose COVID-19 Source SARS-CoV-2 (PCR) PAWSS Have you Been Recently Intoxicated or Drunk Within the Last 30 days?: No Have you Ever Experienced Previous Episodes of Alcohol Withdrawal?: No Have you ever Experienced Withdrawal Seizures?: No Have you ever Experienced Delirium Tremens(DT)s?: No Have you ever undergone Alcohol Rehabilitation Treatment (i.e, inpt ot outpatient treatment programs)?: No Have you ever Experienced Blackouts?: No Have you ever Combined Alcohol with other Downers within the last 90 days?: No Have you ever Combined Alcohol with any other Substance of Abuse during the last 90 days?: No Positive Blood Alcohol level on Presentation? [PCS.BAL]: No Evidence of Increased Autonomic Activity (i.e. HR>120, tremor, sweating, agitation, nausea)?: No Result: 0
[2022-08-24] MEDS: Acetaminophen 325 MG TAB PO (15:55)
[2022-08-24] MEDS: Dronabinol 2.5 MG CAP PO (15:56)
[2022-08-24] MEDS: Atorvastatin 40 MG TAB 80 MG PO (19:18)
[2022-08-24] MEDS: Melatonin 3 MG TAB PO (20:05)
[2022-08-24] MEDS: Mirtazapine 15 MG TAB 30 MG PO (20:05)
[2022-08-25] VITALS (10 sets, daily range): BP systolic 95–111; BP diastolic 59–69; PULSE 87–97; RESP 16–24; TEMP 36.2–37.8; O2SAT 92–97
[2022-08-25 06:29] LABS: HCT 23.2 % (40.0-50.0); HGB 7.6 g/dL (13.5-17.5); MCH 29.3 pg (27.0-33.0); MCHC 32.8 % (32.0-36.0); MCV 90 fL (80-95); MPV 10.5 fL (8.0-11.0); RBC 2.59 10^6/uL (4.36-5.78); RDW 17.1 % (11.8-14.1); RDW-SD 55.2 fL; WBC 2.81 10^3/uL (4.4-10.8)
[2022-08-25 07:17] LABS: Absolute Lymphocyte Count 0.98 10^3/uL (1.2-3.4); Absolute Monocyte Count 0.22 10^3/uL (0.1-0.8); Bands % 3; Diff Comment Manual Differential; Platelet Count 69 10^3/uL (130-400)
[2022-08-25 07:18] LABS: RBC Morphology Normal
[2022-08-25] MEDS: Normal Saline Flush 10 ML SYR IVP (08:10)
[2022-08-25] MEDS: Tamsulosin 0.4 MG CAPCR PO (08:11)
[2022-08-25] MEDS: buPROPion-CR 150 MG TABCR PO (08:11)
--- NOTE | 2022-08-25 08:53 | PDOC.CMPRO ---
- If Service Date Differs Date of service: 08/25/22 Time of Service: 08:53 Care Management Progress Note S/O: Per Dr. Mayo, records indicate that he has widespread metastasis and is receiving chemotherapy which should be taken into consideration when seeking SNF placement and ability for facilities to accommodate tx plan. Palliative consult is scheduled for today to discuss goals of care. Eric has expressed several times that he would like to go home and be with his dog, however Mariya feels strongly that discharging home is not an option. Eric has an appointment with Dr. Nunez tomorrow at 1130, to discuss the results of his recent PET scan. CM spoke with Talon from [facility] and they are unable to make a determination as to whether appointment can be done via Zoom. CM will continue to follow. A: 87 year old male admitted to [facility] on 08/21/22 for Acute blood loss anemia, hemodynamically unstable P: Eric continues to be closely monitored and treated. Palliative consult is ordered. PT recommends SNF for continued rehab. CM continues to follow. Mariya was previously looking into hiring caregivers 3 days per week. However at this time she feels strongly that Eric can not discharge home.
[2022-08-25] MEDS: Polyethylene Glycol 3350 17 GM PACKET PO (11:26)
--- NOTE | 2022-08-25 14:47 | PTTR_ITS ---
Date of service: 08/26/22 Time of Service: 11:38 PT Notes Visit Reasons: Acute Hemodynamically Unstable Anemia Inpatient Physical Therapy Treatment Note [facility] Date: 08/26/2022 PRECAUTIONS: Fall, activity as tolerated SUBJECTIVE: Enrique is pleasant and agreeable to participating in PT. He indicates that he is feeling weak, and is worried about going home and being a burden on his . OBJECTIVE: PAIN: No c/o pain BED MOBILITY/TRANSFERS Sit-stand: SBA Stand-sit: SBA GAIT Assistive Device: FWW Weight bearing: Full Assist: SBA-S Distance: 150' x2 Deviation: Cueing for increased step height/length on L, cueing for FWW management for safety, seated rest x1 STAIRS: Uo/down 3x4 and 2x6 using B rails and a step-to pattern with SBA ASSESSMENT: Patient requires cueing for safety with gait training, demonstrating short step height/length on the L and requiring cueing for FWW management and posture. he demonstrates improved activity tolerance at this t melissa. PLAN: Continue with gait and transfer training as well as global strengthening for improved activity tolerance and safety with mobility. TREATMENT CODE/TIME: Session 1: 20 minutes; [id number] (11:38) Session 2: Hold afternoon session, patient and family meeting with Palliative Care provider
--- NOTE | 2022-08-25 17:24 | PGE_ITS ---
Date of Service Date of service: 08/25/22 Time of Service: 17:26 Assessment and Plan Assessment and plan (1) Fever: Status: Acute Assessment and plan: Temp of 38.1 on 08/23. Was asymptomatic. UA negative for evidence of infection. blood cultures pending. COVID-19 PCR neg. CXR neg. Encourage incentive spirometry. Encourage PO fluids. No further fevers. (2) Anorexia: Status: Chronic Assessment and plan: Agree that this is likely due to cancer; however, also depressed. Continue Increased dose of mirtazapine. Continue marinol. Palliative care consulted. 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 Palliative care consulted. He has appt with oncologist tomorrow AM. (4) Deep vein thrombosis (DVT) of right upper extremity: Status: Resolved Assessment and plan: Holding apixaban at this time. Will continue to hold H/H as the patient is mildly hypotensive and tachycardic - possibility of bleeding remains (5) Right middle cerebral artery stroke: Status: Resolved Assessment and plan: H/o of. With no clear residual deficits - however, could be contributing to falls. PT consulted and SNF placement is being pursued. (6) Depression: Status: Chronic Assessment and plan: Continue Increased dose of mirtazapine; continue wellbutrin Sr (7) Urinary retention: Status: Acute Assessment and plan: S/p lynn Evaluated by Dr Mayo who recommended starting flomax and a VT in 4-5 days (8) Discharge planning issues: Status: Acute Assessment and plan: Full code Palliative care consulted. His and Care managment discussed his disposition. is adamant that she cannot care for him at home given his current level of disability. He is willing to go to a SNF but he would be unable to pursue any further treatment with oncology for his prostate cancer. He has an appt with oncology tomorrow but he will not be able to attend since he cannot be safely discharged at this time. His plans to go to the appt. Palliative care did speak with pt and family. He is now a DNR/DNI. His further wishes for treatments has not been decided. Oncology input will be helpful. (9) Anemia: Status: Chronic Assessment and plan: Symptomatic anemia s/p 2 units pRBCs on admission. Hemoglobin dropped from 8.8 to 7.6. Continue to monitor. Subjective Subjective Patient reports: no new complaints and afebrile; denies nausea, vomiting or shortness of breath Exam Narrative Exam Narrative: General: Pleasant elderly male. Fatigued appearing. Conversant. HEENT: EOMI, sclera clear, dry MM Heart: RRR, GENEVIEVE Lungs: CTAB/diminished breath sounds at B bases Abdomen: soft, nontender, nondistended Extremities: no edema BLEs Objective Last Vital Signs Temp 37.3 C 08/25/22 15:47 Pulse 93 H 08/25/22 16:13 Resp 16 08/25/22 15:47 BP 109/68 08/25/22 15:47 Pulse Ox 97 08/25/22 15:47 Laboratory Results - last 24 hr 08/25/22 05:42 WBC 2.81 L RBC 2.59 L Hgb 7.6 L Hct 23.2 L MCV 90 MCH 29.3 MCHC 32.8 RDW 17.1 H Plt Count 69 L MPV 10.5 Immature Gran % 0.0 Neutrophils % 54.0 Band Neutrophils % 3 Lymphocytes % 35.0 Monocytes % 8.0 Eosinophils % 0.0 Basophils % 0.0 Nucleated RBC % 0.0 Absolute Neutrophils 1.60 Absolute Lymphocytes 0.98 L Absolute Monocytes 0.22 Absolute Eosinophils 0.00 Absolute Basophils 0.00 RBC Morphology Normal PAWSS Have you Been Recently Intoxicated or Drunk Within the Last 30 days?: No Have you Ever Experienced Previous Episodes of Alcohol Withdrawal?: No Have you ever Experienced Withdrawal Seizures?: No Have you ever Experienced Delirium Tremens(DT)s?: No Have you ever undergone Alcohol Rehabilitation Treatment (i.e, inpt ot outpatient treatment programs)?: No Have you ever Experienced Blackouts?: No Have you ever Combined Alcohol with other Downers within the last 90 days?: No Have you ever Combined Alcohol with any other Substance of Abuse during the last 90 days?: No Positive Blood Alcohol level on Presentation? [PCS.BAL]: No Evidence of Increased Autonomic Activity (i.e. HR>120, tremor, sweating, agita tion, nausea)?: No Result: 0
[2022-08-25] MEDS: Dronabinol 2.5 MG CAP PO (18:23)
--- NOTE | 2022-08-25 19:28 | W.PALLCONSUL ---
Date of service: 08/25/22 Time of Service: 16:00 History of Present Illness Narrative: Mr. Nunez is an 87 y/o M currently inpatient at [facility] 2/2 acute blood loss anemia; PMHx sig for metastatic prostate cancer w/bone mets, h/o DVT and CVA (Jun 2022); present for visit pt and pt's /[facility] course: presented to ED on 08/21/22 w/CC weakness w/profound anemia; received 2 units pRBC; admitted inpatient for ongoing monitoring; urology consult 2/2 urinary retention, void trial pending; plan for d/c to SNF, applications pending; pt was previously in rehab 2/2 stroke in June; weakness worsening on Thursday prior to presentation to ED at [facility] f/b Dr. Oreilly at [facility] for metastatic prostate cancer w/multiple bone mets, apt tomorrow at 11:30 at [facility] to review recent PET scan; unclear of how/if able to get to apt or switch to zoom, waiting to confirm tomorrow AM, pt states he would be comfortable missing visit and have Mariya present in his place; pt reports treatment hx includes: chemotherapy, Lupron injections, latest therapies ending in February; reports to review if candidate for procedure, RT, would want to engage in anything that is going to help me, states help me means be stronger and less of a burden on my pt lives at home w/ in [place] and [facility], would like to return home as soon as able, agrees to short stay at SNF, 2-3wks; Mariya has not pursued obtaining home caregivers w/preference for Enrique to be d/c'd to a SNF as she's unable to provide his care at this time; working w/[employer] to find caregivers; live on single story, was previously having difficulty ambulating to bathroom from bedroom overnight, uses walker for ambulation; feeling increased sadness, fear of leaving family and , depression; had period where considered ending life, denies plan, denies feeling this way today, wants to continue living; completed AD previously, was full code; preference for DNR/I status today, would like to consider other options and review in near future s/p tomorrow's visit; preference to be home for EOL Assessment and Plan Assessment and plan (1) Malignant neoplasm of prostate metastatic to bone: Status: Chronic Assessment and plan: f/b [facility] Dr. Oreilly, apt to review PET scan and POC tomorrow at 11:30 - confirmation in AM regarding zoom or Mariya visit - CM to assist w/coordination (2) DNR (do not resuscitate): Status: Acute Assessment and plan: COLST completed w/DNR/I status preference to for no feed tube; will continue to review at f/u visits (3) Palliative care encounter: Status: Acute Assessment and plan: continue to follow, plan for Wed inpt visit if still in hospital consider discharge home on hospice if pt opts for no future oncology treatment (4) Discharge planning issues: Status: Acute Assessment and plan: SNF applications pending consider home on hospice PRN reviewed w/Mariya to continue pursuing 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 Hemoglobin dropped from 8.8 to 7.6. (8) Anorexia: Status: Chronic Assessment and plan: Continue Increased dose of? mirtazapine. Continue marinol (9) Weakness: Status: Acute Assessment and plan: continue PT SNF recommended for ongoing therapy (10) Urinary retention: Status: Acute Assessment and plan: f/b urology; lynn catheter in place void trial pending (11) Fever: Status: Acute Assessment and plan: resolved no cause identified Review of Systems Narrative: continues to feel weak and fatigued; admits has had a lot going on today, including recent PT visit; continues to have decreased appetite; denies pain; PFSH All Active Problems (Updated 08/25/22 @ 20:32 by Ayah Valle NP) Fear of (Acute) Palliative care encounter (Acute) DNR (do not resuscitate) (Acute) Anemia (Chronic) Fever (Acute) Urinary retention (Acute) Discharge planning issues (Acute) Depression (Chronic) Prostate cancer (Chronic) Acute blood loss anemia (Acute) Anhedonia (Acute) Anorexia (Chronic) Anemia (Chronic) Vitamin D deficiency (Acute) Ataxia (Acute) Left hemiparesis (Acute ~06/2022) wit left sided neglect Chronic anticoagulation (Acute) Weakness (Acute) Malignant neoplasm of prostate metastatic to bone (Chronic) [facility] [place]/22/22 Hot flash due to medication (Acute) Mechanical dysphagia (Acute) Hypertension (Chronic) Androgen deprivation therapy (Acute ~06/2022) Anterior epistaxis (Acute) Echocardiogram abnormal (Chronic) No acute findings, but dilated ascending aorta measuring 4.56 cm. 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 Alec Omalley MD H/O right wrist surgery LS spine disc surgery Prostate Biopsy (04/05/18) S/P partial gastrectomy (05/10/19) 05/10/19: robotic assisted partial gastrectomy/wedge resection with gastro-gastric anastamosis. [facility]. S/P tonsillectomy Family History Mother , in sleep at age 93. No problems noted. Father , unknown at age 90. Aneurysm Sister No problems noted. Brother No problems noted. Social History Smoking/Tobacco Use Status: Former Tobacco Use Quit Date: 11/30/1963 Pack-years: 5 Tobacco: How many years used: 5 Smoking risk assessment performed?: Yes Alcohol Intake: current Alcohol Intake frequency: 0-2 drinks per day Alcohol type: beer Drug use: Never Substance use type: does not use Adopted: No Caregiver/Support person: No Foster care: No Household members: spouse Housing: house Number of Children: 2 number of grandchildren: 5 Communication Needs: Hard of Hearing Education Level: college Details: Bachelor's Degree Do you need help understanding health information?: Often current occupation: Retired Pets and animals: Yes Pets and animals: dog(s) Sexually active: No Do you think of yourself as: straight/heterosexual Current gender identity: male What is your relationship status?: How often do you talk on the phone with friends or family?: twice per week How often do you get together with friends or relatives?: once per week How often do you attend zoroastrian or samaritan services?: decline to answer Do you belong to any clubs or organized social groups?: no Panel score (0-1 are the most socially isolated patients): 2 What type of physical activity do you participate in: walking Duration: 30-45 minutes/day Frequency: 3-4 times per week Jeni/Hoahaoism: Confucianism Special jeni needs: No Seatbelt use: always Drive intox or ride w/intox patient transportation driver: No Working smoke detector in home: Yes Fire extinguisher in home: Yes Carbon monox detector in home: Yes Do you feel safe at home: Yes Do you feel safe in your relationship?: Yes Exam Narrative Exam Narrative: lying bed w/HOB elevated throughout visit, present at bedside denies dinner when offered Const General: cooperative, comfortable and ill appearing Nutritional Appearance: thin Orientation: alert, awake and oriented x3 HENMT Head: no acral cyanosis Resp Effort & Inspection: normal respiratory effort, able to speak in complete sentences, no audible wheezes and no cough Other: mildly dark yellow urine noted in catheter bad Skin Other: skin atrophy, scattered bruising over BUE Psych Other: cries intermittently throughout exam when discussing EOL preferences and goals; requests hug from ; calmed w/hand holding Results Last Vital Signs Temp 99.1 F 08/25/22 15:47 Pulse 93 H 08/25/22 16:13 Resp 16 08/25/22 15:47 BP 109/68 08/25/22 15:47 Pulse Ox 97 08/25/22 15:47 Labs Result diagrams: 08/25/22 05:42 08/24/22 06:10 Labs: Laboratory Results - last 24 hr 08/25/22 05:42 WBC 2.81 L RBC 2.59 L Hgb 7.6 L Hct 23.2 L MCV 90 MCH 29.3 MCHC 32.8 RDW 17.1 H Plt Count 69 L MPV 10.5 Immature Gran % 0.0 Neutrophils % 54.0 Band Neutrophils % 3 Lymphocytes % 35.0 Monocytes % 8.0 Eosinophils % 0.0 Basophils % 0.0 Nucleated RBC % 0.0 Absolute Neutrophils 1.60 Absolute Lymphocytes 0.98 L Absolute Monocytes 0.22 Absolute Eosinophils 0.00 Absolute Basophils 0.00 RBC Morphology Normal
[2022-08-25] MEDS: Melatonin 3 MG TAB PO (21:45)
[2022-08-25] MEDS: Atorvastatin 40 MG TAB 80 MG PO (21:45)
[2022-08-25] MEDS: Mirtazapine 15 MG TAB 30 MG PO (21:45)
[2022-08-26] VITALS (8 sets, daily range): BP systolic 101–112; BP diastolic 60–70; PULSE 84–97; RESP 16–20; TEMP 36.7–37.9; O2SAT 92–96
[2022-08-26] MEDS: buPROPion-CR 150 MG TABCR PO (08:35)
[2022-08-26] MEDS: Tamsulosin 0.4 MG CAPCR PO (08:35)
--- NOTE | 2022-08-26 10:43 | CMPROGNOTE_ITS ---
- If Service Date Differs Date of service: 08/26/22 Time of Service: 10:43 Care Management Progress Note S/O: SNF referrals pending, CM notified Mariya that updates would be provided as facility determinations become available. CM called [facility] to determine platform for [address] Hampton will connect with Eric and Mariya via phone, updated clinicals faxed to [facility] (F#[phone]). Per Dr. Mayo, records indicate Eric has widespread metastasis and is receiving chemotherapy which should be taken into consideration when seeking SNF placement and ability for facilities to accommodate tx plan. A: 87 year old male admitted to [facility] on 08/21/22 for Acute blood loss anemia, hemodynamically unstable P: Eric continues to be closely monitored and treated. Palliative consult is ordered. PT recommends SNF for continued rehab. CM continues to follow. Mariya was previously looking into hiring caregivers 3 days per week. However at this time she feels strongly that Eric can not discharge home.
[2022-08-26] MEDS: Normal Saline Flush 10 ML SYR IVP (11:12)
--- NOTE | 2022-08-26 12:37 | PT.INTREAT ---
Date of service: 08/26/22 PT Notes Visit Reasons: Acute Hemodynamically Unstable Anemia Inpatient Physical Therapy Treatment Note [facility] Date: 08/26/2022 PRECAUTIONS: Fall, activity as tolerated SUBJECTIVE: Enrique is pleasant and agreeable to participating in PT. He reports that he slept well last night and is feeling better and more energetic today. He continues to report feeling weak compared to his baseline. He reports that he had a nice visit with Doris, from Palliative Care yesterday. OBJECTIVE: PAIN: No c/o pain BED MOBILITY/TRANSFERS Sit-stand: SBA Stand-sit: SBA GAIT Assistive Device: FWW Weight bearing: Full Assist: SBA-S Distance: 150' x2 Deviation: Cueing for posture, seated rest x1 THEREX: Patient was instructed in a LE strengthening program, to include: functional step-ups to 4 step, functional [id number], standing hip flexion, extension, abduction, and heel raises, with 2# ankle weights. Patient requires SBA for safety with all exercises. ASSESSMENT: Patient demonstrates improved gait mechanics, although continues to require cueing for posture. He continues to demonstrate improved activity tolerance at this time. PLAN: Continue with gait and transfer training as well as global strengthening for improved activity tolerance and safety with mobility. TREATMENT CODE/TIME: Session 1: 27 minutes; 28172, [id number] (10:02) Session 2: Patient refused afternoon PT session, stating I'm working for nothing. He reports feeling discouraged after his meeting with the oncologist this morning, and discovering that he cannot undergo any further treatment for his cancer. He states I don't want to waste the limited time I have left.
--- NOTE | 2022-08-26 12:42 | W.NUTCONSULT ---
Date of service: 08/26/22 Time of Service: 12:42 Nutritional Consult ASSESSMENT: 87 year old male with prostate cancer with mets to bone, presents with unintentional weight loss of 10% in last 2 months. Continues to receive chemo, now with anemia, anorexia and overall decline. BMI on low end of normal. Following regular meal with adequate intake. Currently meeting 100% macronutrient needs. At nutritional risk in view of significant weight loss and advanced cancer. NUTRITIONAL DIAGNOSIS: Unintentional significant weight loss secondary to advanced cancer with mets INTERVENTION: Will provide meal preferences and supplements as needed. MONITORING AND EVALUATION: will monitor po intake, labs and weight. Time Spent in Nutritional Counseling and Treatment: 0
--- NOTE | 2022-08-26 13:24 | W.PM.PROGNOT ---
Date of Service Date of service: 08/26/22 Time of Service: :24 Assessment and Plan Assessment and plan (1) Fever: Status: Acute Assessment and plan: Temp of 38.1 on 08/23. Was asymptomatic. UA negative for evidence of infection. blood cultures pending. COVID-19 PCR neg. CXR neg. Encourage incentive spirometry. Encourage PO fluids. No further fevers. (2) Anorexia: Status: Chronic Assessment and plan: Agree that this is likely due to cancer; however, also depressed. Continue Increased dose of mirtazapine. Continue marinol. Palliative care consult appreciated. 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 Palliative care now following. He is now a DNR/DNI Oncology visit today via phone with present. No further treatment options. (4) Deep vein thrombosis (DVT) of right upper extremity: Status: Resolved Assessment and plan: Holding apixaban at this time. Will continue to hold H/H as the patient is mildly hypotensive and tachycardic - possibility of bleeding remains (5) Right middle cerebral artery stroke: Status: Resolved Assessment and plan: H/o of. With no clear residual deficits - however, could be contributing to falls. PT consulted and SNF placement is being pursued. (6) Depression: Status: Chronic Assessment and plan: Continue Increased dose of mirtazapine; continue wellbutrin Sr (7) Urinary retention: Status: Acute Assessment and plan: S/p lynn Evaluated by Dr Mayo who recommended starting flomax (8) Discharge planning issues: Status: Acute Assessment and plan: Full code Palliative care consult appreciated. He made decision to change code status to DNR/DNI Oncology can offer any further treatments. Plan is to d/c to SNF with ultimate goal of returning home. (9) Anemia: Status: Chronic Assessment and plan: Symptomatic anemia s/p 2 units pRBCs on admission. Hemoglobin dropped from 8.8 to 7.6. Continue to monitor. Subjective Subjective Patient reports: no new complaints, tolerating a regular diet (appetite still diminished. ) and afebrile; denies nausea, vomiting or shortness of breath Exam Narrative Exam Narrative: General: Pleasant elderly male. Sitting in chair HEENT: EOMI, sclera clear, dry MM Heart: RRR, GENEVIEVE Lungs: CTAB/diminished breath sounds at B bases Abdomen: soft, nontender, nondistended Extremities: no edema BLEs Psych: affect is blunted. A&O x 3. Objective Last Vital Signs Temp 37.1 C 08/26/22 07:22 Pulse 84 08/26/22 07:22 Resp 19 08/26/22 07:22 BP 106/64 08/26/22 07:22 Pulse Ox 92 08/26/22 11:08 PAWSS Have you Been Recently Intoxicated or Drunk Within the Last 30 days?: No Have you Ever Experienced Previous Episodes of Alcohol Withdrawal?: No Have you ever Experienced Withdrawal Seizures?: No Have you ever Experienced Delirium Tremens(DT)s?: No Have you ever undergone Alcohol Rehabilitation Treatment (i.e, inpt ot outpatient treatment programs)?: No Have you ever Experienced Blackouts?: No Have you ever Combined Alcohol with other Downers within the last 90 days?: No Have you ever Combined Alcohol with any other Substance of Abuse during the last 90 days?: No Positive Blood Alcohol level on Presentation? [PCS.BAL]: No Evidence of Increased Autonomic Activity (i.e. HR>120, tremor, sweating, agitation, nausea)?: No Result: 0
[2022-08-26 14:33] LABS: HCT 25.3 % (40.0-50.0); HGB 8.5 g/dL (13.5-17.5)
[2022-08-26] MEDS: Acetaminophen 325 MG TAB PO (15:47)
[2022-08-26] MEDS: Mirtazapine 15 MG TAB 30 MG PO (20:36)
[2022-08-26] MEDS: Melatonin 3 MG TAB PO (20:36)
[2022-08-26] MEDS: Atorvastatin 40 MG TAB 80 MG PO (20:36)
[2022-08-27 03:26] VITALS: BP 103/65; PULSE 84; RESP 16; TEMP 36.7; O2SAT 93
[2022-08-27] MEDS: Tamsulosin 0.4 MG CAPCR PO (07:26)
[2022-08-27] MEDS: buPROPion-CR 150 MG TABCR PO ×2 (07:26→07:30)
[2022-08-27 08:29] VITALS: BP 114/70; PULSE 99; RESP 19; TEMP 37.2; O2SAT 96
--- NOTE | 2022-08-27 09:39 | PDOC.CMPRO ---
- If Service Date Differs Date of service: 08/27/22 Time of Service: 09:39 Care Management Progress Note S/O: Eric met with Dr. Chiu from [facility] yesterday via phone and no further treatment will be pursued. Palliative care is following patient. Eric's goal is to return home following STR stay. SNF referrals are pending. CM notified Mariya that updates would be provided as facility determinations become available. 1600: Palliative consult was done this afternoon. Anticipate, Eric will discharge home with same day admission to Hospice services in the next few days. Eric may requires a short SWB stay, prior to discharge. CM will continue to follow. A: 87 year old male admitted to [facility] on 08/21/22 for Acute blood loss anemia, hemodynamically unstable P: Eric is being followed by Palliative Care. Anticipate, he will discharge home with same day admission to Hospice services. SNF referral's are pending at [facility], [facility] and [facility], if still needed. CM continues to follow.
[2022-08-27 11:23] VITALS: BP 124/72; PULSE 88; RESP 19; TEMP 37.1; O2SAT 98
--- NOTE | 2022-08-27 12:42 | PT.INTREAT ---
PT Notes Visit Reasons: Acute Hemodynamically Unstable Anemia Inpatient Physical Therapy Treatment Note [facility] Date: 08/27/22 SUBJECTIVE: I dont really feel like getting out of bed. He does agree to walk with me this am after a brief conversation. Enrique is agreeable to short pm walk. I came in just as he was getting into bed. OBJECTIVE: [] BED MOBILITY/TRANSFERS Rolling L/R: I Supine-sit: SBA Sit-supine: min A with LE Sit-stand: CGA Stand-sit: SBA GAIT Assistive Device: FWW Weight bearing: full Assist: SBA/CGA Distance: 300' in am and 175' in pm ASSESSMENT: fatigued post ambulation. He did not require a sitting rest break this am. He did require sitting rest x 1 min during pm walk. Definitely noted an increase in fatigue in pm. He put forth good effort in hopes to go home. PLAN: will continue to work on strength and endurance to tolerance following PT POC. TREATMENT CODE/TIME: 20 min in am and pm sessions, [id number]
--- NOTE | 2022-08-27 13:28 | PGE_ITS ---
Date of Service Date of service: 08/27/22 Time of Service: 13:28 Assessment and Plan Assessment and plan (1) Anorexia: Status: Chronic Assessment and plan: Agree that this is likely due to cancer; however, also depressed. Continue Increased dose of mirtazapine. Continue marinol. Palliative care consult appreciated. (2) Malignant neoplasm of prostate metastatic to bone: Status: Chronic Assessment and plan: Agree that bone marrow suppression is likely resulting in anemia. Palliative care now following. He is now a DNR/DNI Oncology visit via phone with present. No further treatment options. (3) Deep vein thrombosis (DVT) of right upper extremity: Status: Resolved Assessment and plan: Holding apixaban at this time. Will continue to hold H/H as the patient is mildly hypotensive and tachycardic - possibility of bleeding remains (4) Right middle cerebral artery stroke: Status: Resolved Assessment and plan: H/o of. With no clear residual deficits - however, could be contributing to falls. PT consulted and SNF placement is being pursued. (5) Depression: Status: Chronic Assessment and plan: Continue Increased dose of mirtazapine; continue wellbutrin Sr (6) Urinary retention: Status: Acute Assessment and plan: S/p lynn Evaluated by Dr Mayo who recommended starting flomax Voiding adequately. (7) Discharge planning issues: Status: Acute Assessment and plan: Full code Palliative care consult appreciated. He made decision to change code status to DNR/DNI Oncology can offer any further treatments. Plan is to d/c to SNF with ultimate goal of returning home vs home with hospice. Palliative speaking with pt and today. (8) Anemia: Status: Chronic Assessment and plan: Symptomatic anemia s/p 2 units pRBCs on admission. Hemoglobin dropped from 8.8 to 7.6. Hgb now 8.5. Continue to monitor. Subjective Subjective Patient reports: nausea (Briefly this morning. Did not eat breakfast) and a febrile; denies diarrhea, vomiting or shortness of breath Exam Narrative Exam Narrative: General: Pleasant elderly male. Sitting in chair HEENT: EOMI, sclera clear Heart: RRR, GENEVIEVE Lungs: CTAB/diminished breath sounds at B bases Abdomen: soft, nontender, nondistended Extremities: no edema BLEs Psych: affect is blunted. A&O x 3. Objective Last Vital Signs Temp 37.1 C 08/27/22 11:23 Pulse 88 08/27/22 11:23 Resp 19 08/27/22 11:23 BP 124/72 08/27/22 11:23 Pulse Ox 98 08/27/22 11:23 Laboratory Results - last 24 hr 08/26/22 14:25 Hgb 8.5 L Hct 25.3 L PAWSS Have you Been Recently Intoxicated or Drunk Within the Last 30 days?: No Have you Ever Experienced Previous Episodes of Alcohol Withdrawal?: No Have you ever Experienced Withdrawal Seizures?: No Have you ever Experienced Delirium Tremens(DT)s?: No Have you ever undergone Alcohol Rehabilitation Treatment (i.e, inpt ot outpatient treatment programs)?: No Have you ever Experienced Blackouts?: No Have you ever Combined Alcohol with other Downers within the last 90 days?: No Have you ever Combined Alcohol with any other Substance of Abuse during the last 90 days?: No Positive Blood Alcohol level on Presentation? [PCS.BAL]: No Evidence of Increased Autonomic Activity (i.e. HR>120, tremor, sweating, agitation, nausea)?: No Result: 0
[2022-08-27] MEDS: Acetaminophen 325 MG TAB PO (14:11)
[2022-08-27 15:57] VITALS: BP 98/56; PULSE 87; RESP 17; TEMP 37; O2SAT 96
--- NOTE | 2022-08-27 16:59 | W.PALLCONSUL ---
Date of service: 08/27/22 Time of Service: 13:00 History of Present Illness Narrative: Mr. Nunez is an 87 y/o M currently inpatient at [facility] 2/2 acute blood loss anemia; PMHx sig for metastatic prostate cancer w/bone mets, h/o DVT and CVA (Jun 2022); present for visit pt and pt's /[facility] Mariya Meeting with oncology yesterday, Dr. Oreilly, reviewed there are no current treatment plans available, could continue Lupron as wanted. Decision to no longer engage in cancer treatment at this time. Would like to go home on hospice as soon as possible. Concerns over caregiver availability, Mariya does not feel she can care for patient alone. Reports son is coming up for a week starting this weekend, daughter will be at the week after that. Both Mariya and patient feel that with the support of her children they would be successful at home with the assistance of home health hospice as well. Anticipated DME includes hospital bed and commode. already have a walker and shower chair in home. Assessment and Plan Assessment and plan (1) Encounter for hospice care discussion: Status: Acute Assessment and plan: to be discharged home on hospice, [facility] notified hospice eligible: no longer engaging in metastatic prostate cancer treatments weakness, anorexia, anemia; PPS 50% or below preference for in hospital consult w/ornamental metal erector (2) DNR (do not resuscitate): Status: Acute Assessment and plan: COLST previously comleted, DNR/I did not update today, need for review to consider updates to [facility] (3) Anemia: Status: Chronic Assessment and plan: suspect related to widespread metastatic disease (4) Depression: Status: Chronic Assessment and plan: pt appeared less depressed and fearful today compared to thursday continue mirtazapine and wellbutrin today - consider med changes w/hospice provider (5) Malignant neoplasm of prostate metastatic to bone: Status: Chronic Assessment and plan: no longer engaging in oncology care (6) Anorexia: Status: Chronic Assessment and plan: suspect cancer and depression components Review of Systems Narrative: continues to feel weak and fatigued;; continues to have decreased appetite; reports L hip pain, new onset, 02/06, requests medication PFSH All Active Problems (Updated 08/27/22 @ 17:05 by Ayah Valle NP) Encounter for hospice care discussion (Acute) Fear of (Acute) Palliative care encounter (Acute) DNR (do not resuscitate) (Acute) Anemia (Chronic) Fever (Acute) Urinary retention (Acute) Discharge planning issues (Acute) Depression (Chronic) Prostate cancer (Chronic) Acute blood loss anemia (Acute) Anhedonia (Acute) Anorexia (Chronic) Anemia (Chronic) Vitamin D deficiency (Acute) Ataxia (Acute) Left hemiparesis (Acute ~06/2022) wit left sided neglect Chronic anticoagulation (Acute) Weakness (Acute) Malignant neoplasm of prostate metastatic to bone (Chronic) [facility] [place]22/22 Hot flash due to medication (Acute) Mechanical dysphagia (Acute) Hypertension (Chronic) Androgen deprivation therapy (Acute ~06/2022) Anterior epistaxis (Acute) Echocardiogram abnormal (Chronic) No acute findings, but dilated ascending aorta measuring 4.56 cm. 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 Alec Omalley MD H/O right wrist surgery LS spine disc surgery Prostate Biopsy (04/05/18) S/P partial gastrectomy (05/10/19) 05/10/19: robotic assisted partial gastrectomy/wedge resection with gastro-gastric anastamosis. [facility]. S/P tonsillectomy Family History Mother , in sleep at age 93. No problems noted. Father , unknown at age 90. Aneurysm Sister No problems noted. Brother No problems noted. Social History Smoking/Tobacco Use Status: Former Tobacco Use Quit Date: 11/30/1963 Pack-years: 5 Tobacco: How many years used: 5 Smoking risk assessment performed?: Yes Alcohol Intake: current Alcohol Intake frequency: 0-2 drinks per day Alcohol type: beer Drug use: Never Substance use type: does not use Adopted: No Caregiver/Support person: No Foster care: No Household members: spouse Housing: house Number of Children: 2 number of grandchildren: 5 Communication Needs: Hard of Hearing Education Level: college Details: Bachelor's Degree Do you need help understanding health information?: Often current occupation: Retired Pets and animals: Yes Pets and animals: dog(s) Sexually active: No Do you think of yourself as: straight/heterosexual Current gender identity: male What is your relationship status?: How often do you talk on the phone with friends or family?: twice per week How often do you get together with friends or relatives?: once per week How often do you attend sabianist or moravian services?: decline to answer Do you belong to any clubs or organized social groups?: no Panel score (0-1 are the most socially isolated patients): 2 What type of physical activity do you participate in: walking Duration: 30-45 minutes/day Frequency: 3-4 times per week Jeni/Yarsanism: Sabianism Special jeni needs: No Seatbelt use: always Drive intox or ride w/intox crude oil driver: No Working smoke detector in home: Yes Fire extinguisher in home: Yes Carbon monox detector in home: Yes Do you feel safe at home: Yes Do you feel safe in your relationship?: Yes Exam Narrative Exam Narrative: lying bed w/HOB elevated throughout visit, present at bedside Const General: cooperative, comfortable and ill appearing Nutritional Appearance: thin Orientation: alert, awake and oriented x3 HENMT Head: no acral cyanosis Resp Effort & Inspection: normal respiratory effort, able to speak in complete sentences, no audible wheezes and no cough Other: mildly dark yellow urine noted in catheter bad Skin Other: skin atrophy, scattered bruising over BUE Psych Speech and Movement: speech clear Mood: congruent mood Affect: normal affect and sad Attitude: cooperative Thought Process: normal Thought Content: normal Insight: insight good Judgment: judgment good Results Last Vital Signs Temp 98.6 F 08/27/22 15:57 Pulse 87 08/27/22 15:57 Resp 17 08/27/22 15:57 BP 98/56 L 08/27/22 15:57 Pulse Ox 96 08/27/22 15:57 Labs Result diagrams: 08/26/22 14:25 08/24/22 06:10
[2022-08-27 19:18] VITALS: BP 100/63; PULSE 87; RESP 16; TEMP 36.8; O2SAT 95
[2022-08-27] MEDS: Mirtazapine 15 MG TAB 30 MG PO (21:19)
[2022-08-27] MEDS: Atorvastatin 40 MG TAB 80 MG PO (21:19)
[2022-08-27] MEDS: Melatonin 3 MG TAB PO (21:20)
[2022-08-27 22:50] VITALS: BP 102/63; PULSE 87; RESP 18; TEMP 37.1; O2SAT 94
[2022-08-28 04:06] VITALS: BP 97/60; PULSE 82; RESP 18; TEMP 36.9; O2SAT 94
[2022-08-28 07:33] VITALS: BP 107/67; PULSE 86; RESP 16; TEMP 37.3; O2SAT 95
[2022-08-28] MEDS: buPROPion-CR 150 MG TABCR PO (07:50)
[2022-08-28] MEDS: Tamsulosin 0.4 MG CAPCR PO (07:50)
--- NOTE | 2022-08-28 08:38 | CMPROGNOTE_ITS ---
- If Service Date Differs Date of service: 08/28/22 Time of Service: 08:38 Care Management Progress Note S/O: Eric was sitting up in his chair visiting with his Mariya when CM met with him. He is alert, oriented and pleasant. Eric and Mariya met with Noemy from Hospice today about discharge home tomorrow or Thursday with same day admission to Hospice services. Noemy is coordinating. Eric will need a Hospital Bed, Commode and Table prior to discharge. Mariya shares that she is anx ious about the discharge process and the amount of work needed, at her home to make room for the DME. Her son was planning on coming to town this weekend to help, and she is planning on asking him to come tomorrow. At this time, she doesn't think he will arrive until after 3pm. CM will continue to follow. A: 87 year old male admitted to [facility] on 08/21/22 for Acute blood loss anemia, hemodynamically unstable P: Eric is being followed by Palliative Care. Anticipate, he will discharge home with same day admission to Hospice services. Noemy is in the process of ordering a Hospital Bed, Commode and table. CM continues to follow.
--- NOTE | 2022-08-28 09:47 | PT.INTREAT ---
Date of service: 08/28/22 Time of Service: 09:21 PT Notes Visit Reasons: Acute Hemodynamically Unstable Anemia Inpatient Physical Therapy Treatment Note [facility] Date: 08/28/2022 PRECAUTIONS: Fall, activity as tolerated SUBJECTIVE: Enrique is pleasant and agreeable to participating in PT. He reports that he slept OK last night and that he was able to eat a little breakfast and have some juice and coffee this morning. OBJECTIVE: Patient appears depressed and discouraged by his prognosis, limiting his energy and ability to participate in PT at this time. PAIN: No c/o pain BED MOBILITY/TRANSFERS Sit-stand: SBA Stand-sit: SBA GAIT Assistive Device: FWW Weight bearing: Full Assist: SBA Distance: 300' Deviation: Cueing for posture, cueing for increased step length/height on L, slow pacing THEREX: Patient was instructed in a LE strengthening program, to include: hip flexion and abduction, LAQ, ankle pumps and heel raises, with 2# ankle weights. Patient demonstrates limited activity tolerance, requiring occasional rests between reps and tolerating fewer reps. ASSESSMENT: Patient demonstrates limited activity tolerance and global weakness. He requires cueing for gait mechanics and posture. PLAN: Continue with gait and transfer training as well as global strengthening for improved activity tolerance and safety with mobility. TREATMENT CODE/TIME: 25 minutes; [id number], [id number] (09:21)
[2022-08-28 11:11] VITALS: BP 108/66; PULSE 94; RESP 16; TEMP 36.7; O2SAT 96
--- NOTE | 2022-08-28 13:40 | PCPN_ITS ---
Date of service: 08/28/22 Time of Service: 13:40 Assessment and Plan Assessment and plan (1) Encounter for hospice care discussion: Status: Acute Assessment and plan: To be discharged home on hospice, [facility] aware. GOOD Davis visited patient and his today. hospice eligible: no longer engaging in metastatic prostate cancer treatments weakness, anorexia, anemia; PPS 50% or below (2) DNR (do not resuscitate): Status: Acute Assessment and plan: COLST on file, he is a DNR/DNI (3) Anemia: Status: Chronic Assessment and plan: suspect related to widespread metastatic disease (4) Depression: Status: Chronic Assessment and plan: Continue mirtazapine and wellbutrin today - consider med changes w/hospice provider (5) Malignant neoplasm of prostate metastatic to bone: Status: Chronic Assessment and plan: No longer engaging in oncology care (6) Anorexia: Status: Chronic Assessment and plan: suspect cancer and depression components Subjective Subjective Interval history since last seen: Enrique was seen in his hospital room for f/u palliative. He was seen by Ayah aVlle NP yesterday and the decision was made to transition to hospice at home for his metastatic prostate cancer. His contacted the office re: meeting at the hospital this afternoon. When I arrived, his had already left the hospital. He denies concerns. They were able to meet with GOOD Davis from hospice who answered questions. He denies pain at this time. He is weaker, he has been working with PT but his exercise tolerance is limited d/t weakness. His appetite is decreased. He is pleased to be going home. Exam Narrative Exam Narrative: General: very pleasant, thin, elderly man, laying in bed, watching TV. He is awake, alert and oriented. Answers questions appropriately. HEENT: normocephalic, atraumatic, EOMI, mmm. Neck: supple, no JVD. Respiratory: respirations appear even and unlabored. Extremities: moves all 4 extremities freely. Objective Last Vital Signs Temp 36.7 C 08/28/22 11:11 Pulse 94 H 08/28/22 11:11 Resp 16 08/28/22 11:11 BP 108/66 08/28/22 11:11 Pulse Ox 96 08/28/22 11:11
[2022-08-28 15:21] VITALS: BP 109/69; PULSE 93; RESP 18; TEMP 37.5; O2SAT 94
--- NOTE | 2022-08-28 15:59 | W.PM.PROGNOT ---
Date of Service Date of service: 08/28/22 Time of Service: 15:59 Assessment and Plan Assessment and plan (1) DNR (do not resuscitate): Status: Acute Assessment and plan: COLST previously comleted, DNR/I (2) Anemia: Status: Chronic Assessment and plan: suspect related to widespread metastatic disease (3) Depression: Status: Chronic Assessment and plan: Today appears less sad than yesterday. 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 Will continue to hold H/H as the patient is mildly hypotensive and tachycardic - possibility of bleeding remains (7) Right middle cerebral artery stroke: Status: Resolved Assessment and plan: H/o of. With no clear residual deficits - however, could be contributing to falls. (8) Urinary retention: Status: Acute Assessment and plan: S/p lynn Evaluated by Dr Mayo who recommended starting flomax Voiding adequately. (9) Discharge planning issues: Status: Acute Assessment and plan: Full code Palliative care consult appreciated. He made decision to change code status to DNR/DNI Planning home with hospice when hospital bed and any other needs are ready; likely tomorrow. Subjective Subjective Patient reports: no new complaints, nausea (mild in the early AM then resolved. ) and afebrile; denies vomiting Interval history since last seen: Able to get out of bed and use walker independently. Exam Narrative Exam Narrative: lying bed. Conversant and pleasant. Const General: cooperative, comfortable and ill appearing Nutritional Appearance: thin Orientation: alert, awake and oriented x3 HENMT Head: no acral cyanosis Resp Effort & Inspection: normal respiratory effort, able to speak in complete sentences, no audible wheezes and no cough Other: mildly dark yellow urine noted in catheter bad Skin Other: skin atrophy, scattered bruising over BUE Neuro General: no focal motor deficits Cranial Nerves: facial strength normal Psych Speech and Movement: speech clear Mood: congruent mood Affect: normal affect and sad Attitude: cooperative Thought Process: normal Thought Content: normal Insight: insight good Judgment: judgment good Objective Last Vital Signs Temp 37.5 C 08/28/22 15:21 Pulse 93 H 08/28/22 15:21 Resp 18 08/28/22 15:21 BP 109/69 08/28/22 15:21 Pulse Ox 94 08/28/22 15:21 PAWSS Have you Been Recently Intoxicated or Drunk Within the Last 30 days?: No Have you Ever Experienced Previous Episodes of Alcohol Withdrawal?: No Have you ever Experienced Withdrawal Seizures?: No Have you ever Experienced Delirium Tremens(DT)s?: No Have you ever undergone Alcohol Rehabilitation Treatment (i.e, inpt ot outpatient treatment programs)?: No Have you ever Experienced Blackouts?: No Have you ever Combined Alcohol with other Downers within the last 90 days?: No Have you ever Combined Alcohol with any other Substance of Abuse during the last 90 days?: No Positive Blood Alcohol level on Presentation? [PCS.BAL]: No Evidence of Increased Autonomic Activity (i.e. HR>120, tremor, sweating, agitation, nausea)?: No Result: 0
[2022-08-28 19:05] VITALS: BP 109/68; PULSE 88; RESP 16; TEMP 36.8; O2SAT 95
[2022-08-28] MEDS: Atorvastatin 40 MG TAB 80 MG PO (20:44)
[2022-08-28] MEDS: Mirtazapine 15 MG TAB 30 MG PO (20:44)
[2022-08-28] MEDS: Melatonin 3 MG TAB PO (20:45)
[2022-08-29 01:18] VITALS: BP 96/56; PULSE 83; RESP 16; TEMP 36.9; O2SAT 95
[2022-08-29 06:18] LABS: HGB 7.4 g/dL (13.5-17.5)
[2022-08-29 07:22] VITALS: BP 111/64; PULSE 84; RESP 17; TEMP 36.7; O2SAT 95
[2022-08-29] MEDS: Tamsulosin 0.4 MG CAPCR PO (07:51)
[2022-08-29] MEDS: buPROPion-CR 150 MG TABCR PO (07:51)
--- NOTE | 2022-08-29 09:41 | CMPROGNOTE_ITS ---
- If Service Date Differs Date of service: 08/29/22 Time of Service: 09:41 Care Management Progress Note S/O: Eric was sitting up in his chair, reading when CM met with him. He wants to discharge home today. CM discussed this with Mariya and she is agreeable although she would have liked another day to buy new sheets to make the hospital bed. EMS transportation through [employer] is arranged for 5 pm. [facility]. Eric will admit to Hospice services tomorrow (Ally reviewed with Mariya). A: 87 year old male admitted to [facility] on 08/21/22 for Acute blood loss anemia, hemodynamically unstable P: Eric is being followed by Palliative Care. Anticipate, he will discharge home and admit to Hospice services Thursday. DME (Hospital Bed, Commode and table) through [employer] arrived 08/29/22 at 1pm. CM continues to follow.
[2022-08-29 11:12] VITALS: BP 109/64; PULSE 87; RESP 16; TEMP 36.9; O2SAT 94
--- NOTE | 2022-08-29 14:59 | CMDISCH_ITS ---
- If Service Date Differs Date of service: 08/29/22 Time of Service: 14:59 LACE Index Scoring Tool - Questions: Length of Stay (in days): 7 - 13 Acuity (Admit via E.D.?): Yes Comorbidities: Any Tumor (Benign neoplasm of colon, basal cell ca, ), Metastatic Solid Tumor (Prostate cancer, mets to multiple sites) E.D. Visits: 2 - Answers: Total Score: 15 Risk of Readmission: High Risk Care Management Discharge Reason for Hospitalization: Hemodynamically unstable anemia. Discharge Plan: Eric is being followed by Palliative and planning to admit to Hospice Services tomorrow. DME was ordered by [facility] and delivered by [facility] at 12pm. Eric is discharged home via EMS. He will follow up with community providers, Hospice services and discharge plan of care as prescribed. Patient/Family Education Needs: Review discharge instructions, limitations, medications and plan to follow up with community providers. Review ask me three. Services Needed at Discharge: DME Agency, Home Health Care Services ([facility]), Transportation ([facility] arranged by [facility])
[2022-08-29 15:33] VITALS: BP 110/65; PULSE 97; RESP 16; TEMP 37; O2SAT 96
--- NOTE | 2022-08-29 15:33 | INDS_ITS ---
PT Notes Visit Reasons: Acute Hemodynamically Unstable Anemia Physical Therapy Inpatient Discharge Note Datet of Service: 08/29/22 Treatment Dates: 08/22/2022 - 08/29/22 Referring Doctor:? Corry Dobbs MD PT Orders: PT CONSULT: Limited ability Precautions: Fall. Standard. Activity as tolerated. Sensorineural hearing loss. Patient Profile/Admitting Diagnosis:? Enrique is an 86-year-old male patient with progressive praostate cancer with bony metastasis and has been on chmeotherapy since February of this year who presented to the ED from PCP's office on 08/21/2022 due to severe anemia, dizziness , and unsteady gait.? 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 He has participated in skilled PT intervention for 10 visits over the past 8 days, and will be returning home for hospice services. PMHX: All Active Problems?(Updated 08/21/22 @ 20:27 by Nilesh Nolasco) Acute blood loss anemia (Acute) Anhedonia (Acute) Anorexia (Acute) Anemia (Chronic) Vitamin D deficiency (Acute) Ataxia (Acute) Left hemiparesis (Acute ~06/2022) wit left sided neglectRight middle cerebral artery stroke (Acute 07/04/22) Chronic anticoagulation (Acute) Weakness (Acute) Malignant neoplasm of prostate metastatic to bone (Chronic[place] [facility] [place] due to medication (Acute) Mechanical dysphagia (Acute) Hypertension (Chronic) Androgen deprivation therapy (Acute ~06/2022) Anterior epistaxis (Acute) Echocardiogram abnormal (Chronic) No acute findings, but dilated ascending aorta measuring 4.56 cm. 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 Appendectomy colonoscopy (12/23/16) egd W/ bx (02/01/18) [facility] [place] [place]ophagogast[place] [facility] [place] Alec Omal[place] H/O right wrist surgery LS spine disc surgery Prostate Biopsy (04/05/18) S/P partial gastrectomy (05/10/19) 05/10/19: robotic assisted partial gastrectomy/wedge resection with gastro-gas tric anastamosis. [facility] [place] [place]. S/P tonsillectomy Social History/Home Situation:Returning home via ambulance. and son to assist at home, and hospice care established. Equipment Owned/DME: [facility] Subjective: Enrique states that he is looking forward to going home. He is feeling a bit weak, but is agreeable to getting out of bed. Objective: General Observation: Supine in bed. Mental Status: Alert and oriented as to person, place, time, and purpose. Able to pay attention, focus, and respond appropriately. Pain: Denies ROM: Right Upper Extremity: ? Shoulder Flexion WFL. Shoulder abduction WFL. Elbow flexion WFL. Wrist flexion WFL. Functional opening and closing of hand WFL. Left Upper Extremity:? Shoulder Flexion WFL. Shoulder abduction WFL. Elbow flexion WFL. Wrist flexion WFL. Functional opening and closing of hand WFL. Right Lower Extremity: Hip flexion WFL. Hip abduction WFL. Knee flexion WFL. Ankle dorsiflexion WFL. Ankle plantarflexion WFL. Left Lower Extremity: Hip flexion WFL. Hip abduction WFL. Knee flexion WFL. Ankle dorsiflexion WFL. Ankle plantarflexion WFL. Strength: Right Upper Extremity: Shoulder flexors 4/5. Shoulder abductors 4/5. Elbow flexors 5/5. Elbow extensors 5/5. Pharmaceutical Officer strong. Left Upper Extremity: Shoulder flexors 4/5. Shoulder abductors 4/5. Elbow flexors 5/5. Elbow extensors 5/5. Pharmaceutical Officer strong. Right Lower Extremity: Hip flexors 3+/5. Hip abductors 3+/5. Knee flexors 3+/5. Knee extensors 3+/5. Ankle dorsiflexors 4-/5. Ankle plantarflexors 4-/5. Left Lower Extremity: Hip flexors 5/5. Hip abductors 5/5. Knee flexors 5/5. Knee extensors 5/5. Ankle dorsiflexors 5/5. Ankle plantarflexors 5/5. Bed Mobility/Transfers: Sit to stand : min A (SBA on 08/28/22) Stand to sit: max cues and mod A due to poor technique. With instruction, patient verbalizes understanding supine-sit: mod A (SBA 08/28/22) Gait: Ambulates 30' with CGA, FWW today due to fatigue. Able to ambulate 300' with FWW and SBA on 08/28/22. Balance: Static Sitting: Good Dynamic Sitting: Good Static Standing: Fair Dynamic Standing: Fair ? Treatment: Therapeutic Activities ([id number]): Transfer training, patient edu on management of cath bag during mobility. Assessment: Enrique has been seen for 10 visits over the past 8 days, and will be returning home for hospice services. His mobility is not as independent today as previous sessions, and he reports fatigue. Held on further intervention in order to conserve energy for his anticipated discharge this evening. He will be returning home for hospice services, and is appropriate for discharge from PT in acute care setting. Goals: Goals X1 week 1. Supine-Sit independent (not met) 2. Sit-Supine independent(not met) 3. Sit-Stand independent(not met) 4. Stand-Sit independent with FWW(not met) 5. Bed-Chair independent with FWW(not met) 6. Chair-Bed independent with FWW(not met) 7. Independent gait on level surface with use of FWW for at least 300 feet without report of pain nor dyspnea (progressing toward, with patient completing 300' with SBA on 08/28/22) 8. Independent stair negotiation while holding onto B rails for at least 2 steps without report of pain nor dyspnea (not met) 9. Independent with home exercise program (met) 10. Good static and dynamic standing balance/tolerance (not met) Plan of Care/Treatment Plan: D/C from PT in acute care setting. TREATMENT CODE/TIME: [id number] (20 minutes) Thank you for the opportunity to participate in the care of this patient. Marisela Altman, PT, DPT [facility] [place], [place]
--- NOTE | 2022-08-29 16:14 | DSE_ITS ---
Date of service: 08/29/22 Time of Service: 16:14 DS: Diagnosis Discharge Diagnosis (1) Encounter for hospice care discussion: Status: Acute Asessment and Plan: Hospital bed and other equipment to assist in his comfort and safety delivered to his home. (2) Anemia: Status: Chronic Asessment and Plan: Likely related to his metastatic prostate CA. Transfused 2 units pRBCs Hemoglobin drifting downward. (3) Depression: Status: Chronic Asessment and Plan: Cont home dose of mirtazapine and Wellbutrin SR (4) Malignant neoplasm of prostate metastatic to bone: Status: Chronic Asessment and Plan: Appt with oncology during this hospitalization via phone. No further treatment options. Pt chosing hospice care at home. (5) Anorexia: Status: Chronic Asessment and Plan: On marinol and mirtazapine. Discharge Plan Disposition Patient Disposition: HOSPICE, HOME Condition: Poor Discharge Details Reason For Visit: Anemia, metastatic prostate CA Admit Date/Time: 08/21/22 20:30 Admit Provider: Nilesh Nolasco Attending Provider: Nilesh Nolasco Primary Care Provider: Artem [facility] Hospital Course: This is an 87-year-old male patient who has a history of progressive metastatic prostate cancer with extensive bony involvement been on chemotherapy since February with a local oncologist.? He was seen in the office just prior to presentation to the ED and was found to be profoundly anemic with the patient having progres sive weakness which was ongoing with occasional dizziness and unsteady gait as well as anorexia with decreased intake since February when chemotherapy was initiated.? He did have a slip and fall the day of presentation and imaging did not show any sequela from this but his anemia was significant requiring transfusion with the patient receiving 2 units of packed red blood cells after admission.? He states that he does feel better but overall continues to be weak but denies any bone pain.? He had no headache or focal neurological symptoms with his fall.? Patient was thought to be slightly dehydrated and blood transfusion did seem to help this as well.? He is on anticoagulation and cardiology did state it was reasonable to continue dabagatrin. The patient is on aspirin as well. ?He appeared not to have any GI blood with negative heme test reported in the ED. The patient's troponin was initially elevated but did trend down prior to being admitted to the [facility] floor.? He was monitored with telemetry. Home Meds and New Rx's Prescriptions: New atorvastatin 40 mg Tablet 80 mg PO QPM Qty: 0 0RF tamsulosin 0.4 mg Capsule 0.4 mg PO DAILY Qty: 30 0RF mirtazapine 15 mg Tablet 30 mg PO HS Qty: 0 0RF Continued Addy Protect (zinc oxide) 12 % cream 1 applic topical BID PRN (Reason: skin irritation) mirtazapine 15 mg tablet 15 mg PO QHS Qty: 60 1RF Rx Instructions: Try 2 tabs at bedtime x 1 week, then review with Dr. Barkley bupropion HCl [Wellbutrin SR] 150 mg tablet sustained-release 12 hr 150 mg PO QAM Qty: 30 1RF Rx Instructions: Trial for mood, energy dronabinol [Marinol] 2.5 mg capsule 2.5 mg PO QACDINNER Qty: 90 1RF Rx Instructions: Trial, 1H before meals albuterol sulfate 90 mcg/actuation aerosol powdr breath activated 2 inh IH QID PRN Complete Multivitamin Tablet 1 tab PO DAILY [id number] Complex 1 EACH tablet 1 ea PO DAILY polyethylene glycol 3350 [Miralax] 17 gram/dose powder 17 g PO DAILY Qty: 510 0RF morphine concentrate 100 mg/5 mL (20 mg/mL) solution See Rx Instructions PO Q1H PRN MDD 240 mg Qty: 30 0RF Rx Instructions: 0.25-1.0 ml po/sl orally every 1 hour, as needed; hospice lorazepam 1 mg tablet 1 mg PO Q4H PRN PRN (Reason: anxiety, dyspnea, nausea) Qty: 10 5RF Rx Instructions: hospice acetaminophen 325 mg Tablet 325 - 650 mg PO Q4H PRN PRNQty: 0 0RF melatonin 3 mg Tablet 3 mg PO HS Qty: 0 0RF magnesium hydroxide [Milk of Magnesia] 400 mg/5 mL Suspension 30 ml PO DAILY PRN PRNQty: 0 0RF docusate sodium [Colace] 100 mg Capsule 100 mg PO TID PRN PRNQty: 0 0RF dabigatran etexilate [Pradaxa] 75 mg Capsule 150 mg PO BID Qty: 0 0RF Discontinued calcium/mag/Vit d PO Rx Instructions: Calcium 1000 mg, Mag 500 mg Vit D 10 mg per patient Discharge Instructions Stand Alone Forms: Nursing Discharge Form Activity:: Activity as Tolerated Equipment/Supplies:: No Equipment Needed Diet:: As Tolerated Discharge Orders Discharge Orders: Discharge Order (Routine); Ordered 08/29/22 Ordered By: Flavio Fortune DS: Summary Time Spent with Patient providing and/or coordinating discharge services: Greater than 30 minutes Status at Discharge Functional status at discharge: uses cane/walker Overall status at discharge: patient is not back to baseline Mental Status: mental status grossly normal Speech and Movement: speech clear Mood: dysthymic mood Affect: blunted Exam Psych Mental Status: mental status grossly normal Speech and Movement: speech clear Mood: dysthymic mood Affect: blunted DS: Data Vitals/I&O Vitals and I&O: Vital Signs Temperature 37.0 C 08/29/22 15:33 Temperature Source Tympanic 08/29/22 15:33 Pulse 97 H 08/29/22 15:33 Pulse Rhythm Regular 08/29/22 08:38 Respiratory Rate 16 08/29/22 15:33 Respiratory Effort Non-Labored 08/29/22 08:38 Respiratory Depth Normal 08/29/22 08:38 Respiratory Pattern Normal 08/29/22 08:38 Blood Pressure 110/65 08/29/22 15:33 Blood Pressure Position Sitting 08/21/22 17:09 Pulse Oximetry 96 08/29/22 15:33 Oxygen Delivery Method Room Air 08/29/22 15:33 Oxygen Flow Rate 0 08/29/22 15:33 Pain Level 0 08/29/22 11:12 Comment 08/29/22 04:19 Intake & Output 08/28/22 08/29/22 08/29/22 23:59 11:59 23:59 Output Total 450 / 450 Balance -450 / -450 Weight 65.4 kg Output: Urine 450 / 450 Other: Urine Color Yellow Urine Appearance Cloudy Clear Data Completed and Pending Labs on day of discharge: Labs from last 24 hours 08/29/22 05:26 Hgb 7.4 L Hct 22.0 L PFSH All Active Problems Encounter for hospice care discussion (Acute) Fear of (Acute) Palliative care encounter (Acute) DNR (do not resuscitate) (Acute) Anemia (Chronic) Fever (Acute) Urinary retention (Acute) Discharge planning issues (Acute) Depression (Chronic) Prostate cancer (Chronic) Acute blood loss anemia (Acute) Anhedonia (Acute) Anorexia (Chronic) Anemia (Chronic) Vitamin D deficiency (Acute) Ataxia (Acute) Left hemiparesis (Acute ~06/2022) wit left sided neglect Chronic anticoagulation (Acute) Weakness (Acute) Malignant neoplasm of prostate metastatic to bone (Chronic) [facility] 04/22/22 Hot flash due to medication (Acute) Mechanical dysphagia (Acute) Hypertension (Chronic) Androgen deprivation therapy (Acute ~06/2022) Anterior epistaxis (Acute) Echocardiogram abnormal (Chronic) No acute findings, but dilated ascending aorta measuring 4.56 cm. 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 due to burning wood Actinic keratosis (Chronic 02/16/12) [employer] [facility] Medical History Acute stasis dermatitis Ambulatory dysfunction Cough Facial basal cell cancer Gastrointestinal stromal tumor of stomach Right bundle branch block Seborrheic keratoses Surgical History Appendectomy colonoscopy (12/23/16) egd W/ bx (02/01/18) [facility] H/O esophagogastroduodenoscopy 01/07/19 [facility] [place]. Alec Omalley MD H/O right wrist surgery LS spine disc surgery Prostate Biopsy (04/05/18) S/P partial gastrectomy (05/10/19) 05/10/19: robotic assisted partial gastrectomy/wedge resection with gastro- gastric anastamosis. [facility]. S/P tonsillectomy Family History Mother , in sleep at age 93. No problems noted. Father , unknown at age 90. Aneurysm Sister No problems noted. Brother No problems noted. Social History Smoking/Tobacco Use Status: Former Tobacco Use Quit Date: 11/30/1963 Pack- years: 5 Tobacco: How many years used: 5 Smoking risk assessment performed?: Yes Alcohol Intake: current Alcohol Intake frequency: 0-2 drinks per day Alcohol type: beer Drug use: Never Substance use type: does not use Adopted: No Caregiver/Support person: No Foster care: No Household members: spouse Housing: house Number of Children: 2 number of grandchildren: 5 Communication Needs: Hard of Hearing Education Level: college Details: Bachelor's Degree Do you need help understanding health information?: Often current occupation: Retired Pets and animals: Yes Pets and animals: dog(s) Sexually active: No Do you think of yourself as: straight/heterosexual Current gender identity: male What is your relationship status?: How often do you talk on the phone with friends or family?: twice per week How often do you get together with friends or relatives?: once per week How often do you attend adventist or congregational services?: decline to answer Do you belong to any clubs or organized social groups?: no Panel score (0-1 are the most socially isolated patients): 2 What type of physical activity do you participate in: walking Duration: 30-45 minutes/day Frequency: 3-4 times per week Jeni/Baptist: Jainism Special jeni needs: No Seatbelt use: always Drive intox or ride w/intox clark driver: No Working smoke detector in home: Yes Fire extinguisher in home: Yes Carbon monox detector in home: Yes Do you feel safe at home: Yes Do you feel safe in your relationship?: Yes
== END 2022-08-29 17:29 | DRG 723 ==
LOC: ER 20:54 → MS 21:33
PROVIDERS: Family Medicine; Internal Medicine; Admitting Provider Family Medicine; Emergency Provider Physician Assistant; PCP Family Medicine; Visit Provider Family Medicine
DX: C61 Malignant neoplasm of prostate (principal); C79.51 Secondary malignant neoplasm of bone; D63.0 Anemia in neoplastic disease; F32.A Depression, unspecified; R53.1 Weakness; F50.89 Other specified eating disorder; Z68.21 Body mass index [BMI] 21.0-21.9, adult; Z79.01 Long term (current) use of anticoagulants; Z79.82 Long term (current) use of aspirin; Z79.899 Other long term (current) drug therapy; R26.81 Unsteadiness on feet; E86.0 Dehydration; W19.XXXA Unspecified fall, initial encounter; R29.6 Repeated falls; Z91.81 History of falling; E55.9 Vitamin D deficiency, unspecified; R13.10 Dysphagia, unspecified; I10 Essential (primary) hypertension; J45.909 Unspecified asthma, uncomplicated; E80.4 Gilbert syndrome; I45.19 Other right bundle-branch block; Z86.010 Personal history of colon polyps; Z90.3 Acquired absence of stomach [part of]; R33.9 Retention of urine, unspecified; Z86.73 Personal history of transient ischemic attack (TIA), and cerebral infarction without residual deficits; R50.9 Fever, unspecified; Z66 Do not resuscitate; Z86.718 Personal history of other venous thrombosis and embolism
CPT/HCPCS: 36415; 80048; 80053; 84145; 86850; 86900; 86901; 86920; 87040; 87635; 97110; 97162; 97530; 99222; 99285; 71045; 81003; 81015; 82272; 83605; 83735; 84484; 85014; 85018; 85025; 85610; 87086; 99223; 99231; 99232; 99233; 99239; J0881; P9016